=== PATIENT | male | born 1975 | race Caucasian/White ===

== ENCOUNTER 2019-09-02 05:55 | Emergency (ER) | payer OTHER ==
[~2019-09-02] VITALS: Ht 172.7 cm; Wt 95.2 kg
--- OUTSIDE RECORDS SUMMARY | ~2019-09-02 | XMS | Encounter Summary ---
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 2.7* 2.5* 2.8* 3.3* CL 105 104 102 111* CO2 29 27 26 19* BUN 14 14 13 15 CREATININE 1.1 1.1 1.05 0.95 PROT 6.6 -- 6.8 7.1 BILITOT 0.4 -- 0.1 0.3 ALT 41 -- 32 46 AST 20 -- 21 20 Phosphorus: Lab Results Component Value Date PHOS 2.4 08/17/2015 Invalid input(s): LABALBU Recent Labs Lab 08/17/15 0416 08/16/15212108/16/15 1001 MG 1.9 1.9 1.6* No results for input(s): AMYLASE in the last 168 hours. Recent Labs Lab 08/16/15 1001 BEART 0 Recent Labs Lab 08/17/15415 APTT 34* INR 1.3 No results for input(s): TSH, T3FREE, FREET4 in the last 168 hours. No results for input(s): CKTOTAL, TROPONINI, TROPONINT, CKMBINDEX in the last 168 hours.i PROBLEM LIST Principal Problem: Poisoning by salicylate, intentional self-harm ([facility]) Active Problems: Self-inflicted laceration of wrist Suicide attempt by drug ingestion (HCC) Type 2 diabetes mellitus with hyperglycemia (HCC) Hypokalemia Hypertension Bipolar affective disorder, depressed (HCC) Sleep apnea ASSESSMENT & PLAN 1. Suicide attempt by drug ingestion salicylate overdose, he was started on Bicarb drip, Dr Valencia is following, will continue to replace electrolytes, Salicylate level trending d own, normal renal function. 2. Bipolar affective disorder, depressed, consult for psychiatry was done discussed with Alayna Webster, start Seroquel and titrate upwards, will call crisis tomorrow once medically cl eared. 3. Self-inflicted laceration of wrist, no significant bleeding, wound care to follow. 4. Type 2 diabetes mellitus with hyperglycemia, on Metformin at home, hold for now. Sliding scale Novolog. 5. Hypokalemia, replace and monitor. 6. Hypertension, blood pressure is low, Norvasc is on hold. 7. CAMPOS, CPAP at night. 8. DVT prophylaxis SCD Case management to arrange for PCP appointment for management of medical conditions. I spent 35 minutes in examining, evaluating and providing further management for this patie nt today. Francois Robert MD 08/17/2015 8:47 AM Jennifer Cooley RP - 08/16/2015 3:31 PM PST Progress Notes by Jennifer Guerrero RPH at 08/16/15 1531 Author: Jennifer Guerrero RPH Service: (none) Author Type: Pharmacist Filed: 08/16/15 153 Date of Service: 08/16/151530 Status: Signed Charge Master Analyst: Jennifer Guerrero RPH (Pharmacist) Clinical Pharmacy Note - Renal Dose Adjustment Seth Lyon 39 y.o. male Ht Readings from Last 1 Encounters: 08/16/15 1.676 m (5' 6") Wt Readings from Last 1 Encounters: 08/16/15 104 kg (229 lb 4.5 oz) CREATININE Date Value Ref Range Status 08/16/2015 0.95 0.70 - 1.30 mg/dL Final Comment: Testing performed at [facility];[address] [place] [address];[place] [address] CREATININE: 0.95 (08/16/15 1001) Estimated creatinine clearance - 119.1 mL/min Pharmacy to renally adjust medications per Dr. Tapia Plan: No medications will require renal dose adjustment based on patient's current estimate d Crcl. Pharmacy will continue to follow and adjust as appropriate. Pharmacist: Jennifer Guerrero 08/16/2015 3:31 PM onversio n Transaction, Provider Unknown - 08/16/2015 2:24 PM PSTFormatting of this note might be di fferent from the original. Case Management by NIA Bran LICSW at 08/16/15 3230 Author: NIA Bran LICSW Service: (none) Author Type: Clerical Secretary Filed: 08/16/15 8801 Date of Service: 08/16/151423 Status: Signed Charge Master Analyst: NIA Bran LICSW (Clerical Secretary) 08/16/15 1428 Discharge Planning Evaluation Admitting Diagnosis essiential hypertension, Aspirin Overdose-intentional, deprewssion and suicide attempt. Readmission No Living Arrangements Alone Support Systems Family members;Friends/neighbors Type of Residence Private residence House type Apartment Independent with ADL's Yes Independent with Mobility Yes Home Care Services No Caregiver after Discharge No Power of Natural Gas Technician No Anticipated Discharge Plan Post Acute Care Needs Other (comment) (Crisis evaluation due to SA) Plan communicated to patient/family Yes Resources Financial concerns No Prescription Plan Yes Name of Pharmacy [facility] [place] Previous home health equipment No Vascular access device No Anticipated Disposition Facility Type Other (Comment) (CRU to eval for Psychiatric placement) Discharge Appointment Time (72 hours) Met with: patient and discussed discharge planning, No home O2. Reports he is suppose to ta ke an aspirin daily, but does not. No DME. Patient states he cut himself multiple times before and had to have stitches (had to have s titches in more than one cut and one had around 10 stitches). Patient denies thinking about hurting others. No voices, olfactory, or visual hallucination s. No previous psychiatric hospitalizations. Patient is suppose to be taking Seroquel, but does not have a Rx. He was started by a PCP rusty Farias. Patient states he has not taken Seroquel in months. Patient reports his PCP damion gnosed him with Bipolar. Mother, Angy Lyon, Pt is a 39 y.o., male Patient's PCP is: PER PT NONE Patient's insurance:Medicaid Insurance coverage/concerns: No Medication coverage/concerns: No [facility] Bedside Delivery: Community resources utilized / needed: Psychiatric eval and referral. Assistance in transportation: TBD Identification of any specific education / training: Illness education. Barriers to Discharge / Alternative housing needed: TBD-may require involuntary psychiatric services. Anticipated DCP: Psychiatric placement. Martine Gaona onver marla Lopez, Provider Unknown - 08/16/2015 10:15 AM PST Case Management by NIA Bran LICSW at 08/16/15 1015 Author: NIA Bran LICSW Service: (none) Author Type: Clerical Secretary Filed: 08/16/15 1021 Date of Service: 08/16/15 1015 Status: Signed Charge Master Analyst: NIA Bran LICSW (Clerical Secretary) CM received a phone call from Sukumar Daugherty, Tennis Net Maker from [facility] ([phone]), which is the [place] phnoe number. Also, he provided the the ph one number for Crisis Response in [facility] ([phone]). Caller wanted to inform [facility] noé t he would be able to evaluate for services (crisis bed etc). Please call him for discharge planning. docume nted in this encounter Plan of Treatment Not on filedocumented as of this encounter Procedures + +--------+ + + + | Procedure Name | Priori | Date/Time | Associated Diagnosis | Comments | | | ty | | | | + +--------+ + + + | POC GLUCOSE | Routin | 08/18/2015 | | Results for this | | | e | 4:36 PM | | procedure are in the | | | | PST | | results section. | + +--------+ + + + | POC GLUCOSE | Routin | 08/18/2015 | | Results for this | | | e | 12:02 PM | | procedure are in the | | | | PST | | results section. | + +--------+ + + + | BASIC METABOLIC | Routin | 08/18/2015 | | Results for this | | PANEL | e | 8:26 AM | | procedure are in the | | | | PST | | results section. | + +--------+ + + + | POC GLUCOSE | Routin | 08/18/2015 | | Results for this | | | e | 5:17 AM | | procedure are in the | | | | PST | | results section. | + +--------+ + + + | POC GLUCOSE | Routin | 08/17/2015 | | Results for this | | | e | 9:19 PM | | procedure are in the | | | | PST | | results section. | + +--------+ + + + | POC GLUCOSE | Routin | 08/17/2015 | | Results for this | | | e | 4:12 PM | | procedure are in the | | | | PST | | results section. | + +--------+ + + + | SALICYLATE LEVEL | Routin | 08/17/2015 | | Results for this | | | e | 4:09 PM | | procedure are in the | | | | PST | | results section. | + +--------+ + + + | COMPREHENSIVE | Routin | 08/17/2015 | | Results for this | | METABOLIC PANEL | e | 4:09 PM | | procedure are in the | | | | PST | | results section. | + +--------+ + + + | POC GLUCOSE | Routin | 08/17/2015 | | Results for this | | | e | 11:53 AM | | procedure are in the | | | | PST | | results section. | + +--------+ + + + | SALICYLATE LEVEL | Routin | 08/17/2015 | | Results for this | | | e | 7:52 AM | | procedure are in the | | | | PST | | results section. | + +--------+ + + + | COMPREHENSIVE | Routin | 08/17/2015 | | Results for this | | METABOLIC PANEL | e | 7:52 AM | | procedure are in the | | | | PST | | results section. | + +--------+ + + + | POC GLUCOSE | Routin | 08/17/2015 | | Results for this | | | e | 5:30 AM | | procedure are in the | | | | PST | | results section. | + +--------+ + + + | EXTERNAL LAB: CBC | Routin | 08/17/2015 | | Results for this | | | e | 4:16 AM | | procedure are in the | | | | PST | | results section. | + +--------+ + + + | LIPID PANEL | Routin | 08/17/2015 | | Results for this | | | e | 4:16 AM | | procedure are in the | | | | PST | | results section. | + +--------+ + + + | PTT | Routin | 08/17/2015 | | Results for this | | | e | 4:16 AM | | procedure are in the | | | | PST | | results section. | + +--------+ + + + | PROTIME INR | Routin | 08/17/2015 | | Results for this | | | e | 4:16 AM | | procedure are in the | | | | PST | | results section. | + +--------+ + + + | PHOSPHORUS | Routin | 08/17/2015 | | Results for this | | | e | 4:16 AM | | procedure are in the | | | | PST | | results section. | + +--------+ + + + | MAGNESIUM | Routin | 08/17/2015 | | Results for this | | | e | 4:16 AM | | procedure are in the | | | | PST | | results section. | + +--------+ + + + | HEMOGLOBIN A1C | Routin | 08/17/2015 | | Results for this | | | e | 4:16 AM | | procedure are in the | | | | PST | | results section. | + +--------+ + + + | SALICYLATE LEVEL | Routin | 08/16/2015 | | Results for this | | | e | 11:55 PM | | procedure are in the | | | | PST | | results section. | + +--------+ + + + | COMPREHENSIVE | Routin | 08/16/2015 | | Results for this | | METABOLIC PANEL | e | 11:55 PM | | procedure are in the | | | | PST | | results section. | + +--------+ + + + | POC GLUCOSE | Routin | 08/16/2015 | | Results for this | | | e | 9:27 PM | | procedure are in the | | | | PST | | results section. | + +--------+ + + + | MAGNESIUM | Routin | 08/16/2015 | | Results for this | | | e | 9:22 PM | | procedure are in the | | | | PST | | results section. | + +--------+ + + + | BASIC METABOLIC | Routin | 08/16/2015 | | Results for this | | PANEL | e | 9:22 PM | | procedure are in the | | | | PST | | results section. | + +--------+ + + + | POC GLUCOSE | Routin | 08/16/2015 | | Results for this | | | e | 4:01 PM | | procedure are in the | | | | PST | | results section. | + +--------+ + + + | PHOSPHORUS | Routin | 08/16/2015 | | Results for this | | | e | 4:00 PM | | procedure are in the | | | | PST | | results section. | + +--------+ + + + | SALICYLATE LEVEL | Routin | 08/16/2015 | | Results for this | | | e | 4:00 PM | | procedure are in the | | | | PST | | results section. | + +--------+ + + + | COMPREHENSIVE | Routin | 08/16/2015 | | Results for this | | METABOLIC PANEL | e | 4:00 PM | | procedure are in the | | | | PST | | results section. | + +--------+ + + + | PH, VENOUS | Routin | 08/16/2015 | | Results for this | | | e | 10:49 AM | | procedure are in the | | | | PST | | results section. | + +--------+ + + + | MAGNESIUM | Routin | 08/16/2015 | | Results for this | | | e | 10:01 AM | | procedure are in the | | | | PST | | results section. | + +--------+ + + + | SALICYLATE LEVEL | Routin | 08/16/2015 | | Results for this | | | e | 10:01 AM | | procedure are in the | | | | PST | | results section. | + +--------+ + + + | COMPREHENSIVE | Routin | 08/16/2015 | | Results for this | | METABOLIC PANEL | e | 10:01 AM | | procedure are in the | | | | PST | | results section. | + +--------+ + + + documented in this encounter Results POC Glucose (08/18/2015 4:36 PM PST) + + + + + + | Component | Value | Ref Range | Performed | Pathologist | | | | | At | Signature | + + + + + + | Glucose, | 114 (H)Comment: Testing | 65 - 99 mg/dL | EXTERNAL | | | Fingerstick | performed at [facility];[address] | | LAB | | | | [address];[place] | | | | | | [address] | | | | + + + + + + + + | Specimen | + + | | + + + +---------+ + + | Performing | Address | City/State/Zipcode | Phone Number | | Organization | | | | + +---------+ + + | EXTERNAL LAB | | | | + +---------+ + + POC Glucose (08/18/2015 12:02 PM PST) + + + + + + | Component | Value | Ref Range | Performed | Pathologist | | | | | At | Signature | + + + + + + | Glucose, | 143 (H)Comment: Testing | 65 - 99 mg/dL | EXTERNAL | | | Fingerstick | performed at [facility] | | LAB | | | | [address];[place] | | | | | | [address] | | | | + + + + + + + + | Specimen | + + | | + + + +---------+ + + | Performing | Address | City/State/Zipcode | Phone Number | | Organization | | | | + +---------+ + + | EXTERNAL LAB | | | | + +---------+ + + Basic Metabolic Panel (08/18/2015 8:26 AM PST) + + + + + + | Component | Value | Ref Range | Performed | Pathologist | | | | | At | Signature | + + + + + + | Na | 137Comment: Testing | 135 - 143 | EXTERNAL | | | | performed at [facility];[address] | mmol/L | LAB | | | | [address];[place] | | | | | | [address] | | | | + + + + + + | K | 3.6Comment: Testing | 3.5 - 4.9 | EXTERNAL | | | | performed at [facility];[address] | mmol/L | LAB | | | | [address];[place] | | | | | | [address] | | | | + + + + + + | Cl | 104Comment: Testing | 99 - 109 mmol/L | EXTERNAL | | | | performed at [facility];[address] | | LAB | | | | [address];[place] | | | | | | [address] | | | | + + + + + + | CO2 | 27Comment: Testing | 23 - 32 mmol/L | EXTERNAL | | | | performed at [facility];[address] | | LAB | | | | [address];[place] | | | | | | [address] | | | | + + + + + + | Anion Gap | 10Comment: Testing | 5 - 20 mmol/L | EXTERNAL | | | | performed at [facility];[address] | | LAB | | | | [address];[place] | | | | | | [address] | | | | + + + + + + | Glucose, | 132 (H)Comment: Testing | 65 - 99 mg/dL | EXTERNAL | | | Fasting | performed at [facility];[address] | | LAB | | | | [address];[place] | | | | | | [address] | | | | + + + + + + | BUN | 5 (L)Comment: Testing | 8 - 25 mg/dL | EXTERNAL | | | | performed at [facility];[address] | | LAB | | | | [address];[place] | | | | | | [address] | | | | + + + + + + | Creatinine | 0.62 (L)Comment: Testing | 0.70 - 1.30 | EXTERNAL | | | | performed at [facility];[address] | mg/dL | LAB | | | | [address];[place] | | | | | | [address] | | | | + + + + + + | BUN/Creatin | 8Comment: Testing | | EXTERNAL | | | ine Ratio | performed at [facility];[address] | | LAB | | | | [address];[place] | | | | | | [address] | | | | + + + + + + | Calcium | 8.0 (L)Comment: Testing | 8.5 - 10.5 | EXTERNAL | | | | performed at [facility];[address] | mg/dL | LAB | | | | [address];[place] | | | | | | [address] | | | | + + + + + + | Estimated | >60Comment: GFR <60: | mL/min/1.73m2 | EXTERNAL | | | GFR | CHRONIC KIDNEY DISEASE, | | LAB | | | | IF FOUND OVER A 3 MONTH | | | | | | PERIOD.GFR <15: KIDNEY | | | | | | FAILURE.FOR | | | | | | AMERICANS, MULTIPLY THE | | | | | | CALCULATED GFR BY | | | | | | 1.210.Testing performed | | | | | | at [facility];[address] | | | | | | [address];[place] [address] | | | | + + + + + + + + | Specimen | + + | Blood specimen | | (specimen) | + + + +---------+ + + | Performing | Address | City/State/Zipcode | Phone Number | | Organization | | | | + +---------+ + + | EXTERNAL LAB | | | | + +---------+ + + POC Glucose (08/18/2015 5:17 AM PST) + + + + + + | Component | Value | Ref Range | Performed | Pathologist | | | | | At | Signature | + + + + + + | Glucose, | 136 (H)Comment: Testing | 65 - 99 mg/dL | EXTERNAL | | | Fingerstick | performed at [facility];[address] | | LAB | | | | [address];[place], [place] | | | | | | [address] | | | | + + + + + + + + | Specimen | + + | | + + + +---------+ + + | Performing | Address | City/State/Zipcode | Phone Number | | Organization | | | | + +---------+ + + | EXTERNAL LAB | | | | + +---------+ + + POC Glucose (08/17/2015 9:19 PM PST) + + + + + + | Component | Value | Ref Range | Performed | Pathologist | | | | | At | Signature | + + + + + + | Glucose, | 132 (H)Comment: Testing | 65 - 99 mg/dL | EXTERNAL | | | Fingerstick | performed at [facility];[address] | | LAB | | | | [address];[place] | | | | | | [address] | | | | + + + + + + + + | Specimen | + + | | + + + +---------+ + + | Performing | Address | City/State/Zipcode | Phone Number | | Organization | | | | + +---------+ + + | EXTERNAL LAB | | | | + +---------+ + + POC Glucose (08/17/2015 4:12 PM PST) + + + + + + | Component | Value | Ref Range | Performed | Pathologist | | | | | At | Signature | + + + + + + | Glucose, | 113 (H)Comment: Testing | 65 - 99 mg/dL | EXTERNAL | | | Fingerstick | performed at [facility];[address] | | LAB | | | | [address];[place] | | | | | | [address] | | | | + + + + + + + + | Specimen | + + | | + + + +---------+ + + | Performing | Address | City/State/Zipcode | Phone Number | | Organization | | | | + +---------+ + + | EXTERNAL LAB | | | | + +---------+ + + Salicylate Level (08/17/2015 4:09 PM PST) + + + + + + | Component | Value | Ref Range | Performed | Pathologist | | | | | At | Signature | + + + + + + | Salicylate | 7.0Comment: Testing | 2.8 - 20.0 | EXTERNAL | | | Lvl | performed at [facility];[address] | mg/dL | LAB | | | | [address];[place] | | | | | | [address] | | | | + + + + + + + + | Specimen | + + | Blood specimen | | (specimen) | + + + +---------+ + + | Performing | Address | City/State/Zipcode | Phone Number | | Organization | | | | + +---------+ + + | EXTERNAL LAB | | | | + +---------+ + + Comprehensive Metabolic Panel (08/17/2015 4:09 PM PST) + + + + + + | Component | Value | Ref Range | Performed | Pathologist | | | | | At | Signature | + + + + + + | Na | 137Comment: Testing | 135 - 143 | EXTERNAL | | | | performed at [facility], [address] | mmol/L | LAB | | | | [address], | | | | | | [place] [address] | | | | + + + + + + | K | 3.2 (L)Comment: Testing | 3.5 - 4.9 | EXTERNAL | | | | performed at [facility], [address] | mmol/L | LAB | | | | [address], | | | | | | [place] [address] | | | | + + + + + + | Cl | 102Comment: Testing | 99 - 109 mmol/L | EXTERNAL | | | | performed at [facility], [address] | | LAB | | | | [address], | | | | | | [place] [address] | | | | + + + + + + | CO2 | 30Comment: Testing | 23 - 32 mmol/L | EXTERNAL | | | | performed at [facility], [address] | | LAB | | | | [address], | | | | | | [place] [address] | | | | + + + + + + | Anion Gap | 8Comment: Testing | 5 - 20 mmol/L | EXTERNAL | | | | performed at [facility], [address] | | LAB | | | | [address], | | | | | | [place] [address] | | | | + + + + + + | Glucose, | 124 (H)Comment: Testing | 65 - 99 mg/dL | EXTERNAL | | | Fasting | performed at [facility], [address] | | LAB | | | | [address], | | | | | | [place] [address] | | | | + + + + + + | BUN | 7 (L)Comment: Testing | 8 - 25 mg/dL | EXTERNAL | | | | performed at [facility], [address] | | LAB | | | | [address], | | | | | | [place] [address] | | | | + + + + + + | Creatinine | 0.74Comment: Testing | 0.70 - 1.30 | EXTERNAL | | | | performed at [facility], [address] | mg/dL | LAB | | | | [address], | | | | | | [place] [address] | | | | + + + + + + | BUN/Creatin | 9Comment: Testing | | EXTERNAL | | | ine Ratio | performed at [facility], [address] | | LAB | | | | [address], | | | | | | [place] [address] | | | | + + + + + + | Calcium | 8.5Comment: Testing | 8.5 - 10.5 | EXTERNAL | | | | performed at [facility], [address] | mg/dL | LAB | | | | [address], | | | | | | [place] [address] | | | | + + + + + + | Protein, | 5.6 (L)Comment: Testing | 6.3 - 8.2 g/dL | EXTERNAL | | | Total | performed at [facility], [address] | | LAB | | | | [address], | | | | | | [place] [address] | | | | + + + + + + | Albumin | 3.6Comment: Testing | 3.6 - 5.0 g/dL | EXTERNAL | | | | performed at [facility], [address] | | LAB | | | | [address], | | | | | | [place] [address] | | | | + + + + + + | Globulin | 2.0Comment: Testing | 1.3 - 4.9 g/dL | EXTERNAL | | | | performed at [facility], [address] | | LAB | | | | [address], | | | | | | [place] [address] | | | | + + + + + + | A/G Ratio | 1.8Comment: Testing | 1.0 - 2.4 | EXTERNAL | | | | performed at [facility], [address] | | LAB | | | | [address], | | | | | | [place] [address] | | | | + + + + + + | Bilirubin | 0.3Comment: Testing | 0.1 - 1.5 mg/dL | EXTERNAL | | | Total | performed at [facility], [address] | | LAB | | | | [address], | | | | | | [place] [address] | | | | + + + + + + | ALP, | 29 (L)Comment: Testing | 35 - 115 U/L | EXTERNAL | | | External | performed at [facility], [address] | | LAB | | | | [address], | | | | | | [place] [address] | | | | + + + + + + | AST | 20Comment: Testing | 10 - 45 U/L | EXTERNAL | | | | performed at [facility], [address] | | LAB | | | | [address], | | | | | | [place] [address] | | | | + + + + + + | ALT | 25Comment: Testing | 10 - 65 U/L | EXTERNAL | | | | performed at [facility], [address] | | LAB | | | | [facility], | | | | | | [place] [address] | | | | + + + + + + | Estimated | >60Comment: GFR <60: | mL/min/1.73m2 | EXTERNAL | | | GFR | CHRONIC KIDNEY DISEASE, | | LAB | | | | IF FOUND OVER A 3 MONTH | | | | | | PERIOD.GFR <15: KIDNEY | | | | | | FAILURE.FOR | | | | | | AMERICANS, MULTIPLY THE | | | | | | CALCULATED GFR BY | | | | | | 1.210.Testing performed | | | | | | at [facility], [address] | | | | | | [facility], | | | | | | [place] [address] | | | | + + + + + + + + | Specimen | + + | Blood specimen | | (specimen) | + + + +---------+ + + | Performing | Address | City/State/Zipcode | Phone Number | | Organization | | | | + +---------+ + + | EXTERNAL LAB | | | | + +---------+ + + POC Glucose (08/17/2015 11:53 AM PST) + + + + + + | Component | Value | Ref Range | Performed | Pathologist | | | | | At | Signature | + + + + + + | Glucose, | 150 (H)Comment: Testing | 65 - 99 mg/dL | EXTERNAL | | | Fingerstick | performed at [facility];[address] | | LAB | | | | [address];[place], [place] | | | | | | [address] | | | | + + + + + + + + | Specimen | + + | | + + + +---------+ + + | Performing | Address | City/State/Zipcode | Phone Number | | Organization | | | | + +---------+ + + | EXTERNAL LAB | | | | + +---------+ + + Salicylate Level (08/17/2015 7:52 AM PST) + + + + + + | Component | Value | Ref Range | Performed | Pathologist | | | | | At | Signature | + + + + + + | Salicylate | 22.4 (H)Comment: Testing | 2.8 - 20.0 | EXTERNAL | | | Lvl | performed at [facility];[address] | mg/dL | LAB | | | | [address];[place], [place] | | | | | | [address] | | | | + + + + + + + + | Specimen | + + | Blood specimen | | (specimen) | + + + +---------+ + + | Performing | Address | City/State/Zipcode | Phone Number | | Organization | | | | + +---------+ + + | EXTERNAL LAB | | | | + +---------+ + + Comprehensive Metabolic Panel (08/17/2015 7:52 AM PST) + + + + + + | Component | Value | Ref Range | Performed | Pathologist | | | | | At | Signature | + + + + + + | Na | 139Comment: Testing | 135 - 143 | EXTERNAL | | | | performed at [facility], [address] | mmol/L | LAB | | | | [address], | | | | | | [place] [address] | | | | + + + + + + | K | 2.8 (L)Comment: Testing | 3.5 - 4.9 | EXTERNAL | | | | performed at [facility], [address] | mmol/L | LAB | | | | [address], | | | | | | [place] [address] | | | | + + + + + + | Cl | 101Comment: Testing | 99 - 109 mmol/L | EXTERNAL | | | | performed at [facility], [address] | | LAB | | | | [address] [address], | | | | | | [place] [address] | | | | + + + + + + | CO2 | 31Comment: Testing | 23 - 32 mmol/L | EXTERNAL | | | | performed at [facility], [address] | | LAB | | | | [address], | | | | | | [place] [address] | | | | + + + + + + | Anion Gap | 10Comment: Testing | 5 - 20 mmol/L | EXTERNAL | | | | performed at [facility], [address] | | LAB | | | | [address], | | | | | | [place] [address] | | | | + + + + + + | Glucose, | 164 (H)Comment: Testing | 65 - 99 mg/dL | EXTERNAL | | | Fasting | performed at [facility], [address] | | LAB | | | | [address], | | | | | | [place] [address] | | | | + + + + + + | BUN | 10Comment: Testing | 8 - 25 mg/dL | EXTERNAL | | | | performed at [facility], [address] | | LAB | | | | [address], | | | | | | [place] [address] | | | | + + + + + + | Creatinine | 0.88Comment: Testing | 0.70 - 1.30 | EXTERNAL | | | | performed at [facility], [address] | mg/dL | LAB | | | | [address], | | | | | | [place] [address] | | | | + + + + + + | BUN/Creatin | 11Comment: Testing | | EXTERNAL | | | ine Ratio | performed at [facility], [address] | | LAB | | | | [address], | | | | | | [place] [address] | | | | + + + + + + | Calcium | 8.6Comment: Testing | 8.5 - 10.5 | EXTERNAL | | | | performed at [facility], [address] | mg/dL | LAB | | | | [address], | | | | | | [place] [address] | | | | + + + + + + | Protein, | 5.5 (L)Comment: Testing | 6.3 - 8.2 g/dL | EXTERNAL | | | Total | performed at [facility], [address] | | LAB | | | | [address], | | | | | | [place] [address] | | | | + + + + + + | Albumin | 3.7Comment: Testing | 3.6 - 5.0 g/dL | EXTERNAL | | | | performed at [facility], [address] | | LAB | | | | [address], | | | | | | [place] [address] | | | | + + + + + + | Globulin | 1.8Comment: Testing | 1.3 - 4.9 g/dL | EXTERNAL | | | | performed at [facility], [address] | | LAB | | | | [address], | | | | | | [place] [address] | | | | + + + + + + | A/G Ratio | 2.1Comment: Testing | 1.0 - 2.4 | EXTERNAL | | | | performed at [facility], [address] | | LAB | | | | [address], | | | | | | [place] [address] | | | | + + + + + + | Bilirubin | 0.2Comment: Testing | 0.1 - 1.5 mg/dL | EXTERNAL | | | Total | performed at [facility], [address] | | LAB | | | | [address], | | | | | | [place] [address] | | | | + + + + + + | ALP, | 26 (L)Comment: Testing | 35 - 115 U/L | EXTERNAL | | | External | performed at [facility], [address] | | LAB | | | | [address], | | | | | | [place] [address] | | | | + + + + + + | AST | 21Comment: Testing | 10 - 45 U/L | EXTERNAL | | | | performed at [facility], [address] | | LAB | | | | [address], | | | | | | [place] [address] | | | | + + + + + + | ALT | 29Comment: Testing | 10 - 65 U/L | EXTERNAL | | | | performed at [facility], [address] | | LAB | | | | [address], | | | | | | [place] [address] | | | | + + + + + + | Estimated | >60Comment: GFR <60: | mL/min/1.73m2 | EXTERNAL | | | GFR | CHRONIC KIDNEY DISEASE, | | LAB | | | | IF FOUND OVER A 3 MONTH | | | | | | PERIOD.GFR <15: KIDNEY | | | | | | FAILURE.FOR | | | | | | AMERICANS, MULTIPLY THE | | | | | | CALCULATED GFR BY | | | | | | 1.210.Testing performed | | | | | | at [facility], [address] | | | | | | [address], | | | | | | [place] [address] | | | | + + + + + + + + | Specimen | + + | Blood specimen | | (specimen) | + + + +---------+ + + | Performing | Address | City/State/Zipcode | Phone Number | | Organization | | | | + +---------+ + + | EXTERNAL LAB | | | | + +---------+ + + POC Glucose (08/17/2015 5:30 AM PST) + + + + + + | Component | Value | Ref Range | Performed | Pathologist | | | | | At | Signature | + + + + + + | Glucose, | 156 (H)Comment: Testing | 65 - 99 mg/dL | EXTERNAL | | | Fingerstick | performed at [facility];[address] | | LAB | | | | [address];[place] | | | | | | [address] | | | | + + + + + + + + | Specimen | + + | | + + + +---------+ + + | Performing | Address | City/State/Zipcode | Phone Number | | Organization | | | | + +---------+ + + | EXTERNAL LAB | | | | + +---------+ + + PTT (08/17/2015 4:16 AM PST) + + + + + + | Component | Value | Ref Range | Performed | Pathologist | | | | | At | Signature | + + + + + + | aPTT, | 34 (H)Comment: Testing | 23 - 32 seconds | EXTERNAL | | | Patient | performed at [facility];[address] | | LAB | | | | [address];[place] | | | | | | [address] | | | | + + + + + + + + | Specimen | + + | Blood specimen | | (specimen) | + + + +---------+ + + | Performing | Address | City/State/Zipcode | Phone Number | | Organization | | | | + +---------+ + + | EXTERNAL LAB | | | | + +---------+ + + Protime INR (08/17/2015 4:16 AM PST) + + + + + + | Component | Value | Ref Range | Performed | Pathologist | | | | | At | Signature | + + + + + + | INR | 1.3Comment: REFERENCE | | EXTERNAL | | | | RANGE:0.9 - 1.2 | | LAB | | | | NON-ANTICOAGULATED2.0 | | | | | | - 3.0 ALL OTHER | | | | | | THERAPEUTIC | | | | | | INDICATIONS2.5 - 3.5 | | | | | | MECHANICAL HEART VALVES, | | | | | | RECURRENT OR SYSTEMIC | | | | | | EMBOLISMTesting | | | | | | performed at [facility];[address] | | | | | | [address] [facility];[place], [place] | | | | | | [address] | | | | + + + + + + + + | Specimen | + + | Blood specimen | | (specimen) | + + + +---------+ + + | Performing | Address | City/State/Zipcode | Phone Number | | Organization | | | | + +---------+ + + | EXTERNAL LAB | | | | + +---------+ + + External Lab: CBC (08/17/2015 4:16 AM PST) + + + + + + | Component | Value | Ref Range | Performed | Pathologist | | | | | At | Signature | + + + + + + | WBC | 8.47Comment: Testing | 3.80 - 11.00 | EXTERNAL | | | | performed at [facility], [address] | K/uL | LAB | | | | [address], | | | | | | [place] [address] | | | | + + + + + + | RED CELL | 4.14 (L)Comment: Testing | 4.20 - 5.70 | EXTERNAL | | | COUNT | performed at [facility], [address] | M/uL | LAB | | | | [address], | | | | | | [place] [address] | | | | + + + + + + | Hgb | 13.2Comment: Testing | 13.2 - 17.0 | EXTERNAL | | | | performed at [facility], [address] | g/dL | LAB | | | | [address], | | | | | | [place] [address] | | | | + + + + + + | Hematocrit, | 38.9 (L)Comment: Testing | 39.0 - 50.0 % | EXTERNAL | | | POC | performed at [facility], [address] | | LAB | | | | [address], | | | | | | [place] [address] | | | | + + + + + + | MCV | 94.0Comment: Testing | 80.0 - 100.0 fl | EXTERNAL | | | | performed at [facility], [address] | | LAB | | | | [address], | | | | | | [place] [address] | | | | + + + + + + | MCH | 31.8Comment: Testing | 27.0 - 34.0 pg | EXTERNAL | | | | performed at [facility], [address] | | LAB | | | | [address], | | | | | | [place] [address] | | | | + + + + + + | MCHC | 33.8Comment: Testing | 32.0 - 35.5 | EXTERNAL | | | | performed at [facility], [address] | g/dL | LAB | | | | [address], | | | | | | [place] [address] | | | | + + + + + + | RDW-CV | 46.8Comment: Testing | 37 - 53 fl | EXTERNAL | | | | performed at [facility], [address] | | LAB | | | | [address], | | | | | | [place] [address] | | | | + + + + + + | Platelet | 237Comment: Testing | 150 - 400 K/uL | EXTERNAL | | | Count | performed at [facility], [address] | | LAB | | | Plasma | [address], | | | | | | [place] [address] | | | | + + + + + + | MPV | 9.4Comment: Testing | fl | EXTERNAL | | | | performed at [facility], [address] | | LAB | | | | [address], | | | | | | [place] [address] | | | | + + + + + + | Differentia | AUTOMATEDComment: | | EXTERNAL | | | l Type | Testing performed at | | LAB | | | | [facility], [address] | | | | | | [place] | | | | | | [address] | | | | + + + + + + | % Segmented | 52.64Comment: Testing | % | EXTERNAL | | | | performed at [facility], [address] | | LAB | | | Neutrophils | [address], | | | | | | [place] [address] | | | | + + + + + + | % | 35.23Comment: Testing | % | EXTERNAL | | | Lymphocytes | performed at [facility], [address] | | LAB | | | | [address], | | | | | | [place] [address] | | | | + + + + + + | % Monocytes | 9.74Comment: Testing | % | EXTERNAL | | | | performed at [facility], [address] | | LAB | | | | [address], | | | | | | [place] [address] | | | | + + + + + + | % | 1.19Comment: Testing | % | EXTERNAL | | | Eosinophils | performed at [facility], [address] | | LAB | | | | [address], | | | | | | [place] [address] | | | | + + + + + + | % Basophils | 1.20Comment: Testing | % | EXTERNAL | | | | performed at [facility], [address] | | LAB | | | | [address], | | | | | | [place] [address] | | | | + + + + + + | Absolute | 4.46Comment: Testing | 1.90 - 7.40 | EXTERNAL | | | Segmented | performed at [facility], [address] | K/uL | LAB | | | Neutrophils | [address], | | | | | | [place] [address] | | | | + + + + + + | Absolute | 2.99Comment: Testing | 1.00 - 3.90 | EXTERNAL | | | Lymphocytes | performed at [facility], [address] | K/uL | LAB | | | | [address], | | | | | | [place] [address] | | | | + + + + + + | Absolute | 0.83 (H)Comment: Testing | 0.00 - 0.80 | EXTERNAL | | | Monocytes | performed at [facility], [address] | K/uL | LAB | | | | [address], | | | | | | [place] [address] | | | | + + + + + + | Absolute | 0.10Comment: Testing | 0.00 - 0.50 | EXTERNAL | | | Eosinophils | performed at [facility], [address] | K/uL | LAB | | | | [address], | | | | | | [place] [address] | | | | + + + + + + | Absolute | 0.10Comment: Testing | 0.00 - 0.10 | EXTERNAL | | | Basophils | performed at [facility], [address] | K/uL | LAB | | | | [address], | | | | | | [place] [address] | | | | + + + + + + + + | Specimen | + + | Blood specimen | | (specimen) | + + + +---------+ + + | Performing | Address | City/State/Zipcode | Phone Number | | Organization | | | | + +---------+ + + | EXTERNAL LAB | | | | + +---------+ + + Phosphorus (08/17/2015 4:16 AM PST) + + + + + + | Component | Value | Ref Range | Performed | Pathologist | | | | | At | Signature | + + + + + + | PHOSPHORUS | 2.4Comment: Testing | 2.3 - 4.8 mg/dL | EXTERNAL | | | | performed at [facility], [address] | | LAB | | | | [address], | | | | | | [place] [address] | | | | + + + + + + + + | Specimen | + + | Blood specimen | | (specimen) | + + + +---------+ + + | Performing | Address | City/State/Zipcode | Phone Number | | Organization | | | | + +---------+ + + | EXTERNAL LAB | | | | + +---------+ + + Magnesium (08/17/2015 4:16 AM PST) + + + + + + | Component | Value | Ref Range | Performed | Pathologist | | | | | At | Signature | + + + + + + | Magnesium | 1.9Comment: Testing | 1.7 - 2.4 mg/dL | EXTERNAL | | | | performed at [facility], [address] | | LAB | | | | [address], | | | | | | [place] [address] | | | | + + + + + + + + | Specimen | + + | Blood specimen | | (specimen) | + + + +---------+ + + | Performing | Address | City/State/Zipcode | Phone Number | | Organization | | | | + +---------+ + + | EXTERNAL LAB | | | | + +---------+ + + Hemoglobin A1C (08/17/2015 4:16 AM PST) + + + + + + | Component | Value | Ref Range | Performed | Pathologist | | | | | At | Signature | + + + + + + | Hemoglobin | 8.4 (H)Comment: The | 4.0 - 6.0 % | EXTERNAL | | | A1c | [facility] | | LAB | | | | Association considers a | | | | | | hemoglobin A1c result of | | | | | | <7.0% to be the goal of | | | | | | diabetic therapy. | | | | | | When results are | | | | | | consistently >8.0%, the | | | | | | ADA suggests | | | | | | reevaluation of the | | | | | | treatment regimen. The | | | | | | testing method used is | | | | | | certified traceable to | | | | | | the Diabetes Control and | | | | | | Complications Trial | | | | | | reference method.Testing | | | | | | performed at [facility], [address] | | | | | [address], | | | | | | [place] [address] | | | | + + + + + + | Glycohemogl | 194Comment: The ADA | mg/dL | EXTERNAL | | | obin | considers an eAG result | | LAB | | | (GHb),Total | of LT 154 mg/dL to be | | | | | | the goal of diabetic | | | | | | therapy. Estimated | | | | | | Average Glucose | | | | | | calculated from | | | | | | hemoglobin A1c by use of | | | | | | the ADA recommended | | | | | | formula.Testing | | | | | | performed at [facility], [address] | | | | | | [facility], | | | | | | [place] [address] | | | | + + + + + + + + | Specimen | + + | Blood specimen | | (specimen) | + + + +---------+ + + | Performing | Address | City/State/Zipcode | Phone Number | | Organization | | | | + +---------+ + + | EXTERNAL LAB | | | | + +---------+ + + Lipid Panel (08/17/2015 4:16 AM PST) + + + + + + | Component | Value | Ref Range | Performed | Pathologist | | | | | At | Signature | + + + + + + | Cholesterol | 122Comment: Testing | mg/dL | EXTERNAL | | | | performed at [facility], [address] | | LAB | | | | [address], | | | | | | [place] [address] | | | | + + + + + + | Triglycerid | 85Comment: Testing | mg/dL | EXTERNAL | | | es | performed at [facility], [address] | | LAB | | | | [address], | | | | | | [place] [address] | | | | + + + + + + | HDL | 34 (L)Comment: Testing | mg/dL | EXTERNAL | | | | performed at [facility], [address] | | LAB | | | | [address] [facility], | | | | | | [place] [address] | | | | + + + + + + | LDL | 71Comment: Testing | mg/dL | EXTERNAL | | | Cholesterol | performed at [facility], [address] | | LAB | | | , | [address], | | | | | Calculated, | [place] [address] | | | | | External | | | | | + + + + + + + + | Specimen | + + | Blood specimen | | (specimen) | + + + +---------+ + + | Performing | Address | City/State/Zipcode | Phone Number | | Organization | | | | + +---------+ + + | EXTERNAL LAB | | | | + +---------+ + + Salicylate Level (08/16/2015 11:55 PM PST) + + + + + + | Component | Value | Ref Range | Performed | Pathologist | | | | | At | Signature | + + + + + + | Salicylate | 43.1 (H)Comment: Testing | 2.8 - 20.0 | EXTERNAL | | | Lvl | performed at [facility];[address] | mg/dL | LAB | | | | [address];[place], [place] | | | | | | [address] | | | | + + + + + + + + | Specimen | + + | Blood specimen | | (specimen) | + + + +---------+ + + | Performing | Address | City/State/Zipcode | Phone Number | | Organization | | | | + +---------+ + + | EXTERNAL LAB | | | | + +---------+ + + Comprehensive Metabolic Panel (08/16/2015 11:55 PM PST) + + + + + + | Component | Value | Ref Range | Performed | Pathologist | | | | | At | Signature | + + + + + + | Na | 141Comment: Testing | 135 - 143 | EXTERNAL | | | | performed at [facility];[address] | mmol/L | LAB | | | | [address];[place] | | | | | | [address] | | | | + + + + + + | K | 2.7 (LL)Comment: CALLED | 3.5 - 4.9 | EXTERNAL | | | | TO MALIHA Jesus RN/4RP AT | mmol/L | LAB | | | | 0023 BY MWREAD BACK | | | | | | RESULTS VERIFIEDTesting | | | | | | performed at [facility];[address] | | | | | | [address];[place] | | | | | | [address] | | | | + + + + + + | Cl | 105Comment: Testing | 99 - 109 mmol/L | EXTERNAL | | | | performed at [facility];[address] | | LAB | | | | [address];[place] | | | | | | [address] | | | | + + + + + + | CO2 | 29Comment: Testing | 23 - 32 mmol/L | EXTERNAL | | | | performed at [facility];[address] | | LAB | | | | [address];[place] | | | | | | [address] | | | | + + + + + + | Anion Gap | 10Comment: Testing | 5 - 20 mmol/L | EXTERNAL | | | | performed at [facility];[address] | | LAB | | | | [address];[place] | | | | | | [address] | | | | + + + + + + | Glucose, | 109 (H)Comment: Testing | 65 - 99 mg/dL | EXTERNAL | | | Fasting | performed at [facility];[address] | | LAB | | | | [address];[place] | | | | | | [address] | | | | + + + + + + | BUN | 14Comment: Testing | 8 - 25 mg/dL | EXTERNAL | | | | performed at [facility];[address] | | LAB | | | | [address];[place] | | | | | | [address] | | | | + + + + + + | Creatinine | 1.1Comment: Testing | 0.70 - 1.30 | EXTERNAL | | | | performed at [facility];[address] | mg/dL | LAB | | | | [address];[place] | | | | | | [address] | | | | + + + + + + | BUN/Creatin | 13Comment: Testing | | EXTERNAL | | | ine Ratio | performed at [facility];[address] | | LAB | | | | [address];[place] | | | | | | [address] | | | | + + + + + + | Calcium | 8.1 (L)Comment: Testing | 8.5 - 10.5 | EXTERNAL | | | | performed at [facility];[address] | mg/dL | LAB | | | | [address];[place] | | | | | | [address] | | | | + + + + + + | Protein, | 6.6Comment: Testing | 6.3 - 8.2 g/dL | EXTERNAL | | | Total | performed at [facility];[address] | | LAB | | | | [address];[place] | | | | | | [address] | | | | + + + + + + | Albumin | 3.6Comment: Testing | 3.6 - 5.0 g/dL | EXTERNAL | | | | performed at [facility];[address] | | LAB | | | | [address];[place] | | | | | | [address] | | | | + + + + + + | Globulin | 3.0Comment: Testing | 1.3 - 4.9 g/dL | EXTERNAL | | | | performed at [facility];[address] | | LAB | | | | [address];[place] | | | | | | [address] | | | | + + + + + + | A/G Ratio | 1.2Comment: Testing | 1.0 - 2.4 | EXTERNAL | | | | performed at [facility];[address] | | LAB | | | | [address];[place] | | | | | | [address] | | | | + + + + + + | Bilirubin | 0.4Comment: Testing | 0.1 - 1.5 mg/dL | EXTERNAL | | | Total | performed at [facility];[address] | | LAB | | | | [address];[place] | | | | | | [address] | | | | + + + + + + | ALP, | 43Comment: Testing | 35 - 115 U/L | EXTERNAL | | | External | performed at [facility];[address] | | LAB | | | | [address];[place] | | | | | | [address] | | | | + + + + + + | AST | 20Comment: Testing | 10 - 45 U/L | EXTERNAL | | | | performed at [facility];[address] | | LAB | | | | [address];[place] | | | | | | [address] | | | | + + + + + + | ALT | 41Comment: Testing | 10 - 65 U/L | EXTERNAL | | | | performed at [facility];[address] | | LAB | | | | [address] [facility];[place], [place] | | | | | | [address] | | | | + + + + + + | Estimated | >60Comment: GFR <60: | mL/min/1.73m2 | EXTERNAL | | | GFR | CHRONIC KIDNEY DISEASE, | | LAB | | | | IF FOUND OVER A 3 MONTH | | | | | | PERIOD.GFR <15: KIDNEY | | | | | | FAILURE.FOR | | | | | | AMERICANS, MULTIPLY THE | | | | | | CALCULATED GFR BY | | | | | | 1.210.Testing performed | | | | | | at [facility];[address];[place] [address] | | | | + + + + + + + + | Specimen | + + | Blood specimen | | (specimen) | + + + +---------+ + + | Performing | Address | City/State/Zipcode | Phone Number | | Organization | | | | + +---------+ + + | EXTERNAL LAB | | | | + +---------+ + + POC Glucose (08/16/2015 9:27 PM PST) + + + + + + | Component | Value | Ref Range | Performed | Pathologist | | | | | At | Signature | + + + + + + | Glucose, | 156 (H)Comment: Testing | 65 - 99 mg/dL | EXTERNAL | | | Fingerstick | performed at [facility];[address] | | LAB | | | | [address];[place] | | | | | | [address] | | | | + + + + + + + + | Specimen | + + | | + + + +---------+ + + | Performing | Address | City/State/Zipcode | Phone Number | | Organization | | | | + +---------+ + + | EXTERNAL LAB | | | | + +---------+ + + Magnesium (08/16/2015 9:22 PM PST) + + + + + + | Component | Value | Ref Range | Performed | Pathologist | | | | | At | Signature | + + + + + + | Magnesium | 1.9Comment: Testing | 1.7 - 2.4 mg/dL | EXTERNAL | | | | performed at [facility];[address] | | LAB | | | | [address];[place], [place] | | | | | | [address] | | | | + + + + + + + + | Specimen | + + | | + + + +---------+ + + | Performing | Address | City/State/Zipcode | Phone Number | | Organization | | | | + +---------+ + + | EXTERNAL LAB | | | | + +---------+ + + Basic Metabolic Panel (08/16/2015 9:22 PM PST) + + + + + + | Component | Value | Ref Range | Performed | Pathologist | | | | | At | Signature | + + + + + + | Na | 137Comment: Testing | 135 - 143 | EXTERNAL | | | | performed at [facility];[address] | mmol/L | LAB | | | | [address];[place] | | | | | | [address] | | | | + + + + + + | K | 2.5 (LL)Comment: CALLED | 3.5 - 4.9 | EXTERNAL | | | | NURSING MALIHA MARTIN | mmol/L | LAB | | | | AT [address] [facility] BACK | | | | | | RESULTS VERIFIEDTesting | | | | | | performed at [facility];[address] | | | | | | [address];[place] | | | | | | [address] | | | | + + + + + + | Cl | 104Comment: Testing | 99 - 109 mmol/L | EXTERNAL | | | | performed at [facility];[address] | | LAB | | | | [address];[place] | | | | | | [address] | | | | + + + + + + | CO2 | 27Comment: Testing | 23 - 32 mmol/L | EXTERNAL | | | | performed at [facility];[address] | | LAB | | | | [address];[place] | | | | | | [address] | | | | + + + + + + | Anion Gap | 11Comment: Testing | 5 - 20 mmol/L | EXTERNAL | | | | performed at [facility];[address] | | LAB | | | | [address];[place] | | | | | | [address] | | | | + + + + + + | Glucose, | 155 (H)Comment: Testing | 65 - 99 mg/dL | EXTERNAL | | | Fasting | performed at [facility];[address] | | LAB | | | | [address];[place] | | | | | | [address] | | | | + + + + + + | BUN | 14Comment: Testing | 8 - 25 mg/dL | EXTERNAL | | | | performed at [facility];[address] | | LAB | | | | [address];[place] | | | | | | [address] | | | | + + + + + + | Creatinine | 1.1Comment: Testing | 0.70 - 1.30 | EXTERNAL | | | | performed at [facility];888 | mg/dL | LAB | | | | [address];[place] | | | | | | [id number] | | | | + + + + + + | BUN/Creatin | 13Comment: Testing | | EXTERNAL | | | ine Ratio | performed at [facility];[address] | | LAB | | | | [address];[place] | | | | | | [id number] | | | | + + + + + + | Calcium | 7.6 (L)Comment: Testing | 8.5 - 10.5 | EXTERNAL | | | | performed at [facility];888 | mg/dL | LAB | | | | [address];[place], [place] | | | | | | [address] | | | | + + + + + + | Estimated | >60Comment: GFR <60: | mL/min/1.73m2 | EXTERNAL | | | GFR | CHRONIC KIDNEY DISEASE, | | LAB | | | | IF FOUND OVER A 3 MONTH | | | | | | PERIOD.GFR <15: KIDNEY | | | | | | FAILURE.FOR | | | | | | AMERICANS, MULTIPLY THE | | | | | | CALCULATED GFR BY | | | | | | 1.210.Testing performed | | | | | | at [facility];[address] [facility] | | | | | [address];[place] [address] | | | | + + + + + + + + | Specimen | + + | Blood specimen | | (specimen) | + + + +---------+ + + | Performing | Address | City/State/Zipcode | Phone Number | | Organization | | | | + +---------+ + + | EXTERNAL LAB | | | | + +---------+ + + POC Glucose (08/16/2015 4:01 PM PST) + + + + + + | Component | Value | Ref Range | Performed | Pathologist | | | | | At | Signature | + + + + + + | Glucose, | 130 (H)Comment: Testing | 65 - 99 mg/dL | EXTERNAL | | | Fingerstick | performed at [facility];[address] | | LAB | | | | [address];[place] | | | | | | [address] | | | | + + + + + + + + | Specimen | + + | | + + + +---------+ + + | Performing | Address | City/State/Zipcode | Phone Number | | Organization | | | | + +---------+ + + | EXTERNAL LAB | | | | + +---------+ + + Phosphorus (08/16/2015 4:00 PM PST) + + + + + + | Component | Value | Ref Range | Performed | Pathologist | | | | | At | Signature | + + + + + + | PHOSPHORUS | 3.0Comment: Testing | 2.3 - 4.8 mg/dL | EXTERNAL | | | | performed at [facility];[address] | | LAB | | | | [address];[place], [place] | | | | | | [address] | | | | + + + + + + + + | Specimen | + + | Blood specimen | | (specimen) | + + + +---------+ + + | Performing | Address | City/State/Zipcode | Phone Number | | Organization | | | | + +---------+ + + | EXTERNAL LAB | | | | + +---------+ + + Salicylate Level (08/16/2015 4:00 PM PST) + + + + + + | Component | Value | Ref Range | Performed | Pathologist | | | | | At | Signature | + + + + + + | Salicylate | 64.1 (H)Comment: Testing | 2.8 - 20.0 | EXTERNAL | | | Lvl | performed at [facility];[address] | mg/dL | LAB | | | | [address];[place], [place] | | | | | | [address] | | | | + + + + + + + + | Specimen | + + | Blood specimen | | (specimen) | + + + +---------+ + + | Performing | Address | City/State/Zipcode | Phone Number | | Organization | | | | + +---------+ + + | EXTERNAL LAB | | | | + +---------+ + + Comprehensive Metabolic Panel (08/16/2015 4:00 PM PST) + + + + + + | Component | Value | Ref Range | Performed | Pathologist | | | | | At | Signature | + + + + + + | Na | 139Comment: Testing | 135 - 143 | EXTERNAL | | | | performed at [facility] [address] | mmol/L | LAB | | | | [address], | | | | | | [place] [address] | | | | + + + + + + | K | 2.8 (L)Comment: Testing | 3.5 - 4.9 | EXTERNAL | | | | performed at [facility], [address] | mmol/L | LAB | | | | [address], | | | | | | [place] [address] | | | | + + + + + + | Cl | 102Comment: Testing | 99 - 109 mmol/L | EXTERNAL | | | | performed at [facility], [address] | | LAB | | | | [address], | | | | | | [place] [address] | | | | + + + + + + | CO2 | 26Comment: Testing | 23 - 32 mmol/L | EXTERNAL | | | | performed at [facility], [address] | | LAB | | | | [address], | | | | | | [place] [address] | | | | + + + + + + | Anion Gap | 14Comment: Testing | 5 - 20 mmol/L | EXTERNAL | | | | performed at [facility] [address] | | LAB | | | | [address], | | | | | | [place] [address] | | | | + + + + + + | Glucose, | 135 (H)Comment: Testing | 65 - 99 mg/dL | EXTERNAL | | | Fasting | performed at [facility], [address] | | LAB | | | | [address], | | | | | | [place] [address] | | | | + + + + + + | BUN | 13Comment: Testing | 8 - 25 mg/dL | EXTERNAL | | | | performed at [facility] [address] | | LAB | | | | [address], | | | | | | [place] [address] | | | | + + + + + + | Creatinine | 1.05Comment: Testing | 0.70 - 1.30 | EXTERNAL | | | | performed at [facility] | mg/dL | LAB | | | | [address], | | | | | | [place] [address] | | | | + + + + + + | BUN/Creatin | 12Comment: Testing | | EXTERNAL | | | ine Ratio | performed at [facility], [address] | | LAB | | | | [address], | | | | | | [place] [address] | | | | + + + + + + | Calcium | 8.9Comment: Testing | 8.5 - 10.5 | EXTERNAL | | | | performed at [facility] [address] | mg/dL | LAB | | | | [address], | | | | | | [place] [address] | | | | + + + + + + | Protein, | 6.8Comment: Testing | 6.3 - 8.2 g/dL | EXTERNAL | | | Total | performed at [facility] [address] | | LAB | | | | [address], | | | | | | [place] [address] | | | | + + + + + + | Albumin | 4.5Comment: Testing | 3.6 - 5.0 g/dL | EXTERNAL | | | | performed at [facility] [address] | | LAB | | | | [address], | | | | | | [place] [address] | | | | + + + + + + | Globulin | 2.3Comment: Testing | 1.3 - 4.9 g/dL | EXTERNAL | | | | performed at [facility], [address] | | LAB | | | | [address], | | | | | | [place] [address] | | | | + + + + + + | A/G Ratio | 2.0Comment: Testing | 1.0 - 2.4 | EXTERNAL | | | | performed at [facility], [address] | | LAB | | | | [address], | | | | | | [place] [address] | | | | + + + + + + | Bilirubin | 0.1Comment: Testing | 0.1 - 1.5 mg/dL | EXTERNAL | | | Total | performed at [facility], [address] | | LAB | | | | [address], | | | | | | [place] [address] | | | | + + + + + + | ALP, | 35Comment: Testing | 35 - 115 U/L | EXTERNAL | | | External | performed at [facility], [address] | | LAB | | | | [address], | | | | | | [place] [address] | | | | + + + + + + | AST | 21Comment: Testing | 10 - 45 U/L | EXTERNAL | | | | performed at [facility] [address] | | LAB | | | | [address], | | | | | | [place] [address] | | | | + + + + + + | ALT | 32Comment: Testing | 10 - 65 U/L | EXTERNAL | | | | performed at [facility] | | LAB | | | | [address], | | | | | | [place] [address] | | | | + + + + + + | Estimated | >60Comment: GFR <60: | mL/min/1.73m2 | EXTERNAL | | | GFR | CHRONIC KIDNEY DISEASE, | | LAB | | | | IF FOUND OVER A 3 MONTH | | | | | | PERIOD.GFR <15: KIDNEY | | | | | | FAILURE.FOR | | | | | | AMERICANS, MULTIPLY THE | | | | | | CALCULATED GFR BY | | | | | | 1.210.Testing performed | | | | | | at [facility], [address] | | | | | | [address], | | | | | | [place] [address] | | | | + + + + + + + + | Specimen | + + | Blood specimen | | (specimen) | + + + +---------+ + + | Performing | Address | City/State/Zipcode | Phone Number | | Organization | | | | + +---------+ + + | EXTERNAL LAB | | | | + +---------+ + + pH, venous (08/16/2015 10:49 AM PST) + + + + + + | Component | Value | Ref Range | Performed | Pathologist | | | | | At | Signature | + + + + + + | pH, Bld | 7.541 (H)Comment: | 7.300 - 7.450 | EXTERNAL | | | | Testing performed at | | LAB | | | | [facility];[address] [facility] | | | | | | [address];[place] [address] | | | | + + + + + + + + | Specimen | + + | | + + + +---------+ + + | Performing | Address | City/State/Zipcode | Phone Number | | Organization | | | | + +---------+ + + | EXTERNAL LAB | | | | + +---------+ + + Magnesium (08/16/2015 10:01 AM PST) + + + + + + | Component | Value | Ref Range | Performed | Pathologist | | | | | At | Signature | + + + + + + | Magnesium | 1.6 (L)Comment: Testing | 1.7 - 2.4 mg/dL | EXTERNAL | | | | performed at [facility];[address] | | LAB | | | | [address];[place] | | | | | | [address] | | | | + + + + + + + + | Specimen | + + | Blood specimen | | (specimen) | + + + +---------+ + + | Performing | Address | City/State/Zipcode | Phone Number | | Organization | | | | + +---------+ + + | EXTERNAL LAB | | | | + +---------+ + + Salicylate Level (08/16/2015 10:01 AM PST) + + + + + + | Component | Value | Ref Range | Performed | Pathologist | | | | | At | Signature | + + + + + + | Salicylate | 84.1 (H)Comment: Testing | 2.8 - 20.0 | EXTERNAL | | | Lvl | performed at [facility];[address] | mg/dL | LAB | | | | [address];[place], [place] | | | | | | [address] | | | | + + + + + + + + | Specimen | + + | Blood specimen | | (specimen) | + + + +---------+ + + | Performing | Address | City/State/Zipcode | Phone Number | | Organization | | | | + +---------+ + + | EXTERNAL LAB | | | | + +---------+ + + Comprehensive Metabolic Panel (08/16/2015 10:01 AM PST) + + + + + + | Component | Value | Ref Range | Performed | Pathologist | | | | | At | Signature | + + + + + + | Na | 139Comment: Testing | 135 - 143 | EXTERNAL | | | | performed at [facility];[address] | mmol/L | LAB | | | | [address];[place] | | | | | | [address] | | | | + + + + + + | K | 3.3 (L)Comment: Testing | 3.5 - 4.9 | EXTERNAL | | | | performed at [facility];[address] | mmol/L | LAB | | | | [address];[place] | | | | | | [address] | | | | + + + + + + | Cl | 111 (H)Comment: Testing | 99 - 109 mmol/L | EXTERNAL | | | | performed at [facility];[address] | | LAB | | | | [address];[place] | | | | | | [address] | | | | + + + + + + | CO2 | 19 (L)Comment: Testing | 23 - 32 mmol/L | EXTERNAL | | | | performed at [facility];[address] | | LAB | | | | [address];[place] | | | | | | [address] | | | | + + + + + + | Anion Gap | 11Comment: Testing | 5 - 20 mmol/L | EXTERNAL | | | | performed at [facility];[address] | | LAB | | | | [address];[place] | | | | | | [address] | | | | + + + + + + | Glucose, | 232 (H)Comment: Testing | 65 - 99 mg/dL | EXTERNAL | | | Fasting | performed at [facility];[address] | | LAB | | | | [address];[place] | | | | | | [address] | | | | + + + + + + | BUN | 15Comment: Testing | 8 - 25 mg/dL | EXTERNAL | | | | performed at [facility];[address] | | LAB | | | | [address];[place] | | | | | | [address] | | | | + + + + + + | Creatinine | 0.95Comment: Testing | 0.70 - 1.30 | EXTERNAL | | | | performed at [facility];[address] | mg/dL | LAB | | | | [address];[place] | | | | | | [address] | | | | + + + + + + | BUN/Creatin | 15Comment: Testing | | EXTERNAL | | | ine Ratio | performed at [facility];[address] | | LAB | | | | [address];[place] | | | | | | [address] | | | | + + + + + + | Calcium | 8.4 (L)Comment: Testing | 8.5 - 10.5 | EXTERNAL | | | | performed at [facility];[address] | mg/dL | LAB | | | | [address];[place] | | | | | | [address] | | | | + + + + + + | Protein, | 7.1Comment: Testing | 6.3 - 8.2 g/dL | EXTERNAL | | | Total | performed at [facility];[address] | | LAB | | | | [address];[place] | | | | | | [address] | | | | + + + + + + | Albumin | 3.9Comment: Testing | 3.6 - 5.0 g/dL | EXTERNAL | | | | performed at [facility];[address] | | LAB | | | | [address];[place] | | | | | | [address] | | | | + + + + + + | Globulin | 3.3Comment: Testing | 1.3 - 4.9 g/dL | EXTERNAL | | | | performed at [facility];[address] | | LAB | | | | [address];[place] | | | | | | [address] | | | | + + + + + + | A/G Ratio | 1.2Comment: Testing | 1.0 - 2.4 | EXTERNAL | | | | performed at [facility];[address] | | LAB | | | | [address];[place] | | | | | | [address] | | | | + + + + + + | Bilirubin | 0.3Comment: Testing | 0.1 - 1.5 mg/dL | EXTERNAL | | | Total | performed at [facility];[address] | | LAB | | | | [address];[place] | | | | | | [address] | | | | + + + + + + | ALP, | 46Comment: Testing | 35 - 115 U/L | EXTERNAL | | | External | performed at [facility];[address] | | LAB | | | | [address];[place] | | | | | | [address] | | | | + + + + + + | AST | 20Comment: Testing | 10 - 45 U/L | EXTERNAL | | | | performed at [facility];[address] | | LAB | | | | [address];[place] | | | | | | [address] | | | | + + + + + + | ALT | 46Comment: Testing | 10 - 65 U/L | EXTERNAL | | | | performed at [facility];[address] | | LAB | | | | [address];[place] | | | | | | [address] | | | | + + + + + + | Estimated | >60Comment: GFR <60: | mL/min/1.73m2 | EXTERNAL | | | GFR | CHRONIC KIDNEY DISEASE, | | LAB | | | | IF FOUND OVER A 3 MONTH | | | | | | PERIOD.GFR <15: KIDNEY | | | | | | FAILURE.FOR | | | | | | AMERICANS, MULTIPLY THE | | | | | | CALCULATED GFR BY | | | | | | 1.210.Testing performed | | | | | | at [facility];[address] | | | | | | [address];[place] [address] | | | | + + + + + + + + | Specimen | + + | Blood specimen | | (specimen) | + + + +---------+ + + | Performing | Address | City/State/Zipcode | Phone Number | | Organization | | | | + +---------+ + + | EXTERNAL LAB | | | | + +---------+ + + documented in this encounter Visit Diagnoses + + | Diagnosis | + + | Essential hypertension Unspecified essential hypertension | + + | Sleep apnea Unspecified sleep apnea | + + | Aspirin overdose, intentional self-harm, initial encounter (HCC) | + + | Depression Depressive disorder, not elsewhere classified | + + | Suicide attempt (HCC) Suicide and self-inflicted injury by unspecified means | + + | Poisoning by salicylate, intentional self-harm, initial encounter (HCC) | + + | Suicide attempt by drug ingestion, subsequent encounter | + + | Bipolar disorder, current episode depressed, severe, without psychotic features (HCC) | | Bipolar I disorder, most recent episode (or current) depressed, severe, without mention | | of psychotic behavior | + + documented in this encounter
--- OUTSIDE RECORDS SUMMARY | ~2019-09-02 | XMS | Encounter Summary ---
Demographics + + + | Address | [address] | | | [place] [address] | + + + | Home Phone | | + + + | Preferred Language | Unknown | + + + | Marital Status | Single | + + + | Tenriism Affiliation | Unknown | + + + | Race | Unknown | + + + | Ethnic Group | Unknown | + + + Author + + + | Author | [facility] | | | and [place] | + + + | Organization | [facility] | | | and [...] Team Providers + +------+ + | Care Special Population Paraprofessional Name | Role | Phone | + +------+ + PCP | Unavailable | + +------+ + Encounter Details +--------+ + + + + | Date | Type | Department | Care Team | Description | +--------+ + + + + | 08/16/ | Hospital | [facility] | Gordy Tapia, | Essential | | 2015 - | Encounter | [facility] | MD Mohinder FLANAGAN | hypertension; Sleep | | | | CARE FLOOR [address] | [place] [address] | apnea; Aspirin | | 08/18/ | | JANNY FLANAGAN | [phone] | overdose, | | 2015 | | [place], [place] | | intentional | | | | [address] | | self-harm, initial | | | | [phone] | | encounter ([facility]); | | | | | | Depression; Suicide | | | | | | attempt ([facility]); | | | | | | Poisoning by | | | | | | salicylate, | | | | | | intentional | | | | | | self-harm, initial | | | | | | encounter ([facility]); | | | | | | [...] features | | | | | | ([facility]) | +--------+ + + + + [...] 0442 Date of Service: 08/18/151414 Status: Signed Material Control Clerk: Francois Robert MD (Physician) [facility] Service: Hospitalist Discharge Summary Date of [...] or [place]-Headedness Follow up: [place] [address] Medication List CHANGE how you take these [...] are the prescriptions that you need to pick up man. You may get the following medications from [...] 08/18/151708 Date of Service: 08/18/151705 Status: Signed Material Control Clerk: Yazan Samano RN (Registered Nurse) Patient and mother given AVS. All follow-up appointments and medications gone over and que stions answered. it manager involved in getting patient's follow-up appointments [...] Author: NIA Ramírez Service: (none) Author Type: Fbi Profiler Filed: 08/18/15 1550 Date of Service: 08/18/151543 Status: Signed Material Control Clerk: NIA Ramírez (Fbi Profiler) Disposition: Home Transportation: family to transport All DC paperwork completed Patient and family in agreement with discharge plan scheduled appointment for mental health follow up with [facility] in [place]. Patient is discharged from his primary care provider in his assigned location.He stated he will call Medicaid to request change of provider location and schedule appointment with his preferred provider. Medicare important message N/A Ashely Fang onver marla Transaction, Provider Unknown - 08/18/2015 1:39 PM PST Case Management by NIA Ramírez at 08/18/15 5121 Author: NIA Ramírez Service: (none) Author Type: Fbi Profiler Filed: 08/18/15 0983 Date of Service: 08/18/151338 Status: Addendum Material Control Clerk: NIA Ramírez (Fbi Profiler) Related Notes: Original Note by NIA Ramírez (Fbi Profiler) filed at 08/18/15 0342 Cm called [facility] to request psychiatric evaluation [...] 08/18/151112 Date of Service: 08/18/151109 Status: Signed Material Control Clerk: Juan Sanford MD (Physician) [facility] Service: Nephrology Renal Consult Progress Note Seth Lyon [id number] Hospital Day: LOS: 2 days SUBJECTIVE Patient [...] of wrist Suicide attempt by drug ingestion ([facility]) Type 2 diabetes mellitus with hyperglycemia (HCC) Hypokalemia Hypertension Bipolar affective disorder, depressed ([facility]) Sleep apnea ASSESSMENT & PLAN The [...] Author: NIA Green Service: (none) Author Type: Citrix Engineer Filed: 08/18/1556 Date of Service: 08/18/15954 Status: Signed Material Control Clerk: NIA Green (Citrix Engineer) CM rec'd a f/u call from [employer] hide mill worker Sukumar Daugherty (see contact information in p revious CM note). Sukumar called to offer assistance in obtaining services for this pt at d/ c if he is not hospitalized. Sukumar has been in contact with [facility] to provide his contact information and offer to assist. Sukumar asks that he be contacted with any d/c needs. Andria Guardado onver marla Transaction, Provider Unknown - 08/18/2015 1:00 AM PST Nurse Progress Note by Oralia Morrell RN at 08/18/15 0100 Author: Orlaia Morrell RN Service: (none) Author Type: Registered Nurse Filed: 08/18/15 0459 Date of Service: 08/18/150 Status: Signed Material Control Clerk: Oralia Morrell RN (Registered Nurse) Pt did [...] Date of Service: 08/17/15 1146 Status: Signed Material Control Clerk: Juan Sanford MD (Physician) [facility] Service: Nephrology Renal Consult Progress Note Seth Alayna Sonali [id number] Hospital Day: LOS: 1 day SUBJECTIVE Patient [...] to normal by tomorrow -No need for HAT BRAIDER at present. Indications for Hd would be [...] 08/17/152022 Date of Service: 08/17/15846 Status: Addendum Material Control Clerk: Francois Robert MD (Physician) Related Notes: Original Note by Francois Robert MD (Physician) filed at 08/17/152020 [facility] Service: Hospitalist Progress Note Pt: Seth [...] Principal Problem: Poisoning by salicylate, intentional self-harm ([facility]) Active Problems: Self-inflicted laceration of wrist [...] 153 Date of Service: 08/16/151530 Status: Signed Material Control Clerk: Jennifer Guerrero RPH (Pharmacist) Clinical Pharmacy Note - Renal Dose Adjustment Seth Lyon 39 y.o. male Ht Readings from Last 1 Encounters: 08/16/15 1.676 m (5' 6") Wt Readings from Last 1 Encounters: 08/16/15 104 kg (229 lb 4.5 oz) CREATININE Date Value Ref Range Status 08/16/2015 0.95 0.70 - 1.30 mg/dL Final Comment: Testing performed at [facility];[address] [place] [address];[place] [address] CREATININE: 0.95 (08/16/15 1001) Estimated creatinine clearance [...] Management by NIA Bran LICSW at 08/16/15 2147 Author: NIA Bran LICSW Service: (none) Author Type: Fbi Profiler Filed: 08/16/15 5808 Date of Service: 08/16/151423 Status: Signed Material Control Clerk: NIA Bran LICSW (Fbi Profiler) 08/16/15 1428 Discharge Planning Evaluation Admitting Diagnosis essiential hypertension, Aspirin Overdose-intentional, deprewssion and suicide attempt. Readmission No Living Arrangements Alone Support Systems Family members;Friends/neighbors Type of Residence Private residence House type Apartment Independent with ADL's Yes Independent with Mobility Yes Home Care Services No Caregiver after Discharge No Power of Job Coach/Job Developer No Anticipated Discharge Plan Post Acute Care Needs Other (comment) (Crisis evaluation due to SA) Plan communicated to patient/family Yes Resources Financial concerns No Prescription Plan Yes Name of Pharmacy [facility] [place] Previous home health equipment No Vascular access [...] NIA Bran LICSW Service: (none) Author Type: Fbi Profiler Filed: 08/16/15 1021 Date of Service: 08/16/15 1015 Status: Signed Material Control Clerk: NIA Bran LICSW (Fbi Profiler) CM received a phone call from Sukumar Daugherty, Loop Machine Operator from [facility] ([phone]), which is the [employer] phnoe number. Also, he provided the the ph one number for Crisis Response in [facility] ([phone]). Caller wanted to inform [facility] noé t he would be able to [...] | | | Fingerstick | performed at [facility];[address] | | LAB | | | | [address];[place] | | | | | | [address] | | | | + + + [...] | | | Fingerstick | performed at [facility] | | LAB | | | | [address];[place] | | | | | | [address] | | | | + + + [...] EXTERNAL | | | | performed at [facility];[address] | mmol/L | LAB | | | | [address];[place] | | | | | | [address] | | | | + + + + + + | K | 3.6Comment: Testing | 3.5 - 4.9 | EXTERNAL | | | | performed at [facility];[address] | mmol/L | LAB | | | | [address];[place] | | | | | | [address] | | | | + + + + + + | Cl | 104Comment: Testing | 99 - 109 mmol/L | EXTERNAL | | | | performed at [facility];[address] | | LAB | | | | [address];[place] | | | | | | [address] | | | | + + + + + + | CO2 | 27Comment: Testing | 23 - 32 mmol/L | EXTERNAL | | | | performed at [facility];[address] | | LAB | | | | [address];[place] | | | | | | [address] | | | | + + + + + + | Anion Gap | 10Comment: Testing | 5 - 20 mmol/L | EXTERNAL | | | | performed at [facility];[address] | | LAB | | | | [address];[place] | | | | | | [address] | | | | + + + + + + | Glucose, | 132 (H)Comment: Testing | 65 - 99 mg/dL | EXTERNAL | | | Fasting | performed at [facility];[address] | | LAB | | | | [address];[place] | | | | | | [address] | | | | + + + + + + | BUN | 5 (L)Comment: Testing | 8 - 25 mg/dL | EXTERNAL | | | | performed at [facility];[address] | | LAB | | | | [address];[place] | | | | | | [address] | | | | + + + + + + | Creatinine | 0.62 (L)Comment: Testing | 0.70 - 1.30 | EXTERNAL | | | | performed at [facility];[address] | mg/dL | LAB | | | | [address];[place] | | | | | | [address] | | | | + + + + + + | BUN/Creatin | 8Comment: Testing | | EXTERNAL | | | ine Ratio | performed at [facility];[address] | | LAB | | | | [address];[place] | | | | | | [address] | | | | + + + + + + | Calcium | 8.0 (L)Comment: Testing | 8.5 - 10.5 | EXTERNAL | | | | performed at [facility];[address] | mg/dL | LAB | | | | [address];[place] | | | | | | [address] | | | | + + + [...] | | | | | | at [facility];[address] | | | | | | [address];[place] [address] | | | | + + + [...] | | | Fingerstick | performed at [facility];[address] | | LAB | | | | [address];[place], [place] | | | | | | [address] | | | | + + + [...] | | | Fingerstick | performed at [facility];[address] | | LAB | | | | [address];[place] | | | | | | [address] | | | | + + + [...] | | | Fingerstick | performed at [facility];[address] | | LAB | | | | [address];[place] | | | | | | [address] | | | | + + + [...] | | | Lvl | performed at [facility];[address] | mg/dL | LAB | | | | [address];[place] | | | | | | [address] | | | | + + + [...] | | | | | [place] [address] | | | | + + + + + + | K | 3.2 (L)Comment: Testing | 3.5 - 4.9 | EXTERNAL | | | | performed at [facility], [address] | mmol/L | LAB | | | | [address], | | | | | | [place] [address] | | | | + + + + + + | Cl | 102Comment: Testing | 99 - 109 mmol/L | EXTERNAL | | | | performed at [facility], [address] | | LAB | | | | [address], | | | | | | [place] [address] | | | | + + + + + + | CO2 | 30Comment: Testing | 23 - 32 mmol/L | EXTERNAL | | | | performed at [facility], [address] | | LAB | | | | [address], | | | | | | [place] [address] | | | | + + + + + + | Anion Gap | 8Comment: Testing | 5 - 20 mmol/L | EXTERNAL | | | | performed at [facility], [address] | | LAB | | | | [address], | | | | | | [place] [address] | | | | + + + + + + | Glucose, | 124 (H)Comment: Testing | 65 - 99 mg/dL | EXTERNAL | | | Fasting | performed at [facility], [address] | | LAB | | | | [address], | | | | | | [place] [address] | | | | + + + + + + | BUN | 7 (L)Comment: Testing | 8 - 25 mg/dL | EXTERNAL | | | | performed at [facility], [address] | | LAB | | | | [address], | | | | | | [place] [address] | | | | + + + + + + | Creatinine | 0.74Comment: Testing | 0.70 - 1.30 | EXTERNAL | | | | performed at [facility], [address] | mg/dL | LAB | | | | [address], | | | | | | [place] [address] | | | | + + + + + + | BUN/Creatin | 9Comment: Testing | | EXTERNAL | | | ine Ratio | performed at [facility], [address] | | LAB | | | | [address], | | | | | | [place] [address] | | | | + + + + + + | Calcium | 8.5Comment: Testing | 8.5 - 10.5 | EXTERNAL | | | | performed at [facility], [address] | mg/dL | LAB | | | | [address], | | | | | | [place] [address] | | | | + + + + + + | Protein, | 5.6 (L)Comment: Testing | 6.3 - 8.2 g/dL | EXTERNAL | | | Total | performed at [facility], [address] | | LAB | | | | [address], | | | | | | [place] [address] | | | | + + + + + + | Albumin | 3.6Comment: Testing | 3.6 - 5.0 g/dL | EXTERNAL | | | | performed at [facility], [address] | | LAB | | | | [address], | | | | | | [place] [address] | | | | + + + + + + | Globulin | 2.0Comment: Testing | 1.3 - 4.9 g/dL | EXTERNAL | | | | performed at [facility], [address] | | LAB | | | | [address], | | | | | | [place] [address] | | | | + + + + + + | A/G Ratio | 1.8Comment: Testing | 1.0 - 2.4 | EXTERNAL | | | | performed at [facility], [address] | | LAB | | | | [address], | | | | | | [place] [address] | | | | + + + + + + | Bilirubin | 0.3Comment: Testing | 0.1 - 1.5 mg/dL | EXTERNAL | | | Total | performed at [facility], [address] | | LAB | | | | [address], | | | | | | [place] [address] | | | | + + + + + + | ALP, | 29 (L)Comment: Testing | 35 - 115 U/L | EXTERNAL | | | External | performed at [facility], [address] | | LAB | | | | [address], | | | | | | [place] [address] | | | | + + + + + + | AST | 20Comment: Testing | 10 - 45 U/L | EXTERNAL | | | | performed at [facility], [address] | | LAB | | | | [address], | | | | | | [place] [address] | | | | + + + + + + | ALT | 25Comment: Testing | 10 - 65 U/L | EXTERNAL | | | | performed at [facility], [address] | | LAB | | | | [facility], | | | | | | [place] [address] | | | | + + + [...] | | | | | | at [facility], [address] | | | | | | [facility], | | | | | | [place] [address] | | | | + + + [...] | | | Fingerstick | performed at [facility];[address] | | LAB | | | | [address];[place], [place] | | | | | | [address] | | | | + + + [...] | | | Lvl | performed at [facility];[address] | mg/dL | LAB | | | | [address];[place], [place] | | | | | | [address] | | | | + + + [...] | | | | | [place] [address] | | | | + + + + + + | K | 2.8 (L)Comment: Testing | 3.5 - 4.9 | EXTERNAL | | | | performed at [facility], [address] | mmol/L | LAB | | | | [address], | | | | | | [place] [address] | | | | + + + + + + | Cl | 101Comment: Testing | 99 - 109 mmol/L | EXTERNAL | | | | performed at [facility], [address] | | LAB | | | | [address], | | | | | | [place] [address] | | | | + + + + + + | CO2 | 31Comment: Testing | 23 - 32 mmol/L | EXTERNAL | | | | performed at [facility], [address] | | LAB | | | | [address], | | | | | | [place] [address] | | | | + + + + + + | Anion Gap | 10Comment: Testing | 5 - 20 mmol/L | EXTERNAL | | | | performed at [facility], [address] | | LAB | | | | [address], | | | | | | [place] [address] | | | | + + + + + + | Glucose, | 164 (H)Comment: Testing | 65 - 99 mg/dL | EXTERNAL | | | Fasting | performed at [facility], [address] | | LAB | | | | [address], | | | | | | [place] [address] | | | | + + + + + + | BUN | 10Comment: Testing | 8 - 25 mg/dL | EXTERNAL | | | | performed at [facility], [address] | | LAB | | | | [address], | | | | | | [place] [address] | | | | + + + + + + | Creatinine | 0.88Comment: Testing | 0.70 - 1.30 | EXTERNAL | | | | performed at [facility], [address] | mg/dL | LAB | | | | [address], | | | | | | [place] [address] | | | | + + + + + + | BUN/Creatin | 11Comment: Testing | | EXTERNAL | | | ine Ratio | performed at [facility], [address] | | LAB | | | | [address], | | | | | | [place] [address] | | | | + + + + + + | Calcium | 8.6Comment: Testing | 8.5 - 10.5 | EXTERNAL | | | | performed at [facility], [address] | mg/dL | LAB | | | | [address], | | | | | | [place] [address] | | | | + + + + + + | Protein, | 5.5 (L)Comment: Testing | 6.3 - 8.2 g/dL | EXTERNAL | | | Total | performed at [facility], [address] | | LAB | | | [address], | | | | | | [place] [address] | | | | + + + + + + | Albumin | 3.7Comment: Testing | 3.6 - 5.0 g/dL | EXTERNAL | | | | performed at [facility], [address] | | LAB | | | | [address], | | | | | | [place] [address] | | | | + + + + + + | Globulin | 1.8Comment: Testing | 1.3 - 4.9 g/dL | EXTERNAL | | | | performed at [facility], [address] | | LAB | | | | [address], | | | | | | [place] [address] | | | | + + + + + + | A/G Ratio | 2.1Comment: Testing | 1.0 - 2.4 | EXTERNAL | | | | performed at [facility], [address] | | LAB | | | | [address], | | | | | | [place] [address] | | | | + + + + + + | Bilirubin | 0.2Comment: Testing | 0.1 - 1.5 mg/dL | EXTERNAL | | | Total | performed at [facility], [address] | | LAB | | | | [address], | | | | | | [place] [address] | | | | + + + + + + | ALP, | 26 (L)Comment: Testing | 35 - 115 U/L | EXTERNAL | | | External | performed at [facility], [address] | | LAB | | | | [address], | | | | | | [place] [address] | | | | + + + + + + | AST | 21Comment: Testing | 10 - 45 U/L | EXTERNAL | | | | performed at [facility], [address] | | LAB | | | | [address], | | | | | | [place] [address] | | | | + + + + + + | ALT | 29Comment: Testing | 10 - 65 U/L | EXTERNAL | | | | performed at [facility], [address] | | LAB | | | | [address], | | | | | | [place] [address] | | | | + + + [...] [address], | | | | | | [place] [address] | | | | + + + [...] | | | Fingerstick | performed at [facility];[address] | | LAB | | | | [address];[place] | | | | | | [address] | | | | + + + [...] | | | Patient | performed at [facility];[address] | | LAB | | | | [address];[place] | | | | | | [address] | | | | + + + [...] | | | | | performed at [facility];[address] | | | | | | [address] [facility];[place], [place] | | | | | | [address] | | | | + + + [...] EXTERNAL | | | | performed at [facility], [address] | K/uL | LAB | | | | [address], | | | | | | [place] [address] | | | | + + + + + + | RED CELL | 4.14 (L)Comment: Testing | 4.20 - 5.70 | EXTERNAL | | | COUNT | performed at [facility], [address] | M/uL | LAB | | | | [address], | | | | | | [place] [address] | | | | + + + + + + | Hgb | 13.2Comment: Testing | 13.2 - 17.0 | EXTERNAL | | | | performed at [facility], [address] | g/dL | LAB | | | | [address], | | | | | | [place] [address] | | | | + + + + + + | Hematocrit, | 38.9 (L)Comment: Testing | 39.0 - 50.0 % | EXTERNAL | | | POC | performed at [facility], [address] | | LAB | | | | [address], | | | | | | [place] [address] | | | | + + + + + + | MCV | 94.0Comment: Testing | 80.0 - 100.0 fl | EXTERNAL | | | | performed at [facility], [address] | | LAB | | | | [address], | | | | | | [place] [address] | | | | + + + + + + | MCH | 31.8Comment: Testing | 27.0 - 34.0 pg | EXTERNAL | | | | performed at [facility], [address] | | LAB | | | | [address], | | | | | | [place] [address] | | | | + + + + + + | MCHC | 33.8Comment: Testing | 32.0 - 35.5 | EXTERNAL | | | | performed at [facility], [address] | g/dL | LAB | | | | [address], | | | | | | [place] [address] | | | | + + + + + + | RDW-CV | 46.8Comment: Testing | 37 - 53 fl | EXTERNAL | | | | performed at [facility], [address] | | LAB | | | | [address], | | | | | | [place] [address] | | | | + + + + + + | Platelet | 237Comment: Testing | 150 - 400 K/uL | EXTERNAL | | | Count | performed at [facility], [address] | | LAB | | | Plasma | [address], | | | | | | [place] [address] | | | | + + + + + + | MPV | 9.4Comment: Testing | fl | EXTERNAL | | | | performed at [facility], [address] | | LAB | | | | [address], | | | | | | [place] [address] | | | | + + + + + + | Differentia | AUTOMATEDComment: | | EXTERNAL | | | l Type | Testing performed at | | LAB | | | | [facility], [address] | | | | | | [place] | | | | | | [address] | | | | + + + + + + | % Segmented | 52.64Comment: Testing | % | EXTERNAL | | | | performed at [facility], [address] | | LAB | | | Neutrophils | [address], | | | | | | [place] [address] | | | | + + + + + + | % | 35.23Comment: Testing | % | EXTERNAL | | | Lymphocytes | performed at [facility], [address] | | LAB | | | | [address], | | | | | | [place] [address] | | | | + + + + + + | % Monocytes | 9.74Comment: Testing | % | EXTERNAL | | | | performed at [facility], [address] | | LAB | | | | [address], | | | | | | [place] [address] | | | | + + + + + + | % | 1.19Comment: Testing | % | EXTERNAL | | | Eosinophils | performed at [facility], [address] | | LAB | | | | [address], | | | | | | [place] [address] | | | | + + + + + + | % Basophils | 1.20Comment: Testing | % | EXTERNAL | | | | performed at [facility], [address] | | LAB | | | | [address], | | | | | | [place] [address] | | | | + + + + + + | Absolute | 4.46Comment: Testing | 1.90 - 7.40 | EXTERNAL | | | Segmented | performed at [facility], [address] | K/uL | LAB | | | Neutrophils | [address], | | | | | | [place] [address] | | | | + + + + + + | Absolute | 2.99Comment: Testing | 1.00 - 3.90 | EXTERNAL | | | Lymphocytes | performed at [facility], [address] | K/uL | LAB | | | | [address], | | | | | | [place] [address] | | | | + + + + + + | Absolute | 0.83 (H)Comment: Testing | 0.00 - 0.80 | EXTERNAL | | | Monocytes | performed at [facility], [address] | K/uL | LAB | | | | [address], | | | | | | [place] [address] | | | | + + + + + + | Absolute | 0.10Comment: Testing | 0.00 - 0.50 | EXTERNAL | | | Eosinophils | performed at [facility], [address] | K/uL | LAB | | | | [address], | | | | | | [place] [address] | | | | + + + + + + | Absolute | 0.10Comment: Testing | 0.00 - 0.10 | EXTERNAL | | | Basophils | performed at [facility], [address] | K/uL | LAB | | | | [address], | | | | | | [place] [address] | | | | + + + [...] | | | | | [place] [address] | | | | + + + [...] EXTERNAL | | | | performed at [facility], [address] | | LAB | | | | [address], | | | | | | [place] [address] | | | | + + + [...] | EXTERNAL | | | A1c | [place] | | LAB | | | [...] | | | | | performed at [facility], [address] | | | | | [address], | | | | | | [place] [address] | | | | + + + [...] | | | | | performed at [facility], [address] | | | | | | [facility], | | | | | | [place] [address] | | | | + + + [...] | | LAB | | | | [address], | | | | | | [place] [address] | | | | + + + + + + | Triglycerid | 85Comment: Testing | mg/dL | EXTERNAL | | | es | performed at [facility], [address] | | LAB | | | | [address], | | | | | | [place] [address] | | | | + + + + + + | HDL | 34 (L)Comment: Testing | mg/dL | EXTERNAL | | | | performed at [facility], [address] | | LAB | | | | [address] [facility], | | | | | | [place] [address] | | | | + + + + + + | LDL | 71Comment: Testing | mg/dL | EXTERNAL | | | Cholesterol | performed at [facility], [address] | | LAB | | | , | [address], | | | | | Calculated, | [place] [address] | | | | | External | [...] | | | Lvl | performed at [facility];[address] | mg/dL | LAB | | | | [address];[place], [place] | | | | | | [address] | | | | + + + [...] EXTERNAL | | | | performed at [facility];[address] | mmol/L | LAB | | | | [address];[place] | | | | | | [address] | | | | + + + + + + | K | 2.7 (LL)Comment: CALLED | 3.5 - 4.9 | EXTERNAL | | | | TO MALIHA Jesus RN/4RP AT | mmol/L | LAB | | | | 0023 BY MWREAD BACK | | | | | | RESULTS VERIFIEDTesting | | | | | | performed at [facility];[address] | | | | | | [address];[place] | | | | | | [address] | | | | + + + + + + | Cl | 105Comment: Testing | 99 - 109 mmol/L | EXTERNAL | | | | performed at [facility] [facility] | | LAB | | | | [address];[place] | | | | | | [address] | | | | + + + + + + | CO2 | 29Comment: Testing | 23 - 32 mmol/L | EXTERNAL | | | | performed at [facility] | | LAB | | | | [address];[place] | | | | | | [address] | | | | + + + + + + | Anion Gap | 10Comment: Testing | 5 - 20 mmol/L | EXTERNAL | | | | performed at [facility] | | LAB | | | | [address];[place] | | | | | | [address] | | | | + + + + + + | Glucose, | 109 (H)Comment: Testing | 65 - 99 mg/dL | EXTERNAL | | | Fasting | performed at [facility] | | LAB | | | | [address];[place] | | | | | | [address] | | | | + + + + + + | BUN | 14Comment: Testing | 8 - 25 mg/dL | EXTERNAL | | | | performed at [facility] | | LAB | | | | [address];[place] | | | | | | [address] | | | | + + + + + + | Creatinine | 1.1Comment: Testing | 0.70 - 1.30 | EXTERNAL | | | | performed at [facility] | mg/dL | LAB | | | | [address];[place] | | | | | | [address] | | | | + + + + + + | BUN/Creatin | 13Comment: Testing | | EXTERNAL | | | ine Ratio | performed at [facility] | | LAB | | | | [address];[place] | | | | | | [address] | | | | + + + + + + | Calcium | 8.1 (L)Comment: Testing | 8.5 - 10.5 | EXTERNAL | | | | performed at [facility] | mg/dL | LAB | | | | [address];[place] | | | | | | [address] | | | | + + + + + + | Protein, | 6.6Comment: Testing | 6.3 - 8.2 g/dL | EXTERNAL | | | Total | performed at [facility] | | LAB | | | | [address];[place] | | | | | | [address] | | | | + + + + + + | Albumin | 3.6Comment: Testing | 3.6 - 5.0 g/dL | EXTERNAL | | | | performed at [facility] | | LAB | | | | [address];[place] | | | | | | [address] | | | | + + + + + + | Globulin | 3.0Comment: Testing | 1.3 - 4.9 g/dL | EXTERNAL | | | | performed at [facility] | | LAB | | | | [address];[place] | | | | | | [address] | | | | + + + + + + | A/G Ratio | 1.2Comment: Testing | 1.0 - 2.4 | EXTERNAL | | | | performed at [facility] | | LAB | | | | [address];[place] | | | | | | [address] | | | | + + + + + + | Bilirubin | 0.4Comment: Testing | 0.1 - 1.5 mg/dL | EXTERNAL | | | Total | performed at [facility] | | LAB | | | | [address];[place] | | | | | | [address] | | | | + + + + + + | ALP, | 43Comment: Testing | 35 - 115 U/L | EXTERNAL | | | External | performed at [facility] | | LAB | | | | [address];[place] | | | | | | [address] | | | | + + + + + + | AST | 20Comment: Testing | 10 - 45 U/L | EXTERNAL | | | | performed at [facility] | | LAB | | | | [address];[place] | | | | | | [address] | | | | + + + + + + | ALT | 41Comment: Testing | 10 - 65 U/L | EXTERNAL | | | | performed at [facility] | | LAB | | | | [address] [facility];[place], [place] | | | | | | [address] | | | | + + + [...] | | | | | | at [facility];[place] [address] | | | | + + + [...] | | | Fingerstick | performed at [facility] | | LAB | | | | [address];[place] | | | | | | [address] | | | | + + + [...] EXTERNAL | | | | performed at [facility] | | LAB | | | | [address];[place], [place] | | | | | | [address] | | | | + + + [...] EXTERNAL | | | | performed at [facility] | mmol/L | LAB | | | | [address];[place] | | | | | | [address] | | | | + + + + + + | K | 2.5 (LL)Comment: CALLED | 3.5 - 4.9 | EXTERNAL | | | | NURSING MALIHA MARTIN | mmol/L | LAB | | | | AT [address] [facility] BACK | | | | | | RESULTS VERIFIEDTesting | | | | | | performed at [facility];[address] | | | | | | [address];[place] | | | | | | [address] | | | | + + + + + + | Cl | 104Comment: Testing | 99 - 109 mmol/L | EXTERNAL | | | | performed at [facility] | | LAB | | | | [address];[place] | | | | | | [address] | | | | + + + + + + | CO2 | 27Comment: Testing | 23 - 32 mmol/L | EXTERNAL | | | | performed at [facility] | | LAB | | | | [address];[place] | | | | | | [address] | | | | + + + + + + | Anion Gap | 11Comment: Testing | 5 - 20 mmol/L | EXTERNAL | | | | performed at [facility] | | LAB | | | | [address];[place] | | | | | | [address] | | | | + + + + + + | Glucose, | 155 (H)Comment: Testing | 65 - 99 mg/dL | EXTERNAL | | | Fasting | performed at [facility] | | LAB | | | | [address];[place] | | | | | | [address] | | | | + + + + + + | BUN | 14Comment: Testing | 8 - 25 mg/dL | EXTERNAL | | | | performed at [facility] | | LAB | | | | [address];[place] | | | | | | [address] | | | | + + + + + + | Creatinine | 1.1Comment: Testing | 0.70 - 1.30 | EXTERNAL | | | | performed at [facility] | mg/dL | LAB | | | | [address];[place] | | | | | | [address] | | | | + + + + + + | BUN/Creatin | 13Comment: Testing | | EXTERNAL | | | ine Ratio | performed at [facility] | | LAB | | | | [address];[place] | | | | | | [address] | | | | + + + + + + | Calcium | 7.6 (L)Comment: Testing | 8.5 - 10.5 | EXTERNAL | | | | performed at [facility] | mg/dL | LAB | | | | [address];[place], [place] | | | | | | [address] | | | | + + + [...] | | | | | | at [facility];[address] [facility] | | | | | | [address];[place] [address] | | | | + + + [...] | | | Fingerstick | performed at [facility];[address] | | LAB | | | | [address];[place] | | | | | | [address] | | | | + + + [...] EXTERNAL | | | | performed at [facility] | | LAB | | | | [address];[place], [place] | | | | | | [address] | | | | + + + [...] | | | Lvl | performed at [facility];[address] | mg/dL | LAB | | | | [address];[place], [place] | | | | | | [address] | | | | + + + [...] | | | | | [place] [address] | | | | + + + + + + | K | 2.8 (L)Comment: Testing | 3.5 - 4.9 | EXTERNAL | | | | performed at [facility], [address] | mmol/L | LAB | | | | [address], | | | | | | [place] [address] | | | | + + + + + + | Cl | 102Comment: Testing | 99 - 109 mmol/L | EXTERNAL | | | | performed at [facility], [address] | | LAB | | | | [address], | | | | | | [place] [address] | | | | + + + + + + | CO2 | 26Comment: Testing | 23 - 32 mmol/L | EXTERNAL | | | | performed at [facility], [address] | | LAB | | | | [address], | | | | | | [place] [address] | | | | + + + + + + | Anion Gap | 14Comment: Testing | 5 - 20 mmol/L | EXTERNAL | | | | performed at [facility], [address] | | LAB | | | | [address], | | | | | | [place] [address] | | | | + + + + + + | Glucose, | 135 (H)Comment: Testing | 65 - 99 mg/dL | EXTERNAL | | | Fasting | performed at [facility], [address] | | LAB | | | | [address], | | | | | | [place] [address] | | | | + + + + + + | BUN | 13Comment: Testing | 8 - 25 mg/dL | EXTERNAL | | | | performed at [facility], [address] | | LAB | | | | [address], | | | | | | [place] [address] | | | | + + + + + + | Creatinine | 1.05Comment: Testing | 0.70 - 1.30 | EXTERNAL | | | | performed at [facility], [address] | mg/dL | LAB | | | | [address], | | | | | | [place] [address] | | | | + + + + + + | BUN/Creatin | 12Comment: Testing | | EXTERNAL | | | ine Ratio | performed at [facility], [address] | | LAB | | | | [address], | | | | | | [place] [address] | | | | + + + + + + | Calcium | 8.9Comment: Testing | 8.5 - 10.5 | EXTERNAL | | | | performed at [facility], [address] | mg/dL | LAB | | | | [address], | | | | | | [place] [address] | | | | + + + + + + | Protein, | 6.8Comment: Testing | 6.3 - 8.2 g/dL | EXTERNAL | | | Total | performed at [facility], [address] | | LAB | | | | [address], | | | | | | [place] [address] | | | | + + + + + + | Albumin | 4.5Comment: Testing | 3.6 - 5.0 g/dL | EXTERNAL | | | | performed at [facility], [address] | | LAB | | | | [address], | | | | | | [place] [address] | | | | + + + + + + | Globulin | 2.3Comment: Testing | 1.3 - 4.9 g/dL | EXTERNAL | | | | performed at [facility], [address] | | LAB | | | | [address], | | | | | | [place] [address] | | | | + + + + + + | A/G Ratio | 2.0Comment: Testing | 1.0 - 2.4 | EXTERNAL | | | | performed at [facility], [address] | | LAB | | | | [address], | | | | | | [place] [address] | | | | + + + + + + | Bilirubin | 0.1Comment: Testing | 0.1 - 1.5 mg/dL | EXTERNAL | | | Total | performed at [facility], [address] | | LAB | | | | [address], | | | | | | [place] [address] | | | | + + + + + + | ALP, | 35Comment: Testing | 35 - 115 U/L | EXTERNAL | | | External | performed at [facility], [address] | | LAB | | | | [address], | | | | | | [place] [address] | | | | + + + + + + | AST | 21Comment: Testing | 10 - 45 U/L | EXTERNAL | | | | performed at [facility], [address] | | LAB | | | | [address], | | | | | | [place] [address] | | | | + + + + + + | ALT | 32Comment: Testing | 10 - 65 U/L | EXTERNAL | | | | performed at [facility], [address] | | LAB | | | | [address], | | | | | | [place] [address] | | | | + + + [...] [address], | | | | | | [place] [address] | | | | + + + [...] | | LAB | | | | [facility] [facility] | | | | | | [address]vd;[place] [address] | | | | + + + [...] EXTERNAL | | | | performed at [facility];[address] | | LAB | | | | [address];[place] | | | | | | [address] | | | | + + + [...] | | | Lvl | performed at [facility];[address] | mg/dL | LAB | | | | [address];[place], [place] | | | | | | [address] | | | | + + + [...] EXTERNAL | | | | performed at [facility];[address] | mmol/L | LAB | | | | [address];[place] | | | | | | [address] | | | | + + + + + + | K | 3.3 (L)Comment: Testing | 3.5 - 4.9 | EXTERNAL | | | | performed at [facility] | mmol/L | LAB | | | | [address];[place] | | | | | | [address] | | | | + + + + + + | Cl | 111 (H)Comment: Testing | 99 - 109 mmol/L | EXTERNAL | | | | performed at [facility];[address] | | LAB | | | | [address];[place] | | | | | | [address] | | | | + + + + + + | CO2 | 19 (L)Comment: Testing | 23 - 32 mmol/L | EXTERNAL | | | | performed at [facility];[address] | | LAB | | | | [address];[place] | | | | | | [address] | | | | + + + + + + | Anion Gap | 11Comment: Testing | 5 - 20 mmol/L | EXTERNAL | | | | performed at [facility];[address] | | LAB | | | | [address];[place] | | | | | | [address] | | | | + + + + + + | Glucose, | 232 (H)Comment: Testing | 65 - 99 mg/dL | EXTERNAL | | | Fasting | performed at [facility];[address] | | LAB | | | | [address];[place] | | | | | | [address] | | | | + + + + + + | BUN | 15Comment: Testing | 8 - 25 mg/dL | EXTERNAL | | | | performed at [facility];[address] | | LAB | | | | [address];[place] | | | | | | [address] | | | | + + + + + + | Creatinine | 0.95Comment: Testing | 0.70 - 1.30 | EXTERNAL | | | | performed at [facility] | mg/dL | LAB | | | | [address];[place] | | | | | | [address] | | | | + + + + + + | BUN/Creatin | 15Comment: Testing | | EXTERNAL | | | ine Ratio | performed at [facility];[address] | | LAB | | | | [address];[place] | | | | | | [address] | | | | + + + + + + | Calcium | 8.4 (L)Comment: Testing | 8.5 - 10.5 | EXTERNAL | | | | performed at [facility] | mg/dL | LAB | | | | [address];[place] | | | | | | [address] | | | | + + + + + + | Protein, | 7.1Comment: Testing | 6.3 - 8.2 g/dL | EXTERNAL | | | Total | performed at [facility] | | LAB | | | | [address];[place] | | | | | | [address] | | | | + + + + + + | Albumin | 3.9Comment: Testing | 3.6 - 5.0 g/dL | EXTERNAL | | | | performed at [facility];[address] | | LAB | | | | [address];[place] | | | | | | [address] | | | | + + + + + + | Globulin | 3.3Comment: Testing | 1.3 - 4.9 g/dL | EXTERNAL | | | | performed at [facility];[address] | | LAB | | | | [address];[place] | | | | | | [address] | | | | + + + + + + | A/G Ratio | 1.2Comment: Testing | 1.0 - 2.4 | EXTERNAL | | | | performed at [facility] | | LAB | | | | [address];[place] | | | | | | [address] | | | | + + + + + + | Bilirubin | 0.3Comment: Testing | 0.1 - 1.5 mg/dL | EXTERNAL | | | Total | performed at [facility];[address] | | LAB | | | | [address];[place] | | | | | | [address] | | | | + + + + + + | ALP, | 46Comment: Testing | 35 - 115 U/L | EXTERNAL | | | External | performed at [facility];[address] | | LAB | | | | [address];[place] | | | | | | [address] | | | | + + + + + + | AST | 20Comment: Testing | 10 - 45 U/L | EXTERNAL | | | | performed at [facility];[address] | | LAB | | | | [address];[place] | | | | | | [address] | | | | + + + + + + | ALT | 46Comment: Testing | 10 - 65 U/L | EXTERNAL | | | | performed at [facility];[address] | | LAB | | | | [address];[place] | | | | | | [address] | | | | + + + [...] | | | | | | at [facility];[address] | | | | | | [address];[place] [address] | | | | + + + [...]
--- OUTSIDE RECORDS SUMMARY | ~2019-09-02 | XMS | Clinical Summary ---
Demographics + + + | Address | [address] | | | [place] [address] | + + + | Home Phone | | + + + | Preferred Language | Unknown | + + + | Marital Status | Single | + + + | Mosque Affiliation | Unknown | + + + | Race | Unknown | + + + | Ethnic Group | Unknown | + + + Author + + + | Author | [facility] | | | and [place] | + + + | Organization | [facility] | | | and [...] Team Providers + +------+ + | Care Heel Seat Filler Name | Role | Phone | + +------+ + | Ruben Huber MD | PCP | | + +------+ + Allergies Not on File Medications Not on file Active Problems Not on file Social History + +-------+ +--------+------+ | Tobacco [...] recent travel history available. | + + Last Filed Vital Signs Not on file Plan of Treatment + + + + + | Health Maintenance | Due Date | Last Done | Comments | + + + + + | Vaccine: | | | | | Dtap/Tdap/Td (1 - | 6 | | | | Tdap) | | | | + + + + + | Vaccine: Influenza | | 08/18/2015 | | | (#1) | 9 | | | + + + + + Results Not on filefrom Last 3 Months"
--- OUTSIDE RECORDS SUMMARY | ~2019-09-02 | XMS | Clinical Summary ---
Demographics + + + | Address | [address] | | | [place] [address] | + + + | Home Phone | | + + + | Preferred Language | Unknown | + + + | Marital Status | Single | + + + | Religion Affiliation | 1013 | + + + | Race | Unknown | + + + | Ethnic Group | Unknown | + + + Author + + + | Author | [facility] [employer] (Historical as of | | | 05-23-19) | + + + | Organization | [facility] [employer] (Historical as of | | | 05-23-19) | + + + | Address | Unknown | + + + | Phone | Unavailable | + + + Support + + +---------+ + | Name | Relationship | Address | Phone | + + +---------+ + | Odalis Lyon | ECON | Unknown | | + + +---------+ + Care Team Providers + +------+ + | Care Shift Mechanic Name | Role | Phone | + +------+ + | Ruben Huber MD | PP | | + +------+ + Allergies + + + + + + | Active Allergy | Reactions | Severity | Noted | Comments | | | | | Date | | + + + + + + | Latex | Hives | High | 08/16/20 | No related food | | | | | 15 | allergies per | | | | | | patient. | + + + + + + Current Medications + + +---------+---------+------+------+-------+ | Prescription | Sig. | Disp. | Refills | Star | End | Statu | | | | | | t | Date | s | | | | | | Date | | | + + +---------+---------+------+------+-------+ | atorvastatin | Take 1 tablet by | 30 | 3 | 11 | | Activ | | (LIPITOR) 20 MG | mouth nightly. | tablet | | 2/20 | | e | | tablet | | | | 15 | | | + + +---------+---------+------+------+-------+ | cholecalciferol | Take 1 tablet by | 30 | 11 | 11 | | Activ | | (VITAMIN D-3) 1000 | mouth daily. | tablet | | 2/20 | | e | | UNITS tablet | | | | 15 | | | + + +---------+---------+------+------+-------+ | enalapril | Take 1 tablet by | 30 | 3 | 11/1 | | Activ | | (VASOTEC) 20 MG | mouth daily. | tablet | | 2/20 | | e | | tablet | | | | 15 | | | + + +---------+---------+------+------+-------+ | metFORMIN | Take 1 tablet by | 60 | 3 | 11/1 | | Activ | | (GLUCOPHAGE) 500 MG | mouth 2 (two) times | tablet | | 2/20 | | e | | tablet | daily with meals. | | | 15 | | | + + +---------+---------+------+------+-------+ | omeprazole | Take 1 capsule by | 30 | 3 | /1 | | Activ | | (PRILOSEC) 10 MG | mouth every morning | capsule | | 2/20 | | e | | capsule | before breakfast. | | | 15 | | | + + +---------+---------+------+------+-------+ | QUEtiapine | Take 1 tablet by | 30 | 3 | 11/1 | | Activ | | (SEROQUEL) 50 MG | mouth nightly. | tablet | | 2/20 | | e | | tablet | | | | 15 | | | + + +---------+---------+------+------+-------+ | FLUoxetine | Take 1 capsule by | 30 | 3 | 08/07 | | Activ | | (PROZAC) 10 MG | mouth daily. | capsule | | 2/20 | | e | | capsule | | | | 15 | | | + + +---------+---------+------+------+-------+ Active Problems + + + | Problem | Noted Date | + + + | Poisoning by salicylate, intentional self-harm (HCC) | 08/16/2015 | + + + | Self-inflicted laceration of wrist | 08/16/2015 | + + + | Suicide attempt by drug ingestion ([facility]) | 08/16/2015 | + + + | Type 2 diabetes mellitus with hyperglycemia ([facility]) | 08/16/2015 | + + + | Hypokalemia | 08/16/2015 | + + + | Diabetes mellitus, type 2 | | + + + | Hypertension | | + + + | Bipolar affective disorder, depressed | | + + + | Sleep apnea | | + + + Immunizations + + + + | Name | Dates Previously Given | Next Due | + + + + | INFLUENZA | 08/18/2015 | | | QUADRIVALENT 36+ MO | | | | PRESERV FREE | | | + + + + Social History + +-------+ +--------+------+ | Tobacco Use | Types | Packs/Day | Years | Date | | | | | Used | | + +-------+ +--------+------+ | Smoker, Current | | 0.5 | | | | Status Unknown | | | | | + +-------+ +--------+------+ + + | Tobacco Cessation: Ready to Quit: Yes; Counseling Given: Yes | + + + + +---------+ + | Alcohol Use | Drinks/We | oz/Week | Comments | | | ek | | | + + +---------+ + | Yes | 28 | 16.8 | one bottle a week | | | Shots of | | | | | liquor | | | + + +---------+ + + + + | Sex Assigned at | Date Recorded | | | | + + + | Not on file | | + + + Last Filed Vital Signs + + + + | Vital Sign | Reading | Time Taken | + + + + | Blood Pressure | 162/86 | 08/18/2015 3:02 PM PST | + + + + | Pulse | 53 | 08/18/2015 3:02 PM PST | + + + + | Temperature | 36.9 C (98.4 F) | 08/18/2015 3:02 PM PST | + + + + | Respiratory Rate | 16 | 08/18/2015 3:02 PM PST | + + + + | Oxygen Saturation | 98% | 08/18/2015 3:02 PM PST | + + + + | Inhaled Oxygen | - | - | | Concentration | | | + + + + | Weight | 95.4 kg (210 lb 5.1 | 08/18/2015 3:47 AM PST | | | oz) | | + + + + | Height | 167.6 cm (5' 6") | 08/16/2015 3:12 PM PST | + + + + | Body Mass Index | 33.95 | 08/18/2015 3:47 AM PST | + + + + Plan of Treatment Not on file Results Not on filefrom Last 3 Months Insurance + +--------+ +------+-------+ + | Payer | Benefi | Subscriber | Type | Phone | Address | | | t Plan | ID | | | | | | / | | | | | | | Group | | | | | + +--------+ +------+-------+ + | MEDICAID | [place] | [id number] | | | [address] | | | [place] | | | | [place] | | | [place] | | | | [phone] | | | PROGRESS CLERK | | | | | + +--------+ +------+-------+ + + +--------+ +--------+ + + | Guarantor Name | Accoun | Relation to | Date | Phone | Billing Address | | | t Type | Patient | of | | | | | | | | | | + +--------+ +--------+ + + | JENNIFER LYON | Person | Self [birth year] | Home: | [address] | | | [place] | | [phone] | [phone] [place] | | | [place] | | | [phone] | [phone] | + +--------+ +--------+ + +
--- OUTSIDE RECORDS SUMMARY | ~2019-09-02 | XMS | Clinical Summary ---
Demographics + + + | Address | [address] | | | [place] [address] | + + + | Home Phone | | + + + | Preferred Language | Unknown | + + + | Marital Status | Single | + + + | Caodaism Affiliation | Unknown | + + + | Race | Unknown | + + + | Ethnic Group | Unknown | + + + Author + + + | Author | [facility] | | | and [place] | + + + | Organization | [facility] | | | and [...] Team Providers + +------+ + | Care Cross Country Coach Name | Role | Phone | + [...]
--- OUTSIDE RECORDS SUMMARY | ~2019-09-02 | XMS | Encounter Summary ---
Demographics + + + | Address | [address] | | | [place] [address] | + + + | Home Phone | | + + + | Preferred Language | Unknown | + + + | Marital Status | Single | + + + | Orthodoxy Affiliation | NRP | + + + | Race | White | + + + | Ethnic Group | Not or | + + + Author + + + | Author | [facility] | + + + | Organization | [facility] | + + + | Address | Unknown | + + + | Phone | Unavailable | + + + Support + + +---------+ + | Name | Relationship | Address | Phone | + + +---------+ + | Odalis Lyon | ECON | Unknown | | + + +---------+ + | Raymond [place] | ECON | Unknown | | + + +---------+ + Care Team Providers + +------+ + | Care Education Manager Name | Role | Phone | + +------+ + | No Pcp Per Patient | PCP | Unavailable | + +------+ + Encounter Details +--------+ + + + + | Date | Type | Department | Care Team | Description | +--------+ + + + + | 08/03/ | Pharmacy | Outpatient Retail | | | | 2019 | Visit | [facility] | | | | | | [address] | | | | | | [place], | | | | | | [place] [address] | | | | | | [phone] | | | +--------+ + + + + Social History + +-------+ +--------+ + | Tobacco Use | Types | Packs/Day | Years | Date | | | | | Used | | + +-------+ +--------+ + | Former Smoker | | 1 | 25 | Quit: 2018 | + +-------+ +--------+ + + +---+---+---+ | Smokeless Tobacco: | | | | | Never Used | | | | + +---+---+---+ + + +---------+ + | Alcohol Use | Drinks/Week | oz/Week | Comments | + + +---------+ + | Yes | | | | + + +---------+ [...] + + documented as of this encounter Functional Status + + + + | Functional Status | Response | Date of Assessment | + + + + | Because of a physical, mental, or emotional | No | 07/30/2019 | | condition, do you have serious difficulty | | | | doing errands alone such as visiting the | | | | doctor? | | | + + + + + + + + | Cognitive Status | Response | Date of Assessment | + + + + | Because of a physical, mental, or emotional | Yes | 07/30/2019 | | condition, do you have serious difficulty | | | | concentrating, remembering, or making | | | | decisions? (5 years old or older) | | | + + + + documented as of this encounter Plan of Treatment Not on filedocumented as of this encounter Visit Diagnoses Not on filedocumented in this encounter"
--- OUTSIDE RECORDS SUMMARY | ~2019-09-02 | XMS | Encounter Summary ---
Demographics + + + | Address | [address] | | | [place] [address] | + + + | Home Phone | | + + + | Preferred Language | Unknown | + + + | Marital Status | Single | + + + | Adventist Affiliation | NRP | + + + | Race | White | + + + | Ethnic Group | Not or | + + + Author + + + | Author | [facility] | + + + | Organization | [facility] | + + + | Address | [...] Team Providers + +------+ + | Care Soccer Player Name | Role | Phone | + +------+ + | No Pcp Per Patient | PCP | Unavailable | + +------+ + Encounter Details +--------+ + + + + | Date | Type | Department | Care Team | Description | +--------+ + + + + | 08/01/ | Pharmacy | Outpatient Retail | | | | 2019 | Visit | [facility] | | | | | | [address] | | | | | | [place], | | | | | | [place] [address] | | | | | | [phone] | | | +--------+ + + + [...]
--- OUTSIDE RECORDS SUMMARY | ~2019-09-02 | XMS | Encounter Summary ---
Demographics + + + | Address | [address] | | | [place] [address] | + + + | Home Phone | | + + + | Preferred Language | Unknown | + + + | Marital Status | Single | + + + | Worship Affiliation | NRP | + + + [...] Team Providers + +------+ + | Care Senior Ios Developer Name | Role | Phone | + +------+ + PCP | Unavailable | + +------+ + Encounter Details +--------+ + + + + | Date | Type | Department | Care Team | Description | +--------+ + + + + | 07/28/ | [facility] | [facility] | | | | 2019 | Encounter | Services [id number] | | | | | | [address] | | | | | | [place], [place] | | | | | | [address] | | | +--------+ + + + + Social History + +-------+ +--------+------+ | Tobacco Use | Types | Packs/Day | Years | Date | | | | | Used | | + +-------+ +--------+------+ | Never Assessed | | | | | + +-------+ [...] as of this encounter Plan of Treatment + + +--------+ + + | Name | Type | Priori | Associated Diagnoses | Date/Time | | | | ty | | | + + +--------+ + + | OUTSIDE MSK - READ | Outside | Routin | | 07/28/2019 12:00 AM | | REQUEST | Films | e | | PDT | + + +--------+ + + documented as of this encounter Visit Diagnoses Not on filedocumented in this encounter"
--- OUTSIDE RECORDS SUMMARY | ~2019-09-02 | XMS | Encounter Summary ---
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 intravenous Q12H PRN Cheryl Lambert MD 4 mg at 07/30/19 0749 oxyCODONE (immediate release) (ROXICODONE) tablet 5 mg 5 mg oral Q4H PRN Martín gibson DO 5 mg at 07/30/19 0529 vancomycin (VANCOCIN) IV 1,250 mg 1,250 mg intravenous Q12H Luann Mendenhall MD Chemistries: Last 72 Hours (or 3 results): Recent Labs 07/29/19192407/30/19 0106 07/30/19 0523 07/30/19 0808 07/30/19 0848 NA 149* -- 149* 145 -- -- K 3.3* -- 3.1* 3.8 -- -- CL 115* -- 113* 111* -- -- BICARB 23 -- 23 27 -- -- BUN 13 -- 15 16 -- -- CR 1.47* -- 1.30 1.22 -- -- GLU 323* < > 292* 285* 225* 180* CA 7.8* -- 7.5* 7.3* -- -- MG 2.4 -- -- 2.0 -- -- PO4 -- -- -- 2.1* -- -- < > = values in this interval not displayed. CBC with diff last 72 hours (or 3 results) Recent Labs 07/29/19192507/30/19 0106 WBC 19.20* 20.99* HB 12.0* 12.1* HCT 34.7* 35.5* PLT 244 202 NEUTROPERC 88.2* 89.7* LYMPHPERC 4.4* 6.0* MONOPERC 6.5 3.4* BASOPERC 0.1 0.0 EOSPERC 0.0* 0.0* Liver Tests: Last 72 hours (or 3 results) Recent Labs 07/29/19192407/30/19 0523 AST 62* 117* ALT 54 60 TBILI 0.4 0.4 AP 52* 49* ALB 3.6 3.4* TP 6.6 6.0* Up to Last 5 ABGs in 72 hours: No results for input(s): PH, PCO2, PO2, HCO3, [id number], U7GPJYRR, W7QFVIYMO, FIO2 in the l ast 72 hours. Lab Results Component Value Date INRPT 1.17 07/29/2019 @lastlactase3@ CBG Result Av.2 Min: 180 Max: 283 LastCBG Intervention: Medication given (started endotool) (07/30/19 0808) Last CBG's POC Lab Results Component Value Date GLU 180 (H) 07/30/2019 GLU 225 (H) 07/30/2019 GLU 285 (H) 07/30/2019 No results found for: CXR Cheryl Swain MD - 07/30/2019 6:02 AM PDT [facility] MEDICAL ICU - PROGRESS NOTE Hospital Day: 1 | ICU Day: 1 ID/CC: Seth Lyon is a 43 y.o. man DM2, HTN, CAMPOS and bipolar affective disorder admitted t o the MICU for presumed HHS c/b seizure like activity. Consultants: EGS, OMFS 24 Hour Events: -admitted to MICU overnight, extubated quickly upon arrival -gap closed and K at 3.3 on arrival -received 2L IVF, 180mEq K -holding insulin pending potassium correction, CBGs 260-300s -trauma and OMFS consulted for GLF and sinus fracture - final rec's pending evaluation of O SH imaging -started on empiric abx for initial fever and leukocytosis although no localizing s/s of in fection Subjective: Reports facial pain and mild abdominal pain. States he feels confused and is anxious about the fact that he has no recollection of the events leading to his admission. Thinks he took some "uppers" prior to being found but is not sure. Vital Signs: Cuff BP (!) 152/98 (07/30/19512) | BP Min: 136/84 Max: 169/110 Cuff MAP 112 mmHg (07/30/19512) | BP Mean Min: 92 mmHg Max: 125 mmHg Art Line BP | No data recorded Art Line MAP | No data recorded HR 85 (07/30/19512) | Pulse Min: 85 Max: 115 | Cardiac Rhythm: Sinus Tachycardia (07/30) Temp 38 C (100.4 F) (07/30/19 035) | Temp Min: 37.8 C (100 F) Max: 38.5 C (101 .3 F) RR (!) 28 (07/30/19512) | Resp Min: 13 Max: 28 SpO2 96 % (07/30/19512) | SpO2 Min: 90 % Max: 99 % O2 Device None (room air) (07/30/1999) | Volume AC/s CMV (07/29/191936) CPOT 2 (07/29/192199) Intake/Output Summary (Last 24 hours) at 07/30/19 0700 Last data filed at 07/30/19 0539 Gross per 24 hour Intake 7001.31 ml Output 3375 ml Net 3626.31 ml Intake/Output Summary (since admission) at 07/29/191899 Last data filed at 07/30/19 0539 Gross for the last 1 days Intake 7001.31 ml Output 3375 ml Net since Admission 3626.31 ml BMI: 39.8 Weights 93.9 kg (207 lb 0.2 oz) (07/29/191899) Admit Wt: 93.9 kg (207 lb 0.2 oz) Physical Exam: Gen: groggy, awake, resting comfortably in bed, C-collar in place, mildly anxious but NAD HEENT: L periorbital ecchymosis, otherwise NC/AT, MMM CV: RRR, no m/r/g Lungs: CTAB, normal WOB on RA Abd: soft, NT/ND, +BS Ext: WWP, no edema, no visible bruises/lesions Neuro: AxOx3 but quickly forgetting place, unaware of event, answering appropriately, CN gr ossly intact, strength intact throughout Laboratories: Recent Labs 07/29/191925 VBGPH 7.42 VBGPCO2 35 VBGHCO3 22 Recent Labs 07/29/19192507/30/19 0106 WBC 19.20* 20.99* HB 12.0* 12.1* HCT 34.7* 35.5* MCV 91.6 92.4 PLT 244 202 NEUTROPHILCO 16.93* 18.83* LYMPHSABS 0.84* 1.26 MONOCYTECO 1.25* 0.71 EOSCO 0.00 0.00 BASOPHILCO 0.02 0.00 IMGRANABS 0.16* 0.19* Recent Labs 07/29/191924 INRPT 1.17 Recent Labs 07/29/19192407/30/19 010 NA 149* 149* K 3.3* 3.1* CL 115* 113* BICARB BUN 13 15 CR 1.47* 1.30 CA 7.8* 7.5* MG 2.4 -- ANIONGAP 11 13* Recent Labs 07/29/19192307/29/19192407/29/19 2252 07/30/19 0101 07/30/19 0106 GLU 274* 323* 283* 269* 292* Recent Labs 07/29/191924 AST 62* ALT 54 TBILI 0.4 AP 52* ALB 3.6 TP 6.6 Recent Labs 07/30/19 0106 07/30/19 0523 LACTICACID 3.8 2.9 Lab Orders - In Process (From admission to next 24h) Start Ordered 07/30/19 0515 ACETAMINOPHEN, PLASMA ONCE 07/30/19 0507 07/30/19 0515 SALICYLATE ONCE 07/30/19 0507 07/30/19 0500 COMPLETE METABOLIC SET (NA,K,CL,CO2,BUN,CREAT,GLUC,CA,AST,ALT,BILI TOTAL,AL K PHOS,ALB,PROT TOTAL) DAILY 07/30/19 0507 07/29/191999 HEMOGLOBIN A1C, BLOOD ONCE 07/29/19195507/29/191929 CULTURE, BLOOD BACTI & YEAST ONCE 07/29/19192707/29/191929 CULTURE, BLOOD BACTI & YEAST ONCE 07/29/191927 Microbiology: Blood cx (07/29) - pending Imaging: CXR 07/[address] C/A/P 07/29 Possible compression fractures T10 and L1, age undetermined. Small pleural effusions. Ct C Spine 07/29 Degenerative disc disease, no acute fractures CT Head 07/29 Acute fracture of the inferior anterolateral L maxillary sinus with associated air-fluid le jill Lateral L orbital floor blowout fracture probably an injury, correlate clinically L frontal lobe encephalomalacia EKG/Echocardiogram: OSH - NSR x2, Afib with RVR Current Facility-Administered Medications Medication Dose Route Frequency Last Rate Current Facility-Administered Medications Medication Dose Route Frequency Last Rate cefTRIAXone (ROCEPHIN) injection 2 g 2 g intravenous Q12H chlorhexidine (PERIDEX) mouthwash 15 mL 15 mL oral Q6H vancomycin (VANCOCIN) IV 1,250 mg 1,250 mg intravenous Q12H Current Facility-Administered Medications Medication Dose Route Frequency Last Rate acetaminophen (TYLENOL) tablet 1,000 mg 1,000 mg oral Q8H PRN hydrALAZINE (APRESOLINE) injection 10 mg 10 mg intravenous Q4H PRN menthol-zinc oxide (CALAZIME) topical paste 0.2%-16.5% topical QID PRN midazolam (PF) (VERSED) injection 2-5 mg 2-5 mg intravenous Q1H PRN oxyCODONE (immediate release) (ROXICODONE) tablet 5 mg 5 mg oral Q4H PRN Assessment & Plan: Seth Lyon is a 43 y.o. man DM2, HTN, CAMPOS and bipolar affective disorder admitted to the ICU for presumed DKA c/b seizure-like activity. Neurological # Encephalopathy # Seizure Unclear what precipitated witnessed seizure w/ tonic-clonic activity although suspect secon shannan to metabolic derangements in s/o DKA. Also consider toxic ingestion (given reported h/o overdose and suicide attempt, although tox screen negative) vs infection (given fever and l eukocytosis, although infectious martines negative to date) vs trauma vs underlying structural abn ormality (h/o TBI). CT head w/o evidence of acute intracranial process. Baseline mental stat us unclear although reportedly with mild cognitive deficit given h/o TBI in past with eviden ce of L frontal lobe encephalomalacia on CT head. No recurrence of seizure like activity. P t oriented although mildly confused. -ongoing neuro checks -consider neuro consult -continue empiric abx as per below #Ground level fall #Facial lacerations #Sinus fracture Fall occurred during seizure, patient claims he fell on the back of his head though injurie s are on the face. - Consulted trauma, appreciate recs - No need for further imaging beyond OSH imaging - Continue c spine precautions, they will come clear precautions today - OMFS consulted, appreciate recs - Based on physical exam, unlikely that surgery will be urgently necessary - Will follow with final recs once OSH imaging is uploaded - Holding VTE prophy in case surgery is needed - APAP 1000mg TID PRN - Oxycodone Cardiovascular # Afib w/ RVR - resolved Likely 2/2 metabolic derangement in s/o DKA. S/p cardioversion at OSH. Has maintained NSR s simon. -continue to monitor on tele Respiratory # S/p mechanical ventilation Intubated at OSH in s/o severe acidosis and seizure w/ inability to protect airway. Extubat ed upon arrival to [facility] MICU. Saturating well on RA. GI / Nutrition # Abdominal pain # Nausea/vomiting Unclear etiology. Consider manifestation of DKA vs toxic ingestion given reported history o f previous suicide attempts and questionable report of NSAID overdose prior to admission. AP AP and salicylate level negative. UDS +only for benzos s/p versed for seizures. Poison contr ol notified recommending NAC therapy although less likely APAP overdose given normal LFTs ex cept elevated AST which can be explained in s/o seizure. Pancreatitis also consider given re ported h/o etoh use although less likely at this point given non-elevated lipase and no ment ion of radiographic evidence on OSH CT c/a/p. -zofran prn -fu OSH imaging / Renal #PARTHA - improving Pea V[employer] Mechanic baseline is around 0.7-0.8 per chart history and peaked at 1.78 at OSH. Likely etiologi es include hypovolemia (given hyperglycemia and improvement with fluids) or NSAID ingestion. - Continue fluid resuscitation as needed - Trend BMPs daily Infectious Disease # Fever # Leukocytosis C/f infection of unclear source potentially precipitating DKA and/or seizure. Although leuk ocytosis and fever could also be secondary to seizure, persistence of low grade fevers man y hours after resolution of seizure-like activity makes this a less consistent explanation. UA w/o e/o infection. CXR w/o karen infectious etiology. Consider CHIEF ESTIMATOR infection given AMS. N o clear findings suspicious of intracranial infectious process on CTH from OSH. Difficult to assess for meningeal signs given pt in C-collar. Do not feel further evaluation with LP vs MRI warranted at this point given other explanation for AMS (post-ictal vs metabolic derange ments).Will continue to cover empirically pending clinical course with low threshold to purs ue further evaluation for CHIEF ESTIMATOR infection. - Ceftraixone 2g IV q12h (07/29 - present) - Vancomycin 1.25g IV q12h (07/29 - present) - fu blood cultures - trend CBCs Endocrine # DKA vs HHS # Type 2 DM # Anion gap metabolic acidosis # Serum osmolal gap Severe acidosis (blood gas 6.66/69/7.3), large anion gap, serum bicarb <10 and moderate uri ne ketones more consistent with DKA, although peculiar in s/o diagnosis of T2DM only treated on metformin. Unclear trigger although suspect seizure vs possible infection. No s/s of CV A, no s/s of FL. Although abdominal pain, pancreatitis less likely given low lipase. Other c auses of acidosis could be lactate (3.8) from seizures or ingestion (does have history of sa licylate ingestion). -continue fluid resuscitation w/ D5 1/2 NS + K -bmp q4h, replete K prn -continue on insulin infusion per endotool hyperglycemia protocol -diabetic diet Consultants: OMFS, Trauma surgery Feeding: PO diet Analgesia: Acetaminophen and Oxycodone Sedation: None (RASS Goal 0 (alert and calm)) Thromboprophylaxis: SCDs (Pharmacologic ppx contraindicated) Head of Bed: Ad margy Ulcer Prophylaxis: Not indicated Glycemic control: Endotool insulin infusion Mobility Goal: Ambulate Lines/Tubes/Drains/Airways: PIVs Code Status Code Status Full Code Surrogate Decision Maker Documentation: This patient was staffed with Dr. Mendenhall, attending physician. Cheryl Lambert MD Internal Medicine, PGY2 Pg [phone] Shoshana Nam, DO - 07/30/2019 12:49 AM PDTBrief Progress Note Informed by RN that patient reported taking "20-40 Aleve" while at [facility]. Went to speak with patient to obtain more information. He states that he thinks he took "15" tablets [facility] When asked why he took so many tablets, he said "I don't know." Denies taking it becaus e he was in any pain or any other particular reason. Denies prior similar incidents where he took a large amount of Aleve or other medications. Denies that it was an intentional overdo se, and denies suicidal ideation. Does endorse some epigastric pain. Benign abdomen on physical exam, no tenderness to palpation/rebound/guarding. Patient was alert and oriented to person, place, time (to person, "[facility]," "July 2019") n ot situation, but is an inconsistent historian and was distracted during our conversation re quiring frequent re-direction. A/P: Patient has chart history of suicide attempt in 08/2015 via intentional aspirin overdose. A lso with chart history of bipolar disorder. At this time do not feel that patient has decisi on-making capacity because he does not fully understand the events leading to his hospitaliz ation and why he requires ongoing medical care. His mental status has been improving with ti me since his arrival to the MICU, however, so would reassess in the morning and consider [facility] evaluation as appropriate. Discussed with Poison Control, recommendation is supportive care with hydration and trendin g labs, along with checking an APAP and ASA level if not already obtained at outside hospita l. Fidelina Jenkins DO Internal Medicine PGY-2 Pager [phone] on Hamm MD - 07/29/2019 10:28 PM PDTAttending Attestation: I have seen and examined the patient personally, and have reviewed and revised (when necess joe) the note by the assisted living housekeeper. DayanaubreymorganVedan Alayna Sonali is a 43 y.o. man with a history of DM2 who presented with seizure and fall with facial fx. FOund have HHS/DKA, lactic acidosis, profoundly acidotic and developed AFib which was ?unstable and was cardioverted. He was stabilized at OSH and brought to [facility]. Overnight events: - Improved with stabilization, extubated shortly after arrival - Trauma consulted Diagnoses: - Seizure - DKA/HHS - Facial fx - lactic acidosis - Afib - metabolic encephalopathy - PARTHA - ?EtOH w/d? Plan: - Will continue to provide supportive care - Endotool - CHIEF ESTIMATOR dosing CTX for now - I spent 20 minutes providing critical care services to this complex patient, which includes reviewing medical records, imaging, and laboratory results, speaking with primary and/or ot her renewable energy consultant teams. Von Hamm MD Continuous Pickling Line Pickler Helperhead packager [facility] Division of Pulmonary & Critical Care Medicine Pager: [phone] documented in t his encounter Plan of Treatment + + +--------+ + + | Name | Type | Priori | Associated Diagnoses | Date/Time | | | | ty | | | + + +--------+ + + | OUTSIDE MSK - READ | Outside | Routin | | 07/28/2019 12:00 AM | | REQUEST | Films | e | | PDT | + + +--------+ + + + + +--------+ + + | Name | Type | Priori | Associated Diagnoses | Order Schedule | | | | ty | | | + + +--------+ + + | MANUAL DIFFERENTIAL | Lab - | Routin | | 07/30/2019 until | | | [facility] | e | | discontinued, 1 | | | Performable | | | completed | | | s | | | | + + +--------+ + + | RBC MORPHOLOGY | Lab - | Routin | | 07/30/2019 until | | | [facility] | e | | discontinued, 1 | | | Performable | | | completed | | | s | | | | + + +--------+ + + | OUTSIDE MSK - READ | Outside | Routin | | One Time for 1 | | REQUEST | Films | e | | Occurrences starting | | | | | | 07/31/2019 until | | | | | | 07/31/2019 | + + +--------+ + + documented as of this encounter Procedures + +--------+ + + + | Procedure Name | Priori | Date/Time | Associated Diagnosis | Comments | | | ty | | | | + +--------+ + + + | CAPILLARY BLOOD | Routin | 08/03/2019 | Diabetic | Results for this | | GLUCOSE (NO CHG), | e | 1:06 PM | ketoacidosis without | procedure are in the | | POC | | PDT | coma associated | results section. | | | | | with other specified | | | | | | diabetes mellitus | | | | | | (HCC) | | + +--------+ + + + | CAPILLARY BLOOD | Routin | 08/03/2019 | Diabetic | Results for this | | GLUCOSE (NO CHG), | e | 8:10 AM | ketoacidosis without | procedure are in the | | POC | | PDT | coma associated | results section. | | | | | with other specified | | | | | | diabetes mellitus | | | | | | (HCC) | | + +--------+ + + + | CBC (HEMOGRAM) ONLY | Urgent | 08/03/2019 | | Results for this | | | | 3:31 AM | | procedure are in the | | | | PDT | | results section. | + +--------+ + + + | COMPLETE METABOLIC | Urgent | 08/03/2019 | | Results for this | | SET | | 3:31 AM | | procedure are in the | | (NA,K,CL,CO2,BUN,CRE | | PDT | | results section. | | AT,GLUC,CA,AST,ALT,B | | | | | | JENNIFER TOTAL,ALK | | | | | | PHOS,ALB,PROT TOTAL) | | | | | + +--------+ + + + | CBC ONLY | Urgent | 08/03/2019 | | Results for this | | | | 3:31 AM | | procedure are in the | | | | PDT | | results section. | + +--------+ + + + | PHOSPHORUS, PLASMA | Routin | 08/03/2019 | | Results for this | | | e | 3:31 AM | | procedure are in the | | | | PDT | | results section. | + +--------+ + + + | MAGNESIUM, PLASMA | Routin | 08/03/2019 | | Results for this | | | e | 3:31 AM | | procedure are in the | | | | PDT | | results section. | + +--------+ + + + | CK, PLASMA | Routin | 08/03/2019 | | Results for this | | | e | 3:31 AM | | procedure are in the | | | | PDT | | results section. | + +--------+ + + + | CAPILLARY BLOOD | Routin | 08/03/2019 | Diabetic | Results for this | | GLUCOSE (NO CHG), | e | 2:59 AM | ketoacidosis without | procedure are in the | | POC | | PDT | coma associated | results section. | | | | | with other specified | | | | | | diabetes mellitus | | | | | | (HCC) | | + +--------+ + + + | CAPILLARY BLOOD | Routin | 08/03/2019 | Diabetic | Results for this | | GLUCOSE (NO CHG), | e | 12:40 AM | ketoacidosis without | procedure are in the | | POC | | PDT | coma associated | results section. | | | | | with other specified | | | | | | diabetes mellitus | | | | | | (HCC) | | + +--------+ + + + | CAPILLARY BLOOD | Routin | 08/03/2019 | Diabetic | Results for this | | GLUCOSE (NO CHG), | e | 12:04 AM | ketoacidosis without | procedure are in the | | POC | | PDT | coma associated | results section. | | | | | with other specified | | | | | | diabetes mellitus | | | | | | (HCC) | | + +--------+ + + + | CAPILLARY BLOOD | Routin | 08/02/2019 | Diabetic | Results for this | | GLUCOSE (NO CHG), | e | 11:36 PM | ketoacidosis without | procedure are in the | | POC | | PDT | coma associated | results section. | | | | | with other specified | | | | | | diabetes mellitus | | | | | | (HCC) | | + +--------+ + + + | CAPILLARY BLOOD | Routin | 08/02/2019 | Diabetic | Results for this | | GLUCOSE (NO CHG), | e | 8:13 PM | ketoacidosis without | procedure are in the | | POC | | PDT | coma associated | results section. | | | | | with other specified | | | | | | diabetes mellitus | | | | | | (HCC) | | + +--------+ + + + | CAPILLARY BLOOD | Routin | 08/02/2019 | Diabetic | Results for this | | GLUCOSE (NO CHG), | e | 3:33 PM | ketoacidosis without | procedure are in the | | POC | | PDT | coma associated | results section. | | | | | with other specified | | | | | | diabetes mellitus | | | | | | (HCC) | | + +--------+ + + + | CAPILLARY BLOOD | Routin | 08/02/2019 | Diabetic | Results for this | | GLUCOSE (NO CHG), | e | 8:17 AM | ketoacidosis without | procedure are in the | | POC | | PDT | coma associated | results section. | | | | | with other specified | | | | | | diabetes mellitus | | | | | | (HCC) | | + +--------+ + + + | CBC (HEMOGRAM) ONLY | Urgent | 08/02/2019 | | Results for this | | | | 6:21 AM | | procedure are in the | | | | PDT | | results section. | + +--------+ + + + | COMPLETE METABOLIC | Urgent | 08/02/2019 | | Results for this | | SET | | 6:21 AM | | procedure are in the | | (NA,K,CL,CO2,BUN,CRE | | PDT | | results section. | | AT,GLUC,CA,AST,ALT,B | | | | | | JENNIFER TOTAL,ALK | | | | | | PHOS,ALB,PROT TOTAL) | | | | | + +--------+ + + + | CBC ONLY | Urgent | 08/02/2019 | | Results for this | | | | 6:21 AM | | procedure are in the | | | | PDT | | results section. | + +--------+ + + + | PHOSPHORUS, PLASMA | Routin | 08/02/2019 | | Results for this | | | e | 6:21 AM | | procedure are in the | | | | PDT | | results section. | + +--------+ + + + | LIPID SET (TRIG, T | Routin | 08/02/2019 | | Results for this | | CHOL, HDL, CALC LDL) | e | 6:21 AM | | procedure are in the | | | | PDT | | results section. | + +--------+ + + + | MAGNESIUM, PLASMA | Routin | 08/02/2019 | | Results for this | | | e | 6:21 AM | | procedure are in the | | | | PDT | | results section. | + +--------+ + + + | CK, PLASMA | Routin | 08/02/2019 | | Results for this | | | e | 6:21 AM | | procedure are in the | | | | PDT | | results section. | + +--------+ + + + | CAPILLARY BLOOD | Routin | 08/02/2019 | Diabetic | Results for this | | GLUCOSE (NO CHG), | e | 12:22 AM | ketoacidosis without | procedure are in the | | POC | | PDT | coma associated | results section. | | | | | with other specified | | | | | | diabetes mellitus | | | | | | (HCC) | | + +--------+ + + + | CAPILLARY BLOOD | Routin | 08/01/2019 | Diabetic | Results for this | | GLUCOSE (NO CHG), | e | 8:50 PM | ketoacidosis without | procedure are in the | | POC | | PDT | coma associated | results section. | | | | | with other specified | | | | | | diabetes mellitus | | | | | | (HCC) | | + +--------+ + + + | HEPATITIS B SURFACE | Routin | 08/01/2019 | | Results for this | | AG W/REFLEX IF | e | 12:52 PM | | procedure are in the | | INDICATED | | PDT | | results section. | + +--------+ + + + | VITAMIN D, | Routin | 08/01/2019 | | Results for this | | 25-HYDROXY, SERUM | e | 12:52 PM | | procedure are in the | | | | PDT | | results section. | + +--------+ + + + | HEPATITIS B SURFACE | Routin | 08/01/2019 | | Results for this | | AB QUAL, SERUM | e | 12:52 PM | | procedure are in the | | | | PDT | | results section. | + +--------+ + + + | HEPATITIS B CORE AB, | Routin | 08/01/2019 | | Results for this | | SERUM | e | 12:52 PM | | procedure are in the | | | | PDT | | results section. | + +--------+ + + + | HEPATITIS C VIRUS | Routin | 08/01/2019 | | Results for this | | W/CONFIRMATION | e | 12:52 PM | | procedure are in the | | | | PDT | | results section. | + +--------+ + + + | CAPILLARY BLOOD | Routin | 08/01/2019 | Diabetic | Results for this | | GLUCOSE (NO CHG), | e | 12:33 PM | ketoacidosis without | procedure are in the | | POC | | PDT | coma associated | results section. | | | | | with other specified | | | | | | diabetes mellitus | | | | | | (HCC) | | + +--------+ + + + | CBC (HEMOGRAM) ONLY | Urgent | 08/01/2019 | | Results for this | | | | 9:51 AM | | procedure are in the | | | | PDT | | results section. | + +--------+ + + + | CBC ONLY | Urgent | 08/01/2019 | | Results for this | | | | 9:51 AM | | procedure are in the | | | | PDT | | results section. | + +--------+ + + + | COMPLETE METABOLIC | Urgent | 08/01/2019 | | Results for this | | SET | | 8:09 AM | | procedure are in the | | (NA,K,CL,CO2,BUN,CRE | | PDT | | results section. | | AT,GLUC,CA,AST,ALT,B | | | | | | JENNIFER TOTAL,ALK | | | | | | PHOS,ALB,PROT TOTAL) | | | | | + +--------+ + + + | PHOSPHORUS, PLASMA | Routin | 08/01/2019 | | Results for this | | | e | 8:09 AM | | procedure are in the | | | | PDT | | results section. | + +--------+ + + + | FERRITIN | Routin | 08/01/2019 | | Results for this | | | e | 8:09 AM | | procedure are in the | | | | PDT | | results section. | + +--------+ + + + | MAGNESIUM, PLASMA | Routin | 08/01/2019 | | Results for this | | | e | 8:09 AM | | procedure are in the | | | | PDT | | results section. | + +--------+ + + + | CK, PLASMA | Routin | 08/01/2019 | | Results for this | | | e | 8:09 AM | | procedure are in the | | | | PDT | | results section. | + +--------+ + + + | CAPILLARY BLOOD | Routin | 08/01/2019 | Diabetic | Results for this | | GLUCOSE (NO CHG), | e | 8:03 AM | ketoacidosis without | procedure are in the | | POC | | PDT | coma associated | results section. | | | | | with other specified | | | | | | diabetes mellitus | | | | | | (HCC) | | + +--------+ + + + | CAPILLARY BLOOD | Routin | 08/01/2019 | Diabetic | Results for this | | GLUCOSE (NO CHG), | e | 5:44 AM | ketoacidosis without | procedure are in the | | POC | | PDT | coma associated | results section. | | | | | with other specified | | | | | | diabetes mellitus | | | | | | (HCC) | | + +--------+ + + + | CAPILLARY BLOOD | Routin | 08/01/2019 | Diabetic | Results for this | | GLUCOSE (NO CHG), | e | 12:44 AM | ketoacidosis without | procedure are in the | | POC | | PDT | coma associated | results section. | | | | | with other specified | | | | | | diabetes mellitus | | | | | | (HCC) | | + +--------+ + + + | CAPILLARY BLOOD | Routin | 07/31/2019 | Diabetic | Results for this | | GLUCOSE (NO CHG), | e | 8:54 PM | ketoacidosis without | procedure are in the | | POC | | PDT | coma associated | results section. | | | | | with other specified | | | | | | diabetes mellitus | | | | | | (HCC) | | + +--------+ + + + | CAPILLARY BLOOD | Routin | 07/31/2019 | Diabetic | Results for this | | GLUCOSE (NO CHG), | e | 7:50 PM | ketoacidosis without | procedure are in the | | POC | | PDT | coma associated | results section. | | | | | with other specified | | | | | | diabetes mellitus | | | | | | (HCC) | | + +--------+ + + + | CAPILLARY BLOOD | Routin | 07/31/2019 | Diabetic | Results for this | | GLUCOSE (NO CHG), | e | 7:16 PM | ketoacidosis without | procedure are in the | | POC | | PDT | coma associated | results section. | | | | | with other specified | | | | | | diabetes mellitus | | | | | | (HCC) | | + +--------+ + + + | CAPILLARY BLOOD | Routin | 07/31/2019 | Diabetic | Results for this | | GLUCOSE (NO CHG), | e | 3:37 PM | ketoacidosis without | procedure are in the | | POC | | PDT | coma associated | results section. | | | | | with other specified | | | | | | diabetes mellitus | | | | | | (HCC) | | + +--------+ + + + | PROTEIN, URINE | Routin | 07/31/2019 | | Results for this | | | e | 1:49 PM | | procedure are in the | | | | PDT | | results section. | + +--------+ + + + | CREATININE, URINE | Routin | 07/31/2019 | | Results for this | | | e | 1:49 PM | | procedure are in the | | | | PDT | | results section. | + +--------+ + + + | CAPILLARY BLOOD | Routin | 07/31/2019 | Diabetic | Results for this | | GLUCOSE (NO CHG), | e | 12:49 PM | ketoacidosis without | procedure are in the | | POC | | PDT | coma associated | results section. | | | | | with other specified | | | | | | diabetes mellitus | | | | | | (HCC) | | + +--------+ + + + | CAPILLARY BLOOD | Routin | 07/31/2019 | Diabetic | Results for this | | GLUCOSE (NO CHG), | e | 10:44 AM | ketoacidosis without | procedure are in the | | POC | | PDT | coma associated | results section. | | | | | with other specified | | | | | | diabetes mellitus | | | | | | (HCC) | | + +--------+ + + + | CAPILLARY BLOOD | Routin | 07/31/2019 | Diabetic | Results for this | | GLUCOSE (NO CHG), | e | 8:29 AM | ketoacidosis without | procedure are in the | | POC | | PDT | coma associated | results section. | | | | | with other specified | | | | | | diabetes mellitus | | | | | | (HCC) | | + +--------+ + + + | VANCOMYCIN, TROUGH | Urgent | 07/31/2019 | | Results for this | | | | 8:22 AM | | procedure are in the | | | | PDT | | results section. | + +--------+ + + + | MAGNESIUM, PLASMA | Routin | 07/31/2019 | | Results for this | | | e | 8:22 AM | | procedure are in the | | | | PDT | | results section. | + +--------+ + + + | CK, PLASMA | Routin | 07/31/2019 | | Results for this | | | e | 7:05 AM | | procedure are in the | | | | PDT | | results section. | + +--------+ + + + | CAPILLARY BLOOD | Routin | 07/31/2019 | Diabetic | Results for this | | GLUCOSE (NO CHG), | e | 6:38 AM | ketoacidosis without | procedure are in the | | POC | | PDT | coma associated | results section. | | | | | with other specified | | | | | | diabetes mellitus | | | | | | (HCC) | | + +--------+ + + + | CAPILLARY BLOOD | Routin | 07/31/2019 | Diabetic | Results for this | | GLUCOSE (NO CHG), | e | 4:29 AM | ketoacidosis without | procedure are in the | | POC | | PDT | coma associated | results section. | | | | | with other specified | | | | | | diabetes mellitus | | | | | | (HCC) | | + +--------+ + + + | CAPILLARY BLOOD | Routin | 07/31/2019 | Diabetic | Results for this | | GLUCOSE (NO CHG), | e | 4:09 AM | ketoacidosis without | procedure are in the | | POC | | PDT | coma associated | results section. | | | | | with other specified | | | | | | diabetes mellitus | | | | | | (HCC) | | + +--------+ + + + | COMPLETE METABOLIC | Urgent | 07/31/2019 | | Results for this | | SET | | 4:09 AM | | procedure are in the | | (NA,K,CL,CO2,BUN,CRE | | PDT | | results section. | | AT,GLUC,CA,AST,ALT,B | | | | | | JENNIFER TOTAL,ALK | | | | | | PHOS,ALB,PROT TOTAL) | | | | | + +--------+ + + + | PHOSPHORUS, PLASMA | Urgent | 07/31/2019 | | Results for this | | | | 4:09 AM | | procedure are in the | | | | PDT | | results section. | + +--------+ + + + | CK, PLASMA | Routin | 07/31/2019 | | Results for this | | | e | 4:09 AM | | procedure are in the | | | | PDT | | results section. | + +--------+ + + + | CBC (HEMOGRAM) ONLY | Urgent | 07/31/2019 | | Results for this | | | | 2:11 AM | | procedure are in the | | | | PDT | | results section. | + +--------+ + + + | CBC ONLY | Urgent | 07/31/2019 | | Results for this | | | | 2:11 AM | | procedure are in the | | | | PDT | | results section. | + +--------+ + + + | CAPILLARY BLOOD | Routin | 07/31/2019 | Diabetic | Results for this | | GLUCOSE (NO CHG), | e | 2:05 AM | ketoacidosis without | procedure are in the | | POC | | PDT | coma associated | results section. | | | | | with other specified | | | | | | diabetes mellitus | | | | | | (HCC) | | + +--------+ + + + | CAPILLARY BLOOD | Routin | 07/31/2019 | Diabetic | Results for this | | GLUCOSE (NO CHG), | e | 12:04 AM | ketoacidosis without | procedure are in the | | POC | | PDT | coma associated | results section. | | | | | with other specified | | | | | | diabetes mellitus | | | | | | (HCC) | | + +--------+ + + + | CAPILLARY BLOOD | Routin | 07/30/2019 | Diabetic | Results for this | | GLUCOSE (NO CHG), | e | 11:01 PM | ketoacidosis without | procedure are in the | | POC | | PDT | coma associated | results section. | | | | | with other specified | | | | | | diabetes mellitus | | | | | | (HCC) | | + +--------+ + + + | BASIC METABOLIC SET | Urgent | 07/30/2019 | | Results for this | | (NA, K, CL, TCO2, | | 10:14 PM | | procedure are in the | | BUN, CR, GLU, CA) | | PDT | | results section. | + +--------+ + + + | PHOSPHORUS, PLASMA | Urgent | 07/30/2019 | | Results for this | | | | 10:14 PM | | procedure are in the | | | | PDT | | results section. | + +--------+ + + + | CAPILLARY BLOOD | Routin | 07/30/2019 | Diabetic | Results for this | | GLUCOSE (NO CHG), | e | 9:53 PM | ketoacidosis without | procedure are in the | | POC | | PDT | coma associated | results section. | | | | | with other specified | | | | | | diabetes mellitus | | | | | | (HCC) | | + +--------+ + + + | CAPILLARY BLOOD | Routin | 07/30/2019 | Diabetic | Results for this | | GLUCOSE (NO CHG), | e | 8:52 PM | ketoacidosis without | procedure are in the | | POC | | PDT | coma associated | results section. | | | | | with other specified | | | | | | diabetes mellitus | | | | | | (HCC) | | + +--------+ + + + | CAPILLARY BLOOD | Routin | 07/30/2019 | Diabetic | Results for this | | GLUCOSE (NO CHG), | e | 7:52 PM | ketoacidosis without | procedure are in the | | POC | | PDT | coma associated | results section. | | | | | with other specified | | | | | | diabetes mellitus | | | | | | (HCC) | | + +--------+ + + + | CAPILLARY BLOOD | Routin | 07/30/2019 | Diabetic | Results for this | | GLUCOSE (NO CHG), | e | 6:46 PM | ketoacidosis without | procedure are in the | | POC | | PDT | coma associated | results section. | | | | | with other specified | | | | | | diabetes mellitus | | | | | | (HCC) | | + +--------+ + + + | CAPILLARY BLOOD | Routin | 07/30/2019 | Diabetic | Results for this | | GLUCOSE (NO CHG), | e | 5:45 PM | ketoacidosis without | procedure are in the | | POC | | PDT | coma associated | results section. | | | | | with other specified | | | | | | diabetes mellitus | | | | | | (HCC) | | + +--------+ + + + | CAPILLARY BLOOD | Routin | 07/30/2019 | Diabetic | Results for this | | GLUCOSE (NO CHG), | e | 4:51 PM | ketoacidosis without | procedure are in the | | POC | | PDT | coma associated | results section. | | | | | with other specified | | | | | | diabetes mellitus | | | | | | (HCC) | | + +--------+ + + + | CAPILLARY BLOOD | Routin | 07/30/2019 | Diabetic | Results for this | | GLUCOSE (NO CHG), | e | 3:46 PM | ketoacidosis without | procedure are in the | | POC | | PDT | coma associated | results section. | | | | | with other specified | | | | | | diabetes mellitus | | | | | | (HCC) | | + +--------+ + + + | CAPILLARY BLOOD | Routin | 07/30/2019 | Diabetic | Results for this | | GLUCOSE (NO CHG), | e | 2:40 PM | ketoacidosis without | procedure are in the | | POC | | PDT | coma associated | results section. | | | | | with other specified | | | | | | diabetes mellitus | | | | | | (HCC) | | + +--------+ + + + | CBC (HEMOGRAM) ONLY | Urgent | 07/30/2019 | | Results for this | | | | 1:39 PM | | procedure are in the | | | | PDT | | results section. | + +--------+ + + + | CBC ONLY | Urgent | 07/30/2019 | | Results for this | | | | 1:39 PM | | procedure are in the | | | | PDT | | results section. | + +--------+ + + + | CAPILLARY BLOOD | Routin | 07/30/2019 | Diabetic | Results for this | | GLUCOSE (NO CHG), | e | 1:24 PM | ketoacidosis without | procedure are in the | | POC | | PDT | coma associated | results section. | | | | | with other specified | | | | | | diabetes mellitus | | | | | | (HCC) | | + +--------+ + + + | CAPILLARY BLOOD | Routin | 07/30/2019 | Diabetic | Results for this | | GLUCOSE (NO CHG), | e | 12:25 PM | ketoacidosis without | procedure are in the | | POC | | PDT | coma associated | results section. | | | | | with other specified | | | | | | diabetes mellitus | | | | | | (HCC) | | + +--------+ + + + | BASIC METABOLIC SET | Urgent | 07/30/2019 | | Results for this | | (NA, K, CL, TCO2, | | 11:30 AM | | procedure are in the | | BUN, CR, GLU, CA) | | PDT | | results section. | + +--------+ + + + | PHOSPHORUS, PLASMA | Urgent | 07/30/2019 | | Results for this | | | | 11:30 AM | | procedure are in the | | | | PDT | | results section. | + +--------+ + + + | KETONE, PLASMA | Urgent | 07/30/2019 | | Results for this | | | | 11:30 AM | | procedure are in the | | | | PDT | | results section. | + +--------+ + + + | CAPILLARY BLOOD | Routin | 07/30/2019 | Diabetic | Results for this | | GLUCOSE (NO CHG), | e | 11:24 AM | ketoacidosis without | procedure are in the | | POC | | PDT | coma associated | results section. | | | | | with other specified | | | | | | diabetes mellitus | | | | | | (HCC) | | + +--------+ + + + | CAPILLARY BLOOD | Routin | 07/30/2019 | Diabetic | Results for this | | GLUCOSE (NO CHG), | e | 10:18 AM | ketoacidosis without | procedure are in the | | POC | | PDT | coma associated | results section. | | | | | with other specified | | | | | | diabetes mellitus | | | | | | (HCC) | | + +--------+ + + + | CAPILLARY BLOOD | Routin | 07/30/2019 | Diabetic | Results for this | | GLUCOSE (NO CHG), | e | 9:46 AM | ketoacidosis without | procedure are in the | | POC | | PDT | coma associated | results section. | | | | | with other specified | | | | | | diabetes mellitus | | | | | | (HCC) | | + +--------+ + + + | 12 LEAD ECG | Routin | 07/30/2019 | | Results for this | | | e | 9:03 AM | | procedure are in the | | | | PDT | | results section. | + +--------+ + + + | CAPILLARY BLOOD | Routin | 07/30/2019 | Diabetic | Results for this | | GLUCOSE (NO CHG), | e | 8:48 AM | ketoacidosis without | procedure are in the | | POC | | PDT | coma associated | results section. | | | | | with other specified | | | | | | diabetes mellitus | | | | | | (HCC) | | + +--------+ + + + | CAPILLARY BLOOD | Routin | 07/30/2019 | Diabetic | Results for this | | GLUCOSE (NO CHG), | e | 8:08 AM | ketoacidosis without | procedure are in the | | POC | | PDT | coma associated | results section. | | | | | with other specified | | | | | | diabetes mellitus | | | | | | (HCC) | | + +--------+ + + + | COMPLETE METABOLIC | Urgent | 07/30/2019 | | Results for this | | SET | | 5:23 AM | | procedure are in the | | (NA,K,CL,CO2,BUN,CRE | | PDT | | results section. | | AT,GLUC,CA,AST,ALT,B | | | | | | JENNIFER TOTAL,ALK | | | | | | PHOS,ALB,PROT TOTAL) | | | | | + +--------+ + + + | ACETAMINOPHEN, | Urgent | 07/30/2019 | | Results for this | | PLASMA | | 5:23 AM | | procedure are in the | | | | PDT | | results section. | + +--------+ + + + | PHOSPHORUS, PLASMA | Urgent | 07/30/2019 | | Results for this | | | | 5:23 AM | | procedure are in the | | | | PDT | | results section. | + +--------+ + + + | LACTATE | Urgent | 07/30/2019 | | Results for this | | | | 5:23 AM | | procedure are in the | | | | PDT | | results section. | + +--------+ + + + | SALICYLATE, PLASMA | Urgent | 07/30/2019 | | Results for this | | | | 5:23 AM | | procedure are in the | | | | PDT | | results section. | + +--------+ + + + | MAGNESIUM, PLASMA | Urgent | 07/30/2019 | | Results for this | | | | 5:23 AM | | procedure are in the | | | | PDT | | results section. | + +--------+ + + + | RBC MORPHOLOGY | Routin | 07/30/2019 | | Results for this | | | e | 1:06 AM | | procedure are in the | | | | PDT | | results section. | + +--------+ + + + | CBC AND AUTO DIFF | Urgent | 07/30/2019 | | Results for this | | | | 1:06 AM | | procedure are in the | | | | PDT | | results section. | + +--------+ + + + | MANUAL DIFFERENTIAL | Routin | 07/30/2019 | | Results for this | | | e | 1:06 AM | | procedure are in the | | | | PDT | | results section. | + +--------+ + + + | CBC, WITH | Urgent | 07/30/2019 | | Results for this | | DIFFERENTIAL | | 1:06 AM | | procedure are in the | | | | PDT | | results section. | + +--------+ + + + | BASIC METABOLIC SET | Urgent | 07/30/2019 | | Results for this | | (NA, K, CL, TCO2, | | 1:06 AM | | procedure are in the | | BUN, CR, GLU, CA) | | PDT | | results section. | + +--------+ + + + | LACTATE | Urgent | 07/30/2019 | | Results for this | | | | 1:06 AM | | procedure are in the | | | | PDT | | results section. | + +--------+ + + + | HEMOGLOBIN A1C, | Urgent | 07/30/2019 | | Results for this | | BLOOD | | 1:06 AM | | procedure are in the | | | | PDT | | results section. | + +--------+ + + + | CAPILLARY BLOOD | Routin | 07/30/2019 | Diabetic | Results for this | | GLUCOSE (NO CHG), | e | 1:01 AM | ketoacidosis without | procedure are in the | | POC | | PDT | coma associated | results section. | | | | | with other specified | | | | | | diabetes mellitus | | | | | | (HCC) | | + +--------+ + + + | CARDIOLOGY | | 07/30/2019 | | Results for this | | | | 12:00 AM | | procedure are in the | | | | PDT | | results section. | + +--------+ + + + | CAPILLARY BLOOD | Routin | 07/29/2019 | Diabetic | Results for this | | GLUCOSE (NO CHG), | e | 10:52 PM | ketoacidosis without | procedure are in the | | POC | | PDT | coma associated | results section. | | | | | with other specified | | | | | | diabetes mellitus | | | | | | (HCC) | | + +--------+ + + + | OUTSIDE BODY - READ | Routin | 07/29/2019 | | Results for this | | REQUEST | e | 9:19 PM | | procedure are in the | | | | PDT | | results section. | + +--------+ + + + | CULTURE, BLOOD BACTI | Urgent | 07/29/2019 | | Results for this | | & YEAST [facility] | | 8:42 PM | | procedure are in the | | | | PDT | | results section. | + +--------+ + + + | CULTURE, BLOOD BACTI | Urgent | 07/29/2019 | | Results for this | | & YEAST [facility] | | 8:42 PM | | procedure are in the | | | | PDT | | results section. | + +--------+ + + + | CULTURE, BLOOD BACTI | Urgent | 07/29/2019 | | Results for this | | & YEAST | | 8:42 PM | | procedure are in the | | | | PDT | | results section. | + +--------+ + + + | CULTURE, BLOOD BACTI | Urgent | 07/29/2019 | | Results for this | | & YEAST | | 8:42 PM | | procedure are in the | | | | PDT | | results section. | + +--------+ + + + | X-RAY PORTABLE CHEST | Routin | 07/29/2019 | | Results for this | | 1 VIEW | e | 8:03 PM | | procedure are in the | | | | PDT | | results section. | + +--------+ + + + | CONFIRMATORY ABO/RH | Routin | 07/29/2019 | | Results for this | | | e | 7:59 PM | | procedure are in the | | | | PDT | | results section. | + +--------+ + + + | ANTIBODY SCREEN | Routin | 07/29/2019 | | Results for this | | | e | 7:59 PM | | procedure are in the | | | | PDT | | results section. | + +--------+ + + + | TYPE AND SCREEN | Routin | 07/29/2019 | | Results for this | | | e | 7:59 PM | | procedure are in the | | | | PDT | | results section. | + +--------+ + + + | ABO & RH TYPE | Routin | 07/29/2019 | | Results for this | | | e | 7:59 PM | | procedure are in the | | | | PDT | | results section. | + +--------+ + + + | CBC AND AUTO DIFF | Urgent | 07/29/2019 | | Results for this | | | | 7:26 PM | | procedure are in the | | | | PDT | | results section. | + +--------+ + + + | CBC, WITH | Urgent | 07/29/2019 | | Results for this | | DIFFERENTIAL | | 7:26 PM | | procedure are in the | | | | PDT | | results section. | + +--------+ + + + | DRUG | Routin | 07/29/2019 | | Results for this | | SCREEN,URINE;W/CONFI | e | 7:26 PM | | procedure are in the | | RM | | PDT | | results section. | + +--------+ + + + | URINE, MICROSCOPIC | Routin | 07/29/2019 | | Results for this | | EXAM | e | 7:26 PM | | procedure are in the | | | | PDT | | results section. | + +--------+ + + + | BLOOD GASES, VENOUS | Urgent | 07/29/2019 | | Results for this | | - LAB | | 7:26 PM | | procedure are in the | | | | PDT | | results section. | + +--------+ + + + | INR | Urgent | 07/29/2019 | | Results for this | | | | 7:25 PM | | procedure are in the | | | | PDT | | results section. | + +--------+ + + + | COMPLETE METABOLIC | Urgent | 07/29/2019 | | Results for this | | SET | | 7:25 PM | | procedure are in the | | (NA,K,CL,CO2,BUN,CRE | | PDT | | results section. | | AT,GLUC,CA,AST,ALT,B | | | | | | JENNIFER TOTAL,ALK | | | | | | PHOS,ALB,PROT TOTAL) | | | | | + +--------+ + + + | OSMOLALITY, PLASMA | Urgent | 07/29/2019 | | Results for this | | | | 7:25 PM | | procedure are in the | | | | PDT | | results section. | + +--------+ + + + | ETHANOL (ALCOHOL), | Urgent | 07/29/2019 | | Results for this | | BLOOD | | 7:25 PM | | procedure are in the | | | | PDT | | results section. | + +--------+ + + + | LIPASE, PLASMA | Urgent | 07/29/2019 | | Results for this | | | | 7:25 PM | | procedure are in the | | | | PDT | | results section. | + +--------+ + + + | MAGNESIUM, PLASMA | Urgent | 07/29/2019 | | Results for this | | | | 7:25 PM | | procedure are in the | | | | PDT | | results section. | + +--------+ + + + | CK, PLASMA | Urgent | 07/29/2019 | | Results for this | | | | 7:25 PM | | procedure are in the | | | | PDT | | results section. | + +--------+ + + + | CAPILLARY BLOOD | Routin | 07/29/2019 | Diabetic | Results for this | | GLUCOSE (NO CHG), | e | 7:24 PM | ketoacidosis without | procedure are in the | | POC | | PDT | coma associated | results section. | | | | | with other specified | | | | | | diabetes mellitus | | | | | | (HCC) | | + +--------+ + + + documented in this encounter Results CAPILLARY BLOOD GLUCOSE (NO CHG), POC (08/03/2019 1:06 PM PDT) + +---------+ + + + | Component | Value | Ref Range | Performed | Pathologist | | | | | At | Signature | + +---------+ + + + | BLOOD | 110 (H) | 70 - 99 mg/dL | [facility] | | | GLU[facility], | | | [facility] | | | POC | | | [facility] | | | | | | OF CARE | | | | | | TESTS | | + +---------+ + + + + + | Specimen | + + | Blood | + + + + + + + | Performing | Address | City/State/Zipcode | Phone Number | | Organization | | | | + + + + + | [facility] | [address] | [place], [place] | | | [facility] | [address] | [address] | | | TESTS | | | | + + + + + CAPILLARY BLOOD GLUCOSE (NO CHG), POC (08/03/2019 8:10 AM PDT) + +---------+ + + + | Component | Value | Ref Range | Performed | Pathologist | | | | | At | Signature | + +---------+ + + + | BLOOD | 112 (H) | 70 - 99 mg/dL | [facility] | | | GLUCOSE, | | | [facility] | | | POC | | | [facility] | | | | | | OF CARE | | | | | | TESTS | | + +---------+ + + + + + | Specimen | + + | Blood | + + + + + + + | Performing | Address | City/State/Zipcode | Phone Number | | Organization | | | | + + + + + | [facility] | [address] | [place], [place] | | | [facility] | [address] | [phone] | | | TESTS | | | | + + + + + CBC (HEMOGRAM) ONLY (08/03/2019 3:31 AM PDT) + + + + + + | Component | Value | Ref Range | Performed | Pathologist | | | | | At | Signature | + + + + + + | WHITE CELL | 4.76 | 3.50 - 10.80 | [facility] | | | COUNT | | K/cu mm | LABORATORY | | | | | | SERVICES, | | | | | | CORE | | + + + + + + | RED CELL | 3.79 (L) | 4.50 - 6.00 | [facility] | | | COUNT | | M/cu mm | LABORATORY | | | | | | SERVICES, | | | | | | CORE | | + + + + + + | HEMOGLOBIN | 11.7 (L) | 13.5 - 17.5 | [facility] | | | | | g/dL | LABORATORY | | | | | | SERVICES, | | | | | | CORE | | + + + + + + | HEMATOCRIT | 35.1 (L) | 41.0 - 53.0 % | [facility] | | | | | | LABORATORY | | | | | | SERVICES, | | | | | | CORE | | + + + + + + | MCV | 92.6 | 80.0 - 100.0 fL | [facility] | | | | | | LABORATORY | | | | | | SERVICES, | | | | | | CORE | | + + + + + + | MCHC | 33.3 | 32.0 - 36.0 | [facility] | | | | | g/dL | LABORATORY | | | | | | SERVICES, | | | | | | CORE | | + + + + + + | RDW SD | 40.7 | 35.1 - 46.3 fL | [facility] | | | | | | LABORATORY | | | | | | SERVICES, | | | | | | CORE | | + + + + + + | PLATELET | 139 (L) | 150 - 400 K/cu | [facility] | | | COUNT | | mm | LABORATORY | | | | | | SERVICES, | | | | | | CORE | | + + + + + + | MPV | 10.1 | 9.7 - 12.3 fL | [facility] | | | | | | LABORATORY | | | | | | SERVICES, | | | | | | CORE | | + + + + + + | NRBC% | 0.0 | 0.0 - 0.3 % | [facility] | | | | | | LABORATORY | | | | | | SERVICES, | | | | | | CORE | | + + + + + + | NRBC# | 0.00 | 0.00 - 0.02 | [facility] | | | | | K/cu mm | LABORATORY | | | | | | SERVICES, | | | | | | CORE | | + + + + + + + + | Specimen | + + | Blood - Blood | | (substance) | + + + + + + + | Performing | Address | City/State/Zipcode | Phone Number | | Organization | | | | + + + + + | [facility] | [address] | [place] [address] | | | SERVICES, CORE | [address] | | | + + + + + MAGNESIUM, PLASMA (08/03/2019 3:31 AM PDT) + +-------+ + + + | Component | Value | Ref Range | Performed | Pathologist | | | | | At | Signature | + +-------+ + + + | MAGNESIUM,P | 1.9 | 1.6 - 2.6 mg/dL | [facility] | | | L[facility] | | | LABORATORY | | | | | | SERVICES, | | | | | | CORE | | + +-------+ + + + + + | Specimen | + + | Blood - Blood | | (substance) | + + + + + + + | Performing | Address | City/State/Zipcode | Phone Number | | Organization | | | | + + + + + | [facility] | [address] | [place] [address] | | | SERVICES, CORE | [address] | | | + + + + + PHOSPHORUS, PLASMA (08/03/2019 3:31 AM PDT) + +---------+ + + + | Component | Value | Ref Range | Performed | Pathologist | | | | | At | Signature | + +---------+ + + + | PHOSPHORUS, | 5.3 (H) | 2.4 - 4.7 mg/dL | [facility] | | | PLASMA | | | LABORATORY | | | (LAB) | | | SERVICES, | | | | | | CORE | | + +---------+ + + + + + | Specimen | + + | Blood - Blood | | (substance) | + + + + + + + | Performing | Address | City/State/Zipcode | Phone Number | | Organization | | | | + + + + + | [facility] | [address] | [place] [address] | | | SERVICES, CORE | [address] | | | + + + + + CK, PLASMA (08/03/2019 3:31 AM PDT) + + + + + + | Component | Value | Ref Range | Performed | Pathologist | | | | | At | Signature | + + + + + + | CK | 1,997 (H) | 49 - 397 U/L | [facility] | | | | | | LABORATORY | | | | | | SERVICES, | | | | | | CORE | | + + + + + + + + | Specimen | + + | Blood - Blood | | (substance) | + + + + + + + | Performing | Address | City/State/Zipcode | Phone Number | | Organization | | | | + + + + + | [facility] | [address] | [place] [address] | | | SERVICES, [facility] | [address] | | | + + + + + COMPLETE METABOLIC SET (NA,K,CL,CO2,BUN,CREAT,GLUC,CA,AST,ALT,BILI TOTAL,ALK PHOS,ALB,PROT TOTAL) (08/03/2019 3:31 AM PDT) + +---------+ + + + | Component | Value | Ref Range | Performed | Pathologist | | | | | At | Signature | + +---------+ + + + | GLUCOSE, | 123 (H) | 70 - 99 mg/dL | [facility] | | | PLASMA | | | LABORATORY | | | (LAB) | | | SERVICES, | | | | | | CORE | | + +---------+ + + + | BUN, PLASMA | 10 | 6 - 20 mg/dL | [facility] | | | (LAB) | | | LABORATORY | | | | | | SERVICES, | | | | | | CORE | | + +---------+ + + + | CREATININE | 0.91 | 0.70 - 1.30 | [facility] | | | PLASMA | | mg/dL | LABORATORY | | | (LAB) | | | SERVICES, | | | | | | CORE | | + +---------+ + + + | EGFR | >60 | >60 mL/min | [facility] | | | - | | | LABORATORY | | | [facility] | | | SERVICES, | | | | | | CORE | | + +---------+ + + + | EGFR NON | >60 | >60 mL/min | [facility] | | | -ABIODUN | | | LABORATORY | | | [facility] | | | SERVICES, | | | | | | CORE | | + +---------+ + + + | SODIUM, | 139 | 136 - 145 | [facility] | | | PLASMA | | mmol/L | LABORATORY | | | (LAB) | | | SERVICES, | | | | | | CORE | | + +---------+ + + + | POTASSIUM, | 4.1 | 3.4 - 5.0 | [facility] | | | PLASMA | | mmol/L | LABORATORY | | | (LAB) | | | SERVICES, | | | | | | CORE | | + +---------+ + + + | CHLORIDE, | 108 | 97 - 108 mmol/L | [facility] | | | PLASMA | | | LABORATORY | | | (LAB) | | | SERVICES, | | | | | | CORE | | + +---------+ + + + | TOTAL CO2, | 27 | 21 - 32 mmol/L | [facility] | | | PLASMA | | | LABORATORY | | | (LAB) | | | SERVICES, | | | | | | CORE | | + +---------+ + + + | CALCIUM, | 8.8 | 8.6 - 10.2 | [facility] | | | PLASMA | | mg/dL | LABORATORY | | | (LAB) | | | SERVICES, | | | | | | CORE | | + +---------+ + + + | CALCIUM(ALB | 9.4 | 8.6 - 10.2 | [facility] | | | CORRECTED) | | mg/dL | LABORATORY | | | | | | SERVICES, | | | | | | CORE | | + +---------+ + + + | BILIRUBIN | 0.4 | 0.3 - 1.2 mg/dL | [facility] | | | TOTAL | | | LABORATORY | | | | | | SERVICES, | | | | | | CORE | | + +---------+ + + + | TOTAL | 6.4 | 6.4 - 8.2 g/dL | [facility] | | | PROTEIN, | | | LABORATORY | | | PLASMA | | | SERVICES, | | | (LAB) | | | CORE | | + +---------+ + + + | ALBUMIN, | 3.2 (L) | 3.5 - 4.7 g/dL | [facility] | | | PLASMA | | | LABORATORY | | | (LAB) | | | SERVICES, | | | | | | CORE | | + +---------+ + + + | ALK PHOS | 61 | 53 - 128 U/L | [facility] | | | | | | LABORATORY | | | | | | SERVICES, | | | | | | CORE | | + +---------+ + + + | AST(SGOT) | 60 (H) | <=41 U/L | [facility] | | | | | | LABORATORY | | | | | | SERVICES, | | | | | | CORE | | + +---------+ + + + | ALT (SGPT) | 59 | <=60 U/L | [facility] | | | | | | LABORATORY | | | | | | SERVICES, | | | | | | CORE | | + +---------+ + + + | ANION GAP | 4 | 4 - 11 mmol/L | [facility] | | | | | | LABORATORY | | | | | | SERVICES, | | | | | | CORE | | + +---------+ + + + | ANION | 6 | 4 - 11 mmol/L | [facility] | | | GAP(ALB | | | LABORATORY | | | CORRECTED) | | | SERVICES, | | | | | | CORE | | + +---------+ + + + | POTASSIUM | No Hemo | | [facility] | | | CMNT | | | LABORATORY | | | | | | SERVICES, | | | | | | CORE | | + +---------+ + + + | BILI T CMNT | No Hemo | | [facility] | | | | | | LABORATORY | | | | | | SERVICES, | | | | | | CORE | | + +---------+ + + + | AST CMNT | No Hemo | | [facility] | | | | | | LABORATORY | | | | | | SERVICES, | | | | | | CORE | | + +---------+ + + + + + | Specimen | + + | Blood - Blood | | (substance) | + + + + + | Narrative | Performed At | + + + | GFR is estimated using the MDRD equation recommended by the National | [facility] | | Kidney Disease Education Program. Estimated GFR Interpretive | LABORATORY | | Information: <60 mL/min/1.73 sq m Chronic Kidney | SERVICES, CORE | | Disease <15 mL/min/1.73 sq m Kidney Failure | | | Estimated GFR greater than 60 mL/min/1.73 sq m is of limited clinical | | | value. The MDRD equation is not valid in the following situations: | | | - Patients under 18 years of age - Severe malnutrition or obesity | | | - Vegetarian diet - Rapidly changing kidney function - Amputees, | | | paraplegics, or other muscle-wasting diseases | | + + + + + + + + | Performing | Address | City/State/Zipcode | Phone Number | | Organization | | | | + + + + + | [facility] | [address] | [place] [address] | | | SERVICES, CORE | [address] | | | + + + + + CAPILLARY BLOOD GLUCOSE (NO CHG), POC (08/03/2019 2:59 AM PDT) + +---------+ + + + | Component | Value | Ref Range | Performed | Pathologist | | | | | At | Signature | + +---------+ + + + | BLOOD | 114 (H) | 70 - 99 mg/dL | [facility] - | | | GLUCOSE, | | | [facility] | | | POC | | | [facility] | | | | | | OF CARE | | | | | | TESTS | | + +---------+ + + + + + | Specimen | + + | Blood | + + + + + + + | Performing | Address | City/State/Zipcode | Phone Number | | Organization | | | | + + + + + | [facility] | [address] | [place], [place] | | | [facility] | [address] | [address] | | | TESTS | | | | + + + + + CAPILLARY BLOOD GLUCOSE (NO CHG), POC (08/03/2019 12:40 AM PDT) + +---------+ + + + | Component | Value | Ref Range | Performed | Pathologist | | | | | At | Signature | + +---------+ + + + | BLOOD | 131 (H) | 70 - 99 mg/dL | [facility] - | | | GLUCOSE, | | | [facility] | | | POC | | | [facility] | | | | | | OF CARE | | | | | | TESTS | | + +---------+ + + + + + | Specimen | + + | Blood | + + + + + + + | Performing | Address | City/State/Zipcode | Phone Number | | Organization | | | | + + + + + | [facility] | [address] | [place], [place] | | | [facility] | [facility] | [address] | | | TESTS | | | | + + + + + CAPILLARY BLOOD GLUCOSE (NO CHG), POC (08/03/2019 12:04 AM PDT) + +---------+ + + + | Component | Value | Ref Range | Performed | Pathologist | | | | | At | Signature | + +---------+ + + + | BLOOD | 120 (H) | 70 - 99 mg/dL | [facility] - | | | GLUCOSE, | | | [facility] | | | POC | | | [facility] | | | | | | OF CARE | | | | | | TESTS | | + +---------+ + + + + + | Specimen | + + | Blood | + + + + + + + | Performing | Address | City/State/Zipcode | Phone Number | | Organization | | | | + + + + + | [facility] | [address] | [place], [place] | | | [facility] | [address] | [address] | | | TESTS | | | | + + + + + CAPILLARY BLOOD GLUCOSE (NO CHG), POC (08/02/2019 11:36 PM PDT) + +--------+ + + + | Component | Value | Ref Range | Performed | Pathologist | | | | | At | Signature | + +--------+ + + + | BLOOD | 69 (L) | 70 - 99 mg/dL | [facility] - | | | GLUCOSE, | | | [facility] | | | POC | | | [facility] | | | | | | OF CARE | | | | | | TESTS | | + +--------+ + + + + + | Specimen | + + | Blood | + + + + + + + | Performing | Address | City/State/Zipcode | Phone Number | | Organization | | | | + + + + + | [facility] | [address] | [place], [place] | | | [facility] | [facility] | [address] | | | TESTS | | | | + + + + + CAPILLARY BLOOD GLUCOSE (NO CHG), POC (08/02/2019 8:13 PM PDT) + +---------+ + + + | Component | Value | Ref Range | Performed | Pathologist | | | | | At | Signature | + +---------+ + + + | BLOOD | 119 (H) | 70 - 99 mg/dL | [facility] - | | | GLUCOSE, | | | [facility] | | | POC | | | [facility] | | | | | | OF CARE | | | | | | TESTS | | + +---------+ + + + + + | Specimen | + + | Blood | + + + + + + + | Performing | Address | City/State/Zipcode | Phone Number | | Organization | | | | + + + + + | [facility] | [address] | [place], [place] | | | [facility] | [facility] | [address] | | | TESTS | | | | + + + + + CAPILLARY BLOOD GLUCOSE (NO CHG), POC (08/02/2019 3:33 PM PDT) + +---------+ + + + | Component | Value | Ref Range | Performed | Pathologist | | | | | At | Signature | + +---------+ + + + | BLOOD | 103 (H) | 70 - 99 mg/dL | [facility] - | | | GLUCOSE, | | | [facility] | | | POC | | | [facility] | | | | | | OF CARE | | | | | | TESTS | | + +---------+ + + + + + | Specimen | + + | Blood | + + + + + + + | Performing | Address | City/State/Zipcode | Phone Number | | Organization | | | | + + + + + | [facility] | [address] | [place], [place] | | | [facility] | [address] | [address] | | | TESTS | | | | + + + + + CAPILLARY BLOOD GLUCOSE (NO CHG), POC (08/02/2019 8:17 AM PDT) + +---------+ + + + | Component | Value | Ref Range | Performed | Pathologist | | | | | At | Signature | + +---------+ + + + | BLOOD | 125 (H) | 70 - 99 mg/dL | [facility] - | | | GLUCOSE, | | | [facility] | | | POC | | | [facility] | | | | | | OF CARE | | | | | | TESTS | | + +---------+ + + + + + | Specimen | + + | Blood | + + + + + + + | Performing | Address | City/State/Zipcode | Phone Number | | Organization | | | | + + + + + | [facility] | [address] | [place], [place] | | | [facility] | [address] | [address] | | | TESTS | | | | + + + + + LIPID SET (TRIG, T CHOL, HDL, CALC LDL) (08/02/2019 6:21 AM PDT) + +---------+ + + + | Component | Value | Ref Range | Performed | Pathologist | | | | | At | Signature | + +---------+ + + + | CHOLESTEROL | 178 | <200 mg/dL | [facility] | | | (LAB) | | | LABORATORY | | | | | | SERVICES, | | | | | | CORE | | + +---------+ + + + | TRIGLYCERID | 242 (H) | <150 mg/dL | [facility] | | | ES | | | LABORATORY | | | | | | SERVICES, | | | | | | CORE | | + +---------+ + + + | HDL | 64 | >40 mg/dL | [facility] | | | CHOLESTEROL | | | LABORATORY | | | | | | SERVICES, | | | | | | CORE | | + +---------+ + + + | LDL | 66 | <100 mg/dL | [facility] | | | CHOLESTEROL | | | LABORATORY | | | , | | | SERVICES, | | | CALCULATED | | | CORE | | + +---------+ + + + | VLDL | 48 (H) | <31 mg/dL | [facility] | | | CHOLESTEROL | | | LABORATORY | | | , | | | SERVICES, | | | CALCULATED | | | CORE | | + +---------+ + + + | NON-HDL | 114 | <130 mg/dL | [facility] | | | CHOLESTEROL | | | LABORATORY | | | | | | SERVICES, | | | | | | CORE | | + +---------+ + + + + + | Specimen | + + | Blood - Blood | | (substance) | + + + + + | Narrative | Performed At | + + + | Cholesterol Reference Range: Desirable: <200 mg/dL | [facility] | | Borderline High: 200 - 239 mg/dL | LABORATORY | | High: >=240 mg/dL LDL Cholesterol Reference | SERVICES, CORE | | Range: Optimal: <100 mg/dL Near | | | Optimal: 100-129 mg/dL Borderline High: 130-159 mg/dL | | | High: 160-189 mg/dL Very High: | | | >=190 mg/dL non-HDL Cholesterol Reference Range: | | | Optimal: <130 mg/dL Near Optimal: 130-159 | | | mg/dL Borderline High: 160-189 mg/dL | | | High: 190-209 mg/dL Very High: >=210 mg/dL | | | Triglyceride Reference Range: Normal: <150 | | | mg/dL Borderline High: 150-199 mg/dL High: | | | 200-499 mg/dL Very High: >=500 mg/dL HDL Reference | | | Range: High Risk: <40 mg/dL Desirable: | | | >=60 mg/dL | | + + + + + + + + | Performing | Address | City/State/Zipcode | Phone Number | | Organization | | | | + + + + + | [facility] | [address] | [place] [address] | | | SERVICES, CORE | [address] | | | + + + + + CBC (HEMOGRAM) ONLY (08/02/2019 6:21 AM PDT) + + + + + + | Component | Value | Ref Range | Performed | Pathologist | | | | | At | Signature | + + + + + + | WHITE CELL | 5.16 | 3.50 - 10.80 | [facility] | | | COUNT | | K/cu mm | LABORATORY | | | | | | SERVICES, | | | | | | CORE | | + + + + + + | RED CELL | 4.18 (L) | 4.50 - 6.00 | [facility] | | | COUNT | | M/cu mm | LABORATORY | | | | | | SERVICES, | | | | | | CORE | | + + + + + + | HEMOGLOBIN | 12.7 (L) | 13.5 - 17.5 | [facility] | | | | | g/dL | LABORATORY | | | | | | SERVICES, | | | | | | CORE | | + + + + + + | HEMATOCRIT | 38.4 (L) | 41.0 - 53.0 % | [facility] | | | | | | LABORATORY | | | | | | SERVICES, | | | | | | CORE | | + + + + + + | MCV | 91.9 | 80.0 - 100.0 fL | [facility] | | | | | | LABORATORY | | | | | | SERVICES, | | | | | | CORE | | + + + + + + | MCHC | 33.1 | 32.0 - 36.0 | [facility] | | | | | g/dL | LABORATORY | | | | | | SERVICES, | | | | | | CORE | | + + + + + + | RDW SD | 40.5 | 35.1 - 46.3 fL | [facility] | | | | | | LABORATORY | | | | | | SERVICES, | | | | | | CORE | | + + + + + + | PLATELET | 131 (L)Comment: | 150 - 400 K/cu | [facility] | | | COUNT | Macroplatelets present. | mm | LABORATORY | | | | | | SERVICES, | | | | | | CORE | | + + + + + + | MPV | 10.3 | 9.7 - 12.3 fL | [facility] | | | | | | LABORATORY | | | | | | SERVICES, | | | | | | CORE | | + + + + + + | NRBC% | 0.0 | 0.0 - 0.3 % | [facility] | | | | | | LABORATORY | | | | | | SERVICES, | | | | | | CORE | | + + + + + + | NRBC# | 0.00 | 0.00 - 0.02 | [facility] | | | | | K/cu mm | LABORATORY | | | | | | SERVICES, | | | | | | CORE | | + + + + + + + + | Specimen | + + | Blood - Blood | | (substance) | + + + + + + + | Performing | Address | City/State/Zipcode | Phone Number | | Organization | | | | + + + + + | [facility] | [address] | [place] [address] | | | SERVICES, CORE | [address] | | | + + + + + MAGNESIUM, PLASMA (08/02/2019 6:21 AM PDT) + +-------+ + + + | Component | Value | Ref Range | Performed | Pathologist | | | | | At | Signature | + +-------+ + + + | MAGNESIUM,P | 1.6 | 1.6 - 2.6 mg/dL | [facility] | | | LASMA | | | LABORATORY | | | | | | CARA, | | | | | | CORE | | + +-------+ + + + + + | Specimen | + + | Blood - Blood | | (substance) | + + + + + + + | Performing | Address | City/State/Zipcode | Phone Number | | Organization | | | | + + + + + | [facility] | [address] | [place] [address] | | | SERVICES, CORE | [address] | | | + + + + + PHOSPHORUS, PLASMA (08/02/2019 6:21 AM PDT) + +-------+ + + + | Component | Value | Ref Range | Performed | Pathologist | | | | | At | Signature | + +-------+ + + + | PHOSPHORUS, | 2.5 | 2.4 - 4.7 mg/dL | [facility] | | | PLASMA | | | LABORATORY | | | (LAB) | | | SERVICES, | | | | | | CORE | | + +-------+ + + + + + | Specimen | + + | Blood - Blood | | (substance) | + + + + + + + | Performing | Address | City/State/Zipcode | Phone Number | | Organization | | | | + + + + + | [facility] | [address] | [place] [address] | | | SERVICES, CORE | [address] | | | + + + + + CK, PLASMA (08/02/2019 6:21 AM PDT) + + + + + + | Component | Value | Ref Range | Performed | Pathologist | | | | | At | Signature | + + + + + + | CK | 3,292 (H) | 49 - 397 U/L | [facility] | | | | | | LABORATORY | | | | | | SERVICES, | | | | | | CORE | | + + + + + + + + | Specimen | + + | Blood - Blood | | (substance) | + + + + + + + | Performing | Address | City/State/Zipcode | Phone Number | | Organization | | | | + + + + + | [facility] | [address] | [place] [address] | | | SERVICES, CORE | [address] | | | + + + + + COMPLETE METABOLIC SET (NA,K,CL,CO2,BUN,CREAT,GLUC,CA,AST,ALT,BILI TOTAL,ALK PHOS,ALB,PROT TOTAL) (08/02/2019 6:21 AM PDT) + +---------+ + + + | Component | Value | Ref Range | Performed | Pathologist | | | | | At | Signature | + +---------+ + + + | GLUCOSE, | 146 (H) | 70 - 99 mg/dL | [facility] | | | PLASMA | | | LABORATORY | | | (LAB) | | | SERVICES, | | | | | | CORE | | + +---------+ + + + | BUN, PLASMA | 7 | 6 - 20 mg/dL | [facility] | | | (LAB) | | | LABORATORY | | | | | | SERVICES, | | | | | | CORE | | + +---------+ + + + | CREATININE | 0.79 | 0.70 - 1.30 | [facility] | | | PLASMA | | mg/dL | LABORATORY | | | (LAB) | | | SERVICES, | | | | | | CORE | | + +---------+ + + + | EGFR | >60 | >60 mL/min | [facility] | | | - | | | LABORATORY | | | [facility] | | | SERVICES, | | | | | | CORE | | + +---------+ + + + | EGFR NON | >60 | >60 mL/min | [facility] | | | -ABIODUN | | | LABORATORY | | | [facility] | | | SERVICES, | | | | | | CORE | | + +---------+ + + + | SODIUM, | 139 | 136 - 145 | [facility] | | | PLASMA | | mmol/L | LABORATORY | | | (LAB) | | | SERVICES, | | | | | | CORE | | + +---------+ + + + | POTASSIUM, | 4.0 | 3.4 - 5.0 | [facility] | | | PLASMA | | mmol/L | LABORATORY | | | (LAB) | | | SERVICES, | | | | | | CORE | | + +---------+ + + + | CHLORIDE, | 109 (H) | 97 - 108 mmol/L | [facility] | | | PLASMA | | | LABORATORY | | | (LAB) | | | SERVICES, | | | | | | CORE | | + +---------+ + + + | TOTAL CO2, | 24 | 21 - 32 mmol/L | [facility] | | | PLASMA | | | LABORATORY | | | (LAB) | | | SERVICES, | | | | | | CORE | | + +---------+ + + + | CALCIUM, | 7.7 (L) | 8.6 - 10.2 | [facility] | | | PLASMA | | mg/dL | LABORATORY | | | (LAB) | | | SERVICES, | | | | | | CORE | | + +---------+ + + + | CALCIUM(ALB | 8.4 (L) | 8.6 - 10.2 | [facility] | | | CORRECTED) | | mg/dL | LABORATORY | | | | | | SERVICES, | | | | | | CORE | | + +---------+ + + + | BILIRUBIN | 0.4 | 0.3 - 1.2 mg/dL | [facility] | | | TOTAL | | | LABORATORY | | | | | | SERVICES, | | | | | | CORE | | + +---------+ + + + | TOTAL | 6.7 | 6.4 - 8.2 g/dL | [facility] | | | PROTEIN, | | | LABORATORY | | | PLASMA | | | SERVICES, | | | (LAB) | | | CORE | | + +---------+ + + + | ALBUMIN, | 3.1 (L) | 3.5 - 4.7 g/dL | [facility] | | | PLASMA | | | LABORATORY | | | (LAB) | | | SERVICES, | | | | | | CORE | | + +---------+ + + + | ALK PHOS | 62 | 53 - 128 U/L | [facility] | | | | | | LABORATORY | | | | | | SERVICES, | | | | | | CORE | | + +---------+ + + + | AST(SGOT) | 68 (H) | <=41 U/L | [facility] | | | | | | LABORATORY | | | | | | SERVICES, | | | | | | CORE | | + +---------+ + + + | ALT (SGPT) | 63 (H) | <=60 U/L | [facility] | | | | | | LABORATORY | | | | | | SERVICES, | | | | | | CORE | | + +---------+ + + + | ANION GAP | 6 | 4 - 11 mmol/L | [facility] | | | | | | LABORATORY | | | | | | SERVICES, | | | | | | CORE | | + +---------+ + + + | ANION | 8 | 4 - 11 mmol/L | [facility] | | | GAP(ALB | | | LABORATORY | | | CORRECTED) | | | SERVICES, | | | | | | CORE | | + +---------+ + + + + + | Specimen | + + | Blood - Blood | | (substance) | + + + + + | Narrative | Performed At | + + + | GFR is estimated using the MDRD equation recommended by the National | [facility] | | Kidney Disease Education Program. Estimated GFR Interpretive | LABORATORY | | Information: <60 mL/min/1.73 sq m Chronic Kidney | SERVICES, CORE | | Disease <15 mL/min/1.73 sq m Kidney Failure | | | Estimated GFR greater than 60 mL/min/1.73 sq m is of limited clinical | | | value. The MDRD equation is not valid in the following situations: | | | - Patients under 18 years of age - Severe malnutrition or obesity | | | - Vegetarian diet - Rapidly changing kidney function - Amputees, | | | paraplegics, or other muscle-wasting diseases | | + + + + + + + + | Performing | Address | City/State/Zipcode | Phone Number | | Organization | | | | + + + + + | [facility] | [address] | [place] [address] | | | SERVICES, AD | [address] | | | + + + + + CAPILLARY BLOOD GLUCOSE (NO CHG), POC (08/02/2019 12:22 AM PDT) + +-------+ + + + | Component | Value | Ref Range | Performed | Pathologist | | | | | At | Signature | + +-------+ + + + | BLOOD | 99 | 70 - 99 mg/dL | [facility] - | | | GLUCOSE, | | | [facility] | | | POC | | | [facility] [place] | | | | | | OF CARE | | | | | | TESTS | | + +-------+ + + + + + | Specimen | + + | Blood | + + + + + + + | Performing | Address | City/State/Zipcode | Phone Number | | Organization | | | | + + + + + | [facility] | [address] | [place], [place] | | | [facility] | [facility] | [address] | | | TESTS | | | | + + + + + CAPILLARY BLOOD GLUCOSE (NO CHG), POC (08/01/2019 8:50 PM PDT) + +---------+ + + + | Component | Value | Ref Range | Performed | Pathologist | | | | | At | Signature | + +---------+ + + + | BLOOD | 111 (H) | 70 - 99 mg/dL | [facility] - | | | GLUCOSE, | | | [facility] | | | POC | | | [facility] | | | | | | OF CARE | | | | | | TESTS | | + +---------+ + + + + + | Specimen | + + | Blood | + + + + + + + | Performing | Address | City/State/Zipcode | Phone Number | | Organization | | | | + + + + + | [facility] | [address] | [place], [place] | | | [facility] | [address] | [address] | | | TESTS | | | | + + + + + VITAMIN D, 25-HYDROXY, SERUM (08/01/2019 12:52 PM PDT) + + + + + + | Component | Value | Ref Range | Performed | Pathologist | | | | | At | Signature | + + + + + + | VITAMIN D | 11.1 (L) | 30 - 80 ng/mL | [facility] | | | 25 HYDROXY | | | LABORATORY | | | | | | SERVICES, | | | | | | CORE | | + + + + + + + + | Specimen | + + | Blood - Blood | | (substance) | + + + + + | Narrative | Performed At | + + + | Reference Interval: 0-18years: Deficiency: <20 ng/mL | [facility] | | Optimum level: >or=20 ng/mL | LABORATORY | | >18years: Deficiency: <20 | SERVICES, CORE | | ng/mL Insufficiency: 20-29 ng/mL | | | Optimum Level: 30-80 ng/mL High: | | | 81-150 ng/ml Toxic: >150 ng/mL | | + + + + + + + + | Performing | Address | City/State/Zipcode | Phone Number | | Organization | | | | + + + + + | [facility] | [address] | [place] [address] | | | SERVICES, CORE | [address] | | | + + + + + HEPATITIS C VIRUS W/CONFIRMATION (08/01/2019 12:52 PM PDT) + + + + + + | Component | Value | Ref Range | Performed | Pathologist | | | | | At | Signature | + + + + + + | HEP C AB | Not Detected | Not Detected | [facility] | | | | | | LABORATORY | | | | | | SERVICES, | | | | | | CORE | | + + + + + + + + | Specimen | + + | Blood - Blood | | (substance) | + + + + + + + | Performing | Address | City/State/Zipcode | Phone Number | | Organization | | | | + + + + + | [facility] | [address] | [place] [address] | | | SERVICES, CORE | [address] | | | + + + + + HEPATITIS B SURFACE AG W/REFLEX CONFIRMATION IF INDETERMINATE RESULTS (08/01/2019 12:52 PM PDT) + + + + + + | Component | Value | Ref Range | Performed | Pathologist | | | | | At | Signature | + + + + + + | HEPATITIS B | | | [facility] | | | SURFACE | | | LABORATORY | | | AG, SERUM | | | SERVICES, | | | | | | CORE | | + + + + + + | HEP B | Not Detected | Not Detected | [facility] | | | SURFACE AG | | | LABORATORY | | | | | | SERVICES, | | | | | | CORE | | + + + + + + + + | Specimen | + + | Blood - Blood | | (substance) | + + + + + + + | Performing | Address | City/State/Zipcode | Phone Number | | Organization | | | | + + + + + | [facility] | [address] | [place] [address] | | | SERVICES, CORE | [address] | | | + + + + + HEPATITIS B SURFACE AB QUAL, SERUM (08/01/2019 12:52 PM PDT) + + + + + + | Component | Value | Ref Range | Performed | Pathologist | | | | | At | Signature | + + + + + + | HEP B | Not Detected | Not Detected | [facility] | | | SURFACE AB | | | LABORATORY | | | QUAL | | | SERVICES, | | | | | | CORE | | + + + + + + + + | Specimen | + + | Blood - Blood | | (substance) | + + + + + + + | Performing | Address | City/State/Zipcode | Phone Number | | Organization | | | | + + + + + | [facility] | [address] | [place] [address] | | | SERVICES, CORE | [address] | | | + + + + + HEPATITIS B CORE AB, SERUM (08/01/2019 12:52 PM PDT) + + + + + + | Component | Value | Ref Range | Performed | Pathologist | | | | | At | Signature | + + + + + + | HEP B CORE | Not Detected | Not Detected | [facility] | | | AB | | | LABORATORY | | | | | | SERVICES, | | | | | | CORE | | + + + + + + + + | Specimen | + + | Blood - Blood | | (substance) | + + + + + + + | Performing | Address | City/State/Zipcode | Phone Number | | Organization | | | | + + + + + | [facility] | [address] | [place] [address] | | | [address] [place] | [address] | | | + + + + + CAPILLARY BLOOD GLUCOSE (NO CHG), POC (08/01/2019 12:33 PM PDT) + +---------+ + + + | Component | Value | Ref Range | Performed | Pathologist | | | | | At | Signature | + +---------+ + + + | BLOOD | 141 (H) | 70 - 99 mg/dL | [facility] | | | GLUCOSE, | | | [facility] | | | POC | | | [facility] | | | | | | OF CARE | | | | | | TESTS | | + +---------+ + + + + + | Specimen | + + | Blood | + + + + + + + | Performing | Address | City/State/Zipcode | Phone Number | | Organization | | | | + + + + + | [facility] | [address] | [place], [place] | | | [facility] | [address] | [address] | | | TESTS | | | | + + + + + CBC (HEMOGRAM) ONLY (08/01/2019 9:51 AM PDT) + + + + + + | Component | Value | Ref Range | Performed | Pathologist | | | | | At | Signature | + + + + + + | WHITE CELL | 6.88 | 3.50 - 10.80 | [facility] | | | COUNT | | K/cu mm | LABORATORY | | | | | | SERVICES, | | | | | | CORE | | + + + + + + | RED CELL | 3.65 (L) | 4.50 - 6.00 | [facility] | | | COUNT | | M/cu mm | LABORATORY | | | | | | SERVICES, | | | | | | CORE | | + + + + + + | HEMOGLOBIN | 11.4 (L) | 13.5 - 17.5 | [facility] | | | | | g/dL | LABORATORY | | | | | | SERVICES, | | | | | | CORE | | + + + + + + | HEMATOCRIT | 33.5 (L) | 41.0 - 53.0 % | [facility] | | | | | | LABORATORY | | | | | | SERVICES, | | | | | | CORE | | + + + + + + | MCV | 91.8 | 80.0 - 100.0 fL | [facility] | | | | | | LABORATORY | | | | | | SERVICES, | | | | | | CORE | | + + + + + + | MCHC | 34.0 | 32.0 - 36.0 | [facility] | | | | | g/dL | LABORATORY | | | | | | SERVICES, | | | | | | CORE | | + + + + + + | RDW SD | 40.7 | 35.1 - 46.3 fL | [facility] | | | | | | LABORATORY | | | | | | SERVICES, | | | | | | CORE | | + + + + + + | PLATELET | 124 (L) | 150 - 400 K/cu | [facility] | | | COUNT | | mm | LABORATORY | | | | | | SERVICES, | | | | | | CORE | | + + + + + + | MPV | 10.7 | 9.7 - 12.3 fL | [facility] | | | | | | LABORATORY | | | | | | SERVICES, | | | | | | CORE | | + + + + + + | NRBC% | 0.0 | 0.0 - 0.3 % | [facility] | | | | | | LABORATORY | | | | | | SERVICES, | | | | | | CORE | | + + + + + + | NRBC# | 0.00 | 0.00 - 0.02 | [facility] | | | | | K/cu mm | LABORATORY | | | | | | SERVICES, | | | | | | CORE | | + + + + + + + + | Specimen | + + | Blood - Blood | | (substance) | + + + + + + + | Performing | Address | City/State/Zipcode | Phone Number | | Organization | | | | + + + + + | [facility] | [address] | [place] [address] | | | SERVICES, CORE | [address] | | | + + + + + FERRITIN (08/01/2019 8:09 AM PDT) + +---------+ + + + | Component | Value | Ref Range | Performed | Pathologist | | | | | At | Signature | + +---------+ + + + | FERRITIN | 347 (H) | 50 - 200 ng/mL | [facility] | | | | | | LABORATORY | | | | | | SERVICES, | | | | | | CORE | | + +---------+ + + + + + | Specimen | + + | Blood - Blood | | (substance) | + + + + + + + | Performing | Address | City/State/Zipcode | Phone Number | | Organization | | | | + + + + + | [facility] | [address] | [place] [address] | | | SERVICES, CORE | [address] | | | + + + + + PHOSPHORUS, PLASMA (08/01/2019 8:09 AM PDT) + +---------+ + + + | Component | Value | Ref Range | Performed | Pathologist | | | | | At | Signature | + +---------+ + + + | PHOSPHORUS, | 2.1 (L) | 2.4 - 4.7 mg/dL | [facility] | | | PLASMA | | | LABORATORY | | | (LAB) | | | SERVICES, | | | | | | CORE | | + +---------+ + + + + + | Specimen | + + | Blood - Blood | | (substance) | + + + + + + + | Performing | Address | City/State/Zipcode | Phone Number | | Organization | | | | + + + + + | [facility] | [address] | [place] [address] | | | SERVICES, CORE | [address] | | | + + + + + MAGNESIUM, PLASMA (08/01/2019 8:09 AM PDT) + +---------+ + + + | Component | Value | Ref Range | Performed | Pathologist | | | | | At | Signature | + +---------+ + + + | MAGNESIUM,P | 1.4 (L) | 1.6 - 2.6 mg/dL | [facility] | | | LASMA | | | LABORATORY | | | | | | SERVICES, | | | | | | CORE | | + +---------+ + + + + + | Specimen | + + | Blood - Blood | | (substance) | + + + + + + + | Performing | Address | City/State/Zipcode | Phone Number | | Organization | | | | + + + + + | [facility] | [address] | [place] [address] | | | SERVICES, CORE | [address] | | | + + + + + CK, PLASMA (08/01/2019 8:09 AM PDT) + + + + + + | Component | Value | Ref Range | Performed | Pathologist | | | | | At | Signature | + + + + + + | CK | 4,891 (H) | 49 - 397 U/L | [facility] | | | | | | LABORATORY | | | | | | SERVICES, | | | | | | CORE | | + + + + + + + + | Specimen | + + | Blood - Blood | | (substance) | + + + + + + + | Performing | Address | City/State/Zipcode | Phone Number | | Organization | | | | + + + + + | [facility] | [address] | [place] [address] | | | SERVICES, [facility] | [address] | | | + + + + + COMPLETE METABOLIC SET (NA,K,CL,CO2,BUN,CREAT,GLUC,CA,AST,ALT,BILI TOTAL,ALK PHOS,ALB,PROT TOTAL) (08/01/2019 8:09 AM PDT) + +---------+ + + + | Component | Value | Ref Range | Performed | Pathologist | | | | | At | Signature | + +---------+ + + + | GLUCOSE, | 142 (H) | 70 - 99 mg/dL | [facility] | | | PLASMA | | | LABORATORY | | | (LAB) | | | SERVICES, | | | | | | CORE | | + +---------+ + + + | BUN, PLASMA | 6 | 6 - 20 mg/dL | [facility] | | | (LAB) | | | LABORATORY | | | | | | SERVICES, | | | | | | CORE | | + +---------+ + + + | CREATININE | 0.94 | 0.70 - 1.30 | [facility] | | | PLASMA | | mg/dL | LABORATORY | | | (LAB) | | | SERVICES, | | | | | | CORE | | + +---------+ + + + | EGFR | >60 | >60 mL/min | [facility] | | | - | | | LABORATORY | | | [facility] | | | SERVICES, | | | | | | CORE | | + +---------+ + + + | EGFR NON | >60 | >60 mL/min | [facility] | | | -ABIODUN | | | LABORATORY | | | [facility] | | | SERVICES, | | | | | | CORE | | + +---------+ + + + | SODIUM, | 140 | 136 - 145 | [facility] | | | PLASMA | | mmol/L | LABORATORY | | | (LAB) | | | SERVICES, | | | | | | CORE | | + +---------+ + + + | POTASSIUM, | 3.7 | 3.4 - 5.0 | [facility] | | | PLASMA | | mmol/L | LABORATORY | | | (LAB) | | | SERVICES, | | | | | | CORE | | + +---------+ + + + | CHLORIDE, | 109 (H) | 97 - 108 mmol/L | [facility] | | | PLASMA | | | LABORATORY | | | (LAB) | | | SERVICES, | | | | | | CORE | | + +---------+ + + + | TOTAL CO2, | 26 | 21 - 32 mmol/L | [facility] | | | PLASMA | | | LABORATORY | | | (LAB) | | | SERVICES, | | | | | | CORE | | + +---------+ + + + | CALCIUM, | 7.0 (L) | 8.6 - 10.2 | [facility] | | | PLASMA | | mg/dL | LABORATORY | | | (LAB) | | | SERVICES, | | | | | | CORE | | + +---------+ + + + | CALCIUM(ALB | 7.7 (L) | 8.6 - 10.2 | [facility] | | | CORRECTED) | | mg/dL | LABORATORY | | | | | | SERVICES, | | | | | | CORE | | + +---------+ + + + | BILIRUBIN | 0.6 | 0.3 - 1.2 mg/dL | [facility] | | | TOTAL | | | LABORATORY | | | | | | SERVICES, | | | | | | CORE | | + +---------+ + + + | TOTAL | 6.2 (L) | 6.4 - 8.2 g/dL | [facility] | | | PROTEIN, | | | LABORATORY | | | PLASMA | | | SERVICES, | | | (LAB) | | | CORE | | + +---------+ + + + | ALBUMIN, | 3.1 (L) | 3.5 - 4.7 g/dL | [facility] | | | PLASMA | | | LABORATORY | | | (LAB) | | | SERVICES, | | | | | | CORE | | + +---------+ + + + | ALK PHOS | 61 | 53 - 128 U/L | [facility] | | | | | | LABORATORY | | | | | | SERVICES, | | | | | | CORE | | + +---------+ + + + | AST(SGOT) | 82 (H) | <=41 U/L | [facility] | | | | | | LABORATORY | | | | | | SERVICES, | | | | | | CORE | | + +---------+ + + + | ALT (SGPT) | 65 (H) | <=60 U/L | [facility] | | | | | | LABORATORY | | | | | | SERVICES, | | | | | | CORE | | + +---------+ + + + | ANION GAP | 5 | 4 - 11 mmol/L | [facility] | | | | | | LABORATORY | | | | | | SERVICES, | | | | | | CORE | | + +---------+ + + + | ANION | 7 | 4 - 11 mmol/L | [facility] | | | GAP(ALB | | | LABORATORY | | | CORRECTED) | | | SERVICES, | | | | | | CORE | | + +---------+ + + + | POTASSIUM | No Hemo | | [facility] | | | CMNT | | | LABORATORY | | | | | | SERVICES, | | | | | | CORE | | + +---------+ + + + | BILI T CMNT | No Hemo | | [facility] | | | | | | LABORATORY | | | | | | SERVICES, | | | | | | CORE | | + +---------+ + + + | AST CMNT | No Hemo | | [facility] | | | | | | LABORATORY | | | | | | SERVICES, | | | | | | CORE | | + +---------+ + + + + + | Specimen | + + | Blood - Blood | | (substance) | + + + + + | Narrative | Performed At | + + + | GFR is estimated using the MDRD equation recommended by the National | [facility] | | Kidney Disease Education Program. Estimated GFR Interpretive | LABORATORY | | Information: <60 mL/min/1.73 sq m Chronic Kidney | SERVICES, CORE | | Disease <15 mL/min/1.73 sq m Kidney Failure | | | Estimated GFR greater than 60 mL/min/1.73 sq m is of limited clinical | | | value. The MDRD equation is not valid in the following situations: | | | - Patients under 18 years of age - Severe malnutrition or obesity | | | - Vegetarian diet - Rapidly changing kidney function - Amputees, | | | paraplegics, or other muscle-wasting diseases | | + + + + + + + + | Performing | Address | City/State/Zipcode | Phone Number | | Organization | | | | + + + + + | [facility] | [address] | [place] [address] | | | SERVICES, CORE | [address] | | | + + + + + CAPILLARY BLOOD GLUCOSE (NO CHG), POC (08/01/2019 8:03 AM PDT) + +---------+ + + + | Component | Value | Ref Range | Performed | Pathologist | | | | | At | Signature | + +---------+ + + + | BLOOD | 140 (H) | 70 - 99 mg/dL | [facility] - | | | GLUCOSE, | | | [facility] | | | POC | | | [facility] | | | | | | OF CARE | | | | | | TESTS | | + +---------+ + + + + + | Specimen | + + | Blood | + + + + + + + | Performing | Address | City/State/Zipcode | Phone Number | | Organization | | | | + + + + + | [facility] | [address] | [place], [place] | | | [facility] | [address] | [address] | | | TESTS | | | | + + + + + CAPILLARY BLOOD GLUCOSE (NO CHG), POC (08/01/2019 5:44 AM PDT) + +---------+ + + + | Component | Value | Ref Range | Performed | Pathologist | | | | | At | Signature | + +---------+ + + + | BLOOD | 132 (H) | 70 - 99 mg/dL | [facility] | | | GLUCOSE, | | | [facility] | | | POC | | | [facility] | | | | | | OF CARE | | | | | | TESTS | | + +---------+ + + + + + | Specimen | + + | Blood | + + + + + + + | Performing | Address | City/State/Zipcode | Phone Number | | Organization | | | | + + + + + | [facility] | [address] | [place], [place] | | | [facility] | [facility] | [address] | | | TESTS | | | | + + + + + CAPILLARY BLOOD GLUCOSE (NO CHG), POC (08/01/2019 12:44 AM PDT) + +---------+ + + + | Component | Value | Ref Range | Performed | Pathologist | | | | | At | Signature | + +---------+ + + + | BLOOD | 127 (H) | 70 - 99 mg/dL | [facility] - | | | GLUCOSE, | | | [facility] | | | POC | | | [facility] | | | | | | OF CARE | | | | | | TESTS | | + +---------+ + + + + + | Specimen | + + | Blood | + + + + + + + | Performing | Address | City/State/Zipcode | Phone Number | | Organization | | | | + + + + + | [facility] | [address] | [place], [place] | | | [facility] | [facility] | [address] | | | TESTS | | | | + + + + + CAPILLARY BLOOD GLUCOSE (NO CHG), POC (07/31/2019 8:54 PM PDT) + +---------+ + + + | Component | Value | Ref Range | Performed | Pathologist | | | | | At | Signature | + +---------+ + + + | BLOOD | 182 (H) | 70 - 99 mg/dL | [facility] - | | | GLUCOSE, | | | [facility] | | | POC | | | [facility] | | | | | | OF CARE | | | | | | TESTS | | + +---------+ + + + + + | Specimen | + + | Blood | + + + + + + + | Performing | Address | City/State/Zipcode | Phone Number | | Organization | | | | + + + + + | [facility] | [address] | [place], [place] | | | [facility] | [address] | [address] | | | TESTS | | | | + + + + + CAPILLARY BLOOD GLUCOSE (NO CHG), POC (07/31/2019 7:50 PM PDT) + +---------+ + + + | Component | Value | Ref Range | Performed | Pathologist | | | | | At | Signature | + +---------+ + + + | BLOOD | 139 (H) | 70 - 99 mg/dL | [facility] - | | | GLUCOSE, | | | [facility] | | | POC | | | [facility] | | | | | | OF CARE | | | | | | TESTS | | + +---------+ + + + + + | Specimen | + + | Blood | + + + + + + + | Performing | Address | City/State/Zipcode | Phone Number | | Organization | | | | + + + + + | [facility] | [address] | [place], [place] | | | [facility] | [address] | [address] | | | TESTS | | | | + + + + + CAPILLARY BLOOD GLUCOSE (NO CHG), POC (07/31/2019 7:16 PM PDT) + +---------+ + + + | Component | Value | Ref Range | Performed | Pathologist | | | | | At | Signature | + +---------+ + + + | BLOOD | 116 (H) | 70 - 99 mg/dL | [facility] - | | | GLUCOSE, | | | [facility] | | | POC | | | [facility] | | | | | | OF CARE | | | | | | TESTS | | + +---------+ + + + + + | Specimen | + + | Blood | + + + + + + + | Performing | Address | City/State/Zipcode | Phone Number | | Organization | | | | + + + + + | [facility] | [address] | [place], [place] | | | [facility] | [address] | [address] | | | TESTS | | | | + + + + + CAPILLARY BLOOD GLUCOSE (NO CHG), POC (07/31/2019 3:37 PM PDT) + +---------+ + + + | Component | Value | Ref Range | Performed | Pathologist | | | | | At | Signature | + +---------+ + + + | BLOOD | 152 (H) | 70 - 99 mg/dL | [facility] - | | | GLUCOSE, | | | [facility] | | | POC | | | [facility] | | | | | | OF CARE | | | | | | TESTS | | + +---------+ + + + + + | Specimen | + + | Blood | + + + + + + + | Performing | Address | City/State/Zipcode | Phone Number | | Organization | | | | + + + + + | [facility] | [address] | [place], [place] | | | [facility] | [address] | [address] | | | TESTS | | | | + + + + + CREATININE, URINE (07/31/2019 1:49 PM PDT) + +--------+ + + + | Component | Value | Ref Range | Performed | Pathologist | | | | | At | Signature | + +--------+ + + + | CREATININE | 31.60 | mg/dL | [facility] | | | CONC UR | | | LABORATORY | | | | | | SERVICES, | | | | | | CORE | | + +--------+ + + + | URINE | Random | | [facility] | | | INTERVAL | | | LABORATORY | | | | | | SERVICES, | | | | | | CORE | | + +--------+ + + + | URINE | Spot | | [facility] | | | VOLUME | | | LABORATORY | | | | | | SERVICES, | | | | | | CORE | | + +--------+ + + + + + | Specimen | + + | Urine - Urine | | (substance) | + + + + + | Narrative | Performed At | + + + | Reference range based on 24 hour collection time. Patient results | [facility] | | are calculated from actual collection time. | LABORATORY | | | SERVICES, CORE | + + + + + + + + | Performing | Address | City/State/Zipcode | Phone Number | | Organization | | | | + + + + + | [facility] | [address] | [place] [address] | | | SERVICES, CORE | [address] | | | + + + + + PROTEIN, URINE (07/31/2019 1:49 PM PDT) + + + + + + | Component | Value | Ref Range | Performed | Pathologist | | | | | At | Signature | + + + + + + | PROTEIN | 14 | mg/dL | [facility] | | | CONC URINE | | | LABORATORY | | | | | | SERVICES, | | | | | | CORE | | + + + + + + | PROTEIN/CRE | 0.44 (H) | <0.10 mg/mg | [facility] | | | ATININE | | | LABORATORY | | | RATIO | | | SERVICES, | | | | | | CORE | | + + + + + + | URINE | Random | | [facility] | | | INTERVAL | | | LABORATORY | | | | | | SERVICES, | | | | | | CORE | | + + + + + + | URINE | Spot | | [facility] | | | VOLUME | | | LABORATORY | | | | | | SERVICES, | | | | | | CORE | | + + + + + + + + | Specimen | + + | Urine - Urine | | (substance) | + + + + + | Narrative | Performed At | + + + | Protein Reference Range: 50-80 mg/24hr At Rest <150 mg/24hr | [facility] | | Ambulatory, normal level of physical activity <250 mg/24hr | LABORATORY | | Strenuous physical activity Normal values based on 24 hour | [facility] | | collection interval. Patient results are calculated from actual | | | collection interval and volume. | | + + + + + + + + | Performing | Address | City/State/Zipcode | Phone Number | | Organization | | | | + + + + + | [facility] | [address] | [place] [address] | | | SERVICES, CORE | [address] | | | + + + + + CAPILLARY BLOOD GLUCOSE (NO CHG), POC (07/31/2019 12:49 PM PDT) + +---------+ + + + | Component | Value | Ref Range | Performed | Pathologist | | | | | At | Signature | + +---------+ + + + | BLOOD | 121 (H) | 70 - 99 mg/dL | [facility] - | | | GLUCOSE, | | | [facility] | | | POC | | | [place] [place] | | | | | | OF CARE | | | | | | TESTS | | + +---------+ + + + + + | Specimen | + + | Blood | + + + + + + + | Performing | Address | City/State/Zipcode | Phone Number | | Organization | | | | + + + + + | [facility] | [address] | [place], [place] | | | [facility] | [facility] | [address] | | | TESTS | | | | + + + + + CAPILLARY BLOOD GLUCOSE (NO CHG), POC (07/31/2019 10:44 AM PDT) + +---------+ + + + | Component | Value | Ref Range | Performed | Pathologist | | | | | At | Signature | + +---------+ + + + | BLOOD | 136 (H) | 70 - 99 mg/dL | [facility] - | | | GLUCOSE, | | | [facility] | | | POC | | | [facility] | | | | | | OF CARE | | | | | | TESTS | | + +---------+ + + + + + | Specimen | + + | Blood | + + + + + + + | Performing | Address | City/State/Zipcode | Phone Number | | Organization | | | | + + + + + | [facility] | [address] | [place], [place] | | | [facility] | [address] | [address] | | | TESTS | | | | + + + + + CAPILLARY BLOOD GLUCOSE (NO CHG), POC (07/31/2019 8:29 AM PDT) + +---------+ + + + | Component | Value | Ref Range | Performed | Pathologist | | | | | At | Signature | + +---------+ + + + | BLOOD | 121 (H) | 70 - 99 mg/dL | [facility] - | | | GLUCOSE, | | | [facility] | | | POC | | | [facility] | | | | | | OF CARE | | | | | | TESTS | | + +---------+ + + + + + | Specimen | + + | Blood | + + + + + + + | Performing | Address | City/State/Zipcode | Phone Number | | Organization | | | | + + + + + | [facility] | [address] | [place], [place] | | | [facility] | [facility] | [address] | | | TESTS | | | | + + + + + MAGNESIUM, PLASMA (07/31/2019 8:22 AM PDT) + +---------+ + + + | Component | Value | Ref Range | Performed | Pathologist | | | | | At | Signature | + +---------+ + + + | MAGNESIUM,P | 1.5 (L) | 1.6 - 2.6 mg/dL | [facility] | | | LASMA | | | LABORATORY | | | | | | SERVICES, | | | | | | CORE | | + +---------+ + + + + + | Specimen | + + | Blood - Blood | | (substance) | + + + + + + + | Performing | Address | City/State/Zipcode | Phone Number | | Organization | | | | + + + + + | [facility] | [address] | [place] [address] | | | SERVICES, CORE | [address] | | | + + + + + VANCOMYCIN, TROUGH (07/31/2019 8:22 AM PDT) + +-------+ + + + | Component | Value | Ref Range | Performed | Pathologist | | | | | At | Signature | + +-------+ + + + | VANCOMYCIN, | 10.7 | 10.0 - 20.0 | [facility] | | | TROUGH | | ug/mL | LABORATORY | | | | | | SERVICES, | | | | | | CORE | | + +-------+ + + + + + | Specimen | + + | Blood - Blood | | (substance) | + + + + + + + | Performing | Address | City/State/Zipcode | Phone Number | | Organization | | | | + + + + + | [facility] | [address] | [place] [address] | | | SERVICES, CORE | [address] | | | + + + + + CK, PLASMA (07/31/2019 7:05 AM PDT) + + + + + + | Component | Value | Ref Range | Performed | Pathologist | | | | | At | Signature | + + + + + + | CK | 8,057 (H) | 49 - 397 U/L | [facility] | | | | | | LABORATORY | | | | | | SERVICES, | | | | | | CORE | | + + + + + + + + | Specimen | + + | Blood - Blood | | (substance) | + + + + + + + | Performing | Address | City/State/Zipcode | Phone Number | | Organization | | | | + + + + + | [facility] | [address] | [place] [address] | | | CARA, AD | [address] | | | + + + + + CAPILLARY BLOOD GLUCOSE (NO CHG), POC (07/31/2019 6:38 AM PDT) + +---------+ + + + | Component | Value | Ref Range | Performed | Pathologist | | | | | At | Signature | + +---------+ + + + | BLOOD | 119 (H) | 70 - 99 mg/dL | [facility] - | | | GLUCOSE, | | | [facility] | | | POC | | | [facility] | | | | | | OF CARE | | | | | | TESTS | | + +---------+ + + + + + | Specimen | + + | Blood | + + + + + + + | Performing | Address | City/State/Zipcode | Phone Number | | Organization | | | | + + + + + | [facility] | [address] | [place], [place] | | | [facility] | [facility] | [address] | | | TESTS | | | | + + + + + CAPILLARY BLOOD GLUCOSE (NO CHG), POC (07/31/2019 4:29 AM PDT) + +---------+ + + + | Component | Value | Ref Range | Performed | Pathologist | | | | | At | Signature | + +---------+ + + + | BLOOD | 129 (H) | 70 - 99 mg/dL | [facility] - | | | GLUCOSE, | | | [facility] | | | POC | | | [facility] | | | | | | OF CARE | | | | | | TESTS | | + +---------+ + + + + + | Specimen | + + | Blood | + + + + + + + | Performing | Address | City/State/Zipcode | Phone Number | | Organization | | | | + + + + + | [facility] | [address] | [place], [place] | | | [facility] | [facility] | [address] | | | TESTS | | | | + + + + + CAPILLARY BLOOD GLUCOSE (NO CHG), POC (07/31/2019 4:09 AM PDT) + +---------+ + + + | Component | Value | Ref Range | Performed | Pathologist | | | | | At | Signature | + +---------+ + + + | BLOOD | 129 (H) | 70 - 99 mg/dL | [facility] | | | GLU[facility], | | | [facility] | | | POC | | | [facility] | | | | | | OF CARE | | | | | | TESTS | | + +---------+ + + + + + | Specimen | + + | Blood | + + + + + + + | Performing | Address | City/State/Zipcode | Phone Number | | Organization | | | | + + + + + | [facility] | [address] | [place], [place] | | | [facility] | [address] | [address] | | | TESTS | | | | + + + + + CK, PLASMA (07/31/2019 4:09 AM PDT) + + + + + + | Component | Value | Ref Range | Performed | Pathologist | | | | | At | Signature | + + + + + + | CK | 7,971 (H) | 49 - 397 U/L | [facility] | | | | | | LABORATORY | | | | | | SERVICES, | | | | | | CORE | | + + + + + + + + | Specimen | + + | Blood - Blood | | (substance) | + + + + + + + | Performing | Address | City/State/Zipcode | Phone Number | | Organization | | | | + + + + + | [facility] | [address] | [place] [address] | | | SERVICES, CORE | [address] | | | + + + + + PHOSPHORUS, PLASMA (07/31/2019 4:09 AM PDT) + +---------+ + + + | Component | Value | Ref Range | Performed | Pathologist | | | | | At | Signature | + +---------+ + + + | PHOSPHORUS, | 1.1 (L) | 2.4 - 4.7 mg/dL | [facility] | | | PLASMA | | | LABORATORY | | | (LAB) | | | SERVICES, | | | | | | CORE | | + +---------+ + + + + + | Specimen | + + | Blood - Blood | | (substance) | + + + + + + + | Performing | Address | City/State/Zipcode | Phone Number | | Organization | | | | + + + + + | [facility] | [address] | [place] [address] | | | SERVICES, CORE | [address] | | | + + + + + COMPLETE METABOLIC SET (NA,K,CL,CO2,BUN,CREAT,GLUC,CA,AST,ALT,BILI TOTAL,ALK PHOS,ALB,PROT TOTAL) (07/31/2019 4:09 AM PDT) + +---------+ + + + | Component | Value | Ref Range | Performed | Pathologist | | | | | At | Signature | + +---------+ + + + | GLUCOSE, | 136 (H) | 70 - 99 mg/dL | [facility] | | | PLASMA | | | LABORATORY | | | (LAB) | | | SERVICES, | | | | | | CORE | | + +---------+ + + + | BUN, PLASMA | 5 (L) | 6 - 20 mg/dL | [facility] | | | (LAB) | | | LABORATORY | | | | | | SERVICES, | | | | | | CORE | | + +---------+ + + + | CREATININE | 0.96 | 0.70 - 1.30 | [facility] | | | PLASMA | | mg/dL | LABORATORY | | | (LAB) | | | SERVICES, | | | | | | CORE | | + +---------+ + + + | EGFR | >60 | >60 mL/min | [facility] | | | - | | | LABORATORY | | | [facility] | | | SERVICES, | | | | | | CORE | | + +---------+ + + + | EGFR NON | >60 | >60 mL/min | [facility] | | | -[facility]IOD[facility] | | | LABORATORY | | | [facility] | | | SERVICES, | | | | | | CORE | | + +---------+ + + + | SODIUM, | 141 | 136 - 145 | [facility] | | | PLASMA | | mmol/L | LABORATORY | | | (LAB) | | | SERVICES, | | | | | | CORE | | + +---------+ + + + | POTASSIUM, | 3.5 | 3.4 - 5.0 | [facility] | | | PLASMA | | mmol/L | LABORATORY | | | (LAB) | | | SERVICES, | | | | | | CORE | | + +---------+ + + + | CHLORIDE, | 108 | 97 - 108 mmol/L | [facility] | | | PLASMA | | | LABORATORY | | | (LAB) | | | SERVICES, | | | | | | CORE | | + +---------+ + + + | TOTAL CO2, | 26 | 21 - 32 mmol/L | [facility] | | | PLASMA | | | LABORATORY | | | (LAB) | | | SERVICES, | | | | | | CORE | | + +---------+ + + + | CALCIUM, | 7.3 (L) | 8.6 - 10.2 | [facility] | | | PLASMA | | mg/dL | LABORATORY | | | (LAB) | | | SERVICES, | | | | | | CORE | | + +---------+ + + + | CALCIUM(ALB | 7.9 (L) | 8.6 - 10.2 | [facility] | | | CORRECTED) | | mg/dL | LABORATORY | | | | | | SERVICES, | | | | | | CORE | | + +---------+ + + + | BILIRUBIN | 0.4 | 0.3 - 1.2 mg/dL | [facility] | | | TOTAL | | | LABORATORY | | | | | | SERVICES, | | | | | | CORE | | + +---------+ + + + | TOTAL | 6.4 | 6.4 - 8.2 g/dL | [facility] | | | PROTEIN, | | | LABORATORY | | | PLASMA | | | SERVICES, | | | (LAB) | | | CORE | | + +---------+ + + + | ALBUMIN, | 3.2 (L) | 3.5 - 4.7 g/dL | [facility] | | | PLASMA | | | LABORATORY | | | (LAB) | | | SERVICES, | | | | | | CORE | | + +---------+ + + + | ALK PHOS | 59 | 53 - 128 U/L | [facility] | | | | | | LABORATORY | | | | | | SERVICES, | | | | | | CORE | | + +---------+ + + + | AST(SGOT) | 147 (H) | <=41 U/L | [facility] | | | | | | LABORATORY | | | | | | SERVICES, | | | | | | CORE | | + +---------+ + + + | ALT (SGPT) | 76 (H) | <=60 U/L | [facility] | | | | | | LABORATORY | | | | | | SERVICES, | | | | | | CORE | | + +---------+ + + + | ANION GAP | 7 | 4 - 11 mmol/L | [facility] | | | | | | LABORATORY | | | | | | SERVICES, | | | | | | CORE | | + +---------+ + + + | ANION | 9 | 4 - 11 mmol/L | [facility] | | | GAP(ALB | | | LABORATORY | | | CORRECTED) | | | SERVICES, | | | | | | CORE | | + +---------+ + + + | POTASSIUM | No Hemo | | [facility] | | | CMNT | | | LABORATORY | | | | | | SERVICES, | | | | | | CORE | | + +---------+ + + + | BILI T CMNT | No Hemo | | [facility] | | | | | | LABORATORY | | | | | | SERVICES, | | | | | | CORE | | + +---------+ + + + | AST CMNT | No Hemo | | [facility] | | | | | | LABORATORY | | | | | | SERVICES, | | | | | | CORE | | + +---------+ + + + + + | Specimen | + + | Blood - Blood | | (substance) | + + + + + | Narrative | Performed At | + + + | GFR is estimated using the MDRD equation recommended by the National | [facility] | | Kidney Disease Education Program. Estimated GFR Interpretive | LABORATORY | | Information: <60 mL/min/1.73 sq m Chronic Kidney | SERVICES, CORE | | Disease <15 mL/min/1.73 sq m Kidney Failure | | | Estimated GFR greater than 60 mL/min/1.73 sq m is of limited clinical | | | value. The MDRD equation is not valid in the following situations: | | | - Patients under 18 years of age - Severe malnutrition or obesity | | | - Vegetarian diet - Rapidly changing kidney function - Amputees, | | | paraplegics, or other muscle-wasting diseases | | + + + + + + + + | Performing | Address | City/State/Zipcode | Phone Number | | Organization | | | | + + + + + | [facility] | [address] | [place] [address] | | | SERVICES, CORE | [address] | | | + + + + + CBC (HEMOGRAM) ONLY (07/31/2019 2:11 AM PDT) + + + + + + | Component | Value | Ref Range | Performed | Pathologist | | | | | At | Signature | + + + + + + | WHITE CELL | 16.02 (H) | 3.50 - 10.80 | [facility] | | | COUNT | | K/cu mm | LABORATORY | | | | | | SERVICES, | | | | | | CORE | | + + + + + + | RED CELL | 3.63 (L) | 4.50 - 6.00 | [facility] | | | COUNT | | M/cu mm | LABORATORY | | | | | | SERVICES, | | | | | | CORE | | + + + + + + | HEMOGLOBIN | 11.2 (L) | 13.5 - 17.5 | [facility] | | | | | g/dL | LABORATORY | | | | | | SERVICES, | | | | | | CORE | | + + + + + + | HEMATOCRIT | 34.1 (L) | 41.0 - 53.0 % | [facility] | | | | | | LABORATORY | | | | | | SERVICES, | | | | | | CORE | | + + + + + + | MCV | 93.9 | 80.0 - 100.0 fL | [facility] | | | | | | LABORATORY | | | | | | SERVICES, | | | | | | CORE | | + + + + + + | MCHC | 32.8 | 32.0 - 36.0 | [facility] | | | | | g/dL | LABORATORY | | | | | | SERVICES, | | | | | | CORE | | + + + + + + | RDW SD | 43.8 | 35.1 - 46.3 fL | [facility] | | | | | | LABORATORY | | | | | | SERVICES, | | | | | | CORE | | + + + + + + | PLATELET | 147 (L) | 150 - 400 K/cu | [facility] | | | COUNT | | mm | LABORATORY | | | | | | SERVICES, | | | | | | CORE | | + + + + + + | MPV | 10.5 | 9.7 - 12.3 fL | [facility] | | | | | | LABORATORY | | | | | | SERVICES, | | | | | | CORE | | + + + + + + | NRBC% | 0.0 | 0.0 - 0.3 % | [facility] | | | | | | LABORATORY | | | | | | SERVICES, | | | | | | CORE | | + + + + + + | NRBC# | 0.00 | 0.00 - 0.02 | [facility] | | | | | K/cu mm | LABORATORY | | | | | | SERVICES, | | | | | | CORE | | + + + + + + + + | Specimen | + + | Blood - Blood | | (substance) | + + + + + + + | Performing | Address | City/State/Zipcode | Phone Number | | Organization | | | | + + + + + | [facility] | [address] | [place] [address] | | | SERVICES, CORE | [address] | | | + + + + + CAPILLARY BLOOD GLUCOSE (NO CHG), POC (07/31/2019 2:05 AM PDT) + +---------+ + + + | Component | Value | Ref Range | Performed | Pathologist | | | | | At | Signature | + +---------+ + + + | BLOOD | 126 (H) | 70 - 99 mg/dL | [facility] - | | | GLUCOSE, | | | [facility] | | | POC | | | [facility] | | | | | | OF CARE | | | | | | TESTS | | + +---------+ + + + + + | Specimen | + + | Blood | + + + + + + + | Performing | Address | City/State/Zipcode | Phone Number | | Organization | | | | + + + + + | [facility] | [address] | [place], [place] | | | [facility] | [address] | [address] | | | TESTS | | | | + + + + + CAPILLARY BLOOD GLUCOSE (NO CHG), POC (07/31/2019 12:04 AM PDT) + +---------+ + + + | Component | Value | Ref Range | Performed | Pathologist | | | | | At | Signature | + +---------+ + + + | BLOOD | 112 (H) | 70 - 99 mg/dL | [facility] - | | | GLUCOSE, | | | [facility] | | | POC | | | [facility] | | | | | | OF CARE | | | | | | TESTS | | + +---------+ + + + + + | Specimen | + + | Blood | + + + + + + + | Performing | Address | City/State/Zipcode | Phone Number | | Organization | | | | + + + + + | [facility] | [address] | [place] | | | [facility] | [address] | [address] | | | TESTS | | | | + + + + + CAPILLARY BLOOD GLUCOSE (NO CHG), POC (07/30/2019 11:01 PM PDT) + +---------+ + + + | Component | Value | Ref Range | Performed | Pathologist | | | | | At | Signature | + +---------+ + + + | BLOOD | 134 (H) | 70 - 99 mg/dL | [facility] - | | | GLUCOSE, | | | [facility] | | | POC | | | [facility] | | | | | | OF CARE | | | | | | TESTS | | + +---------+ + + + + + | Specimen | + + | Blood | + + + + + + + | Performing | Address | City/State/Zipcode | Phone Number | | Organization | | | | + + + + + | [facility] | [address] | [place], [place] | | | [facility] | [facility] | [address] | | | TESTS | | | | + + + + + BASIC METABOLIC SET (NA, K, CL, TCO2, BUN, CR, GLU, CA) (07/30/2019 10:14 PM PDT) + +---------+ + + + | Component | Value | Ref Range | Performed | Pathologist | | | | | At | Signature | + +---------+ + + + | GLUCOSE, | 130 (H) | 70 - 99 mg/dL | [facility] | | | PLASMA | | | LABORATORY | | | (LAB) | | | SERVICES, | | | | | | CORE | | + +---------+ + + + | BUN, PLASMA | 7 | 6 - 20 mg/dL | [facility] | | | (LAB) | | | LABORATORY | | | | | | SERVICES, | | | | | | CORE | | + +---------+ + + + | CREATININE | 1.00 | 0.70 - 1.30 | [facility] | | | PLASMA | | mg/dL | LABORATORY | | | (LAB) | | | SERVICES, | | | | | | CORE | | + +---------+ + + + | EGFR | >60 | >60 mL/min | [facility] | | | - | | | LABORATORY | | | [facility] | | | SERVICES, | | | | | | CORE | | + +---------+ + + + | EGFR NON | >60 | >60 mL/min | [facility] | | | -ABIODUN | | | LABORATORY | | | [facility] | | | SERVICES, | | | | | | CORE | | + +---------+ + + + | SODIUM, | 142 | 136 - 145 | [facility] | | | PLASMA | | mmol/L | LABORATORY | | | (LAB) | | | SERVICES, | | | | | | CORE | | + +---------+ + + + | POTASSIUM, | 3.4 | 3.4 - 5.0 | [facility] | | | PLASMA | | mmol/L | LABORATORY | | | (LAB) | | | SERVICES, | | | | | | CORE | | + +---------+ + + + | CHLORIDE, | 108 | 97 - 108 mmol/L | [facility] | | | PLASMA | | | LABORATORY | | | (LAB) | | | SERVICES, | | | | | | CORE | | + +---------+ + + + | TOTAL CO2, | 27 | 21 - 32 mmol/L | [facility] | | | PLASMA | | | LABORATORY | | | (LAB) | | | SERVICES, | | | | | | CORE | | + +---------+ + + + | CALCIUM, | 7.5 (L) | 8.6 - 10.2 | [facility] | | | PLASMA | | mg/dL | LABORATORY | | | (LAB) | | | SERVICES, | | | | | | CORE | | + +---------+ + + + | ANION GAP | 7 | 4 - 11 mmol/L | [facility] | | | | | | LABORATORY | | | | | | SERVICES, | | | | | | CORE | | + +---------+ + + + | POTASSIUM | No Hemo | | [facility] | | | CMNT | | | LABORATORY | | | | | | SERVICES, | | | | | | CORE | | + +---------+ + + + + + | Specimen | + + | Blood - Blood | | (substance) | + + + + + | Narrative | Performed At | + + + | GFR is estimated using the MDRD equation recommended by the National | [facility] | | Kidney Disease Education Program. Estimated GFR Interpretive | LABORATORY | | Information: <60 mL/min/1.73 sq m Chronic Kidney | SERVICES, CORE | | Disease <15 mL/min/1.73 sq m Kidney Failure | | | Estimated GFR greater than 60 mL/min/1.73 sq m is of limited clinical | | | value. The MDRD equation is not valid in the following situations: | | | - Patients under 18 years of age - Severe malnutrition or obesity | | | - Vegetarian diet - Rapidly changing kidney function - Amputees, | | | paraplegics, or other muscle-wasting diseases | | + + + + + + + + | Performing | Address | City/State/Zipcode | Phone Number | | Organization | | | | + + + + + | [facility] | [address] | [place] [address] | | | SERVICES, AD | [address] | | | + + + + + PHOSPHORUS, PLASMA (07/30/2019 10:14 PM PDT) + +-------+ + + + | Component | Value | Ref Range | Performed | Pathologist | | | | | At | Signature | + +-------+ + + + | PHOSPHORUS, | 2.5 | 2.4 - 4.7 mg/dL | [facility] | | | PLASMA | | | LABORATORY | | | (LAB) | | | SERVICES, | | | | | | CORE | | + +-------+ + + + + + | Specimen | + + | Blood - Blood | | (substance) | + + + + + + + | Performing | Address | City/State/Zipcode | Phone Number | | Organization | | | | + + + + + | [facility] | [address] | [place] [address] | | | SERVICES, CORE | [address] | | | + + + + + CAPILLARY BLOOD GLUCOSE (NO CHG), POC (07/30/2019 9:53 PM PDT) + +---------+ + + + | Component | Value | Ref Range | Performed | Pathologist | | | | | At | Signature | + +---------+ + + + | BLOOD | 133 (H) | 70 - 99 mg/dL | [facility] - | | | GLUCOSE, | | | [facility] | | | POC | | | [facility] | | | | | | OF CARE | | | | | | TESTS | | + +---------+ + + + + + | Specimen | + + | Blood | + + + + + + + | Performing | Address | City/State/Zipcode | Phone Number | | Organization | | | | + + + + + | [facility] | [address] | [place], [place] | | | [facility] | [address] | [address] | | | TESTS | | | | + + + + + CAPILLARY BLOOD GLUCOSE (NO CHG), POC (07/30/2019 8:52 PM PDT) + +---------+ + + + | Component | Value | Ref Range | Performed | Pathologist | | | | | At | Signature | + +---------+ + + + | BLOOD | 127 (H) | 70 - 99 mg/dL | [facility] - | | | GLUCOSE, | | | [facility] | | | POC | | | [facility] | | | | | | OF CARE | | | | | | TESTS | | + +---------+ + + + + + | Specimen | + + | Blood | + + + + + + + | Performing | Address | City/State/Zipcode | Phone Number | | Organization | | | | + + + + + | [facility] | [address] | [place], [place] | | | [facility] | [address] | [address] | | | TESTS | | | | + + + + + CAPILLARY BLOOD GLUCOSE (NO CHG), POC (07/30/2019 7:52 PM PDT) + +---------+ + + + | Component | Value | Ref Range | Performed | Pathologist | | | | | At | Signature | + +---------+ + + + | BLOOD | 121 (H) | 70 - 99 mg/dL | [facility] - | | | GLUCOSE, | | | [facility] | | | POC | | | [facility] | | | | | | OF CARE | | | | | | TESTS | | + +---------+ + + + + + | Specimen | + + | Blood | + + + + + + + | Performing | Address | City/State/Zipcode | Phone Number | | Organization | | | | + + + + + | [facility] | [address] | [place], [place] | | | [facility] | [facility] | [address] | | | TESTS | | | | + + + + + CAPILLARY BLOOD GLUCOSE (NO CHG), POC (07/30/2019 6:46 PM PDT) + +---------+ + + + | Component | Value | Ref Range | Performed | Pathologist | | | | | At | Signature | + +---------+ + + + | BLOOD | 165 (H) | 70 - 99 mg/dL | [facility] - | | | GLUCOSE, | | | [facility] | | | POC | | | [facility] | | | | | | OF CARE | | | | | | TESTS | | + +---------+ + + + + + | Specimen | + + | Blood | + + + + + + + | Performing | Address | City/State/Zipcode | Phone Number | | Organization | | | | + + + + + | [facility] | [address] | [place], [place] | | | [facility] | [address] | [address] | | | TESTS | | | | + + + + + CAPILLARY BLOOD GLUCOSE (NO CHG), POC (07/30/2019 5:45 PM PDT) + +---------+ + + + | Component | Value | Ref Range | Performed | Pathologist | | | | | At | Signature | + +---------+ + + + | BLOOD | 168 (H) | 70 - 99 mg/dL | [facility] - | | | GLUCOSE, | | | [facility] | | | POC | | | [facility] | | | | | | OF CARE | | | | | | TESTS | | + +---------+ + + + + + | Specimen | + + | Blood | + + + + + + + | Performing | Address | City/State/Zipcode | Phone Number | | Organization | | | | + + + + + | [facility] | [address] | [place], [place] | | | [facility] | [address] | [address] | | | TESTS | | | | + + + + + CAPILLARY BLOOD GLUCOSE (NO CHG), POC (07/30/2019 4:51 PM PDT) + +---------+ + + + | Component | Value | Ref Range | Performed | Pathologist | | | | | At | Signature | + +---------+ + + + | BLOOD | 119 (H) | 70 - 99 mg/dL | [facility] | | | GLUCOSE, | | | [facility] | | | POC | | | [facility] | | | | | | OF CARE | | | | | | TESTS | | + +---------+ + + + + + | Specimen | + + | Blood | + + + + + + + | Performing | Address | City/State/Zipcode | Phone Number | | Organization | | | | + + + + + | [facility] | [address] | [place], [place] | | | [facility] | [facility] | [address] | | | TESTS | | | | + + + + + CAPILLARY BLOOD GLUCOSE (NO CHG), POC (07/30/2019 3:46 PM PDT) + +---------+ + + + | Component | Value | Ref Range | Performed | Pathologist | | | | | At | Signature | + +---------+ + + + | BLOOD | 136 (H) | 70 - 99 mg/dL | [facility] - | | | GLUCOSE, | | | [facility] | | | POC | | | [facility] | | | | | | OF CARE | | | | | | TESTS | | + +---------+ + + + + + | Specimen | + + | Blood | + + + + + + + | Performing | Address | City/State/Zipcode | Phone Number | | Organization | | | | + + + + + | [facility] | [address] | [place], [place] | | | [facility] | [address] | [address] | | | TESTS | | | | + + + + + CAPILLARY BLOOD GLUCOSE (NO CHG), POC (07/30/2019 2:40 PM PDT) + +---------+ + + + | Component | Value | Ref Range | Performed | Pathologist | | | | | At | Signature | + +---------+ + + + | BLOOD | 167 (H) | 70 - 99 mg/dL | [facility] - | | | GLUCOSE, | | | [facility] | | | POC | | | [facility] | | | | | | OF CARE | | | | | | TESTS | | + +---------+ + + + + + | Specimen | + + | Blood | + + + + + + + | Performing | Address | City/State/Zipcode | Phone Number | | Organization | | | | + + + + + | [facility] | [address] | [place], [place] | | | [place]INT OF CARE | [address] | [address] | | | TESTS | | | | + + + + + CBC (HEMOGRAM) ONLY (07/30/2019 1:39 PM PDT) + + + + + + | Component | Value | Ref Range | Performed | Pathologist | | | | | At | Signature | + + + + + + | WHITE CELL | 19.97 (H) | 3.50 - 10.80 | [facility] | | | COUNT | | K/cu mm | LABORATORY | | | | | | SERVICES, | | | | | | CORE | | + + + + + + | RED CELL | 3.39 (L) | 4.50 - 6.00 | [facility] | | | COUNT | | M/cu mm | LABORATORY | | | | | | SERVICES, | | | | | | CORE | | + + + + + + | HEMOGLOBIN | 10.9 (L) | 13.5 - 17.5 | [facility] | | | | | g/dL | LABORATORY | | | | | | SERVICES, | | | | | | CORE | | + + + + + + | HEMATOCRIT | 31.4 (L) | 41.0 - 53.0 % | [facility] | | | | | | LABORATORY | | | | | | SERVICES, | | | | | | CORE | | + + + + + + | MCV | 92.6 | 80.0 - 100.0 fL | [facility] | | | | | | LABORATORY | | | | | | SERVICES, | | | | | | CORE | | + + + + + + | MCHC | 34.7 | 32.0 - 36.0 | [facility] | | | | | g/dL | LABORATORY | | | | | | SERVICES, | | | | | | CORE | | + + + + + + | RDW SD | 42.4 | 35.1 - 46.3 fL | [facility] | | | | | | LABORATORY | | | | | | SERVICES, | | | | | | CORE | | + + + + + + | PLATELET | 174 | 150 - 400 K/cu | [facility] | | | COUNT | | mm | LABORATORY | | | | | | SERVICES, | | | | | | CORE | | + + + + + + | MPV | 10.7 | 9.7 - 12.3 fL | [facility] | | | | | | LABORATORY | | | | | | SERVICES, | | | | | | CORE | | + + + + + + | NRBC% | 0.0 | 0.0 - 0.3 % | [facility] | | | | | | LABORATORY | | | | | | SERVICES, | | | | | | CORE | | + + + + + + | NRBC# | 0.00 | 0.00 - 0.02 | [facility] | | | | | K/cu mm | LABORATORY | | | | | | SERVICES, | | | | | | CORE | | + + + + + + + + | Specimen | + + | Blood - Blood | | (substance) | + + + + + + + | Performing | Address | City/State/Zipcode | Phone Number | | Organization | | | | + + + + + | [facility] | [address] | [place] [address] | | | SERVICES, CORE | [address] | | | + + + + + CAPILLARY BLOOD GLUCOSE (NO CHG), POC (07/30/2019 1:24 PM PDT) + +---------+ + + + | Component | Value | Ref Range | Performed | Pathologist | | | | | At | Signature | + +---------+ + + + | BLOOD | 149 (H) | 70 - 99 mg/dL | [facility] - | | | GLUCOSE, | | | [facility] | | | POC | | | [facility] | | | | | | OF CARE | | | | | | TESTS | | + +---------+ + + + + + | Specimen | + + | Blood | + + + + + + + | Performing | Address | City/State/Zipcode | Phone Number | | Organization | | | | + + + + + | [facility] | [address] | [place], [place] | | | [facility] | [facility] | [address] | | | TESTS | | | | + + + + + CAPILLARY BLOOD GLUCOSE (NO CHG), POC (07/30/2019 12:25 PM PDT) + +---------+ + + + | Component | Value | Ref Range | Performed | Pathologist | | | | | At | Signature | + +---------+ + + + | BLOOD | 158 (H) | 70 - 99 mg/dL | [facility] - | | | GLUCOSE, | | | [facility] | | | POC | | | [facility] | | | | | | OF CARE | | | | | | TESTS | | + +---------+ + + + + + | Specimen | + + | Blood | + + + + + + + | Performing | Address | City/State/Zipcode | Phone Number | | Organization | | | | + + + + + | [facility] | [address] | [place], [place] | | | [facility] | [address] | [address] | | | TESTS | | | | + + + + + PHOSPHORUS, PLASMA (07/30/2019 11:30 AM PDT) + +---------+ + + + | Component | Value | Ref Range | Performed | Pathologist | | | | | At | Signature | + +---------+ + + + | PHOSPHORUS, | 1.7 (L) | 2.4 - 4.7 mg/dL | [facility] | | | PLASMA | | | LABORATORY | | | (LAB) | | | SERVICES, | | | | | | CORE | | + +---------+ + + + + + | Specimen | + + | Blood - Blood | | (substance) | + + + + + + + | Performing | Address | City/State/Zipcode | Phone Number | | Organization | | | | + + + + + | [facility] | [address] | [place] [address] | | | SERVICES, CORE | [address] | | | + + + + + BASIC METABOLIC SET (NA, K, CL, TCO2, BUN, CR, GLU, CA) (07/30/2019 11:30 AM PDT) + +---------+ + + + | Component | Value | Ref Range | Performed | Pathologist | | | | | At | Signature | + +---------+ + + + | GLUCOSE, | 209 (H) | 70 - 99 mg/dL | [facility] | | | PLASMA | | | LABORATORY | | | (LAB) | | | SERVICES, | | | | | | CORE | | + +---------+ + + + | BUN, PLASMA | 12 | 6 - 20 mg/dL | [facility] | | | (LAB) | | | LABORATORY | | | | | | SERVICES, | | | | | | CORE | | + +---------+ + + + | CREATININE | 1.08 | 0.70 - 1.30 | [facility] | | | PLASMA | | mg/dL | LABORATORY | | | (LAB) | | | SERVICES, | | | | | | CORE | | + +---------+ + + + | EGFR | >60 | >60 mL/min | [facility] | | | - | | | LABORATORY | | | [facility] | | | SERVICES, | | | | | | CORE | | + +---------+ + + + | EGFR NON | >60 | >60 mL/min | [facility] | | | -ABIODUN | | | LABORATORY | | | [facility] | | | SERVICES, | | | | | | CORE | | + +---------+ + + + | SODIUM, | 143 | 136 - 145 | [facility] | | | PLASMA | | mmol/L | LABORATORY | | | (LAB) | | | SERVICES, | | | | | | CORE | | + +---------+ + + + | POTASSIUM, | 3.5 | 3.4 - 5.0 | [facility] | | | PLASMA | | mmol/L | LABORATORY | | | (LAB) | | | SERVICES, | | | | | | CORE | | + +---------+ + + + | CHLORIDE, | 110 (H) | 97 - 108 mmol/L | [facility] | | | PLASMA | | | LABORATORY | | | (LAB) | | | SERVICES, | | | | | | CORE | | + +---------+ + + + | TOTAL CO2, | 26 | 21 - 32 mmol/L | [facility] | | | PLASMA | | | LABORATORY | | | (LAB) | | | SERVICES, | | | | | | CORE | | + +---------+ + + + | CALCIUM, | 7.5 (L) | 8.6 - 10.2 | [facility] | | | PLASMA | | mg/dL | LABORATORY | | | (LAB) | | | SERVICES, | | | | | | CORE | | + +---------+ + + + | ANION GAP | 7 | 4 - 11 mmol/L | [facility] | | | | | | LABORATORY | | | | | | SERVICES, | | | | | | CORE | | + +---------+ + + + | POTASSIUM | No Hemo | | [facility] | | | CMNT | | | LABORATORY | | | | | | SERVICES, | | | | | | CORE | | + +---------+ + + + + + | Specimen | + + | Blood - Blood | | (substance) | + + + + + | Narrative | Performed At | + + + | GFR is estimated using the MDRD equation recommended by the National | [facility] | | Kidney Disease Education Program. Estimated GFR Interpretive | LABORATORY | | Information: <60 mL/min/1.73 sq m Chronic Kidney | SERVICES, CORE | | Disease <15 mL/min/1.73 sq m Kidney Failure | | | Estimated GFR greater than 60 mL/min/1.73 sq m is of limited clinical | | | value. The MDRD equation is not valid in the following situations: | | | - Patients under 18 years of age - Severe malnutrition or obesity | | | - Vegetarian diet - Rapidly changing kidney function - Amputees, | | | paraplegics, or other muscle-wasting diseases | | + + + + + + + + | Performing | Address | City/State/Zipcode | Phone Number | | Organization | | | | + + + + + | Year Up | [phone] | [place] [address] | | | SERVICES, CORE | [address] | | | + + + + + KETONE, PLASMA (07/30/2019 11:30 AM PDT) + + + + + + | Component | Value | Ref Range | Performed | Pathologist | | | | | At | Signature | + + + + + + | KETONES, | Negative | Negative mg/dL | [facility] | | | PLASMA | | | LABORATORY | | | | | | SERVICES, | | | | | | CORE | | + + + + + + + + | Specimen | + + | Blood - Blood | | (substance) | + + + + + | Narrative | Performed At | + + + | This test detects only acetoacetic acid. It does not measure total | [facility] | | ketones. | LABORATORY | | | SERVICES, CORE | + + + + + + + + | Performing | Address | City/State/Zipcode | Phone Number | | Organization | | | | + + + + + | [facility] | [phone] | [place] [address] | | | SERVICES, CORE | [address] | | | + + + + + CAPILLARY BLOOD GLUCOSE (NO CHG), POC (07/30/2019 11:24 AM PDT) + +---------+ + + + | Component | Value | Ref Range | Performed | Pathologist | | | | | At | Signature | + +---------+ + + + | BLOOD | 184 (H) | 70 - 99 mg/dL | [facility] - | | | GLUCOSE, | | | [facility] | | | POC | | | [facility] | | | | | | OF CARE | | | | | | TESTS | | + +---------+ + + + + + | Specimen | + + | Blood | + + + + + + + | Performing | Address | City/State/Zipcode | Phone Number | | Organization | | | | + + + + + | [facility] | [phone] | [place], [place] | | | [facility] | [address] | [phone] | | | TESTS | | | | + + + + + CAPILLARY BLOOD GLUCOSE (NO CHG), POC (07/30/2019 10:18 AM PDT) + +---------+ + + + | Component | Value | Ref Range | Performed | Pathologist | | | | | At | Signature | + +---------+ + + + | BLOOD | 104 (H) | 70 - 99 mg/dL | [facility] - | | | GLUCOSE, | | | [facility] | | | POC | | | [facility] | | | | | | OF CARE | | | | | | TESTS | | + +---------+ + + + + + | Specimen | + + | Blood | + + + + + + + | Performing | Address | City/State/Zipcode | Phone Number | | Organization | | | | + + + + + | [facility] | [phone] | [place], [place] | | | [facility] | [facility] | [phone] | | | TESTS | | | | + + + + + CAPILLARY BLOOD GLUCOSE (NO CHG), POC (07/30/2019 9:46 AM PDT) + +-------+ + + + | Component | Value | Ref Range | Performed | Pathologist | | | | | At | Signature | + +-------+ + + + | BLOOD | 93 | 70 - 99 mg/dL | [facility] - | | | GLUCOSE, | | | [facility] | | | POC | | | [facility] | | | | | | OF CARE | | | | | | TESTS | | + +-------+ + + + + + | Specimen | + + | Blood | + + + + + + + | Performing | Address | City/State/Zipcode | Phone Number | | Organization | | | | + + + + + | [facility] | [address] | [place], [place] | | | [facility] | [address] | [address] | | | TESTS | | | | + + + + + 12 LEAD ECG (07/30/2019 9:03 AM PDT) + + + + + + | Component | Value | Ref Range | Performed | Pathologist | | | | | At | Signature | + + + + + + | VENTRICULAR | 80 | bpm | [facility] | | | RATE | | | OF | | | | | | CARDIOLOGY | | + + + + + + | ATRIAL RATE | 80 | ms | [facility] | | | | | | OF | | | | | | CARDIOLOGY | | + + + + + + | P-R | 177 | ms | [facility] | | | INTERVAL | | | OF | | | | | | CARDIOLOGY | | + + + + + + | P AXIS | 28 | deg | [facility] | | | | | | OF | | | | | | CARDIOLOGY | | + + + + + + | QRS | 109 | ms | [facility] | | | DURATION | | | OF | | | | | | CARDIOLOGY | | + + + + + + | QT | 410 | ms | [facility] | | | | | | OF | | | | | | CARDIOLOGY | | + + + + + + | QTCB | 475 | ms | [facility] | | | | | | OF | | | | | | CARDIOLOGY | | + + + + + + | R AXIS | -50 | deg | [facility] | | | | | | OF | | | | | | CARDIOLOGY | | + + + + + + | T AXIS | 7 | deg | [facility] | | | | | | OF | | | | | | CARDIOLOGY | | + + + + + + | ECG | Sinus rhythm | | [facility] | | | IMPRESSION | | | OF | | | | | | CARDIOLOGY | | + + + + + + | ECG | Borderline T | | [facility] | | | IMPRESSION | abnormalities, inferior | | OF | | | | leads- BORDERLINE ECG - | | CARDIOLOGY | | + + + + + + | ECG | Electronically signed | | [facility] | | | IMPRESSION | by: MARSHAL REEDER | | OF | | | | 07-31-2019 12:02:11 | | CARDIOLOGY | | + + + + + + + + | Specimen | + + | | + + + + + | Narrative | Performed At | + + + | | | + + + + + + + + | Performing | Address | City/State/Zipcode | Phone Number | | Organization | | | | + + + + + | [facility] | [address] | [place], [place] | | | CARDIOLOGY | [address] | [address] | | + + + + + CAPILLARY BLOOD GLUCOSE (NO CHG), POC (07/30/2019 8:48 AM PDT) + +---------+ + + + | Component | Value | Ref Range | Performed | Pathologist | | | | | At | Signature | + +---------+ + + + | BLOOD | 180 (H) | 70 - 99 mg/dL | [facility] | | | GLUCOSE, | | | [facility] | | | POC | | | [facility] | | | | | | OF CARE | | | | | | TESTS | | + +---------+ + + + + + | Specimen | + + | Blood | + + + + + + + | Performing | Address | City/State/Zipcode | Phone Number | | Organization | | | | + + + + + | [facility] | [address] | [place], [place] | | | [facility] | [facility] | [address] | | | TESTS | | | | + + + + + CAPILLARY BLOOD GLUCOSE (NO CHG), POC (07/30/2019 8:08 AM PDT) + +---------+ + + + | Component | Value | Ref Range | Performed | Pathologist | | | | | At | Signature | + +---------+ + + + | BLOOD | 225 (H) | 70 - 99 mg/dL | [facility] | | | GLUCOSE, | | | [facility] | | | POC | | | [facility] | | | | | | OF CARE | | | | | | TESTS | | + +---------+ + + + + + | Specimen | + + | Blood | + + + + + + + | Performing | Address | City/State/Zipcode | Phone Number | | Organization | | | | + + + + + | [facility] | [address] | [place], [place] | | | [facility] | [facility] | [address] | | | TESTS | | | | + + + + + PHOSPHORUS, PLASMA (07/30/2019 5:23 AM PDT) + +---------+ + + + | Component | Value | Ref Range | Performed | Pathologist | | | | | At | Signature | + +---------+ + + + | PHOSPHORUS, | 2.1 (L) | 2.4 - 4.7 mg/dL | [facility] | | | PLASMA | | | LABORATORY | | | (LAB) | | | SERVICES, | | | | | | CORE | | + +---------+ + + + + + | Specimen | + + | Blood - Blood | | (substance) | + + + + + + + | Performing | Address | City/State/Zipcode | Phone Number | | Organization | | | | + + + + + | [facility] | [address] | [place] [address] | | | SERVICES, CORE | [address] | | | + + + + + MAGNESIUM, PLASMA (07/30/2019 5:23 AM PDT) + +-------+ + + + | Component | Value | Ref Range | Performed | Pathologist | | | | | At | Signature | + +-------+ + + + | MAGNESIUM,P | 2.0 | 1.6 - 2.6 mg/dL | [facility] | | | LASMA | | | LABORATORY | | | | | | SERVICES, | | | | | | CORE | | + +-------+ + + + + + | Specimen | + + | Blood - Blood | | (substance) | + + + + + + + | Performing | Address | City/State/Zipcode | Phone Number | | Organization | | | | + + + + + | [facility] | [address] | [place] [address] | | | SERVICES, CORE | [address] | | | + + + + + COMPLETE METABOLIC SET (NA,K,CL,CO2,BUN,CREAT,GLUC,CA,AST,ALT,BILI TOTAL,ALK PHOS,ALB,PROT TOTAL) (07/30/2019 5:23 AM PDT) + +---------+ + + + | Component | Value | Ref Range | Performed | Pathologist | | | | | At | Signature | + +---------+ + + + | GLUCOSE, | 285 (H) | 70 - 99 mg/dL | [facility] | | | PLASMA | | | LABORATORY | | | (LAB) | | | SERVICES, | | | | | | CORE | | + +---------+ + + + | BUN, PLASMA | 16 | 6 - 20 mg/dL | [facility] | | | (LAB) | | | LABORATORY | | | | | | SERVICES, | | | | | | CORE | | + +---------+ + + + | CREATININE | 1.22 | 0.70 - 1.30 | [facility] | | | PLASMA | | mg/dL | LABORATORY | | | (LAB) | | | SERVICES, | | | | | | CORE | | + +---------+ + + + | EGFR | >60 | >60 mL/min | [facility] | | | - | | | LABORATORY | | | [facility] | | | SERVICES, | | | | | | CORE | | + +---------+ + + + | EGFR NON | >60 | >60 mL/min | [facility] | | | -ABIODNU | | | LABORATORY | | | [facility] | | | SERVICES, | | | | | | CORE | | + +---------+ + + + | SODIUM, | 145 | 136 - 145 | [facility] | | | PLASMA | | mmol/L | LABORATORY | | | (LAB) | | | SERVICES, | | | | | | CORE | | + +---------+ + + + | POTASSIUM, | 3.8 | 3.4 - 5.0 | [facility] | | | PLASMA | | mmol/L | LABORATORY | | | (LAB) | | | SERVICES, | | | | | | CORE | | + +---------+ + + + | CHLORIDE, | 111 (H) | 97 - 108 mmol/L | [facility] | | | PLASMA | | | LABORATORY | | | (LAB) | | | SERVICES, | | | | | | CORE | | + +---------+ + + + | TOTAL CO2, | 27 | 21 - 32 mmol/L | [facility] | | | PLASMA | | | LABORATORY | | | (LAB) | | | SERVICES, | | | | | | CORE | | + +---------+ + + + | CALCIUM, | 7.3 (L) | 8.6 - 10.2 | [facility] | | | PLASMA | | mg/dL | LABORATORY | | | (LAB) | | | SERVICES, | | | | | | CORE | | + +---------+ + + + | CALCIUM(ALB | 7.8 (L) | 8.6 - 10.2 | [facility] | | | CORRECTED) | | mg/dL | LABORATORY | | | | | | SERVICES, | | | | | | CORE | | + +---------+ + + + | BILIRUBIN | 0.4 | 0.3 - 1.2 mg/dL | [facility] | | | TOTAL | | | LABORATORY | | | | | | SERVICES, | | | | | | CORE | | + +---------+ + + + | TOTAL | 6.0 (L) | 6.4 - 8.2 g/dL | [facility] | | | PROTEIN, | | | LABORATORY | | | PLASMA | | | SERVICES, | | | (LAB) | | | CORE | | + +---------+ + + + | ALBUMIN, | 3.4 (L) | 3.5 - 4.7 g/dL | [facility] | | | PLASMA | | | LABORATORY | | | (LAB) | | | SERVICES, | | | | | | CORE | | + +---------+ + + + | ALK PHOS | 49 (L) | 53 - 128 U/L | [facility] | | | | | | LABORATORY | | | | | | SERVICES, | | | | | | CORE | | + +---------+ + + + | AST(SGOT) | 117 (H) | <=41 U/L | [facility] | | | | | | LABORATORY | | | | | | SERVICES, | | | | | | CORE | | + +---------+ + + + | ALT (SGPT) | 60 | <=60 U/L | [facility] | | | | | | LABORATORY | | | | | | SERVICES, | | | | | | CORE | | + +---------+ + + + | ANION GAP | 7 | 4 - 11 mmol/L | [facility] | | | | | | LABORATORY | | | | | | SERVICES, | | | | | | CORE | | + +---------+ + + + | ANION | 8 | 4 - 11 mmol/L | [facility] | | | GAP(ALB | | | LABORATORY | | | CORRECTED) | | | SERVICES, | | | | | | CORE | | + +---------+ + + + | POTASSIUM | No Hemo | | [facility] | | | CMNT | | | LABORATORY | | | | | | SERVICES, | | | | | | CORE | | + +---------+ + + + | BILI T CMNT | No Hemo | | [facility] | | | | | | LABORATORY | | | | | | SERVICES, | | | | | | CORE | | + +---------+ + + + | AST CMNT | No Hemo | | [facility] | | | | | | LABORATORY | | | | | | SERVICES, | | | | | | CORE | | + +---------+ + + + + + | Specimen | + + | Blood - Blood | | (substance) | + + + + + | Narrative | Performed At | + + + | GFR is estimated using the MDRD equation recommended by the National | [facility] | | Kidney Disease Education Program. Estimated GFR Interpretive | LABORATORY | | Information: <60 mL/min/1.73 sq m Chronic Kidney | SERVICES, CORE | | Disease <15 mL/min/1.73 sq m Kidney Failure | | | Estimated GFR greater than 60 mL/min/1.73 sq m is of limited clinical | | | value. The MDRD equation is not valid in the following situations: | | | - Patients under 18 years of age - Severe malnutrition or obesity | | | - Vegetarian diet - Rapidly changing kidney function - Amputees, | | | paraplegics, or other muscle-wasting diseases | | + + + + + + + + | Performing | Address | City/State/Zipcode | Phone Number | | Organization | | | | + + + + + | [facility] | [address] | [place] [address] | | | SERVICES, CORE | [address] | | | + + + + + SALICYLATE (07/30/2019 5:23 AM PDT) + +---------+ + + + | Component | Value | Ref Range | Performed | Pathologist | | | | | At | Signature | + +---------+ + + + | SALICYLATE | 1.9 (L) | 15.0 - 30.0 | [facility] | | | CONCENTRATI | | mg/dL | LABORATORY | | | ON | | | SERVICES, | | | | | | CORE | | + +---------+ + + + + + | Specimen | + + | Blood - Blood | | (substance) | + + + + + | Narrative | Performed At | + + + | Reference range change effective 02/10/2018 | [facility] | | | LABORATORY | | | [facility] | + + + + + + + + | Performing | Address | City/State/Zipcode | Phone Number | | Organization | | | | + + + + + | [facility] | [address] | [place] [address] | | | [facility] [place] | [address] | | | + + + + + ACETAMINOPHEN, PLASMA (07/30/2019 5:23 AM PDT) + + + + + + | Component | Value | Ref Range | Performed | Pathologist | | | | | At | Signature | + + + + + + | ACETAMINOPH | <2.0 (L) | 10.0 - 30.0 | [facility] | | | EN | | ug/mL | LABORATORY | | | CONCENTRATI | | | SERVICES, | | | ON | | | CORE | | + + + + + + + + | Specimen | + + | Blood - Blood | | (substance) | + + + + + + + | Performing | Address | City/State/Zipcode | Phone Number | | Organization | | | | + + + + + | [facility] | [address] | [place] [address] | | | SERVICES, CORE | [address] | | | + + + + + LACTATE (07/30/2019 5:23 AM PDT) + +-------+ + + + | Component | Value | Ref Range | Performed | Pathologist | | | | | At | Signature | + +-------+ + + + | LACTATE | 2.9 | mmol/L | [facility] | | | | | | LABORATORY | | | | | | SERVICES, | | | | | | CORE | | + +-------+ + + + + + | Specimen | + + | Blood - Blood | | (substance) | + + + + + | Narrative | Performed At | + + + | Reference Range: Venous blood: 0.5 - 2.2 mmol/L Critical >= | [facility] | | 4.0 mmol/L Arterial blood: 0.5 - 1.6 mmol/L Critical >= 4.0 | LABORATORY | | mmol/L | SERVICES, CORE | + + + + + + + + | Performing | Address | City/State/Zipcode | Phone Number | | Organization | | | | + + + + + | [facility] | [address] | [place] [address] | | | SERVICES, CORE | [address] | | | + + + + + RBC MORPHOLOGY (07/30/2019 1:06 AM PDT) + + + + + + | Component | Value | Ref Range | Performed | Pathologist | | | | | At | Signature | + + + + + + | DOHLE | Present | | [facility] | | | BODIES | | | LABORATORY | | | | | | SERVICES, | | | | | | CORE | | + + + + + + | HYPERSEGMEN | Present | | [facility] | | | SULEMAN POLYS | | | LABORATORY | | | | | | SERVICES, | | | | | | CORE | | + + + + + + | POLYCHROMAS | 1+ (<1-2cells/HPF) | | [facility] | | | IA | | | LABORATORY | | | | | | SERVICES, | | | | | | CORE | | + + + + + + + + | Specimen | + + | Blood - Blood | | (substance) | + + + + + + + | Performing | Address | City/State/Zipcode | Phone Number | | Organization | | | | + + + + + | [facility] | [address] | [place] [address] | | | SERVICES, CORE | [address] | | | + + + + + MANUAL DIFFERENTIAL (07/30/2019 1:06 AM PDT) + + + + + + | Component | Value | Ref Range | Performed | Pathologist | | | | | At | Signature | + + + + + + | NEUTROPHIL | 89.7 (H) | 50.0 - 70.0 % | [facility] | | | % | | | LABORATORY | | | | | | SERVICES, | | | | | | CORE | | + + + + + + | LYMPHOCYTE | 6.0 (L) | 18.0 - 42.0 % | [facility] | | | % | | | LABORATORY | | | | | | SERVICES, | | | | | | CORE | | + + + + + + | MONOCYTE % | 3.4 (L) | 3.5 - 9.0 % | [facility] | | | | | | LABORATORY | | | | | | SERVICES, | | | | | | CORE | | + + + + + + | EOSINOPHIL | 0.0 (L) | 1.0 - 3.0 % | [facility] | | | % | | | LABORATORY | | | | | | SERVICES, | | | | | | CORE | | + + + + + + | BASOPHIL % | 0.0 | 0.0 - 2.0 % | [facility] | | | | | | LABORATORY | | | | | | SERVICES, | | | | | | CORE | | + + + + + + | IG% | 0.9 | 0.0 - 1.0 % | [facility] | | | | | | LABORATORY | | | | | | SERVICES, | | | | | | CORE | | + + + + + + | NEUTROPHIL | 18.83 (H) | 1.80 - 7.70 | [facility] | | | # | | K/cu mm | LABORATORY | | | | | | SERVICES, | | | | | | CORE | | + + + + + + | LYMPHOCYTE | 1.26 | 1.00 - 4.80 | [facility] | | | # | | K/cu mm | LABORATORY | | | | | | SERVICES, | | | | | | CORE | | + + + + + + | MONOCYTE # | 0.71 | 0.10 - 0.90 | [facility] | | | | | K/cu mm | LABORATORY | | | | | | SERVICES, | | | | | | CORE | | + + + + + + | EOSINOPHIL | 0.00 | 0.00 - 0.50 | [facility] | | | # | | K/cu mm | LABORATORY | | | | | | SERVICES, | | | | | | CORE | | + + + + + + | BASOPHIL # | 0.00 | 0.00 - 0.10 | [facility] | | | | | K/cu mm | LABORATORY | | | | | | SERVICES, | | | | | | CORE | | + + + + + + | IG# | 0.19 (H) | 0.00 - 0.10 | [facility] | | | | | K/cu mm | LABORATORY | | | | | | SERVICES, | | | | | | CORE | | + + + + + + + + | Specimen | + + | Blood - Blood | | (substance) | + + + + + | Narrative | Performed At | + + + | Increased immature granulocytes (IG) define a left shift. Immature | [facility] | | granulocytes (IG) are an automated count of metamyelocytes, | LABORATORY | | myelocytes and promyelocytes. Bands are not included in the IG count. | SERVICES, CORE | | Bands are included in the neutrophil count. | | + + + + + + + + | Performing | Address | City/State/Zipcode | Phone Number | | Organization | | | | + + + + + | [facility] | [address] | [place] [address] | | | CARA, CORE | [address] | | | + + + + + LACTATE (07/30/2019 1:06 AM PDT) + +-------+ + + + | Component | Value | Ref Range | Performed | Pathologist | | | | | At | Signature | + +-------+ + + + | LACTATE | 3.8 | mmol/L | [facility] | | | | | | LABORATORY | | | | | | SERVICES, | | | | | | CORE | | + +-------+ + + + + + | Specimen | + + | Blood - Blood | | (substance) | + + + + + | Narrative | Performed At | + + + | Reference Range: Venous blood: 0.5 - 2.2 mmol/L Critical >= | [facility] | | 4.0 mmol/L Arterial blood: 0.5 - 1.6 mmol/L Critical >= 4.0 | LABORATORY | | mmol/L | SERVICES, CORE | + + + + + + + + | Performing | Address | City/State/Zipcode | Phone Number | | Organization | | | | + + + + + | [facility] | [address] | [place] [address] | | | SERVICES, CORE | [address] | | | + + + + + CBC AND AUTO DIFF (07/30/2019 1:06 AM PDT) + + + + + + | Component | Value | Ref Range | Performed | Pathologist | | | | | At | Signature | + + + + + + | WHITE CELL | 20.99 (H) | 3.50 - 10.80 | [facility] | | | COUNT | | K/cu mm | LABORATORY | | | | | | SERVICES, | | | | | | CORE | | + + + + + + | RED CELL | 3.84 (L) | 4.50 - 6.00 | [facility] | | | COUNT | | M/cu mm | LABORATORY | | | | | | SERVICES, | | | | | | CORE | | + + + + + + | HEMOGLOBIN | 12.1 (L) | 13.5 - 17.5 | [facility] | | | | | g/dL | LABORATORY | | | | | | SERVICES, | | | | | | CORE | | + + + + + + | HEMATOCRIT | 35.5 (L) | 41.0 - 53.0 % | [facility] | | | | | | LABORATORY | | | | | | SERVICES, | | | | | | CORE | | + + + + + + | MCV | 92.4 | 80.0 - 100.0 fL | [facility] | | | | | | LABORATORY | | | | | | SERVICES, | | | | | | CORE | | + + + + + + | MCHC | 34.1 | 32.0 - 36.0 | [facility] | | | | | g/dL | LABORATORY | | | | | | SERVICES, | | | | | | CORE | | + + + + + + | RDW SD | 42.6 | 35.1 - 46.3 fL | [facility] | | | | | | LABORATORY | | | | | | SERVICES, | | | | | | CORE | | + + + + + + | PLATELET | 202 | 150 - 400 K/cu | [facility] | | | COUNT | | mm | LABORATORY | | | | | | SERVICES, | | | | | | CORE | | + + + + + + | MPV | 10.5 | 9.7 - 12.3 fL | [facility] | | | | | | LABORATORY | | | | | | SERVICES, | | | | | | CORE | | + + + + + + | NRBC% | 0.0 | 0.0 - 0.3 % | [facility] | | | | | | LABORATORY | | | | | | SERVICES, | | | | | | CORE | | + + + + + + | NRBC# | 0.00 | 0.00 - 0.02 | [facility] | | | | | K/cu mm | LABORATORY | | | | | | SERVICES, | | | | | | CORE | | + + + + + + + + | Specimen | + + | Blood - Blood | | (substance) | + + + + + + + | Performing | Address | City/State/Zipcode | Phone Number | | Organization | | | | + + + + + | [facility] | [address] | [place] [address] | | | SERVICES, CORE | [address] | | | + + + + + BASIC METABOLIC SET (NA, K, CL, TCO2, BUN, CR, GLU, CA) (07/30/2019 1:06 AM PDT) + +---------+ + + + | Component | Value | Ref Range | Performed | Pathologist | | | | | At | Signature | + +---------+ + + + | GLUCOSE, | 292 (H) | 70 - 99 mg/dL | [facility] | | | PLASMA | | | LABORATORY | | | (LAB) | | | SERVICES, | | | | | | CORE | | + +---------+ + + + | BUN, PLASMA | 15 | 6 - 20 mg/dL | [facility] | | | (LAB) | | | LABORATORY | | | | | | SERVICES, | | | | | | CORE | | + +---------+ + + + | CREATININE | 1.30 | 0.70 - 1.30 | [facility] | | | PLASMA | | mg/dL | LABORATORY | | | (LAB) | | | SERVICES, | | | | | | CORE | | + +---------+ + + + | EGFR | >60 | >60 mL/min | [facility] | | | - | | | LABORATORY | | | [facility] | | | SERVICES, | | | | | | CORE | | + +---------+ + + + | EGFR NON | >60 | >60 mL/min | [facility] | | | -ABIODUN | | | LABORATORY | | | [facility] | | | SERVICES, | | | | | | CORE | | + +---------+ + + + | SODIUM, | 149 (H) | 136 - 145 | [facility] | | | PLASMA | | mmol/L | LABORATORY | | | (LAB) | | | SERVICES, | | | | | | CORE | | + +---------+ + + + | POTASSIUM, | 3.1 (L) | 3.4 - 5.0 | [facility] | | | PLASMA | | mmol/L | LABORATORY | | | (LAB) | | | SERVICES, | | | | | | CORE | | + +---------+ + + + | CHLORIDE, | 113 (H) | 97 - 108 mmol/L | [facility] | | | PLASMA | | | LABORATORY | | | (LAB) | | | SERVICES, | | | | | | CORE | | + +---------+ + + + | TOTAL CO2, | 23 | 21 - 32 mmol/L | [facility] | | | PLASMA | | | LABORATORY | | | (LAB) | | | SERVICES, | | | | | | CORE | | + +---------+ + + + | CALCIUM, | 7.5 (L) | 8.6 - 10.2 | [facility] | | | PLASMA | | mg/dL | LABORATORY | | | (LAB) | | | SERVICES, | | | | | | CORE | | + +---------+ + + + | ANION GAP | 13 (H) | 4 - 11 mmol/L | [facility] | | | | | | LABORATORY | | | | | | SERVICES, | | | | | | CORE | | + +---------+ + + + | POTASSIUM | No Hemo | | [facility] | | | CMNT | | | LABORATORY | | | | | | SERVICES, | | | | | | CORE | | + +---------+ + + + + + | Specimen | + + | Blood - Blood | | (substance) | + + + + + | Narrative | Performed At | + + + | GFR is estimated using the MDRD equation recommended by the National | [facility] | | Kidney Disease Education Program. Estimated GFR Interpretive | LABORATORY | | Information: <60 mL/min/1.73 sq m Chronic Kidney | SERVICES, CORE | | Disease <15 mL/min/1.73 sq m Kidney Failure | | | Estimated GFR greater than 60 mL/min/1.73 sq m is of limited clinical | | | value. The MDRD equation is not valid in the following situations: | | | - Patients under 18 years of age - Severe malnutrition or obesity | | | - Vegetarian diet - Rapidly changing kidney function - Amputees, | | | paraplegics, or other muscle-wasting diseases | | + + + + + + + + | Performing | Address | City/State/Zipcode | Phone Number | | Organization | | | | + + + + + | [facility] | [address] | [place] [address] | | | SERVICESAD | [address] | | | + + + + + HEMOGLOBIN A1C, BLOOD (07/30/2019 1:06 AM PDT) + + + + + + | Component | Value | Ref Range | Performed | Pathologist | | | | | At | Signature | + + + + + + | HEMOGLOBIN | 8.7 (H)Comment: Hgb A1C | <5.7 % | [facility] | | | A1C | Interpretive | | LABORATORY | | | | Information: | | SERVICES, | | | | <5.7% - Normal | | SPECIAL IMM | | | | 5.7-6.4% - Consistent | | + [facility] | | | | with pre-diabetes | | | | | | >6.4% - Consistent | | | | | | with diabetes | | | | | | | | | | + + + + + + | ESTIMATED | 203Comment: The | mg/dL | [facility] | | | AVERAGE | estimated Average | | LABORATORY | | | GLUCOSE | Glucose (eAG) number is | | SERVICES, | | | | calculated from the | | SPECIAL IMM | | | | result of the A1c test. | | + CO[facility] | | | | The eAG shows what the | | | | | | average blood glucose | | | | | | was over the previous 2 | | | | | | to 3 months. | | | | + + + + + + + + | Specimen | + + | Blood - Blood | | (substance) | + + + + + | Narrative | Performed At | + + + | Alternate forms of testing such as fructosamine should be | [facility] | | considered for monitoring rodent exterminator glycemic control in patients with: | LABORATORY | | Increased red cell turnover, certain hemoglobinopathies (e.g., HbS, | SERVICES, | | HbE, HbC and thalassemia syndromes), anemias, blood loss, chronic | SPECIAL IMM + | | liver disease and hemochromatosis (artefactually low HbA1c); iron | [facility]AG | | deficiency anemia (artefactually high HbA1c due to enhanced glycation | | | of hemoglobin). | | + + + + + + + + | Performing | Address | City/State/Zipcode | Phone Number | | Organization | | | | + + + + + | [facility] | [address] | [place] [address] | | | SERVICES, SPECIAL | [address] | | | | IMM + COAG | | | | + + + + + CAPILLARY BLOOD GLUCOSE (NO CHG), POC (07/30/2019 1:01 AM PDT) + +---------+ + + + | Component | Value | Ref Range | Performed | Pathologist | | | | | At | Signature | + +---------+ + + + | BLOOD | 269 (H) | 70 - 99 mg/dL | [facility] | | | GLUCOSE, | | | [facility] | | | POC | | | [facility] | | | | | | OF CARE | | | | | | TESTS | | + +---------+ + + + + + | Specimen | + + | Blood | + + + + + + + | Performing | Address | City/State/Zipcode | Phone Number | | Organization | | | | + + + + + | [facility] | [address] | [place], [place] | | | [facility] | [facility] | [phone] | | | TESTS | | | | + + + + + CARDIOLOGY (07/30/2019 12:00 AM PDT) + + + | Narrative | Performed At | + + + | | | + + + CAPILLARY BLOOD GLUCOSE (NO CHG), POC (07/29/2019 10:52 PM PDT) + +---------+ + + + | Component | Value | Ref Range | Performed | Pathologist | | | | | At | Signature | + +---------+ + + + | BLOOD | 283 (H) | 70 - 99 mg/dL | [facility] - | | | GLUCOSE, | | | [place] | | | POC | | | [facility] | | | | | | OF CARE | | | | | | TESTS | | + +---------+ + + + + + | Specimen | + + | Blood | + + + + + + + | Performing | Address | City/State/Zipcode | Phone Number | | Organization | | | | + + + + + | [facility] | [address] | [place], [place] | | | [facility] | [facility] | [phone] | | | TESTS | | | | + + + + + OUTSIDE BODY - READ REQUEST (07/29/2019 9:19 PM PDT) + + | Specimen | + + | | + + + + + | Narrative | Performed At | + + + | EXAM: Professional interpretation only of CT chest abdomen and | [facility] | | pelvis with contrast performed at outside institution DATE OF [facility] | RADIOLOGY VOICE | | INTERPRETATION: 08/03/2019 2:32 PM DATE OF IMAGE ACQUISITION: | RECOGNITION 2 | | 07/29/19 HISTORY: Seizure-like activity, DKA, rhabdomyolysis, | | | trauma COMPARISON: None available. TECHNIQUE: CT of the chest, | | | abdomen and pelvis with contrast was performed at an outside | | | institution. Sagittal reformats are provided. Coronal reformats are | | | incompletely available. FINDINGS: Imaging overall limited by body | | | habitus and patient condition (arms down positioning). CHEST: | | | Intubated with endotracheal tube appropriately positioned. The lungs | | | show mild dependent consolidation which may represent atelectasis or | | | mild aspiration. No pneumothorax or effusion. Heart shows coronary | | | calcification, otherwise unremarkable. No mediastinal hemorrhage. | | | Great vessels are unremarkable. LIVER: Diffuse hepatic steatosis. | | | No evidence of injury. BILIARY: Unremarkable. PANCREAS: | | | Unremarkable. SPLEEN: Unremarkable. ADRENALS: Large fat | | | containing 9 x 6.5 x 7.4 cm right adrenal lesion is consistent with | | | myelolipoma.. KIDNEYS/URETERS: Unremarkable. PELVIC ORGANS/BLADDER: | | | Lehman decompresses the bladder. GI TRACT: Mild distal esophageal | | | circumferential wall thickening is nonspecific. Stomach contains | | | fluid. Mild diverticulosis of the colon, otherwise unremarkable. | | | PERITONEUM: No free air or fluid. LYMPH NODES: No lymphadenopathy. | | | VESSELS: Scattered atherosclerotic calcification, without aneurysm. | | | BONES AND SOFT TISSUES: Prior ORIF of left posterior acetabulum. | | | Degenerative changes of the SI joints and hips. Multiple old healed | | | bilateral rib fractures. Multilevel degenerative changes of the spine | | | with multiple mild compression deformities of the lower thoracic | | | vertebra, likely chronic. IMPRESSION: 1. No evidence of | | | traumatic injury. 2. Possible mild aspiration in the lower lobes. | | | 3. Large right adrenal myolipoma measuring up to 9 cm. I have | | | personally reviewed the images and, if necessary, edited the report. I | | | agree with the report as now presented. Final signature: Vidal Auguste | | | MD Tello 08/03/2019 2:42 PM Preliminary: Vidal Javed MD | | | Dictation initiated: Vidal Javed MD 08/03/2019 2:32 PM | | + + + + + | Procedure Note | + + | Service Account, Radiant Res In Interface - 08/03/2019 2:43 PM PDT EXAM: | | Professional interpretation only of CT chest abdomen and pelvis with contrast performed | | at outside institution DATE OF [facility] INTERPRETATION: 08/03/2019 2:32 PMDATE OF IMAGE | | ACQUISITION: 07/29/19 HISTORY: Seizure-like activity, DKA, rhabdomyolysis, trauma | | COMPARISON: None available. TECHNIQUE: CT of the chest, abdomen and pelvis with contrast | | was performed at an outside institution. Sagittal reformats are provided. Coronal | | reformats are incompletely available. FINDINGS: Imaging overall limited by body habitus | | and patient condition (arms down positioning). CHEST: Intubated with endotracheal tube | | appropriately positioned. The lungs show mild dependent consolidation which may | | represent atelectasis or mild aspiration. No pneumothorax or effusion. Heart shows | | coronary calcification, otherwise unremarkable. No mediastinal hemorrhage. Great vessels | | are unremarkable. LIVER: Diffuse hepatic steatosis. No evidence of injury.BILIARY: | | Unremarkable.PANCREAS: Unremarkable. SPLEEN: Unremarkable.ADRENALS: Large fat containing | | 9 x 6.5 x 7.4 cm right adrenal lesion is consistent with myelolipoma..KIDNEYS/URETERS: | | Unremarkable.PELVIC ORGANS/BLADDER: Lehman decompresses the bladder. GI TRACT: Mild | | distal esophageal circumferential wall thickening is nonspecific. Stomach contains | | fluid. Mild diverticulosis of the colon, otherwise unremarkable.PERITONEUM: No free air | | or fluid. LYMPH NODES: No lymphadenopathy.VESSELS: Scattered atherosclerotic | | calcification, without aneurysm. BONES AND SOFT TISSUES: Prior ORIF of left posterior | | acetabulum. Degenerative changes of the SI joints and hips. Multiple old healed | | bilateral rib fractures. Multilevel degenerative changes of the spine with multiple mild | | compression deformities of the lower thoracic vertebra, likely chronic. IMPRESSION: 1. | | No evidence of traumatic injury. 2. Possible mild aspiration in the lower lobes. 3. | | Large right adrenal myolipoma measuring up to 9 cm. I have personally reviewed the | | images and, if necessary, edited the report. I agree with the report as now presented. | | Final signature: Vidal Javed MD 08/03/2019 2:42 PM Preliminary: Vidal Javed MD | | Dictation initiated: Vidal Javed MD 08/03/2019 2:32 PM | |PERITONEUM: No free air or fluid. | | | |LYMPH NODES: No lymphadenopathy. | |VESSELS: Scattered atherosclerotic calcification, without aneurysm. | | | |BONES AND SOFT TISSUES: Prior ORIF of left posterior acetabulum. Degenerative changes of th e SI joints and hips. Multiple old healed bilateral rib fractures. Multilevel degenerative c hanges of the spine with | |multiple mild compression deformities of the lower thoracic vertebra, likely chronic. | | | | | |IMPRESSION: | | | |1. No evidence of traumatic injury. | | | |2. Possible mild aspiration in the lower lobes. | | | |3. Large right adrenal myolipoma measuring up to 9 cm. | | | |I have personally reviewed the images and, if necessary, edited the report. I agree with e report as now presented. | | | |Final signature: Vidal Javed MD 08/03/2019 2:42 PM | |Preliminary: Vidal Javed MD | |Dictation initiated: Vidal Javed MD 08/03/2019 2:32 PM | + + + +---------+ + + | Performing | Address | City/State/Zipcode | Phone Number | | Organization | | | | + +---------+ + + | [facility] | | | | | VOICE RECOGNITION 2 | | | | + +---------+ + + CULTURE, BLOOD BACTI & YEAST [facility] (07/29/2019 8:42 PM PDT) + + + + + + | Component | Value | Ref Range | Performed | Pathologist | | | | | At | Signature | + + + + + + | CULTURE | Final Report:No Bacteria | | [facility] | | | RESULT | or Yeast isolated at 5 | | LABORATORY | | | | days. | | SERVICES, | | | | | | CORE | | + + + + + + + + | Specimen | + + | Blood - Structure of | | left hand (body | | structure) | + + + + + + + | Performing | Address | City/State/Zipcode | Phone Number | | Organization | | | | + + + + + | [facility] | [address] | [place] [address] | | | SERVICES, CORE | [address] | | | + + + + + CULTURE, BLOOD BACTI & YEAST [facility] (07/29/2019 8:42 PM PDT) + + + + + + | Component | Value | Ref Range | Performed | Pathologist | | | | | At | Signature | + + + + + + | CULTURE | Final Report:No Bacteria | | [facility] | | | RESULT | or Yeast isolated at 5 | | LABORATORY | | | | days. | | SERVICES, | | | | | | CORE | | + + + + + + + + | Specimen | + + | Blood - Structure of | | right forearm (body | | structure) | + + + + + + + | Performing | Address | City/State/Zipcode | Phone Number | | Organization | | | | + + + + + | [facility] | [address] | [place] [address] | | | SERVICES, CORE | [address] | | | + + + + + X-RAY PORTABLE CHEST 1 VIEW (07/29/2019 8:03 PM PDT) + + | Specimen | + + | | + + + + + | Narrative | Performed At | + + + | EXAM: GA CHEST 1 VIEW HISTORY: ETT placement. DM2. Hypoglycemic | [facility] | | state complicated by seizure. COMPARISON: None. FINDINGS: | RADIOLOGY VOICE | | Endotracheal tube with tip 3 cm above the pia. Enteric tube below | RECOGNITION 2 | | the diaphragm. Cardiomediastinal contour is normal. Low lung | | | volumes. Perihilar and bibasilar atelectasis. No pleural effusion. No | | | pneumothorax. No acute osseous abnormality . IMPRESSION: | | | Endotracheal tube with tip 3 cm above the pia. Perihilar and | | | bibasilar atelectasis. I have personally reviewed the images and, | | | if necessary, edited the report. I agree with the report as now | | | presented. Final signature: Lis Santos MD 07/30/2019 10:13 | | | AM Preliminary: Yi Poole MD Dictation initiated: Yi | | | Alen Poole MD 07/30/2019 8:30 AM | | + + + + + | Procedure Note | + + | Service Account, Radiant Res In Interface - 07/30/2019 10:14 AM PDT EXAM: GA CHEST 1 | | VIEW HISTORY: ETT placement. DM2. Hypoglycemic state complicated by seizure. COMPARISON: | | None. FINDINGS: Endotracheal tube with tip 3 cm above the pia. Enteric tube below | | the diaphragm. Cardiomediastinal contour is normal. Low lung volumes. Perihilar and | | bibasilar atelectasis. No pleural effusion. No pneumothorax. No acute osseous | | abnormality . IMPRESSION: Endotracheal tube with tip 3 cm above the pia. Perihilar | | and bibasilar atelectasis. I have personally reviewed the images and, if necessary, | | edited the report. I agree with the report as now presented. Final signature: Lis | | MD Tom 07/30/2019 10:13 AM Preliminary: Yi Poole MD Dictation | | initiated: Yi Poole MD 07/30/2019 8:30 AM | |Cardiomediastinal contour is normal. Low lung volumes. Perihilar and bibasilar atelectasis. No pleural effusion. No pneumothorax. No acute osseous abnormality . | | | |IMPRESSION: | | | |Endotracheal tube with tip 3 cm above the pia. | | | |Perihilar and bibasilar atelectasis. | | | |I have personally reviewed the images and, if necessary, edited the report. I agree with th e report as now presented. | | | |Final signature: Lis Santos MD 07/30/2019 10:13 AM | |Preliminary: Yi Poole MD | |Dictation initiated: Yi Poole MD 07/30/2019 8:30 AM | + + + +---------+ + + | Performing | Address | City/State/Zipcode | Phone Number | | Organization | | | | + +---------+ + + | [facility] | | | | | VOICE RECOGNITION 2 | | | | + +---------+ + + CONFIRMATORY ABO/RH (07/29/2019 7:59 PM PDT) + + + + + + | Component | Value | Ref Range | Performed | Pathologist | | | | | At | Signature | + + + + + + | ABO Group | O | | [facility] | | | | | | LABORATORY | | | | | | SERVICES, | | | | | | TRANSFUSION | | | | | | MEDICINE | | + + + + + + | Rh Type | Positive | | [facility] | | | | | | LABORATORY | | | | | | SERVICES, | | | | | | TRANSFUSION | | | | | | MEDICINE | | + + + + + + + + | Specimen | + + | Blood - Blood | | (substance) | + + + + + + + | Performing | Address | City/State/Zipcode | Phone Number | | Organization | | | | + + + + + | [facility] | [address] | [place] [address] | | | SERVICES, | [address] | | | | TRANSFUSION MEDICINE | | | | + + + + + ANTIBODY SCREEN (07/29/2019 7:59 PM PDT) + + + + + + | Component | Value | Ref Range | Performed | Pathologist | | | | | At | Signature | + + + + + + | Antibody | Negative | | [facility] | | | Screen | | | LABORATORY | | | | | | SERVICES, | | | | | | TRANSFUSION | | | | | | MEDICINE | | + + + + + + + + | Specimen | + + | Blood - Blood | | (substance) | + + + + + + + | Performing | Address | City/State/Zipcode | Phone Number | | Organization | | | | + + + + + | [facility] | [address] | [place] [address] | | | SERVICES, | [address] | | | | TRANSFUSION MEDICINE | | | | + + + + + ABO & RH TYPE (07/29/2019 7:59 PM PDT) + + + + + + | Component | Value | Ref Range | Performed | Pathologist | | | | | At | Signature | + + + + + + | ABO Group | O | | [facility] | | | | | | LABORATORY | | | | | | SERVICES, | | | | | | TRANSFUSION | | | | | | MEDICINE | | + + + + + + | Rh Type | Positive | | [facility] | | | | | | LABORATORY | | | | | | SERVICES, | | | | | | TRANSFUSION | | | | | | MEDICINE | | + + + + + + + + | Specimen | + + | Blood - Blood | | (substance) | + + + + + + + | Performing | Address | City/State/Zipcode | Phone Number | | Organization | | | | + + + + + | [facility] | [address] | [place] [address] | | | SERVICES, | [address] | | | | TRANSFUSION MEDICINE | | | | + + + + + BLOOD GASES, VENOUS - LAB (07/29/2019 7:26 PM PDT) + +-------+ + + + | Component | Value | Ref Range | Performed | Pathologist | | | | | At | Signature | + +-------+ + + + | PH VENOUS | 7.42 | 7.35 - 7.45 | [facility] | | | | | | LABORATORY | | | | | | SERVICES, | | | | | | CORE | | + +-------+ + + + | PCO2 VENOUS | 35 | 35 - 50 mmHg | [facility] | | | | | | LABORATORY | | | | | | SERVICES, | | | | | | CORE | | + +-------+ + + + | PO2 VENOUS | 48 | 30 - 55 mmHg | [facility] | | | | | | LABORATORY | | | | | | SERVICES, | | | | | | CORE | | + +-------+ + + + | HCO3 VENOUS | 22 | 22 - 28 mmol/L | [facility] | | | | | | LABORATORY | | | | | | SERVICES, | | | | | | CORE | | + +-------+ + + + | BASE EXCESS | -1.3 | -3.0 - 3.0 | [facility] | | | VENOUS | | mmol/L | LABORATORY | | | | | | SERVICES, | | | | | | CORE | | + +-------+ + + + | O2 SAT, | 80.6 | No range has | [facility] | | | VENOUS | | been | LABORATORY | | | | | established % | SERVICES, | | | | | | CORE | | + +-------+ + + + | TOTAL CO2 | 23 | 23 - 29 mmol/L | [facility] | | | VENOUS | | | LABORATORY | | | | | | SERVICES, | | | | | | CORE | | + +-------+ + + + + + | Specimen | + + | Blood - Blood | | (substance) | + + + + + + + | Performing | Address | City/State/Zipcode | Phone Number | | Organization | | | | + + + + + | [facility] | [address] | [place] [address] | | | SERVICES, CORE | [address] | | | + + + + + CBC AND AUTO DIFF (07/29/2019 7:26 PM PDT) + + + + + + | Component | Value | Ref Range | Performed | Pathologist | | | | | At | Signature | + + + + + + | WHITE CELL | 19.20 (H) | 3.50 - 10.80 | [facility] | | | COUNT | | K/cu mm | LABORATORY | | | | | | SERVICES, | | | | | | CORE | | + + + + + + | RED CELL | 3.79 (L) | 4.50 - 6.00 | [facility] | | | COUNT | | M/cu mm | LABORATORY | | | | | | SERVICES, | | | | | | CORE | | + + + + + + | HEMOGLOBIN | 12.0 (L) | 13.5 - 17.5 | [facility] | | | | | g/dL | LABORATORY | | | | | | SERVICES, | | | | | | CORE | | + + + + + + | HEMATOCRIT | 34.7 (L) | 41.0 - 53.0 % | [facility] | | | | | | LABORATORY | | | | | | SERVICES, | | | | | | CORE | | + + + + + + | MCV | 91.6 | 80.0 - 100.0 fL | [facility] | | | | | | LABORATORY | | | | | | SERVICES, | | | | | | CORE | | + + + + + + | MCHC | 34.6 | 32.0 - 36.0 | [facility] | | | | | g/dL | LABORATORY | | | | | | SERVICES, | | | | | | CORE | | + + + + + + | RDW SD | 41.4 | 35.1 - 46.3 fL | [facility] | | | | | | LABORATORY | | | | | | SERVICES, | | | | | | CORE | | + + + + + + | PLATELET | 244 | 150 - 400 K/cu | [facility] | | | COUNT | | mm | LABORATORY | | | | | | SERVICES, | | | | | | CORE | | + + + + + + | MPV | 10.7 | 9.7 - 12.3 fL | [facility] | | | | | | LABORATORY | | | | | | SERVICES, | | | | | | CORE | | + + + + + + | NRBC% | 0.0 | 0.0 - 0.3 % | [facility] | | | | | | LABORATORY | | | | | | SERVICES, | | | | | | CORE | | + + + + + + | NRBC# | 0.00 | 0.00 - 0.02 | [facility] | | | | | K/cu mm | LABORATORY | | | | | | SERVICES, | | | | | | CORE | | + + + + + + | NEUTROPHIL | 88.2 (H) | 50.0 - 70.0 % | [facility] | | | % | | | LABORATORY | | | | | | SERVICES, | | | | | | CORE | | + + + + + + | LYMPHOCYTE | 4.4 (L) | 18.0 - 42.0 % | [facility] | | | % | | | LABORATORY | | | | | | SERVICES, | | | | | | CORE | | + + + + + + | MONOCYTE % | 6.5 | 3.5 - 9.0 % | [facility] | | | | | | LABORATORY | | | | | | SERVICES, | | | | | | CORE | | + + + + + + | EOS % | 0.0 (L) | 1.0 - 3.0 % | [facility] | | | | | | LABORATORY | | | | | | SERVICES, | | | | | | CORE | | + + + + + + | BASO % | 0.1 | 0.0 - 2.0 % | [facility] | | | | | | LABORATORY | | | | | | SERVICES, | | | | | | CORE | | + + + + + + | IG% | 0.8 | 0.0 - 1.0 % | [facility] | | | | | | LABORATORY | | | | | | SERVICES, | | | | | | CORE | | + + + + + + | NEUTROPHIL | 16.93 (H) | 1.80 - 7.70 | [facility] | | | # | | K/cu mm | LABORATORY | | | | | | SERVICES, | | | | | | CORE | | + + + + + + | LYMPHOCYTE | 0.84 (L) | 1.00 - 4.80 | [facility] | | | # | | K/cu mm | LABORATORY | | | | | | SERVICES, | | | | | | CORE | | + + + + + + | MONOCYTE # | 1.25 (H) | 0.10 - 0.90 | [facility] | | | | | K/cu mm | LABORATORY | | | | | | SERVICES, | | | | | | CORE | | + + + + + + | EOS # | 0.00 | 0.00 - 0.50 | [facility] | | | | | K/cu mm | LABORATORY | | | | | | SERVICES, | | | | | | CORE | | + + + + + + | BASO # | 0.02 | 0.00 - 0.10 | [facility] | | | | | K/cu mm | LABORATORY | | | | | | SERVICES, | | | | | | CORE | | + + + + + + | IG# | 0.16 (H) | 0.00 - 0.10 | [facility] | | | | | K/cu mm | LABORATORY | | | | | | SERVICES, | | | | | | CORE | | + + + + + + + + | Specimen | + + | Blood - Blood | | (substance) | + + + + + | Narrative | Performed At | + + + | Increased immature granulocytes (IG) define a left shift. Immature | [facility] | | granulocytes (IG) are an automated count of metamyelocytes, myelocytes | LABORATORY | | and promyelocytes. Bands are not included in the IG count. Bands are | SERVICES, CORE | | included in the neutrophil count. | | + + + + + + + + | Performing | Address | City/State/Zipcode | Phone Number | | Organization | | | | + + + + + | [facility] | [address] | [place] [address] | | | SERVICES, CORE | [address] | | | + + + + + DRUG SCREEN,URINE;W/CONFIRM (07/29/2019 7:26 PM PDT) + + + + + + | Component | Value | Ref Range | Performed | Pathologist | | | | | At | Signature | + + + + + + | AMPHETAMINE | Negative | Negative | [facility] | | | , URINE | | | LABORATORY | | | | | | SERVICES, | | | | | | CORE | | + + + + + + | AMPHETAMINE | <125 | <1,000 ng/mL | [facility] | | | CONC, | | | LABORATORY | | | URINE | | | SERVICES, | | | | | | CORE | | + + + + + + | BARBITURATE | Negative | Negative | [facility] | | | S, URINE | | | LABORATORY | | | | | | SERVICES, | | | | | | CORE | | + + + + + + | BARBITURATE | <20 | <200 ng/mL | [facility] | | | S CONC, | | | LABORATORY | | | URINE | | | SERVICES, | | | | | | CORE | | + + + + + + | BENZODIAZEP | Positive, not confirmed | Negative | [facility] | | | LANDON, URINE | by alternate method. (A) | | LABORATORY | | | | | | SERVICES, | | | | | | CORE | | + + + + + + | BENZODIAZEP | >3600 (H) | <200 ng/mL | [facility] | | | INE CONC, | | | LABORATORY | | | URINE | | | SERVICES, | | | | | | CORE | | + + + + + + | Cocaine, | Negative | Negative | [facility] | | | Urine | | | LABORATORY | | | | | | SERVICES, | | | | | | CORE | | + + + + + + | COCAINE | <35 | <300 ng/mL | [facility] | | | CONC, URINE | | | LABORATORY | | | | | | SERVICES, | | | | | | CORE | | + + + + + + | OPIATES, | Negative | Negative | [facility] | | | URINE | | | LABORATORY | | | | | | SERVICES, | | | | | | CORE | | + + + + + + | OPIATE | <50 | <300 ng/mL | [facility] | | | CONC, URINE | | | LABORATORY | | | | | | SERVICES, | | | | | | CORE | | + + + + + + | CANNABINOID | Negative | Negative | [facility] | | | S, URINE | | | LABORATORY | | | | | | SERVICES, | | | | | | CORE | | + + + + + + | CANNABINOID | <15 | <50 ng/mL | [facility] | | | CONC, | | | LABORATORY | | | URINE | | | SERVICES, | | | | | | CORE | | + + + + + + | METHADONE, | Negative | Negative | [facility] | | | URINE | | | LABORATORY | | | | | | SERVICES, | | | | | | CORE | | + + + + + + | METHADONE | <107 | <300 ng/mL | [facility] | | | CONC, URINE | | | LABORATORY | | | | | | SERVICES, | | | | | | CORE | | + + + + + + | OXYCODONE, | Negative | Negative | [facility] | | | URINE | | | LABORATORY | | | | | | SERVICES, | | | | | | CORE | | + + + + + + + + | Specimen | + + | Urine - Urine | | (substance) | + + + + + | Narrative | Performed At | + + + | Minimum drug concentration yielding a positive urine drug screen | [facility] | | Amphetamines >=1000 ng/mL | LABORATORY | | Barbiturates >=200 ng/mL | SERVICES, [facility] | | Benzodiazepine >=200 ng/mL Cocaine | | | >=300 ng/mL Methadone | | | >=300 ng/mL Opiates >=300 ng/mL | | | Oxycodone >=100 ng/mL THC - | | | Cannabinoid >=50 ng/mL Screening results are not | | | confirmed by alternate method unless requested. Results are to be | | | used for medical (i.e. treatment) purposes only. The reported | | | result is an estimated concentration of drug that can be detected by | | | the method of analysis. Amphetamine Note: Benzphetamine and | | | Selegiline may produce positive results with this assay. Opiates | | | Notes: Therapeutic doses of Ofloxcin (Floxin) or Levofloxacin | | | (Levaquin) may produce positive results with this assay. The | | | substaces being tested for must include Amphetamines, Benzodiazepines, | | | Cocaine, Alcohol, Cannabinoids, Opiates. | | + + + + + + + + | Performing | Address | City/State/Zipcode | Phone Number | | Organization | | | | + + + + + | [facility] | [address] | [place] [address] | | | SERVICES, CORE | [address] | | | + + + + + URINE, MICROSCOPIC EXAM (07/29/2019 7:26 PM PDT) + + + + + + | Component | Value | Ref Range | Performed | Pathologist | | | | | At | Signature | + + + + + + | RED CELLS | 18 (H) | 0 - 3 /hpf | [facility] | | | | | | LABORATORY | | | | | | SERVICES, | | | | | | CORE | | + + + + + + | WHITE CELLS | 2 | 0 - 5 /hpf | [facility] | | | | | | LABORATORY | | | | | | SERVICES, | | | | | | CORE | | + + + + + + | BACTERIA | None | None /hpf | [facility] | | | | | | LABORATORY | | | | | | SERVICES, | | | | | | CORE | | + + + + + + | YEAST (LAB) | None | None /hpf | [facility] | | | | | | LABORATORY | | | | | | SERVICES, | | | | | | CORE | | + + + + + + | SQUAMOUS | Few | None, Few /hpf | [facility] | | | EPITHELIAL | | | LABORATORY | | | | | | SERVICES, | | | | | | CORE | | + + + + + + | MUCOUS | None | None, Few /hpf | [facility] | | | | | | LABORATORY | | | | | | SERVICES, | | | | | | CORE | | + + + + + + | NON-SQUAMOU | None | None /hpf | [facility] | | | S EPITH | | | LABORATORY | | | | | | SERVICES, | | | | | | CORE | | + + + + + + | HYALINE | 0 | 0 - 2 /lpf | [facility] | | | CASTS | | | LABORATORY | | | | | | SERVICES, | | | | | | CORE | | + + + + + + | GRANULAR | 0 | 0 - 2 /lpf | [facility] | | | CASTS | | | LABORATORY | | | | | | SERVICES, | | | | | | CORE | | + + + + + + | CELLULAR | 0 | <=0 /lpf | [facility] | | | CASTS | | | LABORATORY | | | | | | SERVICES, | | | | | | CORE | | + + + + + + | TRIPLE P04 | None | None, Few /hpf | [facility] | | | CRYSTALS | | | LABORATORY | | | | | | SERVICES, | | | | | | CORE | | + + + + + + | CALCIUM | None | None, Few /hpf | [facility] | | | OXALATE | | | LABORATORY | | | SIDNEY | | | SERVICES, | | | | | | CORE | | + + + + + + | URIC ACID | Moderate (A) | None, Few /hpf | [facility] | | | CRYSTALS | | | LABORATORY | | | | | | SERVICES, | | | | | | CORE | | + + + + + + | AMORPHOUS | None | None, Few /hpf | [facility] | | | CRYSTALS | | | LABORATORY | | | | | | SERVICES, | | | | | | CORE | | + + + + + + + + | Specimen | + + | Urine - Catheter, | | device (physical | | object) | + + + + + + + | Performing | Address | City/State/Zipcode | Phone Number | | Organization | | | | + + + + + | [facility] | [address] | [place] [address] | | | SERVICES, CORE | [address] | | | + + + + + LIPASE, PLASMA (07/29/2019 7:25 PM PDT) + +--------+ + + + | Component | Value | Ref Range | Performed | Pathologist | | | | | At | Signature | + +--------+ + + + | LIPASE | 77 (L) | 152 - 353 U/L | [facility] | | | (LAB) | | | LABORATORY | | | | | | SERVICES, | | | | | | CORE | | + +--------+ + + + + + | Specimen | + + | Blood - Blood | | (substance) | + + + + + + + | Performing | Address | City/State/Zipcode | Phone Number | | Organization | | | | + + + + + | [facility] | [address] | [place] [address] | | | SERVICES, CORE | [address] | | | + + + + + ETHANOL (ALCOHOL), BLOOD (07/29/2019 7:25 PM PDT) + +-------+ + + + | Component | Value | Ref Range | Performed | Pathologist | | | | | At | Signature | + +-------+ + + + | ETHANOL | <10 | <10 mg/dL | [facility] | | | (ALCOHOL) | | | LABORATORY | | | | | | SERVICES, | | | | | | CORE | | + +-------+ + + + + + | Specimen | + + | Blood - Blood | | (substance) | + + + + + + + | Performing | Address | City/State/Zipcode | Phone Number | | Organization | | | | + + + + + | [facility] | [address] | [place] [address] | | | SERVICES, CORE | [address] | | | + + + + + CK, PLASMA (07/29/2019 7:25 PM PDT) + + + + + + | Component | Value | Ref Range | Performed | Pathologist | | | | | At | Signature | + + + + + + | CK | 1,038 (H) | 49 - 397 U/L | [facility] | | | | | | LABORATORY | | | | | | SERVICES, | | | | | | CORE | | + + + + + + + + | Specimen | + + | Blood - Blood | | (substance) | + + + + + + + | Performing | Address | City/State/Zipcode | Phone Number | | Organization | | | | + + + + + | [facility] | [address] | [place] [address] | | | [facility] [place] | [address] | | | + + + + + OSMOLALITY, PLASMA (07/29/2019 7:25 PM PDT) + +---------+ + + + | Component | Value | Ref Range | Performed | Pathologist | | | | | At | Signature | + +---------+ + + + | OSMOLALITY, | 328 (H) | 275 - 295 | [facility] | | | MEASURED | | mOsm/kg | LABORATORY | | | | | | SERVICES, | | | | | | CORE | | + +---------+ + + + | OSMOLALITY, | 309 (H) | 275-295 | [facility] | | | CALCULATED | | mOsm/kg;Calcula | LABORATORY | | | | | suleman | SERVICES, | | | | | as:(1.86xNa)+(G | CORE | | | | | dulce maria/18)+(Urea/2 | | | | | | .8)+9 mOsm/kg | | | + +---------+ + + + | OSMOLALITY | 19 (H) | -10 - 10 | [facility] | | | GAP | | mOsm/kg | LABORATORY | | | | | | SERVICES, | | | | | | CORE | | + +---------+ + + + + + | Specimen | + + | Blood - Blood | | (substance) | + + + + + + + | Performing | Address | City/State/Zipcode | Phone Number | | Organization | | | | + + + + + | [facility] | [address] | [place] [address] | | | SERVICES, CORE | [address] | | | + + + + + INR (07/29/2019 7:25 PM PDT) + +-------+ + + + | Component | Value | Ref Range | Performed | Pathologist | | | | | At | Signature | + +-------+ + + + | INR | 1.17 | 0.90 - 1.20 INR | [facility] | | | | | | LABORATORY | | | | | | SERVICES, | | | | | | CORE | | + +-------+ + + + + + | Specimen | + + | Blood - Blood | | (substance) | + + + + + | Narrative | Performed At | + + + | INR Therapeutic ranges for full anticoagulation: INR for Venous | [facility] | | Thromboembolism (2.0 - 3.0) INR INR for most | LABORATORY | | patients with mech. valves (2.5 - 3.5) INR | SERVICES, CORE | + + + + + + + + | Performing | Address | City/State/Zipcode | Phone Number | | Organization | | | | + + + + + | [facility] | [address] | [place] [address] | | | SERVICES, CORE | [address] | | | + + + + + MAGNESIUM, PLASMA (07/29/2019 7:25 PM PDT) + +-------+ + + + | Component | Value | Ref Range | Performed | Pathologist | | | | | At | Signature | + +-------+ + + + | MAGNESIUM,P | 2.4 | 1.6 - 2.6 mg/dL | [facility] | | | [facility] | | | LABORATORY | | | | | | SERVICES, | | | | | | CORE | | + +-------+ + + + + + | Specimen | + + | Blood - Blood | | (substance) | + + + + + + + | Performing | Address | City/State/Zipcode | Phone Number | | Organization | | | | + + + + + | [facility] | [address] | [place] [address] | | | SERVICES, CORE | [address] | | | + + + + + COMPLETE METABOLIC SET (NA,K,CL,CO2,BUN,CREAT,GLUC,CA,AST,ALT,BILI TOTAL,ALK PHOS,ALB,PROT TOTAL) (07/29/2019 7:25 PM PDT) + + + + + + | Component | Value | Ref Range | Performed | Pathologist | | | | | At | Signature | + + + + + + | GLUCOSE, | 323 (H) | 70 - 99 mg/dL | [facility] | | | PLASMA | | | LABORATORY | | | (LAB) | | | SERVICES, | | | | | | CORE | | + + + + + + | BUN, PLASMA | 13 | 6 - 20 mg/dL | [facility] | | | (LAB) | | | LABORATORY | | | | | | SERVICES, | | | | | | CORE | | + + + + + + | CREATININE | 1.47 (H) | 0.70 - 1.30 | [facility] | | | PLASMA | | mg/dL | LABORATORY | | | (LAB) | | | SERVICES, | | | | | | CORE | | + + + + + + | EGFR | >60 | >60 mL/min | [facility] | | | - | | | LABORATORY | | | [facility] | | | SERVICES, | | | | | | CORE | | + + + + + + | EGFR NON | 53 (L) | >60 mL/min | [facility] | | | -ABIODUN | | | LABORATORY | | | [facility] | | | SERVICES, | | | | | | CORE | | + + + + + + | SODIUM, | 149 (H) | 136 - 145 | [facility] | | | PLASMA | | mmol/L | LABORATORY | | | (LAB) | | | SERVICES, | | | | | | CORE | | + + + + + + | POTASSIUM, | 3.3 (L) | 3.4 - 5.0 | [facility] | | | PLASMA | | mmol/L | LABORATORY | | | (LAB) | | | SERVICES, | | | | | | CORE | | + + + + + + | CHLORIDE, | 115 (H) | 97 - 108 mmol/L | [facility] | | | PLASMA | | | LABORATORY | | | (LAB) | | | SERVICES, | | | | | | CORE | | + + + + + + | TOTAL CO2, | 23 | 21 - 32 mmol/L | [facility] | | | PLASMA | | | LABORATORY | | | (LAB) | | | SERVICES, | | | | | | CORE | | + + + + + + | CALCIUM, | 7.8 (L) | 8.6 - 10.2 | [facility] | | | PLASMA | | mg/dL | LABORATORY | | | (LAB) | | | SERVICES, | | | | | | CORE | | + + + + + + | CALCIUM(ALB | 8.1 (L) | 8.6 - 10.2 | [facility] | | | CORRECTED) | | mg/dL | LABORATORY | | | | | | SERVICES, | | | | | | CORE | | + + + + + + | BILIRUBIN | 0.4 | 0.3 - 1.2 mg/dL | [facility] | | | TOTAL | | | LABORATORY | | | | | | SERVICES, | | | | | | CORE | | + + + + + + | TOTAL | 6.6 | 6.4 - 8.2 g/dL | [facility] | | | PROTEIN, | | | LABORATORY | | | PLASMA | | | SERVICES, | | | (LAB) | | | CORE | | + + + + + + | ALBUMIN, | 3.6 | 3.5 - 4.7 g/dL | [facility] | | | PLASMA | | | LABORATORY | | | (LAB) | | | SERVICES, | | | | | | CORE | | + + + + + + | ALK PHOS | 52 (L) | 53 - 128 U/L | [facility] | | | | | | LABORATORY | | | | | | SERVICES, | | | | | | CORE | | + + + + + + | AST(SGOT) | 62 (H) | <=41 U/L | [facility] | | | | | | LABORATORY | | | | | | SERVICES, | | | | | | CORE | | + + + + + + | ALT (SGPT) | 54 | <=60 U/L | [facility] | | | | | | LABORATORY | | | | | | SERVICES, | | | | | | CORE | | + + + + + + | ANION GAP | 11 | 4 - 11 mmol/L | [facility] | | | | | | LABORATORY | | | | | | SERVICES, | | | | | | CORE | | + + + + + + | ANION | 12 (H) | 4 - 11 mmol/L | [facility] | | | GAP(ALB | | | LABORATORY | | | CORRECTED) | | | SERVICES, | | | | | | CORE | | + + + + + + | POTASSIUM | No Hemo | | [facility] | | | CMNT | | | LABORATORY | | | | | | SERVICES, | | | | | | CORE | | + + + + + + | BILI T CMNT | No Hemo | | [facility] | | | | | | LABORATORY | | | | | | SERVICES, | | | | | | CORE | | + + + + + + | AST CMNT | No Hemo | | [facility] | | | | | | LABORATORY | | | | | | SERVICES, | | | | | | CORE | | + + + + + + + + | Specimen | + + | Blood - Blood | | (substance) | + + + + + | Narrative | Performed At | + + + | GFR is estimated using the MDRD equation recommended by the National | [facility] | | Kidney Disease Education Program. Estimated GFR Interpretive | LABORATORY | | Information: <60 mL/min/1.73 sq m Chronic Kidney | SERVICES, CORE | | Disease <15 mL/min/1.73 sq m Kidney Failure | | | Estimated GFR greater than 60 mL/min/1.73 sq m is of limited clinical | | | value. The MDRD equation is not valid in the following situations: | | | - Patients under 18 years of age - Severe malnutrition or obesity | | | - Vegetarian diet - Rapidly changing kidney function - Amputees, | | | paraplegics, or other muscle-wasting diseases | | + + + + + + + + | Performing | Address | City/State/Zipcode | Phone Number | | Organization | | | | + + + + + | [facility] | [address] | [place] [address] | | | AD [place] | [address] | | | + + + + + CAPILLARY BLOOD GLUCOSE (NO CHG), POC (07/29/2019 7:24 PM PDT) + +---------+ + + + | Component | Value | Ref Range | Performed | Pathologist | | | | | At | Signature | + +---------+ + + + | BLOOD | 274 (H) | 70 - 99 mg/dL | [facility] - | | | GLUCOSE, | | | [place] | | | POC | | | [facility] | | | | | | OF CARE | | | | | | TESTS | | + +---------+ + + + + + | Specimen | + + | Blood | + + + + + + + | Performing | Address | City/State/Zipcode | Phone Number | | Organization | | | | + + + + + | [facility] | [address] | [place], [place] | | | [facility] | [address] | [phone] | | | TESTS | | | | + + + + + documented in this encounter Visit Diagnoses + + | Diagnosis | + + | Diabetic ketoacidosis without coma associated with other specified diabetes mellitus | | (HCC) - Primary | + + | Seizure ([facility]) Other convulsions | + + | Diabetic ketoacidosis associated with type 2 diabetes mellitus (HCC) | + + documented in this encounter Administered Medications + +--------+ + +------+------+ | Medication Order | MAR | Action | Dose | Rate | Site | | | Action | Date | | | | + +--------+ + +------+------+ | acetaminophen (TYLENOL) tablet | Given | 07/31/20 | 1,000 mg | | | | 1,000 mg 1,000 mg, oral, EVERY 8 | | 19 5:16 | | | | | HOURS NEEDED, Starting Wed | | AM PDT | | | | | 07/29/19 at 2002, Until Fri | | | | | | | 07/31/19 at 0539, mild pain, | | | | | | | first line | | | | | | + +--------+ + +------+------+ +-------+ + +---+---+ | Given | 07/30/20 | 1,000 mg | | | | | 19 4:24 | | | | | | PM PDT | | | | +-------+ + +---+---+ | Given | 07/30/20 | 1,000 mg | | | | | 19 7:21 | | | | | | AM PDT | | | | +-------+ + +---+---+ +---+---+ | | | +---+---+ + +-------+ + +---+---+ | acetaminophen (TYLENOL) tablet | Given | 08/03/20 | 1,000 mg | | | | 1,000 mg 1,000 mg, oral, THREE | | 19 8:50 | | | | | TIMES DAILY, First dose (after | | AM PDT | | | | | last modification) on Fri | | | | | | | 07/31/19 at 1600, Until | | | | | | | Discontinued | | | | | | + +-------+ + +---+---+ +-------+ + +---+---+ | Given | 08/02/20 | 1,000 mg | | | | | 19 9:11 | | | | | | PM PDT | | | | +-------+ + +---+---+ | Given | 08/02/20 | 1,000 mg | | | | | 19 4:25 | | | | | | PM PDT | | | | +-------+ + +---+---+ +---+---+ | | | +---+---+ + +-------+ +-------+---+---+ | aluminum-magnesium | Given | 07/30/20 | 30 mL | | | | hydroxide-simethicone (MAALOX; | | 19 4:55 | | | | | MYLANTA) 200-200-20 mg/5 mL | | PM PDT | | | | | suspension 30 mL 30 mL, oral, | | | | | | | ONCE, 1 dose, [facility] 07/30/19 at | | | | | | | 1700 | | | | | | + +-------+ +-------+---+---+ +---+---+ | | | +---+---+ + +-------+ +-------+---+---+ | aluminum-magnesium | Given | 08/01/20 | 30 mL | | | | hydroxide-simethicone (MAALOX; | | 19 2:22 | | | | | MYLANTA) 200-200-20 mg/5 mL | | PM PDT | | | | | suspension 30 mL 30 mL, oral, | | | | | | | ONCE, 1 dose, [facility] 08/01/19 at | | | | | | | 1200 | | | | | | + +-------+ +-------+---+---+ +---+---+ | | | +---+---+ + +-------+ +-------+---+---+ | amLODIPine (NORVASC) tablet 10 | Given | 08/03/20 | 10 mg | | | | mg 10 mg, oral, DAILY, First | | 19 7:45 | | | | | dose (after last modification) on | | AM PDT | | | | | 08/03/19 at 0900, Until | | | | | | | Discontinued | | | | | | + +-------+ +-------+---+---+ +---+---+ | | | +---+---+ + +-------+ +------+---+---+ | amLODIPine (NORVASC) tablet 5 | Given | 08/02/20 | 5 mg | | | | mg 5 mg, oral, DAILY, First dose | | 19 8:29 | | | | | on 07/31/19 at 1245, Until | | AM PDT | | | | | Discontinued | | | | | | + +-------+ +------+---+---+ +-------+ +------+---+---+ | Given | 08/01/20 | 5 mg | | | | | 19 8:32 | | | | | | AM PDT | | | | +-------+ +------+---+---+ | Given | 07/31/20 | 5 mg | | | | | 19 11:19 | | | | | | AM PDT | | | | +-------+ +------+---+---+ +---+---+ | | | +---+---+ + +-------+ +--------+---+---+ | bismuth subsalicylate chewable | Given | 08/01/20 | 524 mg | | | | (PEPTO-BISMOL) tablet 524 mg 524 | | 19 5:20 | | | | | mg (2 tablet), oral, EVERY 1 | | PM PDT | | | | | HOUR NEEDED, Starting Brianna | | | | | | | 07/30/19 at 1746, Until Mon | | | | | | | 08/03/19 at 2124, abdominal pain | | | | | | + +-------+ +--------+---+---+ +-------+ +--------+---+---+ | Given | 08/01/20 | 524 mg | | | | | 19 6:56 | | | | | | AM PDT | | | | +-------+ +--------+---+---+ | Given | 07/31/20 | 524 mg | | | | | 19 9:27 | | | | | | AM PDT | | | | +-------+ +--------+---+---+ +---+---+ | | | +---+---+ + +-------+ + +---+---+ | calcium carbonate chewable | Given | 08/02/20 | 200 mg | | | | (TUMS) tablet 200 mg elemental | | 19 12:01 | elementa | | | | 200 mg elemental (500 mg total | | PM PDT | l | | | | salt), oral, EVERY 2 HOURS | | | | | | | NEEDED, Starting Brianna 07/30/19 at | | | | | | | 0936, Until 08/03/19 at 2124, | | | | | | | dyspepsia | | | | | | + +-------+ + +---+---+ +-------+ + +---+---+ | Given | 08/02/20 | 200 mg | | | | | 19 8:32 | elementa | | | | | AM PDT | l | | | +-------+ + +---+---+ | Given | 07/31/20 | 200 mg | | | | | 19 2:40 | elementa | | | | | PM PDT | l | | | +-------+ + +---+---+ +---+---+ | | | +---+---+ + +-------+ + +---+---+ | calcium carbonate chewable | Given | 08/02/20 | 200 mg | | | | (TUMS) tablet 200 mg elemental | | 19 6:16 | elementa | | | | 200 mg elemental (500 mg total | | AM PDT | l | | | | salt), oral, THREE TIMES DAILY | | | | | | | WITH MEALS, First dose on Fri | | | | | | | 07/31/19 at 1230, Until | | | | | | | Discontinued | | | | | | + +-------+ + +---+---+ +-------+ + +---+---+ | Given | 08/01/20 | 200 mg | | | | | 19 8:18 | elementa | | | | | AM PDT | l | | | +-------+ + +---+---+ | Given | 07/31/20 | 200 mg | | | | | 19 7:51 | elementa | | | | | PM PDT | l | | | +-------+ + +---+---+ +---+---+ | | | +---+---+ + +-------+ +-----+---+---+ | cefTRIAXone (ROCEPHIN) | Given | 07/31/20 | 2 g | | | | injection 2 g 2 g, intravenous, | | 19 9:27 | | | | | EVERY 12 HOURS, First dose on Sat | | AM PDT | | | | | 07/29/19 at 2100, Until | | | | | | | Discontinued | | | | | | + +-------+ +-----+---+---+ +---------+ +-----+---+---+ | Given | 07/30/20 | 2 g | | | | | 19 8:40 | | | | | | PM PDT | | | | +---------+ +-----+---+---+ | IV Push | 07/30/20 | 2 g | | | | | 19 9:10 | | | | | | AM PDT | | | | +---------+ +-----+---+---+ +---+---+ | | | +---+---+ + +-------+ +--------+---+---+ | cholecalciferol (Vitamin D3) | Given | 08/03/20 | 2,000 | | | | (VITAMIN D-3) tablet 2,000 Units | | 19 8:50 | Units | | | | 2,000 Units, oral, DAILY, First | | AM PDT | | | | | dose on 08/02/19 at 0900, | | | | | | | Until Discontinued | | | | | | + +-------+ +--------+---+---+ +-------+ +--------+---+---+ | Given | 08/02/20 | 2,000 | | | | | 19 8:29 | Units | | | | | AM PDT | | | | +-------+ +--------+---+---+ +---+---+ | | | +---+---+ + + + +-------+-------+---+ | dextrose 5%-NaCl 0.45%-KCl 30 | Rate/Dos | 07/31/20 | 125 | 125 | | | mEq/L IV infusion 125 mL/hr, | e Verify | 19 12:00 | mL/hr | mL/hr | | | intravenous, CONTINUOUS, Starting | | AM PDT | | | | | Brianna 07/30/19 at 0745, Until Fri | | | | | | | 07/31/19 at 0132 | | | | | | + + + +-------+-------+---+ + + +-------+-------+---+ | Rate/Dose Verify | 07/30/20 | 125 | 125 | | | | 19 7:30 | mL/hr | mL/hr | | | | PM PDT | | | | + + +-------+-------+---+ | New Bag | 07/30/20 | 125 | 125 | | | | 19 5:37 | mL/hr | mL/hr | | | | PM PDT | | | | + + +-------+-------+---+ + +---+ | | | + +---+ | dextrose 50 % in water IV 25 mL | | | 25 mL, intravenous, NEEDED, | | | Starting Sat07/31/19 at 1041, | | | Until Sat08/03/19 at 2124, CBG | | | less than 70 mg/dL if patient | | | unable to take PO, per Adult | | | Hypoglycemia Protocol | | + +---+ | | | + +---+ + +-------+ +-----+---+---+ | diclofenac (VOLTAREN) 1 % gel 2 | Given | 08/03/20 | 2 g | | | | g 2 g, topical, FOUR TIMES | | 19 8:50 | | | | | DAILY, First dose on 08/01/19 | | AM PDT | | | | | at 1400, Until Discontinued | | | | | | + +-------+ +-----+---+---+ +-------+ +-----+---+------+ | Given | 08/02/20 | 2 g | | Back | | | 19 9:11 | | | | | | PM PDT | | | | +-------+ +-----+---+------+ | Given | 08/02/20 | 2 g | | | | | 19 6:56 | | | | | | PM PDT | | | | +-------+ +-----+---+------+ +---+---+ | | | +---+---+ + +-------+ +---------+---+---+ | ergocalciferol (VITAMIN D2, | Given | 08/02/20 | 50,000 | | | | DRISDOL) capsule 50,000 Units | | 19 8:29 | Units | | | | 50,000 Units, oral, EVERY 7 DAYS, | | AM PDT | | | | | First dose on Ducor 08/02/19 at | | | | | | | 0900, Until Discontinued | | | | | | + +-------+ +---------+---+---+ +---+---+ | | | +---+---+ + +-------+ +-------+---+---+ | famotidine (PEPCID) injection | Given | 07/31/20 | 20 mg | | | | 20 mg 20 mg, intravenous, TWICE | | 19 8:33 | | | | | DAILY, First dose on [facility] 07/30/19 | | AM PDT | | | | | at 2100, Until Discontinued | | | | | | + +-------+ +-------+---+---+ +-------+ +-------+---+---+ | Given | 07/30/20 | 20 mg | | | | | 19 8:38 | | | | | | PM PDT | | | | +-------+ +-------+---+---+ +---+---+ | | | +---+---+ + +-------+ +-------+---+---+ | famotidine (PEPCID) tablet 20 | Given | 08/02/20 | 20 mg | | | | mg 20 mg, oral, TWICE DAILY, | | 19 8:29 | | | | | First dose on Sat07/31/19 at | | AM PDT | | | | | 2100, Until Discontinued | | | | | | + +-------+ +-------+---+---+ +-------+ +-------+---+---+ | Given | 08/01/20 | 20 mg | | | | | 19 9:05 | | | | | | PM PDT | | | | +-------+ +-------+---+---+ | Given | 08/01/20 | 20 mg | | | | | 19 8:32 | | | | | | AM PDT | | | | +-------+ +-------+---+---+ +---+---+ | | | +---+---+ + +-------+ +--------+---+---+ | fentaNYL (SUBLIMAZE) injection | Given | 07/29/20 | 50 mcg | | | | 50-100 mcg 50-100 mcg, | | 19 7:20 | | | | | intravenous, EVERY 1 HOUR | | PM PDT | | | | | NEEDED, Starting Sat07/29/19 at | | | | | | | 1911, Until Sat07/29/19 at 2001, | | | | | | | severe pain | | | | | | + +-------+ +--------+---+---+ +-------+ +--------+---+---+ | Given | 07/29/20 | 50 mcg | | | | | 19 7:15 | | | | | | PM PDT | | | | +-------+ +--------+---+---+ + +---+ | | | + +---+ | fentaNYL (SUBLIMAZE) injection | | | 1 dose, Starting Sat07/29/19 at | | | 1908, Until Sat07/29/19 at 1915 | | + +---+ | | | + +---+ | glucagon (GLUCAGEN) injection 1 | | | mg 1 mg, intramuscular, | | | NEEDED, Starting Sat07/31/19 at | | | 1041, Until 08/03/19 at 2124, | | | CBG less than 70 mg/dL per Adult | | | Hypoglycemia Protocol | | + +---+ | | | + +---+ | glucose chewable tablet 16 g | | | 16 g, oral, NEEDED, Starting | | | Sat07/31/19 at 1041, Until Mon | | | 08/03/19 at 2124, CBG less than | | | 70 mg/dL per Adult Hypoglycemia | | | Protocol | | + +---+ | | | + +---+ + +-------+ +------+---+---+ | haloperidol lactate (HALDOL) | Given | 07/29/20 | 1 mg | | | | injection 1 mg 1 mg, | | 19 9:30 | | | | | intravenous, ONCE, 1 dose, Wed | | PM PDT | | | | | 07/29/19 at 2130 | | | | | | + +-------+ +------+---+---+ +---+---+ | | | +---+---+ + +-------+ +--------+---+---------+ | heparin injection 5,000 Units | Given | 08/03/20 | 5,000 | | Abdomen | | 5,000 Units, subcutaneous, EVERY | | 19 8:50 | Units | | | | 12 HOURS, First dose on Fri | | AM PDT | | | | | 07/31/19 at 2100, Until | | | | | | | Discontinued | | | | | | + +-------+ +--------+---+---------+ +-------+ +--------+---+---------+ | Given | 08/02/20 | 5,000 | | Abdomen | | | 19 9:12 | Units | | | | | PM PDT | | | | +-------+ +--------+---+---------+ | Given | 08/02/20 | 5,000 | | Abdomen | | | 19 8:30 | Units | | | | | AM PDT | | | | +-------+ +--------+---+---------+ +---+---+ | | | +---+---+ + +-------+ +--------+---+---------+ | hepatitis B vaccine | Given | 08/02/20 | 0.5 mL | | Right | | (recombinant) (HEPLISAV-B) 20 | | 19 4:26 | | | Deltoid | | mcg/0.5 mL 0.5 mL 0.5 mL, | | PM PDT | | | | | intramuscular, ONCE, 1 dose, Sun | | | | | | | 08/02/19 at 1100 | | | | | | + +-------+ +--------+---+---------+ +---+---+ | | | +---+---+ + +-------+ +-------+---+---+ | hydrALAZINE (APRESOLINE) | Given | 07/31/20 | 10 mg | | | | injection 10 mg 10 mg, | | 19 1:45 | | | | | intravenous, EVERY 4 HOURS | | AM PDT | | | | | NEEDED, Starting Brianna 07/30/19 at | | | | | | | 0156, Until 07/31/19 at 0433, | | | | | | | hypertension, first line | | | | | | + +-------+ +-------+---+---+ +---+---+ | | | +---+---+ + +-------+ +-------+---+---+ | hydrALAZINE (APRESOLINE) tablet | Given | 08/03/20 | 10 mg | | | | 10 mg 10 mg, oral, ONCE, 1 | | 19 7:45 | | | | | dose, Sat08/03/19 at 0815 | | AM PDT | | | | + +-------+ +-------+---+---+ +---+---+ | | | +---+---+ + +-------+ +-------+---+---+ | hydrALAZINE (APRESOLINE) tablet | Given | 08/03/20 | 10 mg | | | | 10 mg 10 mg, oral, ONCE, 1 | | 19 9:20 | | | | | dose, Sat08/03/19 at 0945 | | AM PDT | | | | + +-------+ +-------+---+---+ +---+---+ | | | +---+---+ + +-------+ + +---+---------+ | insulin glargine (LANTUS) | Given | 08/03/20 | 10 Units | | Abdomen | | injection 10 Units 10 Units, | | 19 8:18 | | | | | subcutaneous, EVERY MORNING, | | AM PDT | | | | | First dose on Sat07/31/19 at | | | | | | | 1100, Until Discontinued | | | | | | + +-------+ + +---+---------+ +-------+ + +---+ + | Given | 08/02/20 | 10 Units | | Abdomen | | | 19 8:30 | | | | | | AM PDT | | | | +-------+ + +---+ + | Given | 08/01/20 | 10 Units | | Left Arm | | | 19 8:18 | | | | | | AM PDT | | | | +-------+ + +---+ + + +---+ | | | + +---+ | insulin glargine (LANTUS) | | | injection 8 Units 8 Units, | | | subcutaneous, EVERY MORNING, | | | First dose (after last | | | modification) on 08/03/19 at | | | 0900, Until Discontinued | | + +---+ | | | + +---+ + +-------+ +---------+---+---------+ | insulin lispro (HUMALOG) | Given | 08/01/20 | 2 Units | | Abdomen | | injection 1-16 Units 1-16 Units, | | 19 12:40 | | | | | subcutaneous, WITH MEALS AND | | PM PDT | | | | | BEDTIME, First dose on Sat | | | | | | | 07/31/19 at 1700, Until | | | | | | | Discontinued | | | | | | + +-------+ +---------+---+---------+ +-------+ +---------+---+---------+ | Given | 07/31/20 | 2 Units | | Abdomen | | | 19 4:13 | | | | | | PM PDT | | | | +-------+ +---------+---+---------+ +---+---+ | | | +---+---+ + +-------+ +---------+---+ + | insulin lispro (HUMALOG) | Given | 08/02/20 | 3 Units | | Left Arm | | injection 3 Units 3 Units, | | 19 8:16 | | | | | subcutaneous, THREE TIMES DAILY | | PM PDT | | | | | WITH MEALS, First dose on Fri | | | | | | | 07/31/19 at 1700, Until | | | | | | | Discontinued | | | | | | + +-------+ +---------+---+ + +-------+ +---------+---+---------+ | Given | 08/02/20 | 3 Units | | Abdomen | | | 19 8:31 | | | | | | AM PDT | | | | +-------+ +---------+---+---------+ | Given | 08/01/20 | 3 Units | | Abdomen | | | 19 9:10 | | | | | | PM PDT | | | | +-------+ +---------+---+---------+ +---+---+ | | | +---+---+ + +---------+ + +-------+---+ | insulin regular in NaCl 0.9% IV | New Bag | 07/30/20 | 10.5 | 10.5 | | | infusion (1 unit/mL) 0.1-50 | | 19 8:10 | Units/hr | mL/hr | | | Units/hr (0.1-50 mL/hr), | | AM PDT | | | | | intravenous, CONTINUOUS, Starting | | | | | | | Brianna 07/30/19 at 0745, Until Brianna | | | | | | | 07/30/19 at 0937 | | | | | | + +---------+ + +-------+---+ +---+---+ | | | +---+---+ + + + + +-------+---+ | insulin regular in NaCl 0.9% IV | Rate/Dos | 07/31/20 | 1.7 | 1.7 | | | infusion (1 unit/mL) 0.1-50 | e Verify | 19 4:34 | Units/hr | mL/hr | | | Units/hr (0.1-50 mL/hr), | | AM PDT | | | | | intravenous, CONTINUOUS, Starting | | | | | | | Brianna 07/30/19 at 1000, Until Fri | | | | | | | 07/31/19 at 0439 | | | | | | + + + + +-------+---+ + + + +-------+---+ | Rate/Dose Change | 07/31/20 | 1.7 | 1.7 | | | | 19 4:10 | Units/hr | mL/hr | | | | AM PDT | | | | + + + +-------+---+ | Rate/Dose Change | 07/31/20 | 1.6 | 1.6 | | | | 19 2:06 | Units/hr | mL/hr | | | | AM PDT | | | | + + + +-------+---+ +---+---+ | | | +---+---+ + + + + +-------+---+ | insulin regular in NaCl 0.9% IV | Rate/Dos | 07/31/20 | 1.4 | 1.4 | | | infusion (1 unit/mL) 0.1-50 | e Change | 19 8:43 | Units/hr | mL/hr | | | Units/hr (0.1-50 mL/hr), | | AM PDT | | | | | intravenous, CONTINUOUS, Starting | | | | | | | 07/31/19 at 0545, Until Fri | | | | | | | 07/31/19 at 1050 | | | | | | + + + + +-------+---+ + + + +-------+---+ | Rate/Dose Verify | 07/31/20 | 1.7 | 1.7 | | | | 19 5:10 | Units/hr | mL/hr | | | | AM PDT | | | | + + + +-------+---+ +---+---+ | | | +---+---+ + + + + +---------+---+ | insulin regular in NaCl 0.9% IV | Rate/Dos | 07/31/20 | 1 | 1 mL/hr | | | infusion (1 unit/mL) 0.1-50 | e Change | 19 12:57 | Units/hr | | | | Units/hr (0.1-50 mL/hr), | | PM PDT | | | | | intravenous, CONTINUOUS, Starting | | | | | | | 07/31/19 at 1100, Until Fri | | | | | | | 07/31/19 at 1400 | | | | | | + + + + +---------+---+ + + + +-------+---+ | Rate/Dose Change | 07/31/20 | 1.9 | 1.9 | | | | 19 10:58 | Units/hr | mL/hr | | | | AM PDT | | | | + + + +-------+---+ +---+---+ | | | +---+---+ + + + +---+-------+---+ | lactated ringers IV 1,000 mL, | Rate/Dos | 07/29/20 | | 999 | | | intravenous, ONCE, 1 dose, Wed | e Change | 19 11:00 | | mL/hr | | | 07/29/19 at 2215 | | PM PDT | | | | + + + +---+-------+---+ +---------+ + +---+---+ | New Bag | 07/29/20 | 1,000 mL | | | | | 19 10:21 | | | | | | PM PDT | | | | +---------+ + +---+---+ +---+---+ | | | +---+---+ + +---------+ + +---+---+ | lactated ringers IV 1,000 mL, | New Bag | 07/30/20 | 1,000 mL | | | | intravenous, ONCE, 1 dose, Brianna | | 19 2:31 | | | | | 07/30/19 at 0230 | | AM PDT | | | | + +---------+ + +---+---+ +---+---+ | | | +---+---+ + + + +---------+---+--------+ | lidocaine (LIDODERM) 5 % patch | Applied | 08/03/20 | 1 patch | | Left | | 1 patch 1 patch, transdermal, | Patch | 19 11:52 | | | Lower | | EVERY 24 HOURS, First dose on Fri | | AM PDT | | | Back | | 07/31/19 at 1130, Until | | | | | | | Discontinued | | | | | | + + + +---------+---+--------+ + + +---------+---+--------+ | Applied Patch | 08/02/20 | 1 patch | | Left | | | 19 12:01 | | | Lower | | | PM PDT | | | Back | + + +---------+---+--------+ | Applied Patch | 08/01/20 | 1 patch | | Left | | | 19 2:21 | | | Lower | | | PM PDT | | | Back | + + +---------+---+--------+ +---+---+ | | | +---+---+ + +-------+ +-------+---+---+ | lidocaine viscous (XYLOCAINE | Given | 07/30/20 | 30 mL | | | | VISCOUS) 2 % mucosal solution 30 | | 19 4:55 | | | | | mL 30 mL, oral, ONCE, 1 dose, | | PM PDT | | | | | Brianna 07/30/19 at 1700 | | | | | | + +-------+ +-------+---+---+ +---+---+ | | | +---+---+ + +-------+ +-------+---+---+ | lidocaine viscous (XYLOCAINE | Given | 08/01/20 | 15 mL | | | | VISCOUS) 2 % mucosal solution 30 | | 19 2:22 | | | | | mL 30 mL, oral, ONCE, 1 dose, | | PM PDT | | | | | 08/01/19 at 1200 | | | | | | + +-------+ +-------+---+---+ +---+---+ | | | +---+---+ + +---------+ +-----+---+---+ | magnesium sulfate in water IV | New Bag | 08/01/20 | 2 g | | | | (RTU) 2 g 2 g, intravenous, | | 19 2:20 | | | | | ONCE, 1 dose, 08/01/19 at | | PM PDT | | | | | 1130 | | | | | | + +---------+ +-----+---+---+ +---+---+ | | | +---+---+ + +---------+ +-----+---+---+ | magnesium sulfate in water IV | New Bag | 08/02/20 | 2 g | | | | (RTU) 2 g 2 g, intravenous, | | 19 12:01 | | | | | ONCE, 1 dose, 08/02/19 at | | PM PDT | | | | | 1100 | | | | | | + +---------+ +-----+---+---+ + +---+ | | | + +---+ | menthol-zinc oxide (CALAZIME) | | | topical paste 0.2%-16.5% | | | topical, FOUR TIMES DAILY | | | NEEDED, Starting 07/29/19 at | | | 1902, Until 08/03/19 at 2124, | | | skin irritation, redness, | | | breakdown | | + +---+ | | | + +---+ + +-------+ +-------+---+---+ | omeprazole (PRILOSEC) capsule | Given | 08/03/20 | 40 mg | | | | 40 mg 40 mg, oral, TWICE DAILY, | | 19 8:50 | | | | | First dose on 08/02/19 at | | AM PDT | | | | | 2100, Until Discontinued | | | | | | + +-------+ +-------+---+---+ +-------+ +-------+---+---+ | Given | 08/02/20 | 40 mg | | | | | 19 9:11 | | | | | | PM PDT | | | | +-------+ +-------+---+---+ +---+---+ | | | +---+---+ + +-------+ +------+---+---+ | ondansetron (ZOFRAN) injection | Given | 07/31/20 | 4 mg | | | | 4 mg 4 mg, intravenous, EVERY 12 | | 19 1:45 | | | | | HOURS NEEDED, Starting Brianna | | AM PDT | | | | | 07/30/19 at 0729, Until Fri | | | | | | | 07/31/19 at 0538, n/v, if unable | | | | | | | to take oral form of medication | | | | | | + +-------+ +------+---+---+ +---------+ +------+---+---+ | IV Push | 07/30/20 | 4 mg | | | | | 19 7:49 | | | | | | AM PDT | | | | +---------+ +------+---+---+ +---+---+ | | | +---+---+ + +-------+ +------+---+---+ | ondansetron ODT (ZOFRAN ODT) | Given | 07/31/20 | 8 mg | | | | tablet 8 mg 8 mg, oral, EVERY 8 | | 19 11:19 | | | | | HOURS NEEDED, Starting Fri | | AM PDT | | | | | 07/31/19 at 1038, Until Mon | | | | | | | 10/28/19 at 2124, | | | | | | | nausea/vomiting, first line | | | | | | + +-------+ +------+---+---+ +---+---+ | | | +---+---+ + +-------+ +------+---+---+ | oxyCODONE (immediate release) | Given | 07/30/20 | 5 mg | | | | (ROXICODONE) tablet 5 mg 5 mg, | | 19 5:29 | | | | | oral, EVERY 4 HOURS NEEDED, | | AM PDT | | | | | Starting 07/29/19 at 2002, | | | | | | | Until Brianna 07/30/19 at 1001, | | | | | | | moderate pain | | | | | | + +-------+ +------+---+---+ +-------+ +------+---+---+ | Given | 07/29/20 | 5 mg | | | | | 19 11:15 | | | | | | PM PDT | | | | +-------+ +------+---+---+ +---+---+ | | | +---+---+ + +-------+ +------+---+---+ | oxyCODONE (immediate release) | Given | 08/03/20 | 5 mg | | | | (ROXICODONE) tablet 5 mg 5 mg, | | 19 8:57 | | | | | oral, EVERY 6 HOURS NEEDED, | | AM PDT | | | | | Starting 07/31/19 at 0445, | | | | | | | Until 08/03/19 at 2124, | | | | | | | moderate pain | | | | | | + +-------+ +------+---+---+ +-------+ +------+---+---+ | Given | 08/02/20 | 5 mg | | | | | 19 4:25 | | | | | | PM PDT | | | | +-------+ +------+---+---+ | Given | 08/02/20 | 5 mg | | | | | 19 8:29 | | | | | | AM PDT | | | | +-------+ +------+---+---+ +---+---+ | | | +---+---+ + +-------+ +-------+---+---+ | oxyCODONE (immediate release) | Given | 07/30/20 | 10 mg | | | | (ROXICODONE) tablet 5-10 mg 5-10 | | 19 8:39 | | | | | mg, oral, EVERY 4 HOURS | | PM PDT | | | | | NEEDED, Starting Brianna 07/30/19 at | | | | | | | 1001, Until Sat07/31/19 at 0439, | | | | | | | moderate pain | | | | | | + +-------+ +-------+---+---+ +-------+ +------+---+---+ | Given | 07/30/20 | 5 mg | | | | | 19 4:24 | | | | | | PM PDT | | | | +-------+ +------+---+---+ | Given | 07/30/20 | 5 mg | | | | | 19 2:51 | | | | | | PM PDT | | | | +-------+ +------+---+---+ + +---+ | | | + +---+ | polyethylene glycol (MIRALAX) | | | packet 17 g 17 g, oral, DAILY | | | NEEDED, Starting Brianna 07/30/19 at | | | 0935, Until 08/03/19 at | | | 2124, constipation | | + +---+ | | | + +---+ + +-------+ +--------+---+---+ | potassium & sodium phosphates | Given | 08/03/20 | 500 mg | | | | (K PHOS NEUTRAL) tablet 500 mg | | 19 8:50 | | | | | 500 mg, oral, THREE TIMES DAILY, | | AM PDT | | | | | 3 doses, First dose on Sun | | | | | | | 08/02/19 at 1600, Last dose on | | | | | | | 08/03/19 at 0900 | | | | | | + +-------+ +--------+---+---+ +-------+ +--------+---+---+ | Given | 08/02/20 | 500 mg | | | | | 19 9:11 | | | | | | PM PDT | | | | +-------+ +--------+---+---+ | Given | 08/02/20 | 500 mg | | | | | 19 4:25 | | | | | | PM PDT | | | | +-------+ +--------+---+---+ +---+---+ | | | +---+---+ + +---------+ +--------+---+---+ | potassium chloride IV | New Bag | 07/30/20 | 20 mEq | | | | (peripheral line) 20 mEq 20 mEq, | | 19 5:38 | | | | | intravenous, EVERY 2 HOURS, 2 | | AM PDT | | | | | doses, First dose on Brianna 07/30/19 | | | | | | | at 0300, Last dose on Brianna | | | | | | | 07/30/19 at 0500 | | | | | | + +---------+ +--------+---+---+ +---------+ +--------+---+---+ | New Bag | 07/30/20 | 20 mEq | | | | | 19 3:23 | | | | | | AM PDT | | | | +---------+ +--------+---+---+ +---+---+ | | | +---+---+ + +-------+ +--------+---+---+ | potassium chloride SR (K-DUR) | Given | 07/29/20 | 40 mEq | | | | tablet 40 mEq 40 mEq, oral, | | 19 10:21 | | | | | ONCE, 1 dose, Sat07/29/19 at | | PM PDT | | | | | 2215 | | | | | | + +-------+ +--------+---+---+ +---+---+ | | | +---+---+ + +-------+ +--------+---+---+ | potassium chloride SR (K-DUR) | Given | 07/29/20 | 40 mEq | | | | tablet 40 mEq 40 mEq, oral, | | 19 10:54 | | | | | ONCE, 1 dose, Sat07/29/19 at | | PM PDT | | | | | 2300 | | | | | | + +-------+ +--------+---+---+ +---+---+ | | | +---+---+ + +-------+ +--------+---+---+ | potassium chloride SR (K-DUR) | Given | 07/31/20 | 40 mEq | | | | tablet 40 mEq 40 mEq, oral, | | 19 1:46 | | | | | ONCE, 1 dose, Sat07/31/19 at | | AM PDT | | | | | 0115 | | | | | | + +-------+ +--------+---+---+ +---+---+ | | | +---+---+ + +-------+ +--------+---+---+ | potassium chloride SR (K-DUR) | Given | 07/31/20 | 40 mEq | | | | tablet 40 mEq 40 mEq, oral, | | 19 11:19 | | | | | ONCE, 1 dose, Sat07/31/19 at | | AM PDT | | | | | 1045 | | | | | | + +-------+ +--------+---+---+ +---+---+ | | | +---+---+ + +-------+ +--------+---+---+ | potassium chloride SR (K-DUR) | Given | 07/30/20 | 60 mEq | | | | tablet 60 mEq 60 mEq, oral, | | 19 2:54 | | | | | ONCE, 1 dose, [facility] 07/30/19 at | | AM PDT | | | | | 0230 | | | | | | + +-------+ +--------+---+---+ +---+---+ | | | +---+---+ + +---------+ +---------+---+---+ | potassium phosphate IV 30 mmol | New Bag | 07/30/20 | 30 mmol | | | | 30 mmol, intravenous, ONCE, 1 | | 19 5:00 | | | | | dose, Brianna 07/30/19 at 1700 | | PM PDT | | | | + +---------+ +---------+---+---+ +---+---+ | | | +---+---+ + +---------+ +---------+---+---+ | potassium phosphate IV 40 mmol | New Bag | 07/31/20 | 40 mmol | | | | 40 mmol, intravenous, ONCE, 1 | | 19 12:31 | | | | | dose, 07/31/19 at 1045 | | PM PDT | | | | + +---------+ +---------+---+---+ +---+---+ | | | +---+---+ + +-------+ + +---+---+ | potassium, sodium phosphates | Given | 07/31/20 | 1 packet | | | | (NEUTRA-PHOS, PHOS-NAK) | | 19 6:36 | | | | | 280-160-250 mg packet 1 packet 1 | | AM PDT | | | | | packet, oral, ONCE, 1 dose, Fri | | | | | | | 07/31/19 at 0615 | | | | | | + +-------+ + +---+---+ +---+---+ | | | +---+---+ + +-------+ + +---+---+ | potassium, sodium phosphates | Given | 08/02/20 | 1 packet | | | | (NEUTRA-PHOS, PHOS-NAK) | | 19 8:30 | | | | | 280-160-250 mg packet 1 packet 1 | | AM PDT | | | | | packet, oral, FOUR TIMES DAILY, | | | | | | | 4 doses, First dose on Sat | | | | | | | 08/01/19 at 1400, Last dose on | | | | | | | 08/02/19 at 0900 | | | | | | + +-------+ + +---+---+ +-------+ + +---+---+ | Given | 08/01/20 | 1 packet | | | | | 19 9:05 | | | | | | PM PDT | | | | +-------+ + +---+---+ | Given | 08/01/20 | 1 packet | | | | | 19 5:18 | | | | | | PM PDT | | | | +-------+ + +---+---+ +---+---+ | | | +---+---+ + +-------+ +--------+---+---+ | prochlorperazine (COMPAZINE) | Given | 07/30/20 | 2.5 mg | | | | injection 2.5 mg 2.5 mg, | | 19 8:38 | | | | | intravenous, EVERY 12 HOURS | | PM PDT | | | | | NEEDED, Starting Brianna 07/30/19 at | | | | | | | 1621, Until 07/31/19 at 0538, | | | | | | | nausea/vomiting, second line | | | | | | + +-------+ +--------+---+---+ + +---+ | | | + +---+ | prochlorperazine (COMPAZINE) | | | injection 5-10 mg 5-10 mg, | | | intravenous, EVERY 6 HOURS | | | NEEDED, Starting Sat07/31/19 at | | | 0539, Until Sat08/03/19 at 2124, | | | nausea/vomiting not responding | | | to ondansetron and unable to take | | | oral prochlorperazine | | + +---+ | | | + +---+ + +-------+ +-------+---+---+ | prochlorperazine (COMPAZINE) | Given | 07/31/20 | 10 mg | | | | tablet 5-10 mg 5-10 mg, oral, | | 19 2:40 | | | | | EVERY 6 HOURS NEEDED, Starting | | PM PDT | | | | | 07/31/19 at 0539, Until Mon | | | | | | | 08/03/19 at 2124, | | | | | | | nausea/vomiting, second line | | | | | | + +-------+ +-------+---+---+ +---+---+ | | | +---+---+ + +---------+ + +-------+---+ | propofol (DIPRIVAN) injection | New Bag | 07/29/20 | 10 | 5.63 | | | 0.5-50 mcg/kg/min | | 19 7:36 | mcg/kg/m | mL/hr | | | 93.9 kg (0.2817-28.17 mL/hr, | | PM PDT | in | | | | rounded to 0.28-28.17 mL/hr), | | | | | | | intravenous, CONTINUOUS, Starting | | | | | | | 07/29/19 at 1944, Until Wed | | | | | | | 07/29/19 at 2001 | | | | | | + +---------+ + +-------+---+ + +---+ | | | + +---+ | senna-docusate (SENOKOT S) | | | 8.6-50 mg 1 tablet 1 tablet, | | | oral, TWICE DAILY NEEDED, | | | Starting Brianna 07/30/19 at 0936, | | | Until 08/03/19 at 2124, | | | constipation second-line | | + +---+ | | | + +---+ + +---------+ +-------+-------+---+ | sodium chloride 0.9 % (NS) IV | New Bag | 08/02/20 | 200 | 200 | | | infusion 200 mL/hr, intravenous, | | 19 6:14 | mL/hr | mL/hr | | | CONTINUOUS, Starting Fri | | AM PDT | | | | | 07/31/19 at 0730, Until Sun | | | | | | | 08/02/19 at 1018 | | | | | | + +---------+ +-------+-------+---+ +---------+ +-------+-------+---+ | New Bag | 08/02/20 | 200 | 200 | | | | 19 1:07 | mL/hr | mL/hr | | | | AM PDT | | | | +---------+ +-------+-------+---+ | New Bag | 08/01/20 | 200 | 200 | | | | 19 8:04 | mL/hr | mL/hr | | | | PM PDT | | | | +---------+ +-------+-------+---+ +---+---+ | | | +---+---+ + +-------+ +-----+---+---+ | sucralfate (CARAFATE) | Given | 08/03/20 | 1 g | | | | suspension 1 g 1 g, oral, BEFORE | | 19 11:52 | | | | | MEALS AND BEDTIME, First dose on | | AM PDT | | | | | 08/01/19 at 1700, Until | | | | | | | Discontinued | | | | | | + +-------+ +-----+---+---+ +-------+ +-----+---+---+ | Given | 08/03/20 | 1 g | | | | | 19 6:13 | | | | | | AM PDT | | | | +-------+ +-----+---+---+ | Given | 08/02/20 | 1 g | | | | | 19 9:18 | | | | | | PM PDT | | | | +-------+ +-----+---+---+ +---+---+ | | | +---+---+ + +---------+ + +---+---+ | vancomycin (VANCOCIN) IV 1,250 | New Bag | 07/31/20 | 1,250 mg | | | | mg 1,250 mg, intravenous, EVERY | | 19 8:32 | | | | | 12 HOURS, First dose (after last | | AM PDT | | | | | modification) on Brianna 07/30/19 at | | | | | | | 0900, Until Discontinued | | | | | | + +---------+ + +---+---+ +---------+ + +---+---+ | New Bag | 07/30/20 | 1,250 mg | | | | | 19 8:39 | | | | | | PM PDT | | | | +---------+ + +---+---+ | New Bag | 07/30/20 | 1,250 mg | | | | | 19 9:39 | | | | | | AM PDT | | | | +---------+ + +---+---+ +---+---+ | | | +---+---+ + +---------+ + +---+---+ | vancomycin (VANCOCIN) IV 2,000 | New Bag | 07/29/20 | 2,000 mg | | | | mg 2,000 mg, intravenous, ONCE, | | 19 9:06 | | | | | 1 dose, 07/29/19 at 2100 | | PM PDT | | | | + +---------+ + +---+---+ +---+---+ | | | +---+---+ documented in this encounter
--- OUTSIDE RECORDS SUMMARY | ~2019-09-02 | XMS | Encounter Summary ---
Demographics + + + | Address | [address] | | | [place] [address] | + + + | Home Phone | | + + + | Preferred Language | Unknown | + + + | Marital Status | Single | + + + | Caodaism Affiliation | Unknown | + + + | Race | Unknown | + + + | Ethnic Group | Unknown | + + + Author + + + | Author | [facility] | | | and [place] | + + + | Organization | [facility] | | | and [...] Team Providers + +------+ + | Care Supervisor Screen Making Name | Role | Phone | + +------+ + PCP | Unavailable | + +------+ + Encounter Details +--------+ + + + + | Date | Type | Department | Care Team | Description | +--------+ + + + + | 11/29/ | Hospital | [facility] | Jovan Hernández MD | | | 1997 | Encounter | [facility] | [address] | | | | | CONV DEPT [address] | [address] | | | | | [place], | [address] | | | | | [place] [address] | | | | | | [phone] | | | +--------+ + + + [...]
--- OUTSIDE RECORDS SUMMARY | ~2019-09-02 | XMS | Encounter Summary ---
Demographics + + + | Address | [address] | | | [place] [address] | + + + | Home Phone [...] Author + + + | Author | [facility] | + + + | Organization | [facility] | + + + | Address [...] Team Providers + +------+ + | Care Standard Machine Stitcher Name | Role | Phone | + +------+ + | No Pcp Per Patient | PCP | Unavailable | + +------+ + Encounter Details +--------+--------+ + + + | Date | Type | Department | Care Team | Description | +--------+--------+ + + + | 07/29/ | Intake | Transfer Center | | N/A | | 2019 | | [address] | | | | | | [place], | | | | | | [place] [address] | | | +--------+--------+ + + + Social History + +-------+ [...]
--- OUTSIDE RECORDS SUMMARY | ~2019-09-02 | XMS | Encounter Summary ---
Demographics + + + | Address | [address] | | | [place] [address] | + + + | Home Phone | | + + + | Preferred Language | Unknown | + + + | Marital Status | Single | + + + | Jewish Affiliation | NRP | + + + | Race | White | + + + | Ethnic Group | Not or | + + + Author + + + | Author | [facility] | + + + | Organization | [facility] | + + + | [...] Team Providers + +------+ + | Care Fha Underwriter Name | Role | Phone | + [...] + + | 07/29/ | Hospital | [address] | Luann Mendenhall | | | 2019 - | Encounter | [facility] | MD Rula [address] [facility] | | | | | [address] [place] [address] | [facility] | | | 08/03/ | | [place] | [place] | | | 2019 | | [address] | [phone] | | | | | [phone] | [phone] | | | | | | | | | | | | Marj Henderson MD | | | | | | [address] [facility] | | | | | | [facility] | | | | | | [place], [place] | | | | | | [address] | | | | | | [phone] | | | | | | | | | | | | Jamal Larios | | | | | | [address] [facility] | | | | | | [facility] | | | | | | [place], [place] | | | | | | [address] | | | | | | [phone] | | | | | | | [...] Larios MD - 08/03/2019 7:23 AM PDT [facility] Discharge Summary Discharging Provider: Jamal Larios MD [...] #Rhabdomyolysis #Elevated Transaminase #[facility]. Pt's CK [...] 11.1. Pt was discharged with: - Ergocalciferol 99562 units qweekly - Cholecalciferol 2000 units qdaily [...] 1 tablet by mouth once daily. BASAGLMICHELE DOLAN U-100 INSULIN 100 unit/mL (3 mL) Inpn [...] [facility] s. Contact information [phone], [place] [address] Bill Parr MD. Go on 08/12/2019. Why: You have an appontment at 9:30 AM to establish care with a primary care provider. Contact information [address] [place] [address] Discharge Physical Exam: Last 24 hour min/max [...] and consulting staff. Jamal Larios MD, MSc Manufacturing Sales Representativehand stamper Clinical Hospitalist and Medicine Teaching Services [facility] [place] Pager: [phone] documented in this encounter Discharge Instructions Discharge [...] care of you! You were transferred to [facility] because of a seizure that happened, [...] your doctor decide on a dose of ybaqq-lwoi-ijbnmz insulin, give yourself the right dose. If [...] Ketoacidosis (DKA): Care Instructions", log into your Unii account at [email or web address]. You can enter J216 in the "amprice Library" search b ox. Not on Unii? Review the Unii section of your After Visit Summary for directions on ho w to sign up. Current as of: April 30, 2018 Content Version: [id number] [employer]. Care instructions adapted under license by [facility] [place]. If you have questions about a medical condition or this instr uction, always ask your healthcare professional. [employer] disclaims any emma anty or liability for your use of this information. Alcohol and Drug Treatment Resources During your hospitalization, you were given a brief substance use screening. If you are int erested in obtaining more information about alcohol or drug treatment, or are curious about available supports in your community, the following resources may be helpful. [facility]'s National Helpline (also known as the Treatment Referral Routing Service) is a conf idential, free, 64-lttn-d-day, 813-vmq-e-year, information service, in Nigerien and Azeri, for individuals and family members facing substance abuse and mental health issues. Call 9-315-615-[employer] (9730) or visit the online treatment locators at http://findtreatment.s [facility] centers[facility].gov/ Info Dial from your mobile phone or landline to speak to a specialist who can help you bc duque about resources in your area Fellowship Alcoholics Anonymous: www.aa.org to find the meeting closest to you [phone] Narcotics Anonymous [phone] Alcohol and Drug Helpline (adults) 0-050-756-OIOC (6436) [phone] (youth/family members) (Azeri speaking) [employer] Recovery (Self-Management and Recovery Training) www.Loyalzoo.OffSite VISION Refuge Recovery (A Protestant Path to Recovering from Addiction) http://www.refugeTripda.org [employer] Recovery (A Cory-Centered Recovery Program) http://www.[employer]/ You can also call your insurance directly, [...] and at bedtime). Jamal Larios MD, MSc Manufacturing Sales Representativehand stamper Clinical Hospitalist and Medicine Teaching Services [facility] Pager: [phone] Jamal Blake MD - 08/02/2019 7:21 AM [...] #Rhabdomyolysis #Elevated Transaminase #Seizure Witnessed seizure in [facility] after ingesting 15 ibuprofen. Pt's CK peaked [...] #Hypocalcemia Vitamin D 11.1 - Start ergocalciferol 15453 units qweekly - Start cholecalciferol 2000 units [...] as coordinating the patient's care with the [facility] and consulting staff. Jamal Larios MD, MSc Manufacturing Sales Representativehand stamper Clinical Hospitalist and Medicine Teaching Services [facility] Pager: [phone] aricruz Stallings MD - 08/01/2019 11:02 AM PDTCervical Spine Clearance Note The patient was mentally alert, following commands, interactive and communicative. I reviewed the CT cervical spine was reported as negative by the attending [facility] radiologist by verbal report. The patient [...] orders. MARICRUZ STALLINGS MD General Surgery, R5 [facility] [id number] arlosLexi rodriguez - 1 6:26 AM PDT Medical Student Progress Note ID: Patient is 43 y/o male with history of TBI, reported emphysema, bipolar disorder, and T2DM, previous SI, initially BIBA to [place] ED for witnessed seizure, transferre d to [facility] MICU on 07/29/2019, now transferring to [...] and T2DM, previous SI, initially BIBA to [place] ED for witnessed seizure, transferre d to [facility] MICU on 07/29/2019, now transferring to [...] ging and cultures; no s/sx suggestive of CO. Today: Continue current glargine regimen with sugars [...] several years. - Amlodipine, 5 mg #PARTHA Photography Intern baseline is around 0.7-0.8 per chart history [...] tion, when appropriate. Jamal Larios MD, MSc Manufacturing Sales Representativehand stamper Clinical Hospitalist and Medicine Teaching Services [facility] Pager: [phone] Rabago - 07/31/2019 8:10 AM PDTFormatting of this note might be diffe rent from the original. Medical Student Progress Note ID: Patient is 43 y/o male with history of TBI, reported emphysema, bipolar disorder, and T2DM, previous SI, initially BIBA to [place] ED for witnessed seizure, transferre d to [facility] MICU on 07/29/2019, now transferring to [...] and T2DM, previous SI, initially BIBA to [place] ED for witnessed seizure, transferre d to [facility] MICU on 07/29/2019, now transferring to [...] ging and cultures; no s/sx suggestive of CO. Today: Stopped Endotool. Started on glargine and [...] - Started on Amlodipine, 5 mg #PARTHA Photography Intern baseline is around 0.7-0.8 per chart history [...] consult #Seizure/Encephalopathy, resolved Witnessed seizure activity at [facility] after NSAID ingestion, aborted after Propofol. Has [...] Mental status improving, low suspicion o f OBJECT ORIENTED DEVELOPER infection. Leukocytosis likely 2/2 stress demargination in [...] Associated attestation - Jamal Larios MD - 07/31/2019 5:15 PM PDT43y/o man [...] information, when appropriate. Jamal Larios MD, MSc Manufacturing Sales Representativehand stamper Clinical Hospitalist and Medicine Teaching Services [facility] Pager: [phone] Luann Mendenhall MD - 07/30/2019 9:17 AM PDT MICU Attg. Progress Note Interval Events: admitted overnight for DKA, seizures Hospital Day: 1 Code Status: FULL Active Problem List Patients Hospital Problem List: Active Hospital Problems 1) Diabetic ketoacidosis associated with type 2 diabetes mellitus (HCC) Assessment/Plan: 43M with bipolar with one prior suicide attempt (asa overdose 2015), DM2, was found down at [facility] with witnessed seizures. EMS called and he [...] results for input(s): PH, PCO2, PO2, HCO3, VQPVY8VKS, O4GKADVC, J0ZJVLHIA, FIO2 in the l ast 72 hours. [...] Swain MD - 07/30/2019 6:02 AM PDT [facility] MEDICAL ICU - PROGRESS NOTE Hospital [...] protect airway. Extubat ed upon arrival to [facility] MICU. Saturating well on RA. GI [...] -zofran prn -fu OSH imaging / Renal #APRTHA - improving Photography Intern baseline is around 0.7-0.8 per chart history [...] infection. CXR w/o karen infectious etiology. Consider OBJECT ORIENTED DEVELOPER infection given AMS. N o clear findings [...] threshold to purs ue further evaluation for OBJECT ORIENTED DEVELOPER infection. - Ceftraixone 2g IV q12h (07/29 [...] s/s of CV A, no s/s of CO. Although abdominal pain, pancreatitis less likely given [...] Cheryl Lambert MD Internal Medicine, PGY2 Pg [phone] Shoshana Nam, DO - 07/30/2019 12:49 AM PDTBrief Progress Note Informed by RN that patient reported taking "20-40 Aleve" while at [facility] [place]. Went to speak with patient to obtain more information. He states that he thinks he took "15" tablets of [facility] When asked why he took so [...] reassess in the morning and consider [facility] health evaluation as appropriate. Discussed with Poison Control, recommendation is supportive care with hydration and trendin g labs, along with checking an APAP and ASA level if not already obtained at outside hospita l. Fidelina Jenkins DO Internal Medicine PGY-2 Pager [phone] on Hamm MD - 07/29/2019 10:28 PM PDTAttending Attestation: I have seen and examined the patient personally, and have reviewed and revised (when necess joe) the note by the house painter. DayanaubreymorganVedan Alayna Sonali is a 43 y.o. man with a history of DM2 who presented with seizure and fall with facial fx. FOund have HHS/DKA, lactic acidosis, profoundly acidotic and developed AFib which was ?unstable and was cardioverted. He was stabilized at OSH and brought to [facility]. Overnight events: - Improved with stabilization, extubated shortly after arrival - Trauma consulted Diagnoses: - Seizure - DKA/HHS - Facial fx - lactic acidosis - Afib - metabolic encephalopathy - PARTHA - ?EtOH w/d? Plan: - Will continue to provide supportive care - Endotool - OBJECT ORIENTED DEVELOPER dosing CTX for now - I spent 20 minutes providing critical care services to this complex patient, which includes reviewing medical records, imaging, and laboratory results, speaking with primary and/or ot her planning consultant teams. Von Hamm MD Manufacturing Sales Representativehand stamper [facility] Cystic Fibrosis [place] Division of Pulmonary & Critical Care Medicine Pager: [phone] documented in t his encounter Plan of [...] | [address] | [place], [place] | | | JOSE POINT OF CARE | [address] | [address] | | | TESTS | | | [...] + + + | YESIKA JOHNSTON | [address] | [place], [place] | | | JOSE POINT OF CARE | [address] | [address] | | | TESTS | | | [...] [facility] | [address] | [place] [address] | | | SERVICES, CORE | PARK [...] | + + + + + | [facility] | [address] | [place] [address] | | | SERVICES, CORE | SHARA [...] [facility] | [address] | [place] [address] | | | SERVICES, CORE | PARK [...] LABORATORY | [address] | [place] [address] | | | SERVICES, [place] | [address] | | | + [...] | | | LABORATORY | | | SOMALI | | | SERVICES, | | | [...] MDRD equation recommended by the National | [facility] | | Kidney Disease Education Program. Estimated [...] | + + + + + | [facility] | [address] | [place] [address] | | | SERVICES, CORE | SHARA [...] | [address] | [place], [place] | | | EDUARDO GARCIA OF JAN | [address] | [address] | | | TESTS | | | [...] | [address] | [place], [place] | | | EDUARDO GARCIA OF JAN | [facility] | [address] | | | TESTS | | | [...] (H) | 70 - 99 mg/dL | [facility] - | | | GLUCOSE, | [...] | [address] | [place], [place] | | | JOSE POINT OF CARE | [address] | [address] | | | TESTS | | | [...] | [address] | [place], [place] | | | EDUARDO GARCIA OF JAN | [facility] | [address] | | | TESTS | | | [...] | [address] | [place], [place] | | | EDUARDO GARCIA OF JAN | [facility] | [address] | | | TESTS | | | [...] (H) | 70 - 99 mg/dL | [facility] - | | | GLUCOSE, | [...] | [address] | [place], [place] | | | JOSE POINT OF CARE | [address] | [address] | | | TESTS | | | [...] | [address] | [place], [place] | | | EDUARDO GARCIA OF JAN | [address] | [address] | | | TESTS | | | [...] LABORATORY | [address] | [place] [address] | | | SERVICES, CORE | PARK [...] LABORATORY | [address] | [place] [address] | | | SERVICES, CORE | SHARA [...] | + + + + + | [facility] | [address] | [place] [address] | | | SERVICES, CORE | SHARA [...] [facility] | [address] | [place] [address] | | | SERVICES, CORE | PARK [...] LABORATORY | [address] | [place] [address] | | | SERVICES, CORE | PARK [...] | | | LABORATORY | | | SOMALI | | | SERVICES, | | | [...] | + + + + + | [facility] | [address] | [place] [address] | | | SERVICES, AD | SHARA [...] - MARQUAM | [address] | [place], [place] | | | EDUARDO GARCIA OF CARE | [facility] | [address] | | | TESTS | | | [...] (H) | 70 - 99 mg/dL | [facility] - | | | GLUCOSE, | [...] | [address] | [place], [place] | | | EDUARDO GARCIA OF [facility] | [address] | [address] | | | TESTS | | | [...] | + + + + + | [facility] | [address] | [place] [address] | | | SERVICES, CORE | PARK [...] [facility] | [address] | [place] [address] | | | SERVICES, CORE | SHARA [...] [facility] | [address] | [place] [address] | | | SERVICES, CORE | PARK [...] | + + + + + | [facility] | [address] | [place] [address] | | | SERVICES, CORE | SHARA [...] [facility] | [address] | [place] [address] | | | AD MARROQUIN | SHARA [...] | [address] | [place], [place] | | | EDUARDO GARCIA OF [facility] | [address] | [address] | | | TESTS | | | [...] [facility] | [address] | [place] [address] | | | SERVICES, CORE | PARK [...] [facility] | [address] | [place] [address] | | | SERVICES, CORE | PARK [...] | + + + + + | [facility] | [address] | [place] [address] | | | SERVICES, CORE | SHARA [...] | + + + + + | [facility] | [address] | [place] [address] | | | SERVICES, CORE | PARK [...] (H) | 49 - 397 U/L | [facility]EL | | | | | | LABORATORY [...] LABORATORY | [address] | [place] [address] | | | SERVICES, [place] | [address] | | | + [...] | | | LABORATORY | | | SOMALI | | | SERVICES, | | | [...] MDRD equation recommended by the National | [facility] | | Kidney Disease Education Program. Estimated [...] | + + + + + | [facility] | [address] | [place] [address] | | | SERVICES, CORE | PARK [...] | [address] | [place], [place] | | | EDUARDO GARCIA OF JAN | [address] | [address] | | | TESTS | | | [...] | [address] | [place], [place] | | | EDUARDO GARCIA OF CARE | [facility] | [address] | | | TESTS | | | [...] (H) | 70 - 99 mg/dL | [facility] - | | | GLUCOSE, | [...] | [address] | [place], [place] | | | JOSE POINT OF CARE | [facility] | [address] | | | TESTS | | | [...] | [address] | [place], [place] | | | EDUARDO GARCIA OF CARE | [address] | [address] | | | TESTS | | | [...] - PRESTON | [address] | [place], [place] | | | EDUARDO GARCIA OF CARE | [address] | [address] | | | TESTS | | | [...] (H) | 70 - 99 mg/dL | [facility] - | | | GLUCOSE, | [...] | [address] | [place], [place] | | | EDUARDO GARCIA OF CARE | [address] | [address] | | | TESTS | | | [...] | [address] | [place], [place] | | | EDUARDO GARCIA OF JAN | [address] | [address] | | | TESTS | | | [...] [facility] | [address] | [place] [address] | | | SERVICES, CORE | PARK [...] | + + + + + | [facility] | [address] | [place] [address] | | | SERVICES, CORE | PARK [...] | [address] | [place], [place] | | | EDUARDO GARCIA OF CARE | [facility] | [address] | | | TESTS | | | [...] (H) | 70 - 99 mg/dL | [facility] - | | | GLUCOSE, | [...] | [address] | [place], [place] | | | JOSE POINT OF CARE | [address] | [address] | | | TESTS | | | [...] | [address] | [place] | | | EDUARDO GARCIA OF JAN | [facility] | [address] | | | TESTS | | | [...] [facility] | [address] | [place] [address] | | | SERVICES, CORE | PARK [...] LABORATORY | [address] | [place] [address] | | | SERVICES, CORE | PARK [...] | + + + + + | [facility] | [address] | [place] [address] | | | CARA, AD | SHARA [...] | [address] | [place], [place] | | | EDUARDO GARCIA OF CARE | [facility] | [address] | | | TESTS | | | [...] | [address] | [place], [place] | | | EDUARDO GARCIA OF JAN | [facility] | [address] | | | TESTS | | | [...] | [address] | [place], [place] | | | JOSE POINT OF CARE | [address] | [address] | | | TESTS | | | [...] [facility] | [address] | [place] [address] | | | SERVICES, CORE | PARK [...] | + + + + + | [facility] | [address] | [place] [address] | | | SERVICES, CORE | SHARA [...] | | | LABORATORY | | | SOMALI | | | SERVICES, | | | [...] MDRD equation recommended by the National | [facility] | | Kidney Disease Education Program. Estimated [...] | + + + + + | [facility] | [address] | [place] [address] | | | SERVICES, CORE | PARK [...] | + + + + + | [facility] | [address] | [place] [address] | | | SERVICES, CORE | SHARA [...] (H) | 70 - 99 mg/dL | [facility] - | | | GLUCOSE, | [...] | [address] | [place], [place] | | | EDUARDO GARCIA OF CARE | [address] | [address] | | | TESTS | | | [...] | [address] | [place] | | | JOSE POINT OF CARE | [address] | [address] | | | TESTS | | | [...] | [address] | [place] | | | DAPHNE CUTLER OF [facility] | [facility] | [address] | | | TESTS | | | [...] | | | LABORATORY | | | SOMALI | | | SERVICES, | | | [...] MDRD equation recommended by the National | [facility] | | Kidney Disease Education Program. [...] | + + + + + | [facility] | [address] | [place] [address] | | | SERVICES, AD | SHARA [...] | + + + + + | [facility] | [address] | [place] [address] | | | SERVICES, CORE | SHARA [...] (H) | 70 - 99 mg/dL | [facility] - | | | GLUCOSE, | [...] | [address] | [place] | | | JOSE POINT OF CARE | [address] | [address] | | | TESTS | | | [...] | [address] | [place] | | | EDUARDO GARCIA OF CARE | [address] | [address] | | | TESTS | | | [...] | [address] | [place] | | | EDUARDO GARCIA OF CARE | [facility] | [address] | | | TESTS | | | [...] | [address] | [place] | | | JOSE POINT OF CARE | [address] | [address] | | | TESTS | | | [...] | [address] | [place] | | | EDUARDO GARCIA OF CARE | [address] | [address] | | | TESTS | | | [...] | [address] | [place] | | | EDUARDO GARCIA OF JAN | [facility] | [address] | | | TESTS | | | [...] | [address] | [place], [place] | | | JOSE POINT OF CARE | [address] | [address] | | | TESTS | | | [...] | [address] | [place] | | | HILL, POINT OF CARE | [address] | [address] | | | TESTS | | | [...] | + + + + + | [facility] | [address] | [place] [address] | | | SERVICES, CORE | SHARA [...] | [address] | [place], [place] | | | EDUARDO GARCIA OF CARE | [facility] | [address] | | | TESTS | | | [...] (H) | 70 - 99 mg/dL | [facility] - | | | GLUCOSE, | [...] | [address] | [place] | | | EDUARDO GARCIA OF CARE | [address] | [address] | | | TESTS | | | | + + + + + PHOSPHORUS, PLASMA (07/30/2019 11:30 AM PDT) + +---------+ + + + | Component | Value | Ref Range | Performed | Pathologist | | | | | At | Signature | + +---------+ + + + | PHOSPHORUS, | 1.7 (L) | 2.4 - 4.7 mg/dL | [facility] | | | PLASMA | | [...] | + + + + + | [facility] | [address] | [place] [address] | | | SERVICES, CORE | PARK [...] | | | LABORATORY | | | SOMALI | | | SERVICES, | | | [...] MDRD equation recommended by the National | [facility] | | Kidney Disease Education Program. Estimated [...] | + + + + + | [facility] | [address] | [place] [address] | | | SERVICES, CORE | PARK [...] | + + + + + | [facility] | [address] | [place] [address] | | | SERVICES, CORE | PARK [...] | [address] | [place], [place] | | | EDUARDO GARCIA OF CARE | [address] | [address] | | | TESTS | | | [...] | [address] | [place] | | | EDUARDO GARCIA OF CARE | [facility] | [address] | | | TESTS | | | [...] | [address] | [place], [place] | | | JOSE POINT OF CARE | [address] | [address] | | | TESTS | | | [...] | + + + + + | [facility] DEPT [facility] | [address] | [place], [place] | | | CARDIOLOGY | [address] | [address] | | + + + + + [...] | [address] | [place] | | | EDUARDO GARCIA OF CARE | [facility] | [address] | | | TESTS | | | [...] | | POC | | | EDUARDO AGRCIA | | | | | | OF [...] | [address] | [place] | | | EDUARDO GARCIA OF [facility] | [facility] | [address] | | | TESTS | | | [...] | + + + + + | [facility] | [address] | [place] [address] | | | SERVICES, CORE | SHARA [...] | [address] | [place] [address] | | | SERVICES, CORE | PARK [...] | | | LABORATORY | | | SOMALI | | | SERVICES, | | | [...] MDRD equation recommended by the National | [facility] | | Kidney Disease Education Program. [...] [facility] | [address] | [place] [address] | | | SERVICES, CORE | PARK [...] [facility] | [address] | [place] [address] | | | AD MARROQUIN | SHARA [...] [facility] | [address] | [place] [address] | | | SERVICES, CORE | PARK [...] [facility] | [address] | [place] [address] | | | SERVICES, CORE | PARK [...] [facility] | [address] | [place] [address] | | | SERVICES, CORE | PARK [...] | + + + + + | [facility] | [address] | [place] [address] | | | CARA, CORE | SHARA [...] | + + + + + | [facility] | [address] | [place] [address] | | | SERVICES, CORE | PARK [...] LABORATORY | [address] | [place] [address] | | | SERVICES, CORE | PARK [...] | | | LABORATORY | | | SOMALI | | | SERVICES, | | | [...] MDRD equation recommended by the National | [facility] | | Kidney Disease Education Program. [...] | + + + + + | [facility] | [address] | [place] [address] | | | SERVICESAD | [address] [...] (H)Comment: Hgb A1C | <5.7 % | [facility] | | | A1C | Interpretive [...] | [facility] | | considered for monitoring electronic field service engineer glycemic control in patients with: | LABORATORY [...] | + + + + + | [facility] | [address] | [place] [address] | | | SERVICES, SPECIAL | PARK [...] | + + + + + | [facility] | [address] | [place], [place] | | | EDUARDO GARCIA OF JAN | [facility] | [address] | | | TESTS | | | [...] | [address] | [place], [place] | | | JOSE POINT OF CARE | [facility] | [address] | | | TESTS | | | [...] contrast performed at outside institution DATE OF [facility] | RADIOLOGY VOICE | | INTERPRETATION: [...] as now presented. | | Final signature: iVdal Javed MD 08/03/2019 2:42 PM Preliminary: Vidal [...] | + + + + + | [facility] | [address] | [place] [address] | | | SERVICES, CORE | SHARA [...] [facility] | [address] | [place] [address] | | | SERVICES, CORE | [address] | | | + + + + + X-RAY PORTABLE CHEST 1 VIEW (07/29/2019 8:03 PM PDT) + + | Specimen | + + | | + + + + + | Narrative | Performed At | + + + | EXAM: MA CHEST 1 VIEW HISTORY: ETT placement. DM2. [...] Interface - 07/30/2019 10:14 AM PDT EXAM: MA CHEST 1 | | VIEW HISTORY: ETT [...] [facility] | [address] | [place] [address] | | | SERVICES, | [address] [...] | [address] | [place] [address] | | | SERVICES, | [address] [...] | + + + + + | [facility] | [address] | [place] [address] | | | SERVICES, | [address] [...] [facility] | [address] | [place] [address] | | | SERVICES, CORE | PARK [...] | + + + + + | [facility] | [address] | [place] [address] | | | SERVICES, CORE | PARK [...] | | Barbiturates >=200 ng/mL | SERVICES, [place] | | Benzodiazepine >=200 ng/mL Cocaine | [...] | + + + + + | [facility] | [address] | [place] [address] | | | SERVICES, CORE | PARK [...] [facility] | [address] | [place] [address] | | | SERVICES, CORE | SHARA [...] | + + + + + | [facility] | [address] | [place] [address] | | | SERVICES, CORE | PARK [...] [facility] | [address] | [place] [address] | | | SERVICES, CORE | PARK [...] [facility] | [address] | [place] [address] | | | AD MARROQUIN | SHARA [...] | + + + + + | [facility] | [address] | [place] [address] | | | SERVICES, CORE | SHARA [...] | + + + + + | [facility] | [address] | [place] [address] | | | SERVICES, CORE | PARK [...] [facility] | [address] | [place] [address] | | | SERVICES, CORE | PARK [...] | | | LABORATORY | | | SOMALI | | | SERVICES, | | | [...] MDRD equation recommended by the National | [facility] | | Kidney Disease Education Program. [...] | + + + + + | [facility] | [address] | [place] [address] | | | AD MARROQUIN | SHARA [...] (H) | 70 - 99 mg/dL | [facility] - | | | GLUCOSE, | [...] | [address] | [place], [place] | | | EDUARDO GARCIA OF [facility] | [address] | [address] | | | TESTS | | | | + + + + + documented in this encounter Visit Diagnoses + + | Diagnosis | + + | Diabetic ketoacidosis without coma associated with other specified diabetes mellitus | | (HCC) - Primary | + + | Seizure ([facility]) Other convulsions | + + | Diabetic [...] | | | | ONCE, 1 dose, [facility] 07/30/19 at | | | | | [...] | | | | ONCE, 1 dose, [facility] 08/01/19 at | | | | | [...] | | | | First dose on [place] 08/02/19 at | | | | | | | 0900, Until Discontinued | | | | | | + +-------+ +---------+---+---+ +---+---+ | | | +---+---+ + +-------+ +-------+---+---+ | famotidine (PEPCID) injection | Given | 07/31/20 | 20 mg | | | | 20 mg 20 mg, intravenous, TWICE | | 19 8:33 | | | | | DAILY, First dose on [facility] 07/30/19 | | AM PDT | | [...] | | | | ONCE, 1 dose, [facility] 07/30/19 at | | AM PDT | [...]
--- OUTSIDE RECORDS SUMMARY | ~2019-09-02 | XMS | Encounter Summary ---
Demographics + + + | Address | [address] | | | [place] [address] | + + + | Home Phone [...] Author + + + | Author | [facility] | + + + | Organization | [facility] | + + + | Address | [...] Team Providers + +------+ + | Care Anchorman Name | Role | Phone | + [...] | | | | | [place], | | | | | | [place] [address] | | | +--------+--------+ + + + [...]
--- OUTSIDE RECORDS SUMMARY | ~2019-09-02 | XMS | Clinical Summary ---
Demographics + + + | Address | [address] | | | [place] [address] | + + + | Home Phone | | + + + | Preferred Language | Unknown | + + + | Marital Status | Single | + + + | Evangelical Affiliation | 1013 | + + + | Race | Unknown | + + + | Ethnic Group | Unknown | + + + Author + + + | Author | [facility] (Historical as of | | | 05-23-19) | + + + | Organization | [facility] (Historical as of | | | 05-23-19) [...] Team Providers + +------+ + | Care Clinical Recruiter Name | Role | Phone | + [...] + | Suicide attempt by drug ingestion ([facility]) | 08/16/2015 | + + + | Type 2 diabetes mellitus with hyperglycemia ([facility]) | 08/16/2015 | + + + [...] +------+-------+ + | MEDICAID | [place] | [id number] | | | [address] | | | N | | | | [place] | | | [place] | | | | [address] | | | WHEAT INSPECTOR | | | | | + +--------+ [...] | | al/Surya | | 1975 | [phone] [place] | | | [place] | | | [phone] | [phone] | + +--------+ +--------+ + +
--- OUTSIDE RECORDS SUMMARY | ~2019-09-02 | XMS | Encounter Summary ---
Demographics + + + | Address | [address] | | | [place] [address] | + + + | Home Phone | | + + + | Preferred Language | Unknown | + + + | Marital Status | Single | + + + | Sabianism Affiliation | Unknown | + + + | Race | Unknown | + + + | Ethnic Group | Unknown | + + + Author + + + | Author | [facility] | | | and [place] | + + + | Organization | [facility] | | [...] Team Providers + +------+ + | Care Pharmacy Technician Program Director Name | Role | Phone | + +------+ + PCP | Unavailable | + +------+ + Encounter Details +--------+ + + + + | Date | Type | Department | Care Team | Description | +--------+ + + + + | 11/29/ | Hospital | [facility] | Jovan Hernández MD | | | 1997 | Encounter | MED CTR GENERIC OP | [address] | | | | | CONV DEPT [address] | [address] | | | | | [place], | [address] | | | | | [place] [address] | | | | | | [phone] | | | +--------+ + + + [...]
--- OUTSIDE RECORDS SUMMARY | ~2019-09-02 | XMS | Clinical Summary ---
Demographics + + + | Address | [address] | | | [place] [address] | + + + | Home Phone | | + + + | Preferred Language | Unknown | + + + | Marital Status | Single | + + + | Episcopalian Affiliation | NRP | + + + | Race | White | + + + | Ethnic Group | Not or | + + + Author + + + | Author | [facility] | + + + | Organization | [facility] | + + + | Address | [...] Team Providers + +------+ + | Care Correctional Supervisor Lieutenant Name | Role | Phone | + +------+ + | No Pcp Per Patient | PCP | Unavailable | + +------+ + Source Comments YESIKA is fully live on both [facility] and [facility] Allergies No Known Allergies Medications + + + +---------+------+------+-------+ | Medication | Sig | Dispensed | Refills | Star | End | Statu | | | | | | t | Date | s | | | | | | Date | | | + + + +---------+------+------+-------+ | acetaminophen 500 | Take 2 tablets by | 30 | 0 | 10/2 | | Activ | | mg oral tablet | mouth three times | tablet | | 8/20 | | e | | | daily. | | | 19 | | | + + + +---------+------+------+-------+ | Cholecalciferol | Take 1 tablet by | 30 | 1 | 10/2 | | Activ | | (Vitamin D3) 2,000 | mouth once daily. | tablet | | 8/20 | | e | | unit oral tablet | | | | 19 | | | + + + +---------+------+------+-------+ | omeprazole 40 mg | Take 1 capsule by | 60 | 0 | 10/2 | | Activ | | oral capsule,delayed | mouth two times | capsule | | 8/20 | | e | | release(DR/EC) | daily. Administer 30 | | | 19 | | | | | to 60 minutes | | | | | | | | before meals | | | | | | + + + +---------+------+------+-------+ | senna-docusate | Take 1 tablet by | 60 | 0 | 10/2 | | Activ | | 8.6-50 mg oral | mouth two times | tablet | | 8/20 | | e | | tablet | daily. | | | 19 | | | + + + +---------+------+------+-------+ | ergocalciferol | Take 1 capsule by | 8 | 0 | 11/0 | 12/2 | Activ | | 50,000 unit oral | mouth every seven | capsule | | 3/20 | 3/20 | e | | capsule | days for 8 doses. | | | 19 | 19 | | + + + +---------+------+------+-------+ | sucralfate | Take 1 tablet by | 120 | 0 | 10/2 | 11/2 | Activ | | (CARAFATE) 1 gram | mouth four times | tablet | | 8/20 | 7/20 | e | | oral tablet | daily. | | | 19 | 19 | | + + + +---------+------+------+-------+ | amLODIPine 10 mg | Take 1 tablet by | 60 | 0 | 10/2 | | Activ | | oral tablet | mouth once daily. | tablet | | 8/20 | | e | | | | | | 19 | | | + + + +---------+------+------+-------+ | BASAGLAR KWIKPEN | Inject 8 Units under | 15 mL | 0 | 10/2 | | Activ | | U-100 INSULIN 100 | the skin (SUBC) | | | 8/20 | | e | | unit/mL (3 mL) | once daily at | | | 19 | | | | subcutaneous insulin | bedtime. | | | | | | | pen | | | | | | | + + + +---------+------+------+-------+ | metFORMIN 500 mg | Take 1 tablet by | 30 | 11 | 10/2 | | Activ | | oral tablet | mouth once daily. | tablet | | 8/20 | | e | | | | | | 19 | | | + + + +---------+------+------+-------+ | insulin needles, | Use as directed by | 100 | 1 | 10/2 | | Activ | | Disposable, (BD | miscellaneous (misc) | each | | 8/20 | | e | | ULTRA-FINE TAMELA PEN | route once daily. | | | 19 | | | | NEEDLE 4 MM X 32 G) | | | | | | | | 32 gauge x 5/32" | | | | | | | | misc ndle | | | | | | | + + + +---------+------+------+-------+ | lancets (ONE TOUCH | Use four times a day | 100 | 1 | 10/2 | | Activ | | DELICA) 33 gauge | as directed | each | | 8/20 | | e | | miscellaneous (misc) | | | | 19 | | | | misc | | | | | | | + + + +---------+------+------+-------+ | Blood Sugar | Use as directed 1 | 100 | 1 | 10/2 | | Activ | | Diagnostic (ULTIMA | each by | each | | 8/20 | | e | | TEST STRIPS) | miscellaneous (misc) | | | 19 | | | | miscellaneous (misc) | route four times | | | | | | | strip | daily. | | | | | | + + + +---------+------+------+-------+ Active Problems + + + | Problem | Noted Date | + + + | Diabetic ketoacidosis associated with type 2 diabetes mellitus | 07/30/2019 | + + + Encounters +--------+ + + + + | Date | Type | Specialty | Care Team | Description | +--------+ + + + + | 08/03/ | Pharmacy | | | | | 2018 | Visit | | | | +--------+ + + + + | 08/01/ | Pharmacy | | | | | 2018 | Visit | | | | +--------+ + + + + | 07/29/ | Hospital | Adult Acute Care | Luann Mendenhall | | | 2019 - | Encounter | | MD Beatriz Horta Yee | | | | | | MD Anne | | | 08/03/ | | | Jamal Larios, | | | 2018 | | | MD | | +--------+ + + + + | 07/29/ | Intake | | | N/A | | 2018 | | | | | +--------+ + + + + | 07/28/ | Hospital | Radiology | | | | 2018 | Encounter | | | | +--------+ + + + + from Last 3 Months Immunizations + + + + | Name | Administration Dates | Next Due | + + + + | Hepatitis B | 08/02/2019 | | | (Heplisav) | | | + + + + Family History + + +------+ + | Medical History | Relation | Name | Comments | + + +------+ + | No Known Problems | Father | | | + + +------+ + | No Known Problems | Mother | | | + + +------+ + + +------+--------+ + | Relation | Name | Status | Comments | + +------+--------+ + | Father | | | | + +------+--------+ + | Mother | | | | + +------+--------+ + Social History + +-------+ +--------+ + [...] | + + Last Filed Vital Signs + [...] | | + + + + + Plan of Treatment + + + + + | Health Maintenance | Due Date | Last Done | Comments | + + + + + | Pneumococcal | | | | | vaccination (1 of 1 | 3 | | | | - PPSV23) | | | | + + + + + | Influenza (Flu) | | 08/18/2015 | | | vaccination (#1) | 9 | | | + + + + + Procedures + +--------+ + + + | [...] mellitus | | | | | | ([facility]) | | + +--------+ + + + [...] | | + +--------+ + + + from Last 3 Months Results CAPILLARY BLOOD GLUCOSE (NO CHG), POC (08/03/2019 1:06 PM PDT)Only the most recent of 46 r esults within the time period is included. + +---------+ + + + | Component [...] + + + | [facility] | [address] | [place], [place] | | | JOSE POINT OF CARE | [address] | [address] | | | TESTS | | | | + + + + + CBC (HEMOGRAM) ONLY (08/03/2019 3:31 AM PDT)Only the most recent of 5 results within the period is included. + + + + + + | [...] | + + + + + | [facility] | [address] | [place] [address] | | | SERVICES, CORE | [address] | | | + + + + + COMPLETE METABOLIC SET (NA,K,CL,CO2,BUN,CREAT,GLUC,CA,AST,ALT,BILI TOTAL,ALK PHOS,ALB,PROT TOTAL) (08/03/2019 3:31 AM PDT)Only the most recent of 6 results within the time period is included. + +---------+ + + + | Component [...] | | | LABORATORY | | | GREEK | | | SERVICES, | | | [...] MDRD equation recommended by the National | [facility] | | Kidney Disease Education Program. Estimated [...] | + + + + + | [facility] | [address] | [place] [address] | | | SERVICES, CORE | [address] | | | + + + + + PHOSPHORUS, PLASMA (08/03/2019 3:31 AM PDT)Only the most recent of 7 results within the ti nd period is included. + +---------+ + + + | Component [...] [facility] | [address] | [place] [address] | | | SERVICES, CORE | [address] | | | + + + + + MAGNESIUM, PLASMA (08/03/2019 3:31 AM PDT)Only the most recent of 6 results within the is included. + +-------+ + + + | Component [...] [facility] | [address] | [place] [address] | | | SERVICES, CORE | [address] | | | + + + + + CK, PLASMA (08/03/2019 3:31 AM PDT)Only the most recent of 6 results within the time em driver is included. + + + + + + | [...] | + + + + + | [facility] | [address] | [place] [address] | | | SERVICES, CORE | [address] [...] | + + + + + | [facility] | [address] | [place] [address] | | | SERVICES, CORE | PARK [...] | + + + + + | [email or web address] | [address] | [place] [address] | | | SERVICES, CORE | SHARA [...] | + + + + + | [facility] | [address] | [place] [address] | | | SERVICES, CORE | SHARA [...] [facility] | [address] | [place] [address] | | | SERVICES, CORE | SHARA [...] [facility] | [address] | [place] [address] | | | SERVICES, CORE | SHARA [...] | + + + + + | [facility] | [address] | [place] [address] | | | SERVICES, CORE | SHARA [...] [facility] | [address] | [place] [address] | | | SERVICES, CORE | PARK [...] Normal values based on 24 hour | SERVICES, CORE | | collection interval. Patient results are calculated from actual | | | collection interval and volume. | | + + + + + + + + | Performing | Address | City/State/Zipcode | Phone Number | | Organization | | | | + + + + + | [email or web address] | [address] | [place] [address] | | | SERVICES, CORE | [address] [...] collection time. | LABORATORY | | | AD MARROQUIN | + + + + + + + + | Performing | Address | City/State/Zipcode | Phone Number | | Organization | | | | + + + + + | [facility] | [address] | [place] [address] | | | AD MARROQUIN | SHARA [...] [facility] | [address] | [place] [address] | | | SERVICES, CORE | [address] | | | + + + + + BASIC METABOLIC SET (NA, K, CL, TCO2, BUN, CR, GLU, CA) (07/30/2019 10:14 PM PDT)Only the m matthew recent of 3 results within the time period is included. + +---------+ + + + | Component [...] | | | LABORATORY | | | GREEK | | | SERVICES, | | | [...] MDRD equation recommended by the National | [facility] | | Kidney Disease Education Program. Estimated GFR Interpretive | LABORATORY | | Information: <60 mL/min/1.73 sq m Chronic Kidney | SERVICES, [facility] | | Disease <15 mL/min/1.73 sq m [...] | + + + + + | [facility] | [address] | [place] [address] | | | SERVICES, [facility] | [address] | | | + [...] | ketones. | LABORATORY | | | AD MARROQUIN | + + + + + + + + | Performing | Address | City/State/Zipcode | Phone Number | | Organization | | | | + + + + + | [facility] | [address] | [place] [address] | | | AD MARROQUIN | SHARA [...] + + + + + | [facility] | [address] | [place], [place] | | | CARDIOLOGY | [address] | [address] | | + + + + + [...] LABORATORY | [address] | [place] [address] | | | SERVICES, CORE | [address] | | | + + + + + LACTATE (07/30/2019 5:23 AM PDT)Only the most recent of 2 results within the time period i s included. + +-------+ + + + | Component [...] LABORATORY | [address] | [place] [address] | | | SERVICES, CORE | PARK [...] | | | LABORATORY | | | SERVICES, CORE | + + + + + + + + | Performing | Address | City/State/Zipcode | Phone Number | | Organization | | | | + + + + + | [facility] | [address] | [place] [address] | | | SERVICES, CORE | PARK [...] Present | | [facility] | | | DARIEN POLYS | | | LABORATORY | | [...] [facility] | [address] | [place] [address] | | | SERVICES, CORE | [address] | | | + + + + + CBC AND AUTO DIFF (07/30/2019 1:06 AM PDT)Only the most recent of 2 results within the is included. + + + + + + | [...] | + + + + + | [facility] | [address] | [place] [address] | | | SERVICES, CORE | PARK [...] LABORATORY | [address] | [place] [address] | | | SERVICES, CORE | PARK [...] (H)Comment: Hgb A1C | <5.7 % | [facility] | | | A1C | Interpretive | [...] | [facility] | | considered for monitoring exterminator glycemic control in patients with: | [...] + + | [facility] | [address] | [place] [address] | | | SERVICES, SPECIAL | [address] | | | | IMM + GRETAG | | | | + + + + + CARDIOLOGY (07/30/2019 12:00 AM PDT) + + + | Narrative | Performed At | + + + | | | + + + OUTSIDE BODY - READ REQUEST (07/29/2019 9:19 PM PDT) + + | Specimen | + + | | + + + + + | Narrative | Performed At | + + + | EXAM: Professional interpretation only of CT chest abdomen and | [facility] | | pelvis with contrast performed at outside institution DATE OF [facility] | RADIOLOGY VOICE | | INTERPRETATION: 08/03/2019 [...] report as now presented. Final signature: Vidal Joshi | | MD Tello 08/03/2019 2:42 PM [...] | | at outside institution DATE OF [facility] INTERPRETATION: 08/03/2019 2:32 PMDATE OF IMAGE | [...] BACTI & YEAST YESIKA (07/29/2019 8:42 PM PDT)Only the most recent of 2 result s within the time period is included. + + + + + + | [...] | + + + + + | [facility] | [address] | [place] [address] | | | SERVICES, [facility] | [address] | | | + + + + + X-RAY PORTABLE CHEST 1 VIEW (07/29/2019 8:03 PM PDT) + + | Specimen | + + | | + + + + + | Narrative | Performed At | + + + | EXAM: MT CHEST 1 VIEW HISTORY: ETT placement. DM2. Hypoglycemic | [facility] | | state complicated by seizure. COMPARISON: [...] Poole MD Dictation initiated: Yi | | Madelyn Poole MD 07/30/2019 8:30 AM | | + + + + + | Procedure Note | + + | Service Account, Radiant Res In Interface - 07/30/2019 10:14 AM PDT EXAM: MT CHEST 1 | | VIEW HISTORY: ETT [...] [facility] | [address] | [place] [address] | | | SERVICES, | [address] [...] LABORATORY | [address] | [place] [address] | | | SERVICES, | [address] [...] | + + + + + | [facility] | [address] | [place] [address] | | | SERVICES, | [address] [...] | | Barbiturates >=200 ng/mL | SERVICES, CORE | | Benzodiazepine >=200 ng/mL Cocaine | [...] | + + + + + | [facility] | [address] | [place] [address] | | | SERVICES, CORE | [address] [...] [facility] | [address] | [place] [address] | | | SERVICES, CORE | [address] [...] [facility] | [address] | [place] [address] | | | AD MARROQUIN | SHARA [...] mech. valves (2.5 - 3.5) INR | AD MARROQUIN | + + + + + + + + | Performing | Address | City/State/Zipcode | Phone Number | | Organization | | | | + + + + + | [facility] | [address] | [place] [address] | | | CARA, AD | [address] [...] | LABORATORY | | | | | darien | SERVICES, | | | | | [...] | + + + + + | [facility] | [address] | [place] [address] | | | SERVICES, CORE | SHARA [...] [facility] | [address] | [place] [address] | | | CARA, AD | SHARA [...] + + + + + | [facility] | [address] | [place] [address] | | | CARA, AD | [address] | | | + + + + + from Last 3 Months Insurance + +--------+ +--------+-------+---------+--------+ | Payer | Benefi | Subscriber | Effect | Phone | Address | Type | | | t Plan | ID | ceci | | | | | | / | | Dates | | | | | | Group | | | | | | + +--------+ +--------+-------+---------+--------+ | [employer] | [employer]ER | xxxxxxxx | Effect | | | Medica | | | [place] | | ceci | | | id | | | [place] | | for | | | | | | | | all | | | | | | | | dates | | | | + +--------+ +--------+-------+---------+--------+ + +--------+ +--------+ + + | Guarantor Name | Accoun | Relation to | Date | Phone | Billing Address | | | t Type | Patient | of | | | | | | | | | | + +--------+ +--------+ + + | JENNIFER LYON | Person | Other | [birth year] | | [address] | | | al/Surya | | 1975 | [phone] | [place] [address] | | | carmela | | | 6 (Home) | | + +--------+ +--------+ + + Advance Directives + + + + + | Code Status | Date | Date | Comments | | | Activated | Inactivated | | + + + + + | Full Code | 07/29/2019 | 08/03/2019 | Placeholder code status on arrival | | | 7:11 PM | 9:29 PM | | + + + + +
--- OUTSIDE RECORDS SUMMARY | ~2019-09-02 | XMS | Clinical Summary ---
Demographics + + + | Address | [address] | | | [place] [address] | + + + | Home Phone | | + + + | Preferred Language | Unknown | + + + | Marital Status | Single | + + + | Catholic Affiliation | NRP | + + + [...] Team Providers + +------+ + | Care Photo Tube Assembler Name | Role | Phone | + +------+ + | No Pcp Per Patient | PCP | Unavailable | + +------+ + Source Comments YESIKA is fully live on both [facility] and [facility] InPatient.[facility] Allergies No Known Allergies Medications + + [...] mellitus | | | | | | ([facility]) | | + +--------+ + + + [...] + + + | YESIKA JOHNSTON | [address] | [place], [place] | | | [place]SE POINT OF CARE | [address] | [address] | | | TESTS | | | [...] | + + + + + | [facility] | [address] | [place] [address] | | | SERVICES, CORE | SHARA [...] | | | LABORATORY | | | [place] | | | SERVICES, | | | [...] MDRD equation recommended by the National | [facility] | | Kidney Disease Education Program. Estimated [...] | + + + + + | [facility] | [address] | [place] [address] | | | SERVICES, CORE | [address] | | | + + + + + PHOSPHORUS, PLASMA (08/03/2019 3:31 AM PDT)Only the most recent of 7 results within the ti mt period is included. + +---------+ + + [...] [facility] | [address] | [place] [address] | | | SERVICES, CORE | P[address] [...] [facility] | [address] | [place] [address] | | | SERVICES, CORE | PARK [...] | + + + + + | [facility] | [address] | [place] [address] | | | SERVICES, CORE | SHARA [...] | + + + + + | [facility] | [address] | [place] [address] | | | SERVICES, CORE | PARK [...] | + + + + + | [facility] | [address] | [place] [address] | | | SERVICES, CORE | SHARA [...] | + + + + + | [facility] | [address] | [place] [address] | | | SERVICES, CORE | SHARA [...] [facility] | [address] | [place] [address] | | | SERVICES, CORE | SHARA [...] [facility] | [address] | [place] [address] | | | SERVICES, CORE | SHARA [...] | + + + + + | [facility] | [address] | [place] [address] | | | SERVICES, CORE | SHARA [...] [facility] | [address] | [place] [address] | | | SERVICES, CORE | PARK [...] | + + + + + | [facility] | [address] | [place] [address] | | | SERVICES, CORE | SHARA [...] [facility] | [address] | [place] [address] | | | DA MARROQUIN | [address] | | | [...] [facility] | [address] | [place] [address] | | | SERVICES, CORE | SHARA [...] | | | LABORATORY | | | [place] | | | SERVICES, | | | [...] MDRD equation recommended by the National | [facility] | | Kidney Disease Education Program. Estimated GFR Interpretive | LABORATORY | | Information: <60 mL/min/1.73 sq m Chronic Kidney | SERVICES, [facility] | | Disease <15 mL/min/1.73 sq m [...] | + + + + + | [facility] | [address] | [place] [address] | | | SERVICES, [facility] | [address] | | | + [...] [facility] | [address] | [place] [address] | | | AD MARROQUIN | SHARA [...] | [address] | [place], [place] | | | CARDIOLOGY | [address] | [phone] | | + + + + + [...] LABORATORY | [address] | [place] [address] | | | SERVICES, CORE | SHARA [...] LABORATORY | [address] | [place] [address] | | | SERVICES, CORE | PARK [...] [facility] | [address] | [place] [address] | | | SERVICES, CORE | PARK [...] [facility] | [address] | [place] [address] | | | SERVICES, CORE | PARK [...] | + + + + + | [facility] | [address] | [place] [address] | | | SERVICES, CORE | PARK [...] LABORATORY | [address] | [place] [address] | | | SERVICES, CORE | PARK [...] | [facility] | | considered for monitoring longwall shearer operator glycemic control in patients with: | LABORATORY [...] LABORATORY | [address] | [place] [address] | | | SERVICES, SPECIAL | SHARA [...] contrast performed at outside institution DATE OF [facility] | RADIOLOGY VOICE | [...] | | at outside institution DATE OF [facility] INTERPRETATION: 08/03/2019 2:32 PMDATE OF IMAGE | [...] | + + + + + | [facility] | [address] | [place] [address] | | | SERVICES, [facility] | [address] | | | + + + + + X-RAY PORTABLE CHEST 1 VIEW (07/29/2019 8:03 PM PDT) + + | Specimen | + + | | + + + + + | Narrative | Performed At | + + + | EXAM: [place] CHEST 1 VIEW HISTORY: ETT placement. DM2. Hypoglycemic | [facility] | | state complicated by seizure. COMPARISON: [...] Interface - 07/30/2019 10:14 AM PDT EXAM: [place] CHEST 1 | | VIEW HISTORY: ETT [...] [facility] | [address] | [place] [address] | | | SERVICES, | [address] [...] LABORATORY | [address] | [place] [address] | | | SERVICES, | [address] [...] | + + + + + | [facility] | [address] | [place] [address] | | | SERVICES, | [address] [...] | + + + + + | [facility] | [address] | [place] [address] | | | SERVICES, CORE | SHARA [...] [facility] | [address] | [place] [address] | | | SERVICES, CORE | PARK [...] YESIKA COX | [address] | [place] [address] | | | AD MARROQUIN | SHARA [...] + + | [facility] | [address] | [place] [address] | | | CARA, AD | SHARA [...] | + + + + + | [facility] | [address] | [place] [address] | | | SERVICES, CORE | SHARA [...] [facility] | [address] | [place] [address] | | | CARA, AD | SHARA [...] YESIKA KENNY | [address] | [place] [address] | | | CARA, AD | SHARA [...] | | | + +--------+ +--------+-------+---------+--------+ | TARIFF COMPILER MEDICAID | TARIFF COMPILER | xxxxxxxx | Effect | | | [...] | 1975 | [phone] | [place] [address] | | | carmela | | | [...]
--- OUTSIDE RECORDS SUMMARY | ~2019-09-02 | XMS | Encounter Summary ---
Demographics + + + | Address | [address] | | | [place] [address] | + + + | Home Phone | | + + + | Preferred Language | Unknown | + + + | Marital Status | Single | + + + | Voodoo Affiliation | NRP | + + + | Race | White | + + + | Ethnic Group | Not or | + + + Author + + + | Author | [facility] | + + + | Organization | [facility] | + + + | [...] Team Providers + +------+ + | Care Construction Trades Contractor Name | Role | Phone | + [...] [address] | | | | | | [place], [place] | | | | | | [address] | | | +--------+ + + + [...]
--- OUTSIDE RECORDS SUMMARY | ~2019-09-02 | XMS | Encounter Summary ---
Demographics + + + | Address | [address] | | | [place] [address] | + + + | Home Phone [...] Author + + + | Author | [facility] | + + + | Organization | [facility] | + + + | [...] Team Providers + +------+ + | Care Wastewater Treatment Engineer Name | Role | Phone | + [...] Pharmacy | | | | | | [address] | | | | | | [place], | | | | | | [place] [address] | | | | | | [phone] | | | +--------+ + + + [...]
--- OUTSIDE RECORDS SUMMARY | ~2019-09-02 | XMS | Encounter Summary ---
Demographics + + + | Address | [address] | | | [place] [address] | + + + | Home Phone | | + + + | Preferred Language | Unknown | + + + | Marital Status | Single | + + + | Caodaism Affiliation | NRP | + + + | Race | White | + + + | Ethnic Group | Not or | + + + Author + + + | Author | [facility] | + + + | Organization | [facility] | + + + | [...] Team Providers + +------+ + | Care Visitor Services Information Assistant Name | Role | Phone | + [...] Pharmacy | | | | | | [address] | | | | | | [place], | | | | | | [place] [address] | | | | | | [phone] | | | +--------+ + + + [...]
--- OUTSIDE RECORDS SUMMARY | 2019-09-02 05:58 | XMS ---
PreManage Notification: JENNIFER CARNEY [employer] No recent Security Events currently on file CRITERIA MET - [facility] - 2 Visits in 30 Days CARE PROVIDERS There are no care providers on record at this time. Sukhdev has no Care Guidelines for this patient. Josy [facility] (12 MO.) [facility] TOTAL 4 NOTE: Visits indicate total known visits. 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 [facility] [place] TYPE: Emergency COMPLAINT: - HEAD INJ, FALL DIAGNOSES: - Alcohol dependence with withdrawal, unspecified - Syncope and collapse - Exposure to other specified factors, initial encounter - Contusion of eyeball and orbital tissues, left eye, init - Acidosis - Unspecified convulsions 01/15/2019 23:15 [facility] [place] TYPE: Emergency COMPLAINT: - "No place to stay" DIAGNOSES: - Allergy status to oth drug/meds/biol subst status - Latex allergy status - 1 Type 2 diabetes mellitus without complications - Hypomagnesemia - Essential (primary) hypertension - Personal history of traumatic brain injury - Hypomagnesemia - Other chcf (current) drug therapy - Personal history of traumatic brain injury - Latex allergy status - Allergy status to oth drug/meds/biol subst status - Alcohol abuse with intoxication, unspecified - Hyperlipidemia, unspecified - Essential (primary) hypertension - Alcohol abuse with intoxication, unspecified - Hyperlipidemia, unspecified - Hostility - Other ad terminal makeup operator (current) drug therapy - 1 Type 2 diabetes mellitus without complications - Hostility INPATIENT VISIT TRACKING (12 MO.) 07/29/2019 19:00 [facility] TYPE: Internal Medicine DIAGNOSES: 31008. DKA 18101. Unspecified convulsions [id number]. Ot diabetes mellitus with ketoacidosis without coma [email or web address]
[2019-09-02] MEDS ORDERED: NORVASC2.5 MG PO (06:03)
[2019-09-02] MEDS ORDERED: ZESTRIL2.5 MG PO (06:04)
[2019-09-02] MEDS ORDERED: PROZAC10 MG (06:04)
[2019-09-02] MEDS ORDERED: GLUCOPHAGE500 MG PO (06:04)
[2019-09-02] MEDS ORDERED: LANTUS100 UNITS/ SUB-Q (06:05)
[2019-09-02] MEDS ORDERED: VITAMIN D5000 UNI1 PO (06:05)
== END 2019-09-02 06:40 | disposition home or self-care (01) ==
LOC: ED 05:55
DX: M25.551 Pain in right hip (principal); M25.552 Pain in left hip; E11.9 Type 2 diabetes mellitus without complications; I10 Essential (primary) hypertension; F31.9 Bipolar disorder, unspecified; Z79.899 Other long term (current) drug therapy; Z79.4 Long term (current) use of insulin
CPT/HCPCS: 99283; A9270

== ENCOUNTER 2021-03-01 19:27 | Observation (INO) | payer OTHER ==
[~2021-03-01] VITALS: Ht 172.7 cm; Wt 89.4 kg
[~2021-03-01 19:27] MED LIST: FLUOXETINE HCL20 M1 PO; GLUCOPHAGE500 MG PO; LANTUS100 UNITS/ SUB-Q; NORVASC2.5 MG PO; VITAMIN D5000 UNI1 PO; ZESTRIL2.5 MG PO
--- OUTSIDE RECORDS SUMMARY | 2021-03-01 19:30 | XMS ---
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 POLICE. CRITERIA MET - Group Notification - 6 ED Visits in 6 Months - [facility] - 3 Facilities in 90 Days - [facility] - 2 Visits in 30 Days CARE PROVIDERS ALISSA BAUER Spa Technician/Sole Leveling Machine Operator Current PHONE: [phone] Sukhdev has no Care Guidelines for this patient. Josy VISIT COUNT (12 MO.) 6 [facility] 1 [facility] NOTE: Visits indicate total known visits. ED/UCC VISIT TRACKING (12 MO.) 03/01/2021 19:27 [facility] [place] TYPE: Emergency COMPLAINT: - SUICIDAL ATTEMPT 02/11/2021 19:47 [facility] [place] TYPE: Emergency COMPLAINT: - AMB HTN 02/03/2021 17:13 [facility] [place] TYPE: Emergency DIAGNOSES: - Low back pain - MENTAL HEALTH - Pain in right ankle and joints of right foot - Other chronic pain - Pain in left ankle and joints of left foot 01/15/2021 19:48 [facility] [place] TYPE: Emergency DIAGNOSES: - ALCOHOL INTOXICATION - Alcohol use, unspecified with intoxication, uncomplicated 01/10/2021 15:28 [facility] [place] TYPE: Emergency COMPLAINT: - MENTAL EVALUATION 12/28/2020 19:56 [facility] [place] TYPE: Emergency DIAGNOSES: - alt mental - Alcohol use, unspecified with intoxication, uncomplicated 12/28/2020 04:48 [facility] [place] TYPE: Emergency DIAGNOSES: - Essential (primary) hypertension - HEADACHE AND NAUSEA - Headache, unspecified 12/23/2020 15:05 [facility] [place] TYPE: Emergency DIAGNOSES: - DELUSIONS - Bipolar disorder, unspecified 12/15/2020 21:33 [facility] [place] TYPE: Emergency DIAGNOSES: - Major depressive disorder, single episode, unspecified - MENTAL HEALTH EVAL 10/16/2020 15:25 [facility] [place] TYPE: Emergency COMPLAINT: - INTOXICATION DIAGNOSES: - residential (current) use of insulin - Type 2 diabetes mellitus with hyperglycemia - Alcohol abuse with intoxication, unspecified - Essential (primary) hypertension - Blood alcohol level of 240 mg/100 ml or more - 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
--- NOTE | 2021-03-01 21:45 | NUR ---
PATIENT ARRIVED VIA STRETCHER. PATIENT INDEPENDENTLY MOVED TO THE BED. PATIENT IS AAOX4. SLIGHTLY WITHDRAWN. DENIES BEING SUICIDAL, STATES "I'VE JUST BEEN MAKING POOR DECISIONS. NOT REALLY SURE WHY." PATIENT RECENTLY LEFT REHAB EARLY BUT DID NOT ELABORATE ON THIS. STATES HE HAS NOT DRANK SINCE LEAVING THERE. REPORTS HIS STOMACH IS UPSET, RECEIVED ZOFRAN IN ED. PATIENT VS STABLE. PATIENT UP TO BATHROOM. HAD LARGE AMOUNT OF LIQUI STOOL. STATES HE IS USUALLY REGULAR SO THAT WAS UNUSUAL FOR HIM. BLOOD GLUCOSE 71, JUICE AND CRACKERS PROVIDED. IV FLUIDS INFUSING PER ORDER, SITE WNL. PATIENT REQUIRES CLOSE MONITORING BY STAFF FOR SAFETY.
--- NOTE | 2021-03-01 22:00 | NUR ---
[employer] IN TO VISIT PATIENT. REPORTS HIM TO BE LOW-MODERATE RISK AND NOT REQUIRING DIRECT OBSERVATION. PATIENT RESTING IN BED. BLOOD GLUCOSE 90.
--- NOTE | 2021-03-02 00:12 | NUR ---
LABS DRAWN FROM IV SITE. SITE FLUSHED, 5ML WASTED AND NO TOURNIQUET USED. PATIENT RESTING IN BED. CALM. DENIES CONCERNS OR NEEDS.
--- NOTE | 2021-03-02 01:09 | NUR ---
DR. FROST NOTIFIED OF CRITICAL LACTIC ACID: 3.7, ORDERS RECEIVED FOR 1L LR BOLUS AND 0200 LABS: BMP, LACTIC ACID, AND VBG. ALSO TO CHECK IN WITH POISON CONTROL. PRIMARY RN, MARIA LUISA NOTIFIED OF CHANGES.
--- NOTE | 2021-03-02 01:20 | NUR ---
discussed changes with poison control. previously orders labs and fluids by MD were recommended. they will check in after 0200 labs are drawn.
--- NOTE | 2021-03-02 01:25 | NUR ---
NEW IV STARTED IN LEFT AC, 20GA. pt TOLERATED WELL. CONTINUOUS FLUIDS INFUSING IN BOTH IV SITES.
--- NOTE | 2021-03-02 01:30 | NUR ---
PATIENT HAS SECONDARY IV ACCESS ESTABLISHED BY WICHO DIALLO. BOLUS INFUSING WHILE CONTINUOUS FLUIDS AND MAG INFUSE. PATIENT DENIES ANY CONCERNS OR NEEDS. USED URNAL TO VOID 400 MLS CLEAR URINE.
--- NOTE | 2021-03-02 02:05 | NUR ---
PATIENT RESTING IN BED. EYES CLOSED. WAKE EASY TO VOICE. LABS DRAWN FROM IV SITE. LAST ORDERED DOSE OF IV MAG STARTED. LR BOLUS AND CONTINUOUS FLUIDS INFUSING. SITES WNL. PATIENT DENIED NEEDS.
--- NOTE | 2021-03-02 03:00 | NUR ---
PATIENT UP TO THE BATHROOM. PATIENT REPORTS MORE LOOSE CARMEN. VS STABLE. PATIENT STEADY ON HIS FEET. RETURNED TO BED. CALL LIGHT IN REACH.
--- NOTE | 2021-03-02 03:05 | NUR ---
REPORTED PATIENT'S LABS TO MD AND POISON CONTROL. NEXT LAB DRAW AT 0600. LABS AND ACCU CHECK Q4H. IV FLUIDS CONTINUED ORDERED.
--- NOTE | 2021-03-02 04:52 | NUR ---
PATIENT APPEARS TO BE SLEEPIING SOUNDLY. VS STABLE. IV FLUIDS PER ORDER. SITE WNL.
--- NOTE | 2021-03-02 06:00 | NUR ---
MORNING LABS DRAWN. PATIENT RESTING IN BED. DENIES ANY GI UPSET THIS MORNING. ACCU CHECK 75, PATIENT PROVIDED WITH SOME APPLE JUICE AND A MENU TO ORDER BREAKFAST. IV FLUIDS D5LR INFUSING PER ORDER. VS STABLE. PATIENT USED URNAL IN BED. 600 MLS CLEAR YELLOW URINE NOTED.
[2021-03-02] MEDS ORDERED: GLIPIZIDE ER5 MG PO (07:14)
[2021-03-02] MEDS ORDERED: LISINOPRIL20 MG PO (07:15)
[2021-03-02] MEDS ORDERED: AMLODIPINE BESYL5 MG PO (07:15)
--- NOTE | 2021-03-02 07:27 | NUR ---
REPORT RECEIVED FROM NIGHTSHIFT RN, WILL CONTINUE PLAN OF CARE.
--- NOTE | 2021-03-02 08:00 | NUR ---
THIS RN IN TO START NEW BAG OF CONTINUOUS IVF. PT LAYING IN BED SLEEPING AND AWOKE WHEN HANGING A NEW BAG. PT WAS ALERT AND ORIENTED X 4 ON ROOM AIR. WHEN ASKED ABOUT PAIN PT STATED HE WAS HAVING 5/10 BACK PAIN WHICH IS CHRONIC FOR HIM. PT STATED YES WHEN ASKED IF HE WANTED HIS ORDERED PRN PAIN MEDICATION. PRN PAIN MEDICATION WAS ADMINISTERED (SEE MAR). PT VITALS TAKEN. WATER AND BREAKFAST PROVIDED TO PT AT THIS TIME. PT SITTING UP IN BED AT THIS TIME EATING BREAKFAST AND REPORTS NO FURTHER NEEDS WHEN ASKED, WILL CONTINUE PLAN OF CARE. CALL LIGHT IN REACH, BED IN LOWEST POSITION, IVF INFUSING ORDERED.
--- NOTE | 2021-03-02 08:36 | NUR ---
THIS RN IN TO ASSESS PT. PT LAYING IN BED AWAKE AND ALERT ON ROOM AIR. ASSESSMENT COMPLETED AT THIS TIME. PT ALERT AND ORIENTED, STRENGTH EQUAL BILATERALLY, LUNGS ARE CLEAR, BOWEL TONES ACTIVE, PULSES STRONG. PT FINISHED MAJORITY OF HIS BREAKFAST 80%. WILL CONTINUE PLAN OF CARE, CALL LIGHT IN REACH, BED IN LOWEST POSITION, IVF INFUSING. PT REPORTS NO FURTHER NEEDS AT THIS TIME.
--- NOTE | 2021-03-02 09:16 | NUR ---
THIS RN IN TO ADMINISTER SCHEDULED MEDICATION. PT LAYING IN BED AWAKE AND ALERT AT THIS TIME. MEDICATION ADMINISTERED AT THIS TIME (SEE MAR). PT REPORTS NO FURTHER NEEDS AT THIS TIME WHEN ASKED. WATER PROVIDED FOR PT, PT REPORTS NO FURTHER NEEDS, WILL CONTINUE PLAN OF CARE. IVF INFUSING, CALL LIGHT IN REACH, BED IN LOWEST POSITION.
--- NOTE | 2021-03-02 09:30 | NUR ---
DR. FROST IN TO ASSESS PT AND UPDATE ON PLAN OF CARE. POISON CONTROL CALLED AT THIS TIME. UPDATES GIVEN TO THEM ON THE PT'S MORNING LABS AND CURRENT CONDITION. WILL CONTINUE PLAN OF CARE.
[2021-03-02] MEDS ORDERED: HYDROXYZINE HCL50 MG PO (09:58)
--- NOTE | 2021-03-02 10:07 | NUR ---
THIS RN IN TO DRAW LABS AND CHECK PT'S BLOOD SUGAR. BLOOD SUGAR WAS 59, PT ASKED ABOUT SYMPTOMS AND HE STATED HE FELT TIRED AND WEAK BUT DENIED LIGHTHEADEDNESS. DR. FROST INFORMED OF PT'S BLOOD SUGAR. 25ML OF D50% ADMINISTERED PER PROTOCOL/VERBAL ORDERS (SEE MAR). DR. FROST PLACING NEW ORDERS FOR D10 AND LR AT THIS TIME. PT REPORTS NO FURTHER NEEDS AT THIS TIME AND IS STILL LAYING IN BED AWAKE AND ALERT STATING HE ONLY FEELS WEAKNESS. PT DENIED JUICE OR A SNACK AT THIS TIME WHEN ASKED. PT REPORTS HIS BACK PAIN HAS DECREASED SLIGHTLY TO 4/10 BUT STATES IT'S TOLERABLE. WILL CONTINUE PLAN OF CARE AND ADMINISTER ORDERED IVF. CALL LIGHT IN REACH, BED IN LOWEST POSITION.
--- NOTE | 2021-03-02 10:40 | NUR ---
THIS RN IN TO START PT ON NEW ORDERED IVF. PT LAYING IN BED AWAKE AND ALERT BUT STILL STATES HIS IS FEELING A BIT TIRED. ORDERED IVF D10 AND LR INFUSING AT ORDERED RATES. PT THEN STATED HE NEEDED TO USE THE BATHROOM, PT ABLE TO STAND UP STATING HE DID NOT FEEL LIGHT HEADED OR DIZZY. PT ABLE TO WALK TO BATHROOM SBA AND HAVE A LIQUID BM AND VOID. PT BLOOD SUGAR ASSESSED DURING THIS TIME AND WAS 101. PT REPORTS NO FURTHER NEEDS AT THIS TIME WHEN ASKED. PHARMACIST NOW IN ROOM GOING OVER PT'S MEDICATIONS. WILL CONTINUE PLAN OF CARE, CALL LIGHT IN REACH, BED IN LOWEST POSITION, IVF INFUSING ORDERED.
--- NOTE | 2021-03-02 10:45 | NUR ---
Pt currently residing in a motel. Recently discharged from rehab in [facility]. Pt is unsure where he will go on discharge. He denie s use of DME. Has used a CPAP in the past, but stopped using and it w was returned to the company. May return to [facility] 6 on dc or call his brother. He has food, mental health, and transportation insecurity. He has seen [employer] in the past, declines offer to make an apptment for him. Gave him the phone and address for [employer], [employer] transportation number, and address and phone number for [employer]. Retrieved his cell phone from his bag with a erosion control coordinator to charge and he states he will set an appt with [employer]. He agrees to calls from [facility] after dc. Pt's cell phone number is [phone]. Will send a referral to [facility].
[2021-03-02] MEDS ORDERED: MULTI VITAMIN1 EACH PO (10:51)
[2021-03-02] MEDS ORDERED: SEROQUEL200 MG PO (10:51)
[2021-03-02] MEDS ORDERED: NALTREXONE HCL50 MG PO (10:52)
--- NOTE | 2021-03-02 10:53 | NUR ---
MED REC COMPLETE
--- NOTE | 2021-03-02 11:00 | NUR ---
Pt is also in need of a pcp, agrees to appt in [place]. He thinks hes been through the [facility] walk [facility]. Chart faxed requesting PCP and follow up appt.
[2021-03-02] MEDS ORDERED: ABILIFY5 MG PO (11:05)
--- NOTE | 2021-03-02 11:16 | NUR ---
THIS RN IN TO CHECK ON PT. PT LAYING IN BED WATCHING TV. PT REPORTS THAT HIS SYMPTOMS OF WEAKNESS HAVE SUBSIDED. PT REPORTS NO NEEDS WHEN ASKED AT THIS TIME, WILL CONTINUE PLAN OF CARE. CALL LIGHT IN REACH, BED IN LOWEST POSITION, D10 AND LR INFUSING ORDERED.
--- NOTE | 2021-03-02 11:50 | NUR ---
THIS RN IN TO ASSESS PT, TAKE VITALS, AND CHECK BLOOD SUGAR. PT LAYING IN BED RESTING, ON ROOM AIR, ORDERED IVF INFUSING. PT REPORTS NO LIGHTHEADEDNESS AND STATES THAT HE DOES NOT FEEL WEAK. PT ASSESSED AT THIS TIME, VS STABLE, BLOOD SUGAR WAS 106. LUNCH ORDERED FOR PT AT THIS TIME. PT REPORTS NO FURTHER NEEDS WHEN ASKED, WILL CONTINUE PLAN OF CARE. CALL LIGHT IN REACH, BED IN LOWEST POSITION.
--- NOTE | 2021-03-02 12:15 | NUR ---
LUNCH BROUGHT TO PT. AT THIS TIME. PT NOW SITTING IN BED EATING LUNCH, PT REPORTS NO FURTHER NEEDS, IVF INFUSING ORDERED, WILL CONTINUE PLAN OF CARE. CALL LIGHT IN REACH, BED IN LOWEST POSITION.
--- NOTE | 2021-03-02 12:39 | EKG ---
[facility] [address] [place] [address] Signed Normal sinus rhythm Prolonged QT Abnormal ECG When compared with ECG of 29-JUL-2019 13:38, Sinus rhythm has replaced Wide QRS tachycardia Vent. rate has decreased BY 82 BPM Confirmed by JENISE FROST DO ([id number]) on 03/02/2021 12:39:32 PM Electronically Signed By: JENISE FROST DO 03/02/21 1239 PATIENT NAME: JENNIFER CARNEY Electrocardiogram DATE OF : 77 PHYSICIAN: JENISE FROST DO REPORT #: [id number] REPORT IS CONFIDENTIAL AND NOT TO BE RELEASED WITHOUT AUTHORIZATION
--- NOTE | 2021-03-02 12:39 | EKG ---
[facility] [address] [place] [address] Signed Sinus rhythm with 1st degree AV block Nonspecific intraventricular conduction delay Borderline ECG When compared with ECG of 01-MAR-2021 19:47, (Unconfirmed) VT interval has increased Vent. rate has decreased BY 33 BPM Confirmed by JENISE FROST DO ([id number]) on 03/02/2021 12:39:42 PM Electronically Signed By: JENISE FROST DO 03/02/21 1239 PATIENT NAME: JENNIFER CARNEY Electrocardiogram DATE OF : [birth year] PHYSICIAN: JENISE FROST DO REPORT #: [id number] REPORT IS CONFIDENTIAL AND NOT TO BE RELEASED WITHOUT AUTHORIZATION
--- NOTE | 2021-03-02 12:57 | NUR ---
THIS RN IN TO CHECK ON PT. PT LAYING ON SIDE RESTING AND AWAKE. PT FINISHED EATING HIS LUNCH AT THIS TIME. BLOOD SUGAR CHECKED AND WAS 119, PT DENIES ANY WEAKNESS OR LIGHTHEADEDNESS BUT STATES THAT HE FEELS TIRED BEFORE. PT PROVIDED WITH WATER AT THIS TIME AND IVF ARE INFUSING ORDERED. PT REPORTS NO FURTHER NEEDS WHEN ASKED AT THIS TIME, WILL CONTINUE PLAN OF CARE. CALL LIGHT IN REACH, BED IN LOWEST POSITION.
--- NOTE | 2021-03-02 13:20 | NUR ---
RESPONDED TO PT CALL LIGHT. PT STATED HE NEEDED TO USE THE BATHROOM AT THIS TIME. PT ABLE TO GET UP WITHOUT ASSISTANCE AND GO TO BATHROOM TO HAVE A BM AND VOID. PT ABLE TO GET BACK IN BED WITHOUT ASSISTANCE. BILL FROM [employer] NOW IN ROOM TO SEE PT AT THIS TIME. WILL CONTINUE PLAN OF CARE.
--- NOTE | 2021-03-02 14:22 | NUR ---
RN VIMAL IN TO CHECK PT'S BLOOD SUGAR WHICH WAS 160. THIS RN IN TO CHECK ON PT. PT LAYING IN BED AWAKE AND ALERT AT THIS TIME. PT DENIES ANY PAIN WHEN ASKED. PT REPORTS NO WEAKNESS OR LIGHTHEADEDNES WHEN ASKED. IVF INFUSING ORDERED. DR. FROST CALLED AND UPDATED ON PT'S BLOOD SUGAR OF 160. NEW ORDERS GIVEN TO CHANGE RATE OF D10 TO 50ML/HR. D10 NOW INFUSING AT 50ML/HR, LR LEFT AT 50ML/HR. PT REPORTS NO FURTHER NEEDS AT THIS TIME. [employer] IN AT THIS TIME SPEAKING WITH PT. WILL CONTINUE PLAN OF CARE. CALL LIGHT IN REACH, BED IN LOWEST POSITION.
--- NOTE | 2021-03-02 15:16 | NUR ---
THIS RN IN TO CHECK ON PT AND CHECK BLOOD SUGAR. PT LAYING IN BED AWAKE AND RESTING AT THIS TIME. BLOOD SUGAR CHECKED AND WAS 150. PT DENIES ANY PAIN, DIZZYNESS, OR LIGHTHEADEDNES AT THIS TIME. PT REPORTS NO FURTHER NEEDS WHEN ASKED, DINNER ORDERED FOR PT, WILL CONTINUE PLAN OF CARE. CALL LIGHT IN REACH, BED IN LOWEST POSITION, IVF INFUSING ORDERED.
--- NOTE | 2021-03-02 16:24 | NUR ---
RN IN TO ASSESS PT, TAKE VITALS, AND CHECK BLOOD SUGAR. PT LAYING IN BED AWAKE AND ALERT. ASSESSMENT COMPLETE, VITALS TAKEN, BLOOD SUGAR CHECKED AND WAS 123. PT DENIES ANY PAIN, LIGHTHEADEDNESS, OR DIZZYNESS AT THIS TIME. IVF INFUSING AT ORDERED RATE AT THIS TIME. PT REPORTS NO FURTHER NEEDS WHEN ASKED. PT LAYING IN BED, IVF INFUSING, PT ON ROOM AIR, CALL LIGHT IN REACH, BED IN LOWEST POSITION. WILL CONTINUE PLAN OF CARE.
--- NOTE | 2021-03-02 17:10 | NUR ---
PT LAYING IN BED SLEEPING AT THIS TIME. PT AWOKE EASILY AND WAS ALERT AND ORIENTED. BLOOD SUGAR CHECKED AT THIS TIME AND WAS 109. PT DENIES ANY LIGHTHEADEDNESS OR DIZZYNESS. PT STATES THAT HE FEELS TIRED. PT DINNER BROUGHT AT THIS TIME. PT REPORTS NO FURTHER NEEDS AND DENIES ANY PAIN AT THIS TIME. PT NOW SITTING UP IN BED EATING DINNER. CALL LIGHT IN REACH, BED IN LOWEST POSITION, IVF INFUSING ORDERED, WILL CONTINUE PLAN OF CARE.
--- NOTE | 2021-03-02 17:30 | NUR ---
THIS RN IN TO CHECK ON PT. PT SITTING UP IN BED AND HAD JUST FINISHED EATING DINNER. PT THEN STATED HE NEEDED TO HAVE A BM. PT ABLE TO GET UP WITHOUT ASSISTANCE AND USE THE BATHROOM. PT ABLE TO WALK BACK WITHOUT ASSISTANCE WELL. PT NOW BACK IN BED AWAKE AND ALERT. PT DENIES PAIN OR NAUSEA AT THIS TIME AND REPORTS NO NEEDS WHEN ASKED. WILL CONTINUE PLAN OF CARE. CALL LIGHT IN REACH, BED IN LOWEST POSITION, IVF INFUSING ORDERED.
--- NOTE | 2021-03-02 18:16 | NUR ---
PT LAYING IN BED AWAKE AND ALERT. SCHEDULED LABS DRAWN AT THIS TIME AND BLOOD SUGAR CHECKED. BLOOD SUGAR WAS 109. PT REPORTS NO FURTHER NEEDS AT THIS TIME WHEN ASKED AND DENIES PAIN OR NAUSEA. WILL CONTINUE PLAN OF CARE. IVF INFUSING AT ORDERED RATE, CALL LIGHT IN REACH, BED IN LOWEST POSITION.
--- NOTE | 2021-03-02 19:30 | NUR ---
SHIFT REPORT RECEIVED FROM YOEL LEONE. PT SLEEPING AT [facility] STIME, RESPIRATIONS EVEN AND UNLABORED, RR:17, HR:50, SPO2:97% ON RA.
--- NOTE | 2021-03-02 20:26 | NUR ---
ASSESSMENT COMPLETED. PT REPORTS FEELING TIRED, AFFECT IS SOMEWHAT FLAT, DENIES PAIN. LUNGS CLEAR, RA. HR REGULAR, RATE 50-60'S. BOWEL TONES ACTIVE, DENIES NAUSEA. SKIN GROSSLY INTACT, NO EDEMA NOTED. IV SITES INTACT, PATENT, FLUIDS INFUSING WNL. CB. PT DENIES NEEDS AT THIS TIME, LIGHTS DIMMED PER REQUEST, NO FURTHER NEEDS AT THIS TIME.
--- NOTE | 2021-03-02 22:13 | NUR ---
PT SLEEPING, WOKE EASILY WHEN I ENTERED ROOM. CB. PT DENIES NEEDS AT THIS TIME. CALL LIGHT WITHIN REACH.
--- NOTE | 2021-03-02 23:52 | NUR ---
IV PUMP ALARMING, IN TO RESET. ASSESSMENT COMPLETED AT THIS TIME. PT ASKS IF HE CAN LEAVE; LET HIM KNOW THAT HE IS NOT ON A HOLD AND THAT HE IS FREE TO GO, BUT THAT IT WOULD BE CONSIDERED AGAINST MEDICAL ADVICE. REMINDED PT THAT HE IS ON D10 AND AT RISK FOR LOW BLOOD SUGARS AND THAT IT WOULD BE BENEFICIAL FOR HIM TO STAY AND HAVE LABS CHECKED IN THE MORNING. PT STATES HE IS FEELING BETTER AND JUST WANTS TO LEAVE. MEDICAL MALPRACTICE PARALEGAL AND DR. FROST NOTIFIED. WHEN I WENT IN ROOM AGAIN TO HAVE PT SIGN AMA FORM, PT STATED HE IS WILLING TO STAY UNTIL MORNING. DR. FROST IN UNIT AND DISCUSSED RISKS OF LEAVING [facility]AMD AWARE PT IS WILLING TO STAY AT THIS TIME.
--- NOTE | 2021-03-03 02:30 | NUR ---
PT SLEEPING, WOKE EASILY WHEN SPOKEN TO. CB, IVF INFUSING WNL. URINAL EMPTIED. PT DENIES REQUESTS AT THIS TIME.
--- NOTE | 2021-03-03 04:20 | NUR ---
IN TO START NEW BAG OF IVF. PT SLEEPING AT THIS TIME, NO APPARENT DISTRESS. RESPIRATIONS EVEN AND UNLABORED, RR:16, HR:48, SPO2:99%. WILL DEFFER ASSESSMENT FOR NOW TO ALLOW FOR REST.
--- NOTE | 2021-03-03 06:11 | NUR ---
IN TO CHECK CB. PT REPORTS FEELING NAUSEATED, PRN ZOFRAN GIVEN ALONG WITH CRACKERS AND APPLE JUICE PROVIDED. PT ASLO REPORTS 5/10 CHRONIC BACK PAIN, PRN TYLENOL GIVEN. REMAINDER OF ASSESSMENT UNCHANGED. IV SITES REMAIN INTACT AND PATENT. PT VOIDING WELL. DENIES FURTHER REQUESTS AT THIS TIME, CALL LIGHT WITHIN REACH.
--- NOTE | 2021-03-03 07:15 | NUR ---
REPORT RECEIVED FROM NIGHTSHIFT RN, WILL CONTINUE PLAN OF CARE.
--- NOTE | 2021-03-03 07:22 | NUR ---
PT LAYING IN BED AT THIS TIME SLEEPING ON SIDE. RESPIRATIONS NOTED AND ARE EVEN AND UNLABORED. LR AND D10 INFUSING AT ORDERED RATE. PT IN NO APPARENT DISTRESS AND WAS LEFT UNDISTURBED. WILL CONTINUE PLAN OF CARE. CALL LIGHT IN REACH.
--- NOTE | 2021-03-03 07:57 | NUR ---
CHW referral form emailed to [facility] CHW.
--- NOTE | 2021-03-03 08:12 | NUR ---
IN TO ASSESS PT AND TAKE VITALS. PT LAYING IN BED SLEEPING AND AWOKE EASILY. PT WAS ALERT AND ORIENTED AFTER WAKING. PT STATES HE FEELS GROGGY AT THIS TIME FROME WAKING UP BUT DENIES ANY PAIN, NAUSEA, OR DIZZYNESS. VITALS TAKEN AT THIS TIME AND PT. ASSESSED. LUNGS ARE CLEAR, BOWEL TONES ACTIVE, PULSES STRONG. BREAKFAST ORDERED FOR PT AT THIS TIME. PT DENIES ANY FURTHER NEEDS AT THIS TIME WHEN ASKED. IVF INFUSING AT ORDERED RATE, BED IN LOWEST POSITION, CALL LIGHT IN REACH. WILL CONTINUE PLAN OF CARE.
--- NOTE | 2021-03-03 08:46 | NUR ---
THIS RN IN TO CHECK PT'S BLOOD SUGAR. PT LAYING IN BED AWAKE AND ALERT AT THIS TIME. BLOOD SUGAR CHECKED AND WAS 121. PT'S D10 AND LR THEN STOPPED AT THIS TIME PER ORDERS. IV MAGNESIUM SULFATE NOW INFUSING AT ORDERED RATE (SEE MAR). BREAKFAST BROUGHT TO PT AT THIS TIME. PT NOW SITTING IN BED EATING BREAKFAST. PT REPORTS NO FURTHER NEEDS AT THIS TIME, WILL CONTINUE PLAN OF CARE. CALL LIGHT IN REACH, BED IN LOWEST POSITION.
--- NOTE | 2021-03-03 10:06 | NUR ---
IN TO ASSESS PT'S BLOOD SUGAR SCHEDULED. PT LAYING IN BED SLEEPING AND AWOKE EASILY. PT'S BLOOD SUGAR WAS 101. PT DENIES PAIN, NAUSEA, OR DIZZYNESS AT THIS TIME. PT REPORTS NO FURTHER NEEDS WHEN ASKED, WILL CONTINUE PLAN OF CARE. ORDERED IV MEDICATION INFUSING, CALL LIGHT IN REACH.
--- NOTE | 2021-03-03 11:06 | NUR ---
THIS RN IN TO CHECK PT'S BLOOD SUGAR. PT LAYING IN BED AWAKE AND ALERT AT THIS TIME. BLOOD SUGAR WAS 114. PT'S IV MAGNESIUM COMPLETED AT THIS TIME AND PT HAS BEEN SALINE LOCKED. PT REPORTS NO FURTHER NEEDS AT THIS TIME. DR. FROST UPDATED ON PT'S STATUS AND BLOOD SUGAR, WILL CONTINUE PLAN OF CARE. CALL LIGHT IN REACH, BED IN LOWEST POSITION.
[2021-03-03] MEDS ORDERED: FREESTYLE LITE1 EAC2 MISC (11:12)
[2021-03-03] MEDS ORDERED: FREESTYLE LITE1 EAC1 TD (11:12)
--- NOTE | 2021-03-03 11:28 | NUR ---
PT LEELA, DID NOT DISTURB IS TO DC TODAY
--- NOTE | 2021-03-03 12:30 | NUR ---
Spoke with pt. He plans on dc today. Unsure of where he will dc to. NOtified we can give a courtesy ride in town. Updated I notified CHW of his dc. He also has had contact with [facility] (came in to see him) and staff from [facility] visited. Attempted to schedule follow up appt for Mayra Mcclure, did not receive confirmation of as yet.
--- NOTE | 2021-03-03 12:50 | NUR ---
CASE MANAGEMENT AND PHARMACY IN TO EDUCATE PT. ON DISCHARGE. THIS RN IN TO TAKE LAST SET OF VITALS AND PROVIDE WITH DISCHARGE INSTRUCTIONS. PT. QUESTIONS ANSWERED AT THIS TIME. BOTH IV'S DC'D AT THIS TIME. BOTH IV CATHETERS WHERE INTACT, PT TOLERATED REMOVAL WELL. PT THEN ABLE TO DRESS HIMSELF, A TAXI WAS CALLED FOR THE PT. DISCHARGE INSTRUCTIONS AND EDUCATIONAL MATERIAL PLACED IN A DISHCARGE FOLDER, PT BELONGINGS GATHERED IN A BELONGINGS BAG. PT THEN TAKEN DOWN TO FRONT LOBBY VIA WHEELCHAIR WITH BELONGINGS. PT BY ETL SOFTWARE ENGINEER STAFF IN THE LOBBY WAITING FOR HIS TAXI.
--- NOTE | 2021-03-07 10:40 | NUR ---
CAPRICE FROM [facility] CALLED TO SCHEDULE FOLLOW UP APPOINTMENT FOR March AT 7:20 AM. ATTEMPTED TO CONTACT PATIENT, NO ANSWER AND NO VOICEMAIL SET UP AT THIS TIME. CONTACTED ENRIQUE WEBB CHW WITH UPDATE, SHE WILL CONTINUE TO CONTACT PATIENT REGARDING FOLLOW UP APPOINTMENT.
[2021-05-13] MEDS ORDERED: SEROQUEL200 MG PO (16:02)
[2021-05-13] MEDS ORDERED: FLUOXETINE HCL10 MG PO (16:02)
[2021-05-13] MEDS ORDERED: FLUOXETINE HCL20 MG PO (16:02)
[2021-05-13] MEDS ORDERED: HYDROXYZINE HCL25 MG PO (16:02)
== END 2021-03-03 12:45 | disposition home or self-care (01) ==
LOC: ED 19:27 → CCU 19:28
PROVIDERS: ADMIT Student in an Organized Health Care Education/Training Program; ATTEND Student in an Organized Health Care Education/Training Program
DX: T38.3X2A Poisoning by insulin and oral hypoglycemic [antidiabetic] drugs, intentional self-harm, initial encounter (principal); E11.649 Type 2 diabetes mellitus with hypoglycemia without coma; E87.2 Acidosis; I10 Essential (primary) hypertension; F17.200 Nicotine dependence, unspecified, uncomplicated; Z79.4 Long term (current) use of insulin; Z79.899 Other long term (current) drug therapy; Z20.822 Contact with and (suspected) exposure to COVID-19
CPT/HCPCS: 36415; 51701; 80048; 80053; 80176; 81001; 82803; 83605; 83735; 84443; 85025; 93005; 93010; 96365; 96366; 96376; 99285-25; C9803; G0378; J2405; J3475; J7030; J7121; U0003

== ENCOUNTER 2021-03-04 16:15 | Emergency (ER) | payer OTHER ==
[~2021-03-04] VITALS: Ht 172.7 cm; Wt 89.6 kg
[~2021-03-04 16:15] MED LIST changes: +ABILIFY5 MG PO; +AMLODIPINE BESYL5 MG PO; +FREESTYLE LITE1 EAC1 TD; +FREESTYLE LITE1 EAC2 MISC; +GLIPIZIDE ER5 MG PO; +HYDROXYZINE HCL50 MG PO; +LISINOPRIL20 MG PO; +MULTI VITAMIN1 EACH PO; +NALTREXONE HCL50 MG PO; +SEROQUEL200 MG PO
--- OUTSIDE RECORDS SUMMARY | 2021-03-04 16:18 | XMS ---
PreManage Notification: JENNIFER CARNEY Security Portfolio Mgr Events 1 event(s) in the past 18 months Most recent security events: Other at [facility] 01/10/2021 15:28 Details: PATIENT LWBS. POLICE. CRITERIA MET - Group Notification - 6 ED Visits in 6 Months - [facility] - 3 Facilities in 90 Days - [facility] - 2 Visits in 30 Days CARE PROVIDERS ALISSA BAUER Radiology Specialist/Blender Current PHONE: [phone] Sukhdev has no Care Guidelines for this patient. Josy VISIT COUNT (12 MO.) 6 [facility] 1 [facility] NOTE: Visits indicate total known visits. ED/UCC VISIT TRACKING (12 MO.) 03/04/2021 16:16 [facility] [place] TYPE: Emergency COMPLAINT: - CHEST PAIN 03/01/2021 19:27 [facility] [place] TYPE: Emergency COMPLAINT: - SUICIDAL ATTEMPT 02/11/2021 19:47 [facility] [place] TYPE: Emergency COMPLAINT: - AMB HTN 02/03/2021 17:13 [facility] [place] TYPE: Emergency DIAGNOSES: - Low back pain - MENTAL HEALTH - Pain in right ankle and joints of right foot - Other chronic pain - Pain in left ankle and joints of left foot 01/15/2021 19:48 [facility] [place] TYPE: Emergency DIAGNOSES: - ALCOHOL INTOXICATION - Alcohol use, unspecified with intoxication, uncomplicated 01/10/2021 15:28 [facility] [place] TYPE: Emergency COMPLAINT: - MENTAL EVALUATION 12/28/2020 19:56 [facility] [place] TYPE: Emergency DIAGNOSES: - alt mental - Alcohol use, unspecified with intoxication, uncomplicated 12/28/2020 04:48 [facility] [place] TYPE: Emergency DIAGNOSES: - Essential (primary) hypertension - HEADACHE AND NAUSEA - Headache, unspecified 12/23/2020 15:05 [facility] [place] TYPE: Emergency DIAGNOSES: - DELUSIONS - Bipolar disorder, unspecified 12/15/2020 21:33 [facility] [place] TYPE: Emergency DIAGNOSES: - Major depressive disorder, single episode, unspecified - MENTAL HEALTH EVAL 10/16/2020 15:25 [facility] [place] TYPE: Emergency COMPLAINT: - INTOXICATION DIAGNOSES: - terminal computer operator (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
--- NOTE | 2021-03-05 14:37 | EKG ---
[facility] [address] [place], [place] [address] Signed Normal sinus rhythm Normal ECG When compared with ECG of 02-MAR-2021 07:06, KS interval has decreased Confirmed by JENISE FROST DO ([id number]) on 03/05/2021 2:37:35 PM Electronically Signed By: JENISE FROST DO 03/05/21 1437 PATIENT NAME: JENNIFER CARNEY Electrocardiogram DATE OF : 77 PHYSICIAN: JENISE FROST DO REPORT #: [id number] REPORT IS CONFIDENTIAL AND NOT TO BE RELEASED WITHOUT AUTHORIZATION
[2021-05-13] MEDS ORDERED: HYDROXYZINE HCL25 MG PO (16:02)
[2021-05-13] MEDS ORDERED: FLUOXETINE HCL20 MG PO (16:02)
[2021-05-13] MEDS ORDERED: SEROQUEL200 MG PO (16:02)
[2021-05-13] MEDS ORDERED: FLUOXETINE HCL10 MG PO (16:02)
== END 2021-03-04 19:24 | disposition home or self-care (01) ==
LOC: ED 16:15
DX: R07.89 Other chest pain (principal); E11.9 Type 2 diabetes mellitus without complications; I10 Essential (primary) hypertension; E78.00 Pure hypercholesterolemia, unspecified; F17.200 Nicotine dependence, unspecified, uncomplicated; Z79.899 Other long term (current) drug therapy
CPT/HCPCS: 71045; 80053; 83735; 84484; 85025; 93005; 93010; 99285-25

== ENCOUNTER 2021-05-02 13:45 | Inpatient (IN) | payer OTHER ==
[~2021-05-02] VITALS: Ht 172.7 cm; Wt 81.0 kg
--- OUTSIDE RECORDS SUMMARY | 2021-05-02 13:48 | XMS ---
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 POLICE. CRITERIA MET - [facility] - 3 Facilities in 90 Days - PDMP - Group Notification - 6 ED Visits in 6 Months CARE PROVIDERS SRIDHAR MATTSON Physician Purchasing Engineer 03/07/2021-Current PHONE: Unknown ALISSA BAUER Wood Heel Flap Inserter/Arbor Press Operator Current PHONE: [phone] Sukhdev has no Care Guidelines for this patient. Care History Medical/Surgical 03/07/2021 [facility] - PATIENT HAS AN APT WITH [facility]- APT 03/23/21 @ 3:20PM - MEDICAID TRANSPORT NUMBER PROVIDED TO PATIENT - CHW PROVIDED CHW CONTACT NUMBER FOR FUTURE HELP/RESOURCE INFORMATION. - PATIENT CURRENTLY STAYING AT [address] [phone]. E.D. VISIT COUNT (12 MO.) 6 [facility] 1 [facility] 5 REYNA Galvan TOTAL 12 NOTE: Visits indicate total known visits. ED/UCC VISIT TRACKING (12 MO.) 05/02/2021 13:45 [facility] [place] TYPE: Emergency COMPLAINT: - HEADACHE, BLURRY VISION 03/04/2021 16:16 [facility] [place] TYPE: Emergency COMPLAINT: - CHEST PAIN DIAGNOSES: - Other terminal clerk (current) drug therapy - Pure hypercholesterolemia, unspecified - Essential (primary) hypertension - Nicotine dependence, unspecified, uncomplicated - Type 2 diabetes mellitus without complications - Other chest pain 03/01/2021 19:27 [facility] [place] TYPE: Emergency COMPLAINT: - SUICIDAL ATTEMPT 02/11/2021 19:47 [facility] [place] TYPE: Emergency COMPLAINT: - AMB HTN 02/03/2021 17:13 [facility] OR TYPE: Emergency DIAGNOSES: - Low back pain - MENTAL HEALTH - Pain in right ankle and joints of right foot - Other chronic pain - Pain in left ankle and joints of left foot 01/15/2021 19:48 [facility] [place] TYPE: Emergency DIAGNOSES: - ALCOHOL INTOXICATION - Alcohol use, unspecified with intoxication, uncomplicated [facility]10[facility]2021 15:[facility] COMPLAINT: - MENTAL EVALUATION 12/28/2020 19:56 [facility] OR TYPE: Emergency DIAGNOSES: - alt mental - Alcohol use, unspecified with intoxication, uncomplicated 12/28/2020 04:48 [facility] OR TYPE: Emergency DIAGNOSES: - Essential (primary) hypertension - HEADACHE AND NAUSEA - Headache, unspecified 12/23/2020 15:05 [facility] OR TYPE: Emergency DIAGNOSES: - DELUSIONS - Bipolar disorder, unspecified 12/15/2020 21:33 [facility] OR TYPE: Emergency DIAGNOSES: - Major depressive disorder, single episode, unspecified - MENTAL HEALTH EVAL 10/16/2020 15:25 [facility] [place] TYPE: Emergency COMPLAINT: - INTOXICATION DIAGNOSES: - halfway (current) use of insulin - Type 2 diabetes mellitus with hyperglycemia - Alcohol abuse with intoxication, unspecified - Essential (primary) hypertension - Blood alcohol level of 240 mg/100 ml or more - Other terminal clerk (current) drug therapy INPATIENT VISIT TRACKING (12 MO.) 03/01/2021 19:[address] [facility] [place] TYPE: Observation COMPLAINT: - OVERDOSE DIAGNOSES: - Acidosis - Type 2 diabetes mellitus with hypoglycemia without coma - Poisoning by insulin and oral hypoglycemic [antidiabetic] drugs, intentional self-harm, initial encounter - Essential (primary) hypertension - Other custodial (current) drug therapy - halfway (current) use of insulin - Nicotine dependence, unspecified, uncomplicated [email or web address]
[2021-05-02] MEDS ORDERED: METFORMIN HCL500 MG PO (13:51)
[2021-05-02] MEDS ORDERED: FLUOXETINE HCL10 MG PO (13:51)
[2021-05-02] MEDS ORDERED: ATORVASTATIN CA40 MG PO (13:51)
[2021-05-02] MEDS ORDERED: AMLODIPINE BESYL5 MG PO (13:51)
[2021-05-02] MEDS ORDERED: FLUOXETINE HCL20 MG PO (13:51)
[2021-05-02] MEDS ORDERED: HYDROXYZINE HCL25 MG PO (13:52)
[2021-05-02] MEDS ORDERED: LISINOPRIL20 MG PO (13:52)
--- NOTE | 2021-05-02 19:20 | NUR ---
REPORT RECEIVED FROM DAY SHIFT RN. PT LYING IN BED WITH ICE PACK ON FOREHEAD. EYES CLOSED. RESPIRATIONS EVEN. IVF INFUSING. TELE IN PLACE, HR 50'S. CALL LIGHT IN REACH.
--- NOTE | 2021-05-02 20:13 | EKG ---
[facility] [address] [place] [address] Signed Sinus rhythm with occasional premature ventricular complexes ST \T\ Marked T wave abnormality, consider anterolateral ischemia Prolonged QT Abnormal ECG When compared with ECG of 04-MAR-2021 16:16, premature ventricular complexes are now present Questionable change in QRS axis ST no longer elevated in Anterior leads T wave inversion now evident in Anterolateral leads QT has lengthened Confirmed by JENISE FROST DO ([id number]) on 05/02/2021 8:13:23 PM Electronically Signed By: JENISE FROST DO 05/02/212012 PATIENT NAME: JENNIFER CARNEY Electrocardiogram DATE OF : 77 PHYSICIAN: JENISE FROST DO REPORT #: [id number] REPORT IS CONFIDENTIAL AND NOT TO BE RELEASED WITHOUT AUTHORIZATION
--- NOTE | 2021-05-02 20:56 | NUR ---
EVENING ASSESSMENT COMPLETE. SCHEDULED MEDS ADMINISTERED PER EMAR. PRN FOR PAIN ADMINISTERED FOR REPORTED 10/10 HEADACHE. FRESH ICE PACK FOR HEAD. PT REPORTS FEELING DIZZY WITH MOVEMENT AND NOT BEING ABLE TO SEE OUT OF RIGHT PERIPHERAL FIELD. PT FORGETFUL WITH DIFFICULTY FINDING THE RIGHT WORDS. POST ANESTHESIA ROOM NURSE STRENGTH EQUAL BILAT. PT REPORTS NUMBNESS IN BUE THAT STARTED YESTERDAY. PT LEFT LYING ON RIGHT SIDE. NO FURTHER NEEDS AT THIS TIME. IVF INFUSING WNL. CALL LIGHT IN REACH.
--- NOTE | 2021-05-02 22:09 | NUR ---
PT REPORTS CONTINUED HEADACHE PAIN 03/16. PRN FOR PAIN ADMINISTERED PER EMAR. FRESH WATER AND ICE PACK PROVIDED. PT DENIES FURTHER NEEDS. CALL LIGHT IN REACH.
--- NOTE | 2021-05-03 00:10 | NUR ---
PT REPORTS HEADACHE IMPROVED AND IS RESTING COMFORTABLY. DENIES NEEDS AT THIS TIME. CALL LIGHT IN REACH.
--- NOTE | 2021-05-03 02:15 | NUR ---
VS AND I&O COMPLETE. NEURO ASSESSMENT COMPLETE. PT REPORTS PERIPHERAL VISION IN RIGHT FIELD IS STILL BLURRY. SLAB MILLER OPERATOR STRENGTH EQUAL BILAT. SPEECH CLEAR. PT REPORTS REPORTS HEADACHE PAIN /. PRN FOR PAIN ADMINISTERED PER EMAR. NO CHOKING OR SWALLOWING ISSUES NOTED. SBA TO SIDE OF BED TO VOID 350 ML CONCENTRATED URINE. GAIT STEADY. BACK TO BED. URINE DUMPED ON ACCIDENT BEFORE UA COULD BE COLLECTED. FRESH ICE PACK AND WATER PROVIDED. PT DENIES FURTHER NEEDS. CALL LIGHT IN REACH.
--- NOTE | 2021-05-03 05:20 | NUR ---
PT RESTING IN BED ON LEFT SIDE. RESPIRATIONS EVEN. HR 50'S. IVF INFUSING WNL.
--- NOTE | 2021-05-03 05:49 | NUR ---
VS AND I&O COMPLETE. NEURO ASSESSMENT COMPLETE. PRN FOR PAIN ADMINISTERED FOR 07/16 HEADACHE. PT UP TO SIDE OF BED TO VOID 190 ML CONCENTRATED URINE. PT REPORTS INCREASED DIZZINESS WITH ACTIVITY. BACK TO BED. FRESH ICE PACK AND ICE WATER PROVIDED.
--- NOTE | 2021-05-03 06:57 | NUR ---
PT RETURNED FROM HAVING A CT SCAN. CONTINUES TO CONPLAIN OF 10/10 HEAD PAIN, STATES IT IS A PRESSURE PAIN, AND JUST WON'T GO AWAY. SAME TYPE HEADACHE HE HAS HAD FOR PAST COUPLE HOURS, SAYS ITS HARD TO REMEMBER WHERE HE IS AT BUT WAS ABLE TO REMEMBER. TRANSFER IN AND OUT OF BED WAS SBA. CALL LIGHT WITHIN REACH. NO OTHER NEEDS AT THIS TIME. NO COUGHING NOTED AFTER DRINKING WATER.
--- NOTE | 2021-05-03 07:59 | NUR ---
TORDOL 15MG PRN GIVEN FOR HEADACHE, PT REPORTS SOME IMPROVEMENT AT THIS TIME. HE IS UNABLE TO ANSWER QUESTIONS APPROPRIATELY. A REPEAT CT IS ORDERED
--- NOTE | 2021-05-03 09:30 | NUR ---
Pt has difficulty answering questions. Pt states he can't remember. He is unsure if he lives in an apartment or is homeless. Unsure if he has services through any agencys. States he just cannot figure out what is happening. Reminded he had a stroke and he is in the hospital The discussed this with the pt, but he does not remember. I will contact [facility], [facility], brothers number which is listed.
--- NOTE | 2021-05-03 09:50 | NUR ---
Conatacted pts brother and updated to pts stroke. He has not been notified. He states, as in the past, he will assist pt, but pt cannot live with him. He states pt is homeless. He states if pt needs assist with medicaid paperwork he will assist him. 1020 Contacted [facility] and they state they have been assisting pt as he reconnected with them last week. He listed himself as on SSI Disability. They were attempting to find him housing. He is working with [employer] and also with their prison diverson program. He listed himself as homeless. He also documented he is going to [employer]. Contacted Paulette Mathews at [facility]. Updated pt is having difficulty with memory. He is not currently assigned a oil field caser, but is listed as SSI longterm/disability. She states if pt is unable to care for self he can apply for Medicaid and request placement. Discussed I am not sure he will be capable of this, she suggests contacting pts family to see if they will apply on his behalf. Informed I have contacted the brother. I am awaiting results from MRI and Echo.
--- NOTE | 2021-05-03 10:10 | NUR ---
IV MAG RIDER INFUSING FOR 4 HOURS CONCURRENTLY WITH IVF. PATIENT IS WORKING WITH PHYSICAL THERAPY AT THIS TIME.
--- NOTE | 2021-05-03 11:34 | NUR ---
THIS RN RECEIVED REPORT FROM NATALIYA DIALLO. THIS RN TO ASSUME CARE OF PT. PT APPEARS TO BE RESTING AT THIS TIME WITH RESPIRATIONS NOTED.
--- NOTE | 2021-05-03 11:41 | NUR ---
PT RESTING IN BED EYES CLOSED RR EVEN NO DISTRESS NOTED, PT APPEARS TO BE SLEEPING POSTURE RELAXED.
--- NOTE | 2021-05-03 11:43 | NUR ---
REPORT GIVEN TO JOVANNY DIALLO TO TRANSFER CARE.
--- NOTE | 2021-05-03 12:15 | NUR ---
THIS RN IN PTS ROOM TO PROVIDE HIM WITH 3 UNITS OF INSULIN FOR A BLOOD GLUCOSE OF 182. PT STATES THAT HIS PAIN IS TOLERABLE AT THIS TIME AND THAT HE WOULD JUST LIKE TO NAP FOR NOW. THIS RN WILL CHECK ON PT AFTER A BIT AND ALLOW HIM TO REST.
--- NOTE | 2021-05-03 13:24 | NUR ---
PT APPEARS TO BE RESTING COMFORTABLY AT THIS TIME WITH RESPIRATIONS NOTED AND CALL LIGHT WITHIN REACH.
--- NOTE | 2021-05-03 14:30 | NUR ---
THIS RN IN PTS ROOM DUE TO NEEDING PT TO VOID. PT ABLE TO AMBULATE TO RESTROOM TO VOID 250 OUT AT THIS TIME. PT BACK TO BED. NO REPORTS OF PAIN AT THIS TIME
--- NOTE | 2021-05-03 17:24 | NUR ---
SBA TO CHAIR FOR DINNER. PATIENT C/O HEADACHE, RN AWARE. VITALS AND I&OS CHARTED, NO OTHER NEED AT THIS TIME
--- NOTE | 2021-05-03 20:56 | NUR ---
Patient reports ongoing headache; Oxycodone 10mg po admin at this time. Patient reports vision in his right eye remains blurry. Encouraged pt to call staff if he has needs. No other needs at this time. Call light within reach.
--- NOTE | 2021-05-03 21:56 | NUR ---
VENTAL LEAD SHOWN OFF ON CENTRAL MONITAL, IN TO CHECK ON PT, ADJUSTED LEAD, NO FURHTER ISSUES
--- NOTE | 2021-05-03 22:42 | NUR ---
Patient resting on side, eyes closed, respirations non labored. Patient has no notable distress. Personal supplies and call light within reach.
--- NOTE | 2021-05-04 01:32 | NUR ---
Patient sleeping soundly, eye closed, respirations non labored. No notable distress. Close to RN station. No needs at this time.
--- NOTE | 2021-05-04 03:50 | NUR ---
Patient sleeping, eyes closed, respirations even and non labored. No notable distress. Close to RN station. Personal supplies and call light within reach.
--- NOTE | 2021-05-04 05:50 | NUR ---
in to get vital, had pt up to void, 400mls at this time, refilled ice water, pt asked about getting meds, let rn know, no further needs at this time
--- NOTE | 2021-05-04 06:05 | NUR ---
Oxycodone 10mg po admin for reports of 8/10 head pain.
--- NOTE | 2021-05-04 07:30 | NUR ---
Notified pt's staceyther in room. Visited and updated I called [facility]. Gave him Paulette's number and he will call when open to complete inital eval.
--- NOTE | 2021-05-04 10:00 | NUR ---
Call from Paulette, brother Raymond called her and completed initial eval. She is wanting to know if we have sent referral for placement. Updated I am awaiting PT/OT/ST eval today as they were unable to complete with pt yesterday as he did not feel well enough. I did call [facility] and they are not accepting pts. [facility] has one bed open in [facility]. Per Paulette it would be best if he could go to a SNF and then to [facility].
--- NOTE | 2021-05-04 10:30 | NUR ---
PT IN ROOM, PT WORKED WITH PHYS. THERAPY AND DID WELL. NO NEW CONCERNS NOTED AT THIS TIME.
--- NOTE | 2021-05-04 12:02 | NUR ---
SECOND ASSESSMENT HAS BEEN UNCHANGED FROM FIRST. NUMBNESS IN BOTH HANDS IS PERSISTING AND SO IS THE LOSS OF RIGHT SIEDED PERIPHERAL VISION. NO NEW CONCERNS NOTED. GIVING PT SOME COFFEE IN HOPES TO INCREASE HIS HR SINCE HE IS STILL SB IN THE 40'S-50'S.
--- NOTE | 2021-05-04 12:21 | NUR ---
PT AT THIS TIME WANTS TO SLEEP AND NOT EAT DINNER. PT WILL CALL WHEN HE IS READY TO EAT IN ORDER TO GET HIS 3 UNITS OF HUMALOG INSULIN.
--- NOTE | 2021-05-04 14:20 | NUR ---
PT SHOWERED. PT BACK ON TELE # 4 HR IN THE 50'S. NO NEW CONCERNS NOTED AT THIS TIME.
--- NOTE | 2021-05-04 15:00 | NUR ---
Chart was faxed to [facility]. Received call later in the afternoon from [facility] and message was leftstating they are executive order and unable to accept any pts for two weeks. Dr. Nunez updated and chart was faxed to [facility] in [place]. Attempted to contact [facility], but it was after 5, so I left a message requesting a bed.
--- NOTE | 2021-05-04 16:20 | NUR ---
PT CONDITION IS UNCHANGED WITH THE THIRD ASSESSMENT. RIGHT PERIPH. VISION STILL NON EXISTENT, PT STILL HAS HEADACHES AT TIMES WHICH ARE INTENSE. ALSO NUMBNESS IS PERSISTING IN BOTH HANDS. OTHWISE NO NEW CONCERNS WERE NOTED.
--- NOTE | 2021-05-04 18:42 | NUR ---
PT OVERALL HAD AN UNEVENTFUL DAY. PT WORKED WITH PHYS. THERAPY AND DID VERY WELL WALKING. BILATERAL NUMBNESS IN HANDS IST PERSISTING. HIS RIGHT PERIPHERAL FIELD OF VISION IS NON-EXISTENT. OTHERWISE NO NEW CONCERNS HAVE BEEN NOTED THIS SHIFT. HIS HR IS STILL LOW AT 30'S TO 50'S. PT SEEMS ASYMPTOMATIC WITH IT. OTHER V/S ARE WDL.
--- NOTE | 2021-05-04 19:10 | NUR ---
SHIFT REPORT RECEIVED FROM DAYSHIFT YOEL LUZ AT BEDSIDE, pt AWAKE AND RESTING IN BED. RR EVEN AND UNLABORED, NO DISTRESS NOTED. pt DENIES NEEDS OR CONCERNS. CALL LIGHT IN REACH. BOARD UPDATED.
--- NOTE | 2021-05-04 22:30 | NUR ---
ASSESSMENT COMPLETE, SCHEDULED MEDS GIVEN (SEE EMAR). pt A/OX4, VSS. pt CONTINUES TO REPORT BILATAL HAND NUMBNESS AND LACKS RIGHT PERIPHERAL VISION. BILATERAL PUPILS ROUND AND REACTIVE TO LIGHT. EQUAL STRENGTH IN BUE NOTED ALONG WITH BLE STRENGTH. WHEN ASKED IF pt HAS NUMBNESS OR TINGLING IN BLE, pt STATES, "I DON'T KNOW HOW TO DESCRIBE IT". WHEN ASKED IF HIS BLE FEEL THE SAME THEY DID EALIER ON DAYSHIFT, pt STATES "YES". WILL MONITOR. pt ABLE TO VERBALIZE WHICH LOWER EXTREMITY IS BEING TOUCHED EASILY. SBA WITH AMBULATION, CALL LIGHT IN REACH. IV SITE WNL AND FLUSHES EASILY, SITE CLEANED AND NEW DRESSING APPLIED. PRN PAIN MEDICATION ALSO GIVEN FOR 10/10 PAIN R/T HEADACHE. PER SHIFT REPORT, pt HAS HAD INTERMITTENT HEADACHES WHILE HERE, WILL MONITOR.
--- NOTE | 2021-05-05 00:30 | NUR ---
pt IN BED, AWAKE. DENIES NEEDS OR CONCERNS. RR EVEN AND UNLABORED, NO DISTRESS NOTED. CALL LIGHT IN REACH.
--- NOTE | 2021-05-05 03:50 | NUR ---
IN ROOM TO COMPLETE NEURO CHECK, pt REPORTS 8-9/10 PAIN, PRN PAIN MEDICATION GIVEN, SEE EMAR. pt CONTINUES TO HAVE POOR RIGHT PERIPHERAL VISION, UNCHANGED SINCE START OF SHIFT. pt REPORTS PAIN IN EYES R/T HEADACHE, BP TAKEN, SBP IN 170'S. WILL MONITOR. pt STATES HE FEELS "DIZZY AND COLD". WARM BLANKET PROVIDED, PRN ACCUCHECK WNL, RESULT OF 94. SNACK OFFERED TO pt, pt DECLINED. pt ABLE TO DESCRIBE KITCHEN PHOTO IN [facility] STROKE SCALE ASSESSMENT, BUT DOESN'T FULLY STATE THE SHORT PHRASES CORRECTLY, AFTER THE THIRD LINE pt STATES, "I CAN'T DO THIS RIGHT NOW, MY HEAD ISN'T WORKING RIGHT WITH MY HEADACHE". TICKET SALES AGENT SHOAIB AWARE, pt HAS HX OF POLYSUBSTANCE ABUSE AND WAS + FOR THC WHEN ADMITTED. pt APPEARS SOMEWHAT RESTLESS AND WISHES TO GET SOME SLEEP. WILL MONITOR. CALL LIGHT IN REACH.
--- NOTE | 2021-05-05 04:42 | NUR ---
BP REASSESSED, RESULT OF 157/93, MAP OF 109. HR 47 PER GARDEN EQUIPMENT MECHANIC. WHEN ASKED IF PAIN IS IMPROVED, pt INITIALLY STATES, "I HAVN'T REALLY NOTICED A DIFFERENCE", THEN STATES, "YEAH, I THINK A LITTLE". COOL RAG REMAINS AT FORHEAD. CALL LIGHT IN REACH.
--- NOTE | 2021-05-05 05:02 | NUR ---
NEW IV STARTED. OLD IV DC'd PER PROTOCOL FOR ROUTINE IV ROTATION.
--- NOTE | 2021-05-05 10:14 | NUR ---
REPORT RECEIVED FROM NIGHT RN AND PT. CARE RESUMED. PT. IS ALERT AND ORIENTED TO ALL. HE STATES "THINGS JUST DON'T MAKE SENSE. ITS NOT CLICKING". HE REPORTS FEELING CONFUSED. PT. REPORTS NUMBNESS IN HANDS. NO OTHER NEURO DEFICITS NOTED. LUNGS CLEAR THROUGHOUT. IV SITE WNL AND FLUSHES WELL. DISCUSSED POC AND MEDICATIONS. PT. LEFT RESTING WITH CALL LIGHT IN REACH.
--- NOTE | 2021-05-05 10:30 | NUR ---
RECEIVED CALL FROM [facility]. THEY ARE UNABLE TO TAKE PATIENT DUE TO HIS HISTORY, LACK OF DISCHARGE PLAN FOR THEM. CALLED [facility] TO SEE IF THEY ARE ACCEPTING PATIENTS. ADMITTING IS GONE AND WON'T BE IN TODAY. THEY STATED TO FAX CHART TO [phone] (NURSES STATION) AND SHE WILL SEE IF THEY CAN LOOK IT OVER TODAY. SHE DOES NOT THINK A ADMIT WOULD BE POSSIBLE UNTIL NEXT WEEK HOWEVER. SPOKE WITH PATIENT IN ROOM. PATIENT SEEMS TO UNDERSTAND, IS ABLE TO VERBALIZE BACK THE INFORMATION GIVEN. DISCUSSED THAT WE CONTINUE TO TRY AND FIND A PLACE FOR HIM TO REHAB. HE REPEATED ONE PHRASE TWICE AT ONE POINT. IS PLEASANT AND COOPERATIVE. HE STATES HE DOESN'T HAVE ANYWHERE TO GO AND WANTS SOMEWHERE HE CAN "GET BETTER IF GOD WILL AGREE". RECEIVED A MESSAGE IN OFFICE FROM MAYA COLEMAN AT [employer] WANTING TO CHECK ON PATIENT THEY ARE WORKING WITH HIM. SHE ASKED FOR A CALLBACK BETWEEN 11-12PM. [phone]. CHART FAXED TO - REHAB.
--- NOTE | 2021-05-05 12:29 | NUR ---
ROUNDING ON PT. HE DENIES PAIN AT THIS TIME AND STATES HE IS JUST RESTING.
--- NOTE | 2021-05-05 15:32 | NUR ---
PT. REPORTS HE IS HAVING TROUBLE READING AND GETTING THE WORDS MIXED UP. THIS NURSE WROTE WORDS ON PAPER AND HE WAS ABLE TO READ THEM. HE THEN STATED IT MIGHT BE HE NEEDS GLASSES. PT. ALSO REPORTS POOR PERIPHERAL VISION ON THE RIGHT SIDE WHEN TESTED AND CONTINUES TO REPORT INTERMITENT NUMBNESS IN HANDS. CMS INTACT WHEN TESTED. PT. DENIES FURTHER NEED AND LEFT RESTING IN BED.
--- NOTE | 2021-05-05 15:59 | NUR ---
PT. WAS ENCOURAGED TO SIT UP THE CHAIR FOR DINNER AND REFUSED. STATED HE HAS A HEADACHE. ADMIN PO PAIN MED. WILL CONTINUE TO MONITOR.
--- NOTE | 2021-05-05 16:30 | NUR ---
DID PATIENT BREAKFAST,LUNCH AND DINNER BLOOD SUGAR CHECK. WE ALSO HELPED HIM ORDER HIS FOOD.
--- NOTE | 2021-05-05 19:16 | NUR ---
PATIENT WAS UP IN HIS CHAIR FOR DINNER. PATIENT IS BACK IN BED. PATIENT WAS VERY TIRED TODAY.
--- NOTE | 2021-05-05 20:06 | NUR ---
PATIENT RESTING QUIETLY ON HIS LEFT SIDE. PATIENT DENIES THE NEED FOR ANY CARE NEEDS AT THIS TIME. CALL LIGHT IS IN REACH.
--- NOTE | 2021-05-05 21:00 | NUR ---
PATIENT CONTINUES TO REST QUIETLY ON HIS LEFT SIDE, EYES CLOSED, RESPIRATIONS REGULAR AND EVEN, CALL LIGHT IS IN REACH.
--- NOTE | 2021-05-05 23:00 | NUR ---
IN TO GET VITALS, PT UP TO VOID, FRESH ICE WATER PROVIDED
--- NOTE | 2021-05-05 23:25 | NUR ---
PATIENT GIVEN 5MG OXYCODONE FOR 9/10 HEADACHE. PATIENT HAS NO NEUROLOGICAL DEFICITS EXCEPT SOMETIMES HE CAN'T FIND THE WORD HE MAY WANT TO USE AND HE CAN'T SEE PERIPHERALLY TO THE RIGHT. VS STABLE, LUNGS CLEAR, BOWEL TONES ACTIVE. PATIENT WORRIED 1 TAB WILL NOT BE ENOUGH TO GET RID OF HIS HEADACHE. PATIENT WILL CALL IN THE NEXT 60 MINUTES IF HEADACHE NOT IMPROVING. CALL LIGHT IS IN REACH.
--- NOTE | 2021-05-06 01:13 | NUR ---
PATIENT GIVEN HIS SECOND 5MG OXCODONE THAT WAS AVAILABLE, THIS RN WAS LATE GETTING BACK TO THE PATIENT AND HE CALLED ASKING FOR HIS OTHER 5MG DOSE THAT WOULD HAVE = 10MG TOTAL. PATIENT ALSO GIVEN A WARM PACK FOR HIS FOREHEAD. PATIENT'S NEURO CHECK IS UNCHANGED. CALL LIGHT IN REACH. RESPIRATIONS REGULAR AND EVEN. PATIENT'S HEADACHE REMAINS 8/10.
--- NOTE | 2021-05-06 02:50 | NUR ---
CALL LIGHT ON. pt REQUESTED A SNACK. PROVIDED. NO FURTHER REQUESTS AT THIS TIME. CALL LIGHT WITHIN REACH.
--- NOTE | 2021-05-06 04:15 | NUR ---
PATIENT RESTING QUIETLY SUPINE, RESPIRATIONS REGULAR AND EVEN, EYES CLOSED, CALL LIGHT IN REACH.
--- NOTE | 2021-05-06 06:45 | NUR ---
PATIENT HAS 7/10 HEADACHE AGAIN. PO PAIN MEDICATION GIVEN. VS STABLE, ASSESSMENT COMPLETE, AND I+O ENTERED. PATIENT HAS NO OTHER NEEDS AT THIS TIME. CALL LIGHT IN REACH.
--- NOTE | 2021-05-06 09:30 | NUR ---
REPORT RECEIVED FROM NIGHT RN AND PT CARE RESUMED. PT. REPORTS HEADACHE AND ADMIN TYLENOL. NEURO ASSESSMENT COMPLETED AND PT. CONTINUES TO HAVE TROUBLE FINDING HIS WORDS AT TIMES AND IS SLOW TO RESPOND. CONTINUES TO HAVE DIMINISHED RT. PERIPHERAL VISION AND INTERMITTENT NUMBNESS IN HANDS. LUNGS CLEAR AND ON RA. DISCUSSED POC AND MEDS. LEFT RESTING WITH CALL LIGHT IN REACH.
--- NOTE | 2021-05-06 19:30 | NUR ---
REPORT RECIEVED FROM YOEL MAXWELL. PT SITTING UP IN BED FINISHING DINNER. STATES HE STILL HAS A HEADACHE THAT WILL NOT GO AWAY. WILL BRING PAIN MEDICATION WITH MED PASS.
--- NOTE | 2021-05-06 21:15 | NUR ---
set pt up with shower, wrapped iv site covered, no further needs, will call if assistance is needed
--- NOTE | 2021-05-06 21:30 | NUR ---
IN TO GET VITALS, I&Os, PT JUST BACK FROM THE SHOWER, ROOM TIDIED, FRESH ICE WATER GIVEN
--- NOTE | 2021-05-06 21:38 | NUR ---
ADMINISTERED SCHED MEDS AND TYLENOL AND OXY FOR 8/10 HEADACHE. GIVEN HOT PACK IN TOWEL FOR COMFORT. SHOWERED INDEPENDENTLY. STATES HIS HEAD FEELS FOGGY AND IS HAVING TROUBLE FINDING THE PROPER WORDS FOR THINGS. REST OF NEURO CHECK WNL.
--- NOTE | 2021-05-07 01:30 | NUR ---
HANDOFF REPORT RECEIVED FROM YOEL ECHOLS. PATIENT RESTING QUIETLY ON HIS RIGHT SIDE AT THIS TIME, EYES CLOSED, RESPIRATIONS REGULAR AND EVEN, CALL LIGHT IN REACH.
--- NOTE | 2021-05-07 03:13 | NUR ---
PATIENT HAS TURNED TO HIS LEFT SIDE, RESPIRATIONS ARE REGULAR AND EVEN, EYES CLOSED, CALL LIGHT IS IN REACH.
--- NOTE | 2021-05-07 05:58 | NUR ---
PATIENT JUST WOKE UP AND SAAIS,"MY HEAD IS KILLING ME." PATIENT SAYS HEAD PAIN 8/10 AND PO PAIN MERDICATION WAS GIVEN. AM ASSESSMENT COMPLETE AND NEW ICE WATER WAS GIVEN. CALL LIGHT IN REACH.
--- NOTE | 2021-05-07 09:15 | NUR ---
REPORT RECEIVED FROM NIGHT RN EARLIER AND PT. CARE RESUMED. PT. REPORTS ONGOING HEADACHE AND YOEL VELÁSQUEZ ADMIN PO OXYCODONE. PT. IS ALERT AND ORIENTED TO ALL BUT DATE. HE DENIES NEEDS AT THIS TIME. ENCOURAGED TO AMBULATE.
--- NOTE | 2021-05-07 09:56 | NUR ---
PT REPORTS NO NEW NEURO S/S
--- NOTE | 2021-05-07 19:13 | NUR ---
CHECKED PATIENT'S BLOOD SUGAR FOR BREAKFAST, LUNCH AND DINNER.
--- NOTE | 2021-05-07 19:34 | NUR ---
PT RESTING IN BED WITH EYES CLOSED, LAYING ON HIS STOMACH. CALL LIGHT IN REACH.
--- NOTE | 2021-05-07 22:10 | NUR ---
PT ASSESSMENT COMPLETE. PT REPORTS THAT HIS HEAD HURTS, PRN TYLENOL ADMINISTERED. PT RATES 04/15. STATES THAT THE ONLY THING THAT QUIETS HIS HEAD IS NARCOTICS. EDUCATION PROVIDED REGARDING NARCOTIC USE. PT STATES UNDERSTANDING. DENIES NAUSEA OR SOB AT THIS TIME. PT REPORTS CONTINUED PERIPHERAL VISION CHANGES. NO DIFFICULTY WITH WORD FINDING NOTED DURING ASSESSMENT AND CONVERSATION WITH PT, ALTHOUH PT REPORTS ONGOING. PT REPORTS CONTINUED INTERMITTENT NUMBNES TO BILATERAL HANDS, DENIES PRESENT DURING THIS ASSSESSMENT. IV FLUSHED, WNL. PT DENIES FURTHER NEEDS AT THIS TIME. CALL LIGHT IN REACH.
--- NOTE | 2021-05-07 23:45 | NUR ---
PT UTLIZES CALL LIGHT, REQUESTS SNACK BOX, PROVIDED. PT DENIES FURTHER NEEDS. CALL LIGHT IN REACH.
--- NOTE | 2021-05-08 02:42 | NUR ---
PT RESTING IN BED WITH EYES CLOSED. LYING ON HIS STOMACH. PT APPEARS TO BE SLEEPING. DOES NOT WAKE WHILE HEEL SEAT FILLER IN DOORWAY. CALL LIGHT IN REACH.
--- NOTE | 2021-05-08 05:57 | NUR ---
PT ASSESSMENT COMPLETE. PT RESTING WITH EYES CLOSED. WAKES EASILY TO VOICE. PT STATES PAIN WELL CONTROLLED. DENIES NAUSEA OR SOB. AGREES THAT HE WAS ABLE TO SLEEP WELL. PT REPORTS PERIPHERAL VISION UNCHANGED, NUMBNESS PRESENT TO BILATERAL HANDS. FLAT AFFECT REMAINS. PT REFUSING TO GET UP TO THE USE THE BATHROOM. STATES HE "JUST DOESN'T HAVE TO GO." PT DENIES FURTHER NEEDS. CALL LIGHT IN REACH.
--- NOTE | 2021-05-08 06:20 | NUR ---
PT UTLIZED CALL LIGHT, REQUESTS PRN MEDICATION FOR HEADACHE. ADMINISTERED BY MISTI DIALLO. SEE EMAR. CALL LIGHT IN REACH.
--- NOTE | 2021-05-08 08:14 | NUR ---
PT RESTING WITH COVERS OVER HIS HEAD AT TIME OF SHIFT EXCHANGE. LIGHTS TURNED OFF FOR COMFORT NO REPLY TO INQUIRY OF NEEDS. PT AWAKE AT THIS TIME BLINDS OPENED FRESH H20 AT BEDSIDE. PT REQUESTS PAIN MEDICATION FOR HEADACHE. REPORTED TO HIM TYLENOL WAS ONLY MED AVAILABLE FOR DISCOMFORT PER MD AND WAS GIVEN AT 0620. PT STATES HE NEEDS SOMETHING STRONGER. ENCOURAGED PT TO DISCUSS THIS WITH THE DOC.
--- NOTE | 2021-05-08 08:28 | NUR ---
PATIENT IN BED RESTING. PATIENT REFUSED WASHCLOTH AND GETTING UP TO CHAIR AT THIS TIME DUE TO HAVING A HEADACHE. CALL LIGHT IN REACH. NO FURTHER NEEDS AT THIS TIME.
--- NOTE | 2021-05-08 08:52 | NUR ---
CALLED [facility]. ELECTRICAL MAINTENANCE WORKER NORMA IS OUT FOR THE WEEK. PERSON COVERING IS SAMANTHA AND SHE WILL BE IN MEETING UNTIL AFTER 929. CHARGE NURSE IS OUT FOR TRAINING. WILL CALL BACK LATER.
--- NOTE | 2021-05-08 09:48 | NUR ---
PATIENT IN BED RESTING WITH EYES CLOSED. VITALS AND I&O'S CHARTED. CALL LIGHT IN REACH. NO FURTHER NEEDS AT THIS TIME.M
--- NOTE | 2021-05-08 11:04 | NUR ---
PT REFUSES UP TO THE CHAIR CONTINUES RESTING IN BED. COMPLETES 100% OF MORNING MEAL DENIES FURTHER NEEDS OF.
--- NOTE | 2021-05-08 11:50 | NUR ---
CALLED [facility]. SPOKE WITH SAMANTHA WHO IS COVERING FOR [facility]MA. SHE STATES NURSING STAFF LOOKED OVER CHART ON WEEKEND AND THEY HAVE DECLINED THE REFERRAL. UPDATED STAFF.
--- NOTE | 2021-05-08 13:00 | NUR ---
CALLED ROMINA GERMAIN AT [facility]. DISCUSSED THAT PATIENT HAS BEEN DECLINED AT ALL ATTEMPTS OF SNF PLACEMENT. DISCUSSED THAT HE WOULD BE MORE APPROPRIATE AT [place] WITH OUTPATIENT THERAPY FOLLOW UP. DISCUSSED THAT HE NEEDS FINANCIAL HELP TO DO THIS. SHE STATES HE HAS SSI BUT IT WAS STOPPED WHILE HE WAS IN SKILLED NURSING AND HE NEEDS TO REQUEST IT BE REINSTATED. SHE STATES SHE WILL TALK WITH DUNIA HER COWORKER AND SEE IF THEY CAN MAKE A PLAN.
--- NOTE | 2021-05-08 14:11 | NUR ---
PT CONTINUES RESTING IN BED. DENIES NEEDS OF OTHER THAN PAIN PILL. OXY DC'D YESTERDAY, PT HAS RECEIVED TYLENOL FOR C/O HEADACHE.
--- NOTE | 2021-05-08 14:30 | NUR ---
ROMINA GERMAIN CALLED BACK. THEY WILL DO A PHONE INTERVIEW WITH PATIENT AT 330PM. SHE ASKS IF THERE IS ANY AL THAT CAN TAKE HIM IF THEY HAVE FUNDING. I SUGGESTED [facility]. SHE STATES TO GO AHEAD AND CALL THEM TO SEE IF THEY CAN. CALLED [facility], LEFT MESSAGE FOR JUDITH TO CALL BACK.
--- NOTE | 2021-05-08 15:07 | NUR ---
PATIENT IN BED RESTING. VITALS AND I&O'S CHARTED. CALL LIGHT IN REACH. NO FURTHER NEEDS AT THIS TIME.
--- NOTE | 2021-05-08 15:25 | NUR ---
PLACED PHONE NEXT TO PATIENT IN ROOM. DISCUSSED HOW TO ANSWER WHEN [employer] CALLED. HE WAS ABLE TO SHOW ME HE CAN DO THIS. UPDATED PATIENT ON WHERE WE ARE WITH PLAN. HE STATES HE DOESN'T THINK HE CAN GO TO [place]. "NOT SURE HOW I CAN GET FOOD". PATIENT HAS NO INCOME AT THIS TIME. HE FEELS "NOT THAT SURE I CAN GET AROUND". HE ALSO STATES HE STILL HAS A HEADACHE. "ITS BETTER BUT STILL THERE". HE STATES HE TRIED TO GET SSI RESTARTED. "I THINK THE SHELTER HAS TO SEND THEM SOME PAPER". ASKED STAFF TO MAKE SURE HE ANSWERED PHONE OK.
--- NOTE | 2021-05-08 16:36 | NUR ---
patient is in room, patient needed blood sugar check
--- NOTE | 2021-05-08 18:36 | NUR ---
patieint was in bed, he was just finishing up dinner, patieint didnt need anything else at the moment
--- NOTE | 2021-05-08 22:45 | NUR ---
PT ASSESSMENT COMPLETE. PT FOUND STANDING BETWEEN BATHROOM DOORWAY AND BED WITH HANDS BEHIND HIS BACK. PT STATES HE'S "JUST STRETCHING". PT DENIES PAIN, NAUSEA, OR SOB. PT REPORTS CONTINUED PERIPHERAL VISION LOSS AND B HAND NUMBNESS. IV FLUSHED, PATENT, WNL. PT DENIES FURTHER NEEDS. CALL LIGHT IN REACH.
--- NOTE | 2021-05-09 00:30 | NUR ---
PT RESTING IN BED ON STOMACH. PT WAKES BRIEFLY WHEN EYELET MACHINE OPERATOR OPENS THE DOOR. NEEDS DENIED. CALL LIGHT IN REACH.
--- NOTE | 2021-05-09 03:00 | NUR ---
PT RESTING IN BED ON HIS STOMACH, WITH EYES CLOSED. DOES NOT WAKE WHEN IS CONSULTANT AT DOORWAY. CALL LIGHT IN REACH.
--- NOTE | 2021-05-09 06:25 | NUR ---
PT ASSESSMENT COMPLETE. PT STATES PAIN IS "DOING FINE". DENIES NAUSEA OR SOB. REPORTS CONTINUED PERIPHERAL VISION LOSS TO R EYE AND B HAND NUMBNESS AND TINGLING. ASSESSMENT OTHERWISE UNCHANGED FROM PREVIOUS. PT DENIES FURTHER NEEDS. ICE WATER REFILLED. CALL LIGHT IN REACH.
--- NOTE | 2021-05-09 08:00 | NUR ---
Notified by Jam she received papers from Paulette Mathews at [facility] for a HAYDEN and for his brother Raymond to be his c s s representative. They asked we have Seth sign these papers.
--- NOTE | 2021-05-09 08:15 | NUR ---
PT LEFT UNDISTURBED AT TIME OF REPORT PER NOC RN HE REQUESTED NOT TO BE DISTURBED. PT UP INDEPENDANTLY IN THE ROOM AT THIS TIME EATS 100% OF MORNING MEAL. DENIES DISCOMFORTS OR CHANGES IN NEURO STATUS. DENIES REQUESTS OF AGREES HE IS COMFORTABLE AND IS FULL FROM MORNING MEAL.
--- NOTE | 2021-05-09 08:25 | NUR ---
PT AWAKE IN ROOM. PT INDEPENDENT AND UP TO CHAIR EATING BREAKFAST. WHITE BOARD UPDATED. CALL LIGHT WITHIN REACH. NO FURTHER NEEDS AT THIS TIME.
--- NOTE | 2021-05-09 09:12 | NUR ---
VITALS AND I/Os DUE. THIS RN TO ROOM. PT RESTING ON LEFT SIDE. VITAL SIGNS STABLE. PT DENIES ADDITIONAL REQUESTS OR COMPLAINTS. PTS RN IN ROOM TO WORK WITH PT. CALL LIGHT WITHIN REACH.
--- NOTE | 2021-05-09 10:00 | NUR ---
Papers to room and pt signed HAYDEN. He does not want to sign correspondence representative paper until it is explained. Called Paulette and left a message requesting she call Seth as I have read him the info sheet, but he does not want to complete paper until he understand why it is needed.
--- NOTE | 2021-05-09 10:12 | NUR ---
PT RESTING EYES CLOSED
--- NOTE | 2021-05-09 11:00 | NUR ---
Received message from Paulette. She spoke with Seth and explained papers. He agreed to sign.
--- NOTE | 2021-05-09 12:10 | NUR ---
Assumed care of this patient at this time. Scheduled insulin administered, assessment of patient complete. IVF infusing WNL. On tele #2. Pt on RA, alert and oriented to situation, self, place. States no needs at this time, will continue plan of care.
--- NOTE | 2021-05-09 12:30 | NUR ---
pt appears to be sleepiong soundly
--- NOTE | 2021-05-09 12:30 | NUR ---
Returned to room and Seth is still hesitant to sign and wants to know what his brother has been saying. Updated I have not seen or spoke with his brother since last week when we spoke in his room with Seth present. He wants to know what is happening. Again discussed we are in contact with Paulette from [facility] to hopefully get him medicaid and they will pay for placement to an assisted living facility. His brother, Raymond, is working on this on his behalf and to assist with his SSI as he does not currently have access. Pt agrees to sign and papers completed and then faxed to Paulette at [facility].
--- NOTE | 2021-05-09 13:41 | NUR ---
PT IS RESTING IN BED. PT COMPLAINS OF PAIN IN HEAD AND NECK. RN ALLIE NOTIFIED. FRESH ICE WATER GIVEN. CALL LIGHT WITHIN REACH. NO FURTHER NEEDS AT THIS TIME.
--- NOTE | 2021-05-09 15:25 | NUR ---
PT UP IN THE ROOM INDEPENDENTLY TO TOILET. RETURNS TO BED TO REST. 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 STATES HIS RIGHT HAND SENSATION IS INTACT "UNLESS I THINK ABOUT IT" PT IS EATING AND DRINKING WELL DENIES NEEDS
--- NOTE | 2021-05-09 17:21 | NUR ---
PT AGREES HIS HEADACHE IS GONE. COMPLETED EVENING MEAL WATCHING TV NOW.
--- NOTE | 2021-05-09 18:10 | NUR ---
PT RESTING IN BED WATCHING TV. PT STILL COMPLAINING OF HEADACHE AND NECK PAIN. THIS TAKER OFF OFFERED HEAT OR ICE PACK, PT DECLINED OFFER BUT WOULD LIKE MEDS "IF THEY ARE AVAILABLE" YOEL KELLEY NOTIFIED. CALL LIGHT WITHIN REACH. NO FURTHER NEEDS AT THIS TIME.
--- NOTE | 2021-05-09 19:51 | NUR ---
RECEIVED REPORT FROM DAY SHIFT RN. PATIENT IS RESTING IN BED WITH EYES CLOSED. RR 17. CALL LIGHT IN REACH.
--- NOTE | 2021-05-09 20:20 | NUR ---
PATIENT ASSESMENT COMPLETED. PATIENTS VITALS TAKEN AND RECORDED. INTAKE AND OUTPUT RECORDED. PATIENTS IV IS SL AND FLUSHES WELL. PATIENT DENIES ANY PAIN. PATIENTS EVNING MEDICATIONS GIVEN PER ORDER. PATIENT DENIES ANY FURTHER NEEDS. CALL LIGHT IN REACH.
--- NOTE | 2021-05-09 21:48 | NUR ---
PATIENT GIVEN SNACK PER REQUEST. NO FURTHER NEEDS NOTED. CALL LIGHT IN REACH.
--- NOTE | 2021-05-09 22:54 | NUR ---
PATIENT IS RESTING IN BED WITH EYES CLOSED, RR 18. CALL LIGHT IN REACH.
--- NOTE | 2021-05-10 03:16 | NUR ---
REFILLED PATIENTS WATER PER REQUEST. PATIENT ASSESEMENT COMPLETED. PATIENT DENIES ANY FURTHER NEEDS. CALL LIGHT IN REACH.
--- NOTE | 2021-05-10 06:01 | NUR ---
IN TO DO VITALS AND I&O. pt PRONING. PROVIDED FRESH WATER. CALL LIGHT WITHIN REACH.
--- NOTE | 2021-05-10 06:48 | NUR ---
PATIENT IS RESTING IN BED. PATIENT DENIES ANY NEEDS. CALL LIGHT IN REACH.
--- NOTE | 2021-05-10 07:13 | NUR ---
Report from Pepito Marte RN. Patient resting bed, eyes closed, respirations even and unlabored. Call light in reach. Bed rails up X2.
--- NOTE | 2021-05-10 07:25 | NUR ---
Shift report recieved from YOEL Feliciano, pt resting in bed safely w/ call light in reach. RR even and unlabored.
--- NOTE | 2021-05-10 08:22 | NUR ---
SET UP SHOWER AREA, CHANGED LINENS WHILE PT WAS IN SHOWER. PT WAS INSTRUCTED TO CALL WHEN FINISHED SO FINANCIAL AID ADMINISTRATOR CAN CLEAN UP. PT WAS LEFT PANTS AND A BRIEF. NO FURTHER NEEDS AT THIS TIME. WHITE BOARD UPDATED, BREAKFAST DELIVERED.
--- NOTE | 2021-05-10 08:45 | NUR ---
PT RESTING IN BED SAFELY WATCHING TV, CALL LIGHT W/ IN REACH. MORNING ASSESMENT COMPLETED AND SCHEDULED MEDS GIVEN PER PROVIDER ORDER. PT DENIES ANY OTHER NEEDS AT THIS TIME.
--- NOTE | 2021-05-10 10:26 | NUR ---
PT SITTING UP IN BED ON THE PHONE, NO NEEDS AT THIS TIME, CALL LIGHT IN REACH.
--- NOTE | 2021-05-10 11:42 | NUR ---
PT RESTING IN BED W/ CALL LIGHT IN REACH. CBG CHECKED AND WITHIN RANGE, NO SLIDING SCALE INSULIN NEEDED. PT WAITING FOR LUNCH TO ARRIVE, NO OTHER NEEDS AT THIS TIME
--- NOTE | 2021-05-10 14:00 | NUR ---
PT RESTING IN BED SAFELY W/ CALL LIGHT IN REACH. FRESH ICE WATER GIVEN PER PT REQUEST.
--- NOTE | 2021-05-10 16:12 | NUR ---
Called and spoke with Paulette Mathews to touch [facility]. Caro, Food Preservation Scientist, is working on this. They do not have anything to offer at this time. They plan to send to their team in [place] to see if he will qualify for medicaid. This could add and additional 2 weeks. Paulette asks if Seth was able to contact SSI, I informed he attempted yesterday, but would not wait on hold. SSI has suspended his income as he did not answer his phone and they could ont contact him for review. They want him to call and schedule a time where they can call him and review his SSI. Discussed with Paulette, I don't think he is capable of calling and scheduling and appt and then remembering to keep the appt.
--- NOTE | 2021-05-10 16:23 | NUR ---
Called and spoke with Shoshana Grant from [facility] [employer]. She again states they were placing pt into a rehab for alcohol program. Since he had a stroke he will not be able to go to this program as he would need to be able to participate and care for self. She states she will contact [facility] and see if there are any programs available for this patient until it can be determined if this pt will qualify for medicaid. She will call me back with an update today or in the am.
--- NOTE | 2021-05-10 16:25 | NUR ---
Spoke with Seth, he can't remeber if he contact today. He thinks he may have spoken with a man who told him he needed to be "signed in". He does not know what this pertained to. Updated I spoke with Mariela today and we are trying to find a place for him to go until it is determined if he will qualify for Medicaid.
--- NOTE | 2021-05-10 16:35 | NUR ---
PT RESTING IN BED SAFELY, W/ CALL LIGHT IN REACH AND EYES CLOSED, RR EVEN AND UNLABORED.
--- NOTE | 2021-05-10 18:28 | NUR ---
PT UP FOR MEALS, TAKING NAPS IN BETWEEN. PT WORKED W/ PHYSICAL THERAPY. NUTRITIONAL AND FLUID INTAKE WELL URINE OUTPUT SUFICIENT FOR SHIFT. PT A+O x3, CALLS APPROPRIATELY. PT IND IN ROOM.
--- NOTE | 2021-05-10 19:49 | NUR ---
PATIENT IS RESTING IN BED. PATIENT DENIES ANY NEEDS. CALL LIGHT IN REACH.
--- NOTE | 2021-05-10 20:08 | NUR ---
PATIENT ASSESMENT COMPLETED. PATIENTS VITALS TAKEN AND RECORDED. INTAKE AND OUPUT RECORDED. PATIENTS EVENING MEDICATIONS GIVEN PER ORDER. PATIENT IS SL AND IV FLUSHES WELL. PATIENT STATED "HEADACHE IS BETTER". PATIENT GIVEN COLD RAG FOR HEAD. NO FURTHER NEEDS NOTED. CALL LIGHT IN REACH.
--- NOTE | 2021-05-10 23:36 | NUR ---
PATIENT IS RESTING IN BED WATCHING TV. PATIENT STATED "MY HEADAHCE IS SO MCH BETTER". PATIENT DENIES ANY NEEDS. CALL LIGHT IN REACH.
--- NOTE | 2021-05-11 00:09 | NUR ---
2036 05-10-2021 COVID swab obtained and taken to lab.
--- NOTE | 2021-05-11 01:49 | NUR ---
PATIENT IS RESTING IN BED WATCHING TV EATING A SANDWICH. PATIENT DENIES ANY NEEDS. PATIENT DENIES ANY HEADHACHE. NO FURTHER NEEDS NOTED. CALL LIGHT IN REACH.
--- NOTE | 2021-05-11 03:55 | NUR ---
PATIENT IS RESTING IN BED WITH EYES CLOSED, RR 17. CALL LIGHT IN REACH.
--- NOTE | 2021-05-11 05:23 | NUR ---
pt continues on comfort care, was medicated earlier per comfort prior to turning, has been turned q2-3hrs, has tolerated well. opens eyes, said good morning and answered yes during some procedures. f/c paten, draining low urine output, total 100cc for this whole shift. md aware, NPO. mouth care and f/c care done. attends in place, zahida mai. s/ patent. family in room
--- NOTE | 2021-05-11 06:27 | NUR ---
VITALS TAKEN AND RECORDED. INTAKE AND OUPUT RECORDED. PATIENT DENIES ANY NEEDS AT THIS TIME. CALL LIGHT IN REACH.
--- NOTE | 2021-05-11 07:44 | NUR ---
Shift report recieved from YOEL Feliciano. Pt resting in bed safely w/ call light in reach. RR even and unlabored.
--- NOTE | 2021-05-11 08:43 | NUR ---
PT RESTING IN BED SAFELY W/ CALL LIGHT IN REACH, WATCHING TV. PT C/O HEADACHE, PRN PAIN MEDS GIVEN PER PT REQUEST/PROVIDER ORDER. MORNING ASSESMENT COMPLETED AND SCHEDULED MEDS GIVEN PER PROVIDER ORDER.
--- NOTE | 2021-05-11 09:10 | NUR ---
SPOKE WITH CUSTOMER CARE VOICE CONSULTANT BRIANNA WHO STATES PATIENT STILL NEEDS TO GET SSI RESTARTED. SHE STATED HE WAS SUPPOSED TO CALL ACCORDING TO [facility]. SHE STATED HE WAS CALLING ON HIS CELL PHONE YESTERDAY, BUT DID NOT STAY ON HOLD AND WAS UNSURE IF HE EVER FINISHED. I AGREED TO GO SPEAK WITH HIM. SPOKE WITH PATIENT IN ROOM. HE STATED HE DID CALL THEM. HE STATED HE DOESN'T HAVE A CELL PHONE. I SAID THE CUSTOMER CARE VOICE CONSULTANT SAW HIM WITH THE CELL PHONE YESTERDAY AND I THOUGHT MAYBE I COULD HELP HIM GET THE CALL DONE. HE STATES HE DID IT. DOESN'T KNOW WHO HE SPOKE WITH "HE SAID IT WAS DONE". WENT BACK TO CHECK WITH DISCHARGE. SHE STATES HE DID HAVE A CELL. SHE DID NOT THINK HE MADE THE CALL, THAT HE HAD HUNG UP BECAUSE HE WOULDN'T WAIT ON HOLD.
--- NOTE | 2021-05-11 10:15 | NUR ---
SPOKE WITH PATIENT AGAIN REGARDING CALLING THE OFFICE. ASKED IF HE WAS SURE HE CALLED THE DEPARTMENT. HE STATED HE DID CALL. THAT HE SPOKE TO "A MAN" AND THEY ONLY NEEDED HIS "SAY SO" TO RESTART HIS PAYMENTS. ASKED IF HE USED HIS CELL PHONE. HE STATED HE DOESN'T HAVE A CELL PHONE. ASKED HOW HE CALLED THEM, HE SAID THE ROOM PHONE AND POINTED AT THE HOSPITAL ROOM PHONE. ASKED HOW HE GOT THE NUMBER. HE STATES "I KNOW IT FROM CALLING BEFORE". ASKED WHAT THE NUMBER WAS, HE WAS NOT ABLE TO TELL ME. DISCUSSED THAT THE BUSINESS PROCESS ANALYST SAW HIM WITH HIS CELL PHONE YESTERDAY. ASKED IF HE HAD THE NUMBER SAVED IN IT. HE SAID HE DID HAVE A CELL, BUT NO AUTOMOBILE SALES REPRESENTATIVE AND HE CAN'T USE IT. ASKED IF I LOOK UP THE NUMBER, I CAN HELP HIM CALL AGAIN AND MAKE SURE THEY HAVE EVERYTHING. HE STATES "WELL I ALREADY CALLED YESTERDAY, OR THE DAY BEFORE". I SAID THE BUSINESS PROCESS ANALYST TRIED TO HELP HIM YESTERDAY, BUT HE DIDN'T STAY ON HOLD SO SHE WAS NOT SURE HE FINISHED THE CALL. HE STATES "I CAN CALL AGAIN" AND HE PICKED UP ROOM PHONE AND DIALED, HE SAID HE REMEMBERED THE NUMBER. STATES "ITS 877- SOMETHING" SO HE DIALED. I WAITING TO HELP HIM BUT HE STATES "YOU DON'T HAVE TO WAIT". I STATED I COULD STAY AND HELP BUT HE RAISED HIS VOICE AND SAID "NO YOU DON'T HAVE TOO, I CAN TELL YOU LATER WHAT THEY SAY". I TOLD HIM TO CALL THE NURSES IF HE NEEDED HELP EVENTUALLY.
--- NOTE | 2021-05-11 10:31 | NUR ---
PT LAYING IN BED SAFELY WATCHING TV, CALL LIGHT IN REACH. PT DENIES ANY NEEDS AT THIS TIME.
--- NOTE | 2021-05-11 12:46 | NUR ---
PT LAYING IN BED WATCHING TV. PT DENIES HEADACHE, LUNCH TRAY AT BEDSIDE PT STATES HE'S NOT HUNGRY AT THE MOMENT BUT WILL TRY TO EAT IN A LITTLE WHILE.
--- NOTE | 2021-05-11 14:10 | NUR ---
Called Shoshana Juanita at [facility] as I did not received a call back last night or this am. She takes she referred pts case to MDT with [facility], [facility], [facility], [place] to see what is available to pt. They are all stating this may take sometime. Reminded pt is improving daily with walking. We are a critical access hospital and pt may not reside here. She states she has spoken with Oliva Velez from [facility] and Shaniqua Mcgill from [facility]. They are checking for placement. She also states she has spoken with Oralia from [facility] and she states he may qualify for a [employer] placement, I am not aware of this. Called and left a message with Philipp and asked if Kylee could call so we can discuss Seth.
--- NOTE | 2021-05-11 15:04 | NUR ---
RECEIVED CALL FROM [facility]. SHE STATES SHE IS WORKING TO FIND DISCHARGE POSSIBILITES. SHE HAS RECEIVED EMAIL FROM [facility] STATING THEY HAVE COMPLETED DETENTION ASSESSMENT BUT IT CAN TAKE "QUITE SOME TIME" TO GET AN ANSWER. WE DISCUSSED THAT WE KNOW THEY HAVE 45 DAYS TO MAKE A DECISION, BUT PATIENT IS GOING TO BE DISCHARGED SOON. HE IS NO LONGER NEEDING ACUTE CARE AND HAS ALREADY BEEN HERE LONGER THAN NECESSARY. SHE STATES THEY ARE LOOKING AT GETTING HIM INTO A HOTEL IN [place]OWN AND HAVING THEIR OUTPATIENT TEAM HELP HIM WITH FOOD, ETC. WHILE THEY ALL WORK ON A HOUSING SITUATION. SHE ASKS IF [facility] COULD SEE HIM IN A HOTEL, I ASSURRED HER THEY CAN. SHE STATES PATIENT HAS BEEN ASKED NOT TO RETURN TO BOTH HOTEL 6 PROPERTIES IN [place]OWN FOR PAST BEHAVIORS. THEY ARE IN PROCESS OF LOOKING FOR ANOTHER OPTION.
--- NOTE | 2021-05-11 15:21 | NUR ---
LYING IN BED. ALERT AND ORIENTED, BUT FORGETFUL. STATES HE CAN NOT REMEMBER IF HE HAS HAD A BOWEL MOVEMENT TODAY. DENIES PAIN OR OTHER NEEDS AT THIS TIME. CALL LIGHT IN REACH. BED RAILS UP X2.
--- NOTE | 2021-05-11 15:25 | NUR ---
DR. CADET NOTIFIED OF BLOOD PRESSURE. PATIENT RESTING IN BED, ASYMPTOMATIC AT TIME OF READING. NO CHANGES ORDERED.
--- NOTE | 2021-05-11 18:13 | NUR ---
PT HAS BEEN RELAXING IN BED THROUGHOUT THE SHIFT. PT IS CONTENT W/ NAPPING AND WATCHING TV. NUTRITIONAL AND FLUID INTAKE SUFICIENT. URINE OUTPUT SUFCIENT WELL.
--- NOTE | 2021-05-11 20:00 | NUR ---
PATIENT RESTING QUIETLY IN BED WATCHING TV. PATIENT HAS NO CARE NEEDS AT THIS TIME. CALL LIGHT IN REACH.
--- NOTE | 2021-05-11 21:11 | NUR ---
IN [facility]YO GET VITALS, ICE WATER FILLED, PT IS DUE TO VOID AT THIS TIME, NO FURTHER NEEDS
--- NOTE | 2021-05-11 22:05 | NUR ---
PATIENT RESTING IN BED. PM MEDS GIVEN. TYLENOL GIVEN FOR HEADACHE AND ANXIETY MED GIVEN FOR SOME RESTLESSNESS. PATIENT STILL HAS THE ABSENCE OF THE RIGHT PERIPHERAL VISION AND SOME INTERMITTENT NUMBNESS IN HIS HANDS. PATIENT HAS NO OTHER NEEDS AT THIS TIME. CALL LIGHT IS IN REACH.
--- NOTE | 2021-05-11 23:53 | NUR ---
PATIENT RESTING IN BED. CLASSROOM INSTRUCTIONAL AIDE WAS CALLED FOR A SANDWICH BOX AND IT WILL BE DELIVERED SOON. PATIENT HAD NO OTHER NEEDS AT THIS TIME. CALL LIGHT IN REACH.
--- NOTE | 2021-05-12 00:54 | NUR ---
PATIENT RECEIVED HIS SANDWICH BOX FROM THE LINING LAYER AND IS EATING IT AT THIS TIME. PATIENT HAS NO OTHER CARE NEEDS. CALL LIGHT IS IN REACH.
--- NOTE | 2021-05-12 03:00 | NUR ---
PATIENT RESTING QUIETLY, EYES CLOSED, RESPIRATIONS REGULAR AND EVEN, CALL LIGHT IN REACH.
--- NOTE | 2021-05-12 05:05 | NUR ---
PATIENT APPEARS TO STILL BE SLEEPING, EYES CLOSED, RESPIRATIONS REGULAR AND EVEN, AND CALL LIGHT IS IN REACH.
--- NOTE | 2021-05-12 05:49 | NUR ---
PATIENT SAYS HE WAS ABLE TO SLEEP,"A LITTLE", PATIENT'S ASSESSMENT REMAINS UNCHANGED. PATIENT HAS ESSENTIALLY BEEN INDEPENDENT IN THE ROOM ALL NIGHT. PATIENT HAS HIS CALL LIGHT IN REACH AND HAS NO NEEDS AT THIS TIME.
--- NOTE | 2021-05-12 07:04 | NUR ---
IN TO CHANGE PILLOW CASE, NO FURTHER NEEDS AT THIS TIME
--- NOTE | 2021-05-12 08:30 | NUR ---
Received message from J[facility] Care Coodinator for [facility]. She requests Seth be placed into our swing bed program. Returned called and left a message updating our Swing program has been suspended due to increase in Covid patients. Pt will be discharged today.
--- NOTE | 2021-05-12 09:20 | NUR ---
REPORT RECEIVED FROM NIGHT RN AND PT. CARE RESUMED. PT. IS ALERT AND ORIENTED TO ALL BUT DATE. HE REPORTS MILD HEADACHE. BLOOD NOTED ON GOWN AND TISSUE BESIDE HIM. PATIENT STATES HIS EAR IS BLEEDING AND HE WANTS TO TOUCH IT. SCABS PRESENT ON OUTER EAR. PT. ENCOURAGED NOT TO PICK AT IT. LUNGS CLEAR THROUGHOUT AND ON ROOM AIR. NEURO DEFICITS REMAIN UNCHANGED. ZESTRIL HELD DUE TO BP. IV PULLED PER PROTOCOL WITH CATH INTACH. PT. LEFT RESTING WITH CALL LIGHT IN REACH.
--- NOTE | 2021-05-12 10:13 | NUR ---
Called and spoke with [facility] community outreach. Oralia is not in. Spoke with Brittny and asked if I man dc pt to them by i. She is attempting to contact Oralia as she states is not familiar with this pt. She states Oralia is on her way to the hospital to see other pts and will speak with me.
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
--- NOTE | 2021-05-12 12:00 | NUR ---
Call from Oralia. She cont. to work to find a room. She asks if we can send pt with dinner and breakfast and someone from [employer] will take him grocery shopping tomorrow. She will let me know when they have found a room. Received a call from Dr. Ramirez, he is ready to dc this pt. Asked if he could hold off until I hear from [facility] as they are trying to find a room for him. I will call him when I hear.
--- NOTE | 2021-05-12 14:00 | NUR ---
Called [facility] and left a message for Oralia asking if she has had any luck. Received a return call and they were able to place at [facility]. He will need a care ride as they are now unable to transport. Informed we will provide a care ride along with his food. Dr. Ramirez notified pt now has a safe discharge plan. Charge nurse notified.
[2021-05-12] MEDS ORDERED: ATORVASTATIN CA80 MG PO (14:55)
[2021-05-12] MEDS ORDERED: LOW DOSE ASPIRI81 MG PO (14:56)
[2021-05-12] MEDS ORDERED: CLOPIDOGREL75 MG PO (14:57)
[2021-05-12] MEDS ORDERED: METFORMIN HCL1000 MG PO (14:58)
--- NOTE | 2021-05-12 16:31 | NUR ---
IN FOR DISCHARGE INSTRUCTIONS.PT WITH NO QUESTIONS. SAUL CALLED AND THE PROMISE IN TO INFORM OF PATIENT DISCHARGE AT PHONE NUMBER [phone]. FOLLOW UP INFORMATION PROVIDED. PT DRESSED SELF INDEPENDENTLY.
--- NOTE | 2021-05-12 17:40 | NUR ---
Notified by Rn, she recieved a call from the [facility] and pt did not arrive there with courtesy taxi. She had called and they could not tell here where he was dropped off. I called [employer] and ask if they could check their logs. Slip Cover Operator states this all happened prior to his arrival and he has no way of checking. I then asked him to call his regional property manager at home as I need to know where this pt went now. He states he will make calls and call me back.
--- NOTE | 2021-05-12 18:14 | NUR ---
Called [facility] crisis line and updated Oralia. She states she spoke with the intake person from [facility] and she is waiting for him so she can complete his assessment for him to stay.
[2021-05-13] MEDS ORDERED: HYDROXYZINE HCL25 MG PO (16:02)
[2021-05-13] MEDS ORDERED: SEROQUEL200 MG PO (16:02)
[2021-05-13] MEDS ORDERED: FLUOXETINE HCL10 MG PO (16:02)
[2021-05-13] MEDS ORDERED: FLUOXETINE HCL20 MG PO (16:02)
== END 2021-05-12 16:45 | disposition home or self-care (01) | DRG 66 ==
LOC: ED 13:45 → MS 18:03
PROVIDERS: ADMIT Student in an Organized Health Care Education/Training Program; ATTEND Student in an Organized Health Care Education/Training Program
DX: I63.532 Cerebral infarction due to unspecified 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 (principal); H53.8 Other visual disturbances; E11.9 Type 2 diabetes mellitus without complications; I10 Essential (primary) hypertension; F41.9 Anxiety disorder, unspecified; E78.5 Hyperlipidemia, unspecified; Z20.822 Contact with and (suspected) exposure to COVID-19; F19.129 Other psychoactive substance abuse with intoxication, unspecified; H53.461 Homonymous bilateral field defects, right side; F31.9 Bipolar disorder, unspecified; G47.30 Sleep apnea, unspecified; R29.711 NIHSS score 11; Z87.891 Personal history of nicotine dependence; Z98.890 Other specified postprocedural states; Z79.84 Long term (current) use of oral hypoglycemic drugs; Z79.899 Other long term (current) drug therapy
CPT/HCPCS: 70450; 70496; 70498; 71045; 80048; 80053; 80061; 81001; 83735; 84484; 85025; 85610; 85730; 92507; 92508; 93005; 93010; 93306; 97110; 97112; 97116; 97161; 97530; 97535; 99285-25; A9270; C9803; J1100; J1170; J1650; J1815; J1885; J2405; J3475; J7121; Q0177; Q9967; U0003

== ENCOUNTER 2021-05-20 06:04 | Observation (INO) | payer OTHER ==
[~2021-05-20] VITALS: Ht 165.1 cm; Wt 82.4 kg
[~2021-05-20 06:04] MED LIST changes: +ATORVASTATIN CA40 MG PO; +ATORVASTATIN CA80 MG PO; +CLOPIDOGREL75 MG PO; +FLUOXETINE HCL10 MG PO; +FLUOXETINE HCL20 MG PO; +HYDROXYZINE HCL25 MG PO; +LOW DOSE ASPIRI81 MG PO; +METFORMIN HCL1000 MG PO; +METFORMIN HCL500 MG PO
--- OUTSIDE RECORDS SUMMARY | 2021-05-20 06:06 | XMS ---
PreManage Notification: JENNIFER CARNEY Security Spring Salvage Worker Events 1 event(s) in the past 18 months Most recent security events: Other at [facility] 01/10/2021 15:28 Details: PATIENT LWBS. POLICE. CRITERIA MET - PDMP - 6 ED Visits in 6 Months - Group Notification - [facility] - 2 Visits in 30 Days CARE PROVIDERS SRIDHAR MATTSON Physician Fabricator Industrial Furnace 03/07/2021-Current PHONE: Unknown ALISSA BAUER Clinical Services Assistant/Cementing Bulk Material Operator Current PHONE: [phone] S[facility] has no Care Guidelines for this patient. Care History Medical/Surgical 03/07/2021 [facility] - PATIENT HAS AN APT WITH [facility]- APT 03/23/21 @ 3:20PM - MEDICAID TRANSPORT NUMBER PROVIDED TO PATIENT - CHW PROVIDED CHW CONTACT NUMBER FOR FUTURE HELP/RESOURCE INFORMATION. - PATIENT CURRENTLY STAYING AT [address] [phone]. E.D. VISIT COUNT (12 MO.) [address] [facility] 1 [facility] 6 [facility] TOTAL 13 NOTE: Visits indicate total known visits. ED/UCC VISIT TRACKING (12 MO.) 05/20/2021 06:04 [facility] [place] TYPE: Emergency COMPLAINT: - WEAKNESS,DIZZINESS 05/02/2021 13:45 [facility] TYPE: Emergency COMPLAINT: - HEADACHE, BLURRY VISION 03/04/2021 16:16 [facility] [place] TYPE: Emergency COMPLAINT: - CHEST PAIN DIAGNOSES: - Other half-way (current) drug therapy - Pure hypercholesterolemia, unspecified - Essential (primary) hypertension - Nicotine dependence, unspecified, uncomplicated - Type 2 diabetes mellitus without complications - Other chest pain 03/01/2021 19:27 [facility] [place] TYPE: Emergency COMPLAINT: - SUICIDAL ATTEMPT 02/11/2021 19:47 [facility] [place] TYPE: Emergency COMPLAINT: - AMB HTN 02/03/2021 17:13 [facility] [place] TYPE: Emergency DIAGNOSES: - Low back pain - MENTAL HEALTH - Pain in right ankle and joints of right foot - Other chronic pain - Pain in left ankle and joints of left foot 01/15/2021 19:48 [facility] [place] TYPE: Emergency DIAGNOSES: - ALCOHOL INTOXICATION - Alcohol use, unspecified with intoxication, uncomplicated 01/10/2021 15:28 [facility] [place] TYPE: Emergency COMPLAINT: - MENTAL EVALUATION 12/28/2020 19:56 [facility] [place] TYPE: Emergency DIAGNOSES: - alt mental - Alcohol use, unspecified with intoxication, uncomplicated 12/28/2020 04:48 [facility] [place] TYPE: Emergency DIAGNOSES: - Essential (primary) hypertension - HEADACHE AND NAUSEA - Headache, unspecified 12/23/2020 15:05 [facility] [place] TYPE: Emergency DIAGNOSES: - DELUSIONS - Bipolar disorder, unspecified 12/15/2020 21:33 [facility] [place] TYPE: Emergency DIAGNOSES: - Major depressive disorder, single episode, unspecified - MENTAL HEALTH EVAL 10/16/2020 15:25 [facility] TYPE: Emergency COMPLAINT: - INTOXICATION DIAGNOSES: - intermediate (current) use of insulin - Type 2 diabetes mellitus with hyperglycemia - Alcohol abuse with intoxication, unspecified - Essential (primary) hypertension - Blood alcohol level of 240 mg/100 ml or more - Other local intermodal truck driver (current) drug therapy INPATIENT VISIT TRACKING (12 MO.) 05/02/2021 18:03 [facility] [place] TYPE: Medical Surgical COMPLAINT: - STROKE DIAGNOSES: - Type 2 diabetes mellitus without complications - Sleep apnea, unspecified - Other specified postprocedural states - Personal history of nicotine dependence - Anxiety disorder, unspecified - Other psychoactive substance abuse with intoxication, unspecified - Other local intermodal truck driver (current) drug therapy - Cerebral infarction, unspecified - Homonymous bilateral field defects, right side - Hyperlipidemia, unspecified - Essential (primary) hypertension - intermediate project manager (current) use of oral hypoglycemic drugs - Cerebral infarction due to unspecified 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 - Other visual disturbances - Bipolar disorder, unspecified - NIHSS score 11 03/01/2021 19:28 [facility] [place] TYPE: Observation COMPLAINT: - OVERDOSE DIAGNOSES: - Acidosis - Type 2 diabetes mellitus with hypoglycemia without coma - Poisoning by insulin and oral hypoglycemic [antidiabetic] drugs, intentional self-harm, initial encounter - Essential (primary) hypertension - Other half-way (current) drug therapy - intermediate (current) use of insulin - Nicotine dependence, unspecified, uncomplicated [email or web address]
--- NOTE | 2021-05-20 10:17 | NUR ---
Report recieved from YOEL Sinclair, pt stable being transfered from ER to Med-Surg floor via stretcher.
--- NOTE | 2021-05-20 10:25 | NUR ---
PATIENT ARRIVES FROM ER DEPT ON STRETCHER WITH Chloe GAGNON RN/NURSE FAST FOOD CASHIER, TO ROOM 124 TO BE ADMITTED TO INPATIENT FOR HEMORRHAGIC STROKE UNDER CARE OF DR. FROST. PATIENT ALERT AND ORIENTED AT THIS TIME. C/O HEADACHE 04/15 AT THIS TIME. STATES IT HAS WORSENED SINCE HIS ARRIVAL TO THE HOSPITAL THIS MORNING, SLIGHTLY. VITALS OBTAINED, ASSIST TO GET COMFORTABLE IN BED. BED RAILS UP X2, CALL LIGHT IN REACH.
--- NOTE | 2021-05-20 10:46 | NUR ---
MED REC COMPLETE
--- NOTE | 2021-05-20 10:48 | NUR ---
PLACED ON STATISTICIAN #[id number].
--- NOTE | 2021-05-20 12:15 | NUR ---
PT RESTING IN BED W/ CALL LIGHT IN REACH. PT C/O ONGOING DENNIS. PROVIDER IN ROOM TO EVALUATE PT. ADMISSION AND ASSESMENT COMPLETE.
--- NOTE | 2021-05-20 13:30 | NUR ---
PROVIDER ORDERED PO HTN MEDICATION, BUT DUE TO NO PHARMACIST TO VERIFY PO ORDER, OVERRIDE FOR IV HTN MED DISCUSSED W/ AND OKAYED BY MD. HTN MEDICATION GIVEN VIA IV, PT THEN TAKEN TO IMAGING FOR REPEAT HEAD CT.
--- NOTE | 2021-05-20 13:52 | NUR ---
PATIENT CALLS TO STATE HE IS HAVING INCREASED PAIN IN HIS HEAD AT 9/10 AT THIS TIME. STATES IT HAS BEEN A STEADY INCREASE. HEAD OF BED ELEVATED GREATER THAN 30 DEGREES. REMAINS ALERT AND ORIENTED WITH NO CHANGES NEUROLOGICALLY NOTED. STATES PERIPHERAL VISION IN RIGHT EYE COMES AND GOES. BLINDS CLOSED, LIGHTS OFF AND DOOR AND CURTAIN CLOSED TO DECREASE STIMULATION. PATIENT EDUCATED ON STROKES AND LIKELIHOOD OF CONTINUED HEADACHE, BUT IMPORTANCE TO CONTINUE TO INFORM STAFF WHEN HE IS FEELING IT IS INCREASING IN PAIN, TYPE OR ANY OTHER SYMPTOMS HE MAY EXPERIENCE. VERBALIZES UNDERSTANDING.
--- NOTE | 2021-05-20 13:58 | EKG ---
[facility] [address] [facility] [place] [address] Signed Sinus bradycardia T wave abnormality, consider anterolateral ischemia Prolonged QT Abnormal ECG When compared with ECG of 02-MAY-2021 14:33, premature ventricular complexes are no longer present Questionable change in QRS axis T wave inversion less evident in Anterior leads Confirmed by JENISE FROST DO ([id number]) on 05/20/2021 1:58:40 PM Electronically Signed By: JENISE FROST DO 05/20/21 1358 PATIENT NAME: JENNIFER CARNEY Electrocardiogram DATE OF : 77 PHYSICIAN: JENISE FROST DO REPORT #: [id number] REPORT IS CONFIDENTIAL AND NOT TO BE RELEASED WITHOUT AUTHORIZATION
--- NOTE | 2021-05-20 14:00 | NUR ---
BEDSIDE SWALLOW EVAL COMPLETE, FORM IN CHART.
--- NOTE | 2021-05-20 14:00 | NUR ---
PT C/O WORSENING DENNIS, PRN TYLENOL GIVEN PER PT REQUEST/PROVIDER ORDER. PT DENIES ANY OTHER NEEDS AT THIS TIME.
--- NOTE | 2021-05-20 16:00 | NUR ---
PT STATES HE FEELS BETTER AND WOULD LIKE TO LEAVE. PT EXPLAINED IN DEPTH THE RISKS OF HIM LEAVING AMA, PT STILL ADAMENT THAT HE FEELS ALL BETTER AND WANTS TO GO BACK TO THE HOTEL. FREDDY FROM [facility] WAS HERE TO SPEAK W/ PT. PT AGAIN STATES HE WANTS TO LEAVE. PROVIDER CALLED AND UPDATED. PROVIDER NOW IN ROOM DISCUSSING W/ PT THE PLAN OF CARE AND RISKS OF LEAVING AMA. PT AGREEABLE TO STAYING OVERNIGHT.
--- NOTE | 2021-05-20 18:43 | NUR ---
PT ADMITTED FROM ER TO [facility] FLOOR FOR HEMMORAGIC STROKE, REPEAT CT COMPLETED FOR THIS EVENING SHOWS NO CHANGE FROM PREVIOUS ER SCAN. PT C/O DENNIS BUT BETTER AFTER TYLENOL. PT WANTED TO LEAVE AMA, BUT AGREED TO STAY AFTER DISCUSION W/ PROVIDER ABOUT THE RISKS. PT RESTING IN BED, DECLINED DINNER BUT ASKED FOR A DIET PEPSI. PT WILL HAVE A REPEAT CT IN THE MORNING.
--- NOTE | 2021-05-20 19:36 | NUR ---
RECEIVED REPORT FROM ALISSA DIALLO ON THIS PATIENT. PATIENT HAS BEEN TALKING ABOUT WANTING TO "GO HOME" BUT HAS BEEN ENCOURAGED TO STAY PATIENT NEEDS NEUROLOLGY AT A HIGHER LEVEL OF CARE, PATIENT ON WAIT LIST FOR [facility]. PATIENT DENIES BEING HUNGRY, REPORTS HE HAS USED TOLILET TO URINATE, PATIENT ASKED TO USE URINAL NEXT TIME SO WE CAN OBTAIN SPECIMEN. PATIENT LYING IN PRONE POSITION ON BED DENIES OTHER NEEDS.CALL LIGHT IN REACH.
--- NOTE | 2021-05-20 21:42 | NUR ---
IN ROOM TO DO PATIENT'S ASSESSMENT AND ATTEMPTED TO FLUSH AND PULL IV TO RIGHT AC, WILL NOT FLUSH, THIS IS AN EMS START, THIS RN DC'D IV TIP INTACT GUAZE AND TAPE APPLIED TO SITE. PLACED 18 GUAGE IV TO LEFT HAND X 2 ATTEMPTS, PATIENT TOLERATED WELL, PATIENT ASKED "DO I STILL NEED THIS" EXPLAINED TO PATIENT THAT WHILE HE IS IN THE HOSPITAL SHOULD WE NEED TO DO ANY IMMEDITAE INTERVENTIONS WE NEED VEIN ACCESS TO PROVIDE APPROPRIATE INTERVENTIONS. VERBALIZED UNDERSTANDING.
--- NOTE | 2021-05-21 00:55 | NUR ---
IN PATIENT'S ROOM TO SEE HOW HE IS DOING AND PATIENT ENCOURAGED TO TRY TO VOID IN THE URINAL DESPITE HAVING USED THE TOILET "A FEW TIMES" TO VOID AND PATIENT SUCCESSFULLY USED URINAL VOIDED AND SAMPLE COLLECTED. ALSO MEDICATED PATIENT WITH 5 MG OXYCODONE FOR HIS HEADACHE THAT "COMING BACK" LIGHTS TURNED OFF FOR COMFORT. CALL LIGHT IN REACH. DENIES OTHER NEEDS.
--- NOTE | 2021-05-21 05:38 | NUR ---
IN ROOM TO CHECK ON PATIENT AND OBTAIN VITALS AND DO ASSESSMENT. PATIENT WAS ASLEEP BUT AWAKENS VERY EASILY. PATIENT CONTINUES TO EXHIBIT A FLAT AFFECT. IT DOES NOT APPEAR PATIENT HAS DRANK MORE FLUIDS SINCE THIS RN WAS IN LAST AND PATIENT DENIES NEED TO VOID. HE DENIES NAUSEA. PATIENT ENCOURAGED TO CONTINUE DRINKING THE WATER PROVIDED, HE STATES "OK I WILL DO THAT" DENIES OTHER NEEEDS. REPORTS HIS HEAD PAIN IS "OK" CALL LIGHT IN REACH.
--- NOTE | 2021-05-21 06:40 | NUR ---
PATIENT HAS CONTINUED TO EXHIBIT FLAT AFFECT NOT REALLY INTERACTING WITH CARE, HAS BEEN ENCOURAGED TO DRINK WATER TO GET MORE HYDRATION, DURING THE NIGHT PATIENT DID NOT HAVE MUCH VOIDS. RESTED ON BED MOST OF THE NIGHT, SAYS "I AM NOT REALLY HUNGRY" PATIENT AGAIN ENCOURAGED TO HAVE BREAKFAST HE IS DIABETIC. PATIENT REMAINS NEORLOGICALLY INTACT. ANSWERS QUESTIONS APPROPRIATLEY.
--- NOTE | 2021-05-21 06:57 | NUR ---
WENT IN TO CHECK ON PATIENT WHO REMOVED HIS TELE LEADS, PATIENT WAS IN BATHROOM APPEARED TO BE WANTING TO TAKE SHOWER, INFORMED PATIENT HE WILL BE ABLE TO DO THIS TLATER THIS MORNING AND HE IS AGREEABLE TO THIS, PATIENT TO HAVE CT SCAN THIS MORNING. PATIENT DECLINES OFFER FOR BREAKFAST STILL.
--- NOTE | 2021-05-21 07:30 | NUR ---
Shift report recieved from YOEL Bhat, pt resting in bed safely w/ call light in reach.
--- NOTE | 2021-05-21 09:00 | NUR ---
PT SITTING UP ON SIDE OF BED, PT EAGER TO DISCHARGE. REPEAT CT SCAN COMPLETED AND RESULTS TO PROVIDER. PROVIDER IN ROOM TO DISCUSS DISCHARGE PLAN. MORNING ASSESMENT COMPLETED AND SCHEDULED MEDS GIVEN PER PROVIDER ORDERS. PT SET UP TO SHOWER INDEPENDENTLY. PT DECLINES TO EAT BREAKFAST. PHYSICAL THERAPY WORKED W/ PT. PT READY TO DISCHARGE WAITING FOR PAPERWORK
--- NOTE | 2021-05-21 11:00 | NUR ---
DISCHARGE INSTRUCTIONS GIVEN TO PT , PT VERBALIZED UNDERSTANDING. PT WILL BE DISCHARGED TO A HOTEL ROOM AND WILL NEED A TAXI RIDE. WILL MAKE SURE ALL OF THIS IS IN PLACE BEFORE PT CAN LEAVE.
== END 2021-05-21 12:50 | disposition home or self-care (01) ==
LOC: ED 06:04 → MS 06:05
PROVIDERS: ADMIT Student in an Organized Health Care Education/Training Program; ATTEND Student in an Organized Health Care Education/Training Program
DX: I63.532 Cerebral infarction due to unspecified 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 (principal); I61.2 Nontraumatic intracerebral hemorrhage in hemisphere, unspecified; H54.61 Unqualified visual loss, right eye, normal vision left eye; R20.2 Paresthesia of skin; I10 Essential (primary) hypertension; R94.31 Abnormal electrocardiogram [ECG] [EKG]; E11.9 Type 2 diabetes mellitus without complications; F31.9 Bipolar disorder, unspecified; F17.200 Nicotine dependence, unspecified, uncomplicated; E78.5 Hyperlipidemia, unspecified; Z20.822 Contact with and (suspected) exposure to COVID-19; Z79.82 Long term (current) use of aspirin; Z79.02 Long term (current) use of antithrombotics/antiplatelets; Z79.84 Long term (current) use of oral hypoglycemic drugs; Z59.0 Homelessness
CPT/HCPCS: 70450; 71045; 80048; 80053; 83735; 85025; 85610; 85730; 93005; 93010; 96374; 97161; 99285-25; C9803; G0378; J0360; Q0177; U0003

== ENCOUNTER 2021-05-30 16:07 | Emergency (ER) | payer OTHER ==
[~2021-05-30] VITALS: Ht 165.1 cm; Wt 82.3 kg
--- OUTSIDE RECORDS SUMMARY | 2021-05-31 00:53 | XMS ---
PreManage Notification: JENNIFER CARNEY Security Customer Service Leader Events 1 event(s) in the past 18 months Most recent security events: Other at [facility] 01/10/2021 15:28 Details: PATIENT LWBS. POLICE. CRITERIA MET - Group Notification - [facility] - 2 Visits in 30 Days - 6 ED Visits in 6 Months - PDMP CARE PROVIDERS SRIDHAR MATTSON Physician Edging Machine Setter 03/07/2021-Current PHONE: Unknown ALISSA BAUER Lock Tender Chief Operator/Presser Machine Current PHONE: [phone] Sukhdev has no Care Guidelines for this patient. Care History Medical/Surgical 03/07/2021 [facility] - PATIENT [facility] AP[facility] WITH [facility]- APT 03/23/21 @ 3:20PM - MEDICAID TRANSPORT NUMBER PROVIDED TO PATIENT - CHW PROVIDED CHW CONTACT NUMBER FOR FUTURE HELP/RESOURCE INFORMATION. - PATIENT CURRENTLY STAYING AT [address] [phone]. E.D. VISIT COUNT (12 MO.) 6 [facility] 1 [facility]NA [facility]so [facility] 7 REYNA Galvan TOTAL 14 NOTE: Visits indicate total known visits. ED/UCC VISIT TRACKING (12 MO.) 05/30/2021 16:07 REYNA Randhawa [place] TYPE: Emergency COMPLAINT: - MEDICAL CLEARANCE 05/20/2021 06:04 RE[facility]NA [facility] [place] TYPE: Emergency COMPLAINT: - WEAKNESS,DIZZINESS 05/02/2021 13:[address] [facility] [place] TYPE: Emergency COMPLAINT: - HEADACHE, BLURRY VISION 03/04/2021 16:16 [facility] [place] [facility] [place] TYPE: Emergency COMPLAINT: - CHEST PAIN DIAGNOSES: - Other terminal operator (current) drug therapy - Pure hypercholesterolemia, unspecified - Essential (primary) hypertension - Nicotine dependence, unspecified, uncomplicated - Type 2 diabetes mellitus without complications - Other chest pain 03/01/2021 19:27 REYNA [facility] [facility]nez [place] TYPE: Emergency COMPLAINT: - SUICIDAL ATTEMPT 02/11/2021 19:47 REYNA FRANK [place] TYPE: Emergency COMPLAINT: - AMB HTN 02/03/2021 17:13 [facility] [place] TYPE: Emergency DIAGNOSES: - Low back pain - MENTAL HEALTH - Pain in right ankle and joints of right foot - Other chronic pain - Pain in left ankle and joints of left foot 01/15/2021 19:48 [facility] [place] TYPE: Emergency DIAGNOSES: - ALCOHOL INTOXICATION - Alcohol use, unspecified with intoxication, uncomplicated 01/10/2021 15:28 REYNA Randhawa [place] TYPE: Emergency COMPLAINT: - MENTAL EVALUATION 12/28/2020 19:56 [facility] [place] TYPE: Emergency DIAGNOSES: - alt mental - Alcohol use, unspecified with intoxication, uncomplicated 12/28/2020 04:48 [facility] [place] TYPE: Emergency DIAGNOSES: - Essential (primary) hypertension - HEADACHE AND NAUSEA - Headache, unspecified 12/23/2020 15:05 [facility] [place] TYPE: Emergency DIAGNOSES: - DELUSIONS - Bipolar disorder, unspecified 12/15/2020 21:33 [facility] [place] TYPE: Emergency DIAGNOSES: - Major depressive disorder, single episode, unspecified - MENTAL HEALTH EVAL 10/16/2020 15:25 REYNA Randhawa [place] TYPE: Emergency COMPLAINT: - INTOXICATION DIAGNOSES: - intermediate school teacher (current) use of insulin - Type 2 diabetes mellitus with hyperglycemia - Alcohol abuse with intoxication, unspecified - Essential (primary) hypertension - Blood alcohol level of 240 mg/100 ml or more - Other terminal operator (current) drug therapy INPATIENT VISIT TRACKING (12 MO.) 05/20/2021 06:05 REYNA Randhawa [place] TYPE: Observation COMPLAINT: - HEMORRAGIC STROKE DIAGNOSES: - Type 2 diabetes mellitus without complications - Homelessness - Unqualified visual loss, right eye, normal vision left eye - nursing home (current) use of oral hypoglycemic drugs - Abnormal electrocardiogram [ECG] [EKG] - Hyperlipidemia, unspecified - Essential (primary) hypertension - Cerebral infarction due to unspecified 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 - nursing home (current) use of aspirin - Paresthesia of skin - Nontraumatic intracerebral hemorrhage in hemisphere, unspecified - intermediate school teacher (current) use of antithrombotics/antiplatelets - Bipolar disorder, unspecified - Nicotine dependence, unspecified, uncomplicated - Nontraumatic intracerebral hemorrhage, unspecified 05/02/2021 18:03 REYNA Randhawa OR TYPE: Medical Surgical COMPLAINT: - STROKE DIAGNOSES: - Homonymous bilateral field defects, right side - NIHSS score 11 - Other psychoactive substance abuse with intoxication, unspecified - Bipolar disorder, unspecified - Other visual disturbances - Other visual disturbances - Anxiety disorder, unspecified - Other specified postprocedural states - Cerebral infarction due to unspecified 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 - Homonymous bilateral field defects, right side - intermediate school teacher (current) use of oral hypoglycemic drugs - Other terminal operator (current) drug therapy - NIHSS score 11 - Type 2 diabetes mellitus without complications - Essential (primary) hypertension - Hyperlipidemia, unspecified - Type 2 diabetes mellitus without complications - Cerebral infarction, unspecified - Sleep apnea, unspecified - intermediate school teacher (current) use of oral hypoglycemic drugs - Other assisted (current) drug therapy - Essential (primary) hypertension - Other psychoactive substance abuse with intoxication, unspecified - Personal history of nicotine dependence - Bipolar disorder, unspecified - Hyperlipidemia, unspecified - Cerebral infarction due to unspecified 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 - Anxiety disorder, unspecified - Personal history of nicotine dependence - Other specified postprocedural states - Sleep apnea, unspecified 03/01/2021 19:28 REYNA Randhawa [place] TYPE: Observation COMPLAINT: - OVERDOSE DIAGNOSES: - Acidosis - Type 2 diabetes mellitus with hypoglycemia without coma - Poisoning by insulin and oral hypoglycemic [antidiabetic] drugs, intentional self-harm, initial encounter - Essential (primary) hypertension - Other terminal operator (current) drug therapy - nursing home (current) use of insulin - Nicotine dependence, unspecified, uncomplicated [email or web address]
--- NOTE | 2021-05-31 22:30 | EKG ---
[facility] [address] [place], [place] [address] Signed Normal sinus rhythm T wave abnormality, consider anterolateral ischemia Abnormal ECG When compared with ECG of 20-MAY-2021 07:21, T wave inversion no longer evident in Lateral leads QT has shortened Confirmed by JENISE FROST DO ([id number]) on 05/31/2021 10:30:26 PM Electronically Signed By: JENISE FROST DO 05/31/212229 PATIENT NAME: JENNIFER CARNEY Electrocardiogram DATE OF : 77 PHYSICIAN: JENISE FROST DO REPORT #: [id number] REPORT IS CONFIDENTIAL AND NOT TO BE RELEASED WITHOUT AUTHORIZATION
== END 2021-05-31 13:18 ==
LOC: ED 16:07
DX: F32.9 Major depressive disorder, single episode, unspecified (principal); F15.10 Other stimulant abuse, uncomplicated; E11.9 Type 2 diabetes mellitus without complications; I10 Essential (primary) hypertension; Z87.891 Personal history of nicotine dependence; Z79.899 Other long term (current) drug therapy; Z79.84 Long term (current) use of oral hypoglycemic drugs; Z20.822 Contact with and (suspected) exposure to COVID-19
CPT/HCPCS: 80053; 81001; 84443; 85025; 93005; 93010; 99285-25; C9803; G0480; J7030; U0003

== ENCOUNTER 2021-07-02 06:46 | Emergency (ER) | payer OTHER ==
[~2021-07-02] VITALS: Ht 165.1 cm; Wt 80.9 kg
--- OUTSIDE RECORDS SUMMARY | 2021-07-02 06:48 | XMS ---
PreManage Notification: JENNIFER CARNEY Security Clinical Research Management Associate Events 1 event(s) in the past 18 months Most recent security events: Other at [facility] 01/10/2021 15:28 Details: PATIENT LWBS. POLICE. CRITERIA MET - Group Notification - PDMP - 6 ED Visits in 6 Months CARE PROVIDERS SRIDHAR MATTSON Physician Physicist [employer]oust[employer] 03/07/2021-Current PHONE: Unknown ALISSA BAUER Drill Hand/Line Fixer Current PHONE: [phone] Sukhdev has no Care Guidelines for this patient. Care History Medical/Surgical 03/07/2021 [facility] - PATIENT HAS AN APT WITH [facility]- APT 03/23/21 @ 3:20PM - MEDICAID TRANSPORT NUMBER PROVIDED TO PATIENT - CHW PROVIDED CHW CONTACT NUMBER FOR FUTURE HELP/RESOURCE INFORMATION. - PATIENT CURRENTLY STAYING AT [address] [phone]. E.D. VISIT COUNT (12 MO.) 6 [facility] 1 REYNA Russo M.C. 8 REYNA Galvan TOTAL 15 NOTE: Visits indicate total known visits. ED/UCC VISIT TRACKING (12 MO.) 07/02/2021 06:47 REYNA Randhawa [place] TYPE: Emergency COMPLAINT: - LEG AND EAR PAIN 05/30/2021 16:07 REYNA Randhawa [place] TYPE: Emergency COMPLAINT: - MEDICAL CLEARANCE DIAGNOSES: - Type 2 diabetes mellitus without complications - Other stimulant abuse, uncomplicated - Major depressive disorder, single episode, unspecified - Personal history of nicotine dependence - Essential (primary) hypertension - director long term care (current) use of oral hypoglycemic drugs - Other parts counterman (current) drug therapy 05/20/2021 06:04 REYNA Randhawa [place] TYPE: Emergency COMPLAINT: - WEAKNESS,DIZZINESS 05/02/2021 13:45 REYNA Randhawa OR TYPE: Emergency COMPLAINT: - HEADACHE, BLURRY VISION 03/04/2021 16:16 REYNA Randhawa [place] TYPE: Emergency COMPLAINT: - CHEST PAIN DIAGNOSES: - Other skilled nursing (current) drug therapy - Pure hypercholesterolemia, unspecified - Essential (primary) hypertension - Nicotine dependence, unspecified, uncomplicated - Type 2 diabetes mellitus without complications - Other chest pain 03/01/2021 19:27 REYNA Randhawa [place] TYPE: Emergency COMPLAINT: - SUICIDAL ATTEMPT 02/11/2021 19:47 REYNA FRANK OR TYPE: Emergency COMPLAINT: - AMB HTN 02/03/2021 17:13 [facility] [place] TYPE: Emergency DIAGNOSES: - Low back pain - MENTAL HEALTH - Pain in right ankle and joints of right foot - Other chronic pain - Pain in left ankle and joints of left foot 01/15/2021 19:48 [employer] [employer] [place] TYPE: Emergency DIAGNOSES: - ALCOHOL INTOXICATION - Alcohol use, unspecified with intoxication, uncomplicated 01/10/2021 15:28 REYNA Randhawa [place] TYPE: Emergency COMPLAINT: - MENTAL EVALUATION 12/28/2020 19:56 [email or web address] DIAGNOSES: - alt mental - Alcohol use, unspecified with intoxication, uncomplicated 12/28/2020 04:48 [email or web address] DIAGNOSES: - Essential (primary) hypertension - HEADACHE AND NAUSEA - Headache, unspecified 12/23/2020 15:05 [email or web address] DIAGNOSES: - DELUSIONS - Bipolar disorder, unspecified 12/15/2020 21:33 [facility] [place] TYPE: Emergency DIAGNOSES: - Major depressive disorder, single episode, unspecified - MENTAL HEALTH EVAL 10/16/2020 15:25 [facility] OR TYPE: Emergency COMPLAINT: - INTOXICATION DIAGNOSES: - director long term care (current) use of insulin - Type 2 diabetes mellitus with hyperglycemia - Alcohol abuse with intoxication, unspecified - Essential (primary) hypertension - Blood alcohol level of 240 mg/100 ml or more - Other skilled nursing (current) drug therapy INPATIENT VISIT TRACKING (12 MO.) 05/20/2021 06:05 REYNA Randhawa [place] TYPE: Observation COMPLAINT: - HEMORRAGIC STROKE DIAGNOSES: - Type 2 diabetes mellitus without complications - Homelessness - Unqualified visual loss, right eye, normal vision left eye - director long term care (current) use of oral hypoglycemic drugs - Abnormal electrocardiogram [ECG] [EKG] - Hyperlipidemia, unspecified - Essential (primary) hypertension - Cerebral infarction due to unspecified 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 - residential (current) use of aspirin - Paresthesia of skin - Nontraumatic intracerebral hemorrhage in hemisphere, unspecified - residential (current) use of antithrombotics/antiplatelets - Bipolar disorder, [...] Homonymous bilateral field defects, right side - residential (current) use of oral hypoglycemic drugs - Other skilled nursing (current) drug therapy - NIHSS score 11 - Type 2 diabetes mellitus without complications - Essential (primary) hypertension - Hyperlipidemia, unspecified - Type 2 diabetes mellitus without complications - Cerebral infarction, unspecified - Sleep apnea, unspecified - director long term care (current) use of oral hypoglycemic drugs - Other skilled nursing (current) drug therapy - Essential (primary) hypertension [...] encounter - Essential (primary) hypertension - Other parts counterman (current) drug therapy - director long term care (current) use of insulin - Nicotine dependence, unspecified, uncomplicated [email or web address]
[2021-07-02] MEDS ORDERED: NEOMYCIN-POLYMY10 M1 OTIC (08:11)
== END 2021-07-02 08:35 | disposition home or self-care (01) ==
LOC: ED 06:46
DX: S91.001A Unspecified open wound, right ankle, initial encounter (principal); H92.03 Otalgia, bilateral; H60.93 Unspecified otitis externa, bilateral; E11.9 Type 2 diabetes mellitus without complications; I10 Essential (primary) hypertension; W26.8XXA Contact with other sharp object(s), not elsewhere classified, initial encounter; Z87.891 Personal history of nicotine dependence; Z79.84 Long term (current) use of oral hypoglycemic drugs; Z79.899 Other long term (current) drug therapy
CPT/HCPCS: 99283

== ENCOUNTER 2021-07-10 23:48 | Emergency (ER) | payer OTHER ==
[~2021-07-10] VITALS: Ht 165.1 cm; Wt 80.9 kg
[~2021-07-10 23:48] MED LIST changes: +NEOMYCIN-POLYMY10 M1 OTIC
--- OUTSIDE RECORDS SUMMARY | 2021-07-10 23:50 | XMS ---
PreManage Notification: JENNIFER CARNEY Security Solar Thermal Installer Events 1 event(s) in the past 18 months Most recent security events: Other at [facility] 01/10/2021 15:28 Details: PATIENT LWBS. POLICE. CRITERIA MET - [facility] - 2 Visits in 30 Days - PDMP - Group Notification - 6 ED Visits in 6 Months - [facility] - Has Care Guidelines CARE PROVIDERS SRIDHAR MATTSON 03/07/2021-Current PHONE: Unknown Jolly Temple Surgical Scrub Tech 07/03/2021-Current PHONE: [phone] [facility] 07/03/2021-[facility] PHONE: [phone] ALISSA BAUER Purification Director/Beveller Operator Current PHONE: [phone] Guidelines Source: [facility] Guidelines Date: 07/04/2021 Care Coordination: Member is currently Enrolled in Mental Health Services through [facility], [facility] ([facility]). Please contact [facility] for mental health concerns:\T\nbsp; \T\nbsp;\T\nbsp; [facility]:\T\nbsp;\T\nbsp;[phone]\T\nbsp; [place]: \T\nbsp; Crisis: [phone] Care History Medical/Surgical 03/07/2021 [facility] - PATIENT HAS AN APT WITH [facility]- APT 03/23/21 @ 3:20PM - MEDICAID TRANSPORT NUMBER PROVIDED TO PATIENT - CHW PROVIDED CHW CONTACT NUMBER FOR FUTURE HELP/RESOURCE INFORMATION. - PATIENT CURRENTLY STAYING AT [address] [phone]. E.D. VISIT COUNT (12 MO.) 8 [facility] 1 REYNA Russo M.C[facility] 9 [facility] TOTAL 18 NOTE: Visits indicate total known visits. ED/UCC VISIT TRACKING (12 MO.) 07/10/2021 23:49 REYNA Randhawa [place] TYPE: Emergency COMPLAINT: - MEDICAL CLEARANCE 07/04/2021 00:[address] [facility] COMPLAINT: - HIP AND ANKLE PAIN DIAGNOSES: - HIP AND ANKLE PAIN 07/03/2021 21:38 [facility] [place] TYPE: Emergency DIAGNOSES: - Other chest pain - ARM AND LEG NUMBNESS WEAKNESS 07/02/2021 06:47 REYNA Randhawa [place] TYPE: Emergency COMPLAINT: - LEG AND EAR PAIN DIAGNOSES: - Unspecified open wound, right ankle, initial encounter - Contact with other sharp object(s), not elsewhere classified, initial encounter - Unspecified open wound, right ankle, initial encounter - Otalgia, bilateral - Homelessness - Type 2 diabetes mellitus without complications - manager terminal (current) use of oral hypoglycemic drugs - Otalgia, bilateral - Essential (primary) hypertension - Personal history of nicotine dependence - Other half-way (current) drug therapy - Unspecified otitis externa, bilateral 05/30/2021 16:07 REYNA Randhawa [place] TYPE: Emergency COMPLAINT: - MEDICAL CLEARANCE DIAGNOSES: - Type 2 diabetes mellitus without complications - Other stimulant abuse, uncomplicated - Major depressive disorder, single episode, unspecified - Personal history of nicotine dependence - Essential (primary) hypertension - manager terminal (current) use of oral hypoglycemic drugs - Other half-way (current) drug therapy 05/20/2021 06:04 REYNA Randhawa [...] Emergency COMPLAINT: - AMB HTN 02/03/2021 17:13 [facility] [place] TYPE: Emergency DIAGNOSES: - Low back pain - MENTAL HEALTH - Pain in right ankle and joints of right foot - Other chronic pain - Pain in left ankle and joints of left foot 01/15/2021 19:48 [facility] [place] TYPE: Emergency DIAGNOSES: - ALCOHOL INTOXICATION - Alcohol use, unspecified with intoxication, uncomplicated 01/10/2021 15:28 REYNA Randhawa [place] TYPE: Emergency COMPLAINT: - MENTAL EVALUATION 12/28/2020 19:56 [facility] [place] TYPE: Emergency DIAGNOSES: - alt mental - Alcohol use, unspecified with intoxication, uncomplicated 12/28/2020 04:48 [facility] [place] TYPE: Emergency DIAGNOSES: - Essential (primary) hypertension - HEADACHE AND NAUSEA - Headache, unspecified 12/23/2020 15:05 [email or web address] [facility] [place] TYPE: Emergency DIAGNOSES: - DELUSIONS - Bipolar disorder, unspecified 12/15/2020 21:33 [facility] [place] TYPE: Emergency DIAGNOSES: - Major depressive disorder, single episode, unspecified - MENTAL HEALTH EVAL 10/16/2020 15:25 REYNA Randhawa [place] TYPE: Emergency COMPLAINT: - INTOXICATION DIAGNOSES: - manager terminal (current) use of insulin - Type 2 diabetes mellitus with hyperglycemia - Alcohol abuse with intoxication, unspecified - Essential (primary) hypertension - Blood alcohol level of 240 mg/100 ml or more - Other buttermaker helper (current) drug therapy INPATIENT VISIT TRACKING (12 [...] stenosis of left posterior cerebral artery - manager terminal (current) use of aspirin - Paresthesia of skin - Nontraumatic intracerebral hemorrhage in hemisphere, unspecified - manager terminal (current) use of antithrombotics/antiplatelets - Bipolar disorder, [...] Homonymous bilateral field defects, right side - manager terminal (current) use of oral hypoglycemic drugs - Other buttermaker helper (current) drug therapy - NIHSS score 11 - Type 2 diabetes mellitus without complications - Essential (primary) hypertension - Hyperlipidemia, unspecified - Type 2 diabetes mellitus without complications - Cerebral infarction, unspecified - Sleep apnea, unspecified - manager terminal (current) use of oral hypoglycemic drugs - Other buttermaker helper (current) drug therapy - Essential (primary) hypertension [...] - Other half-way (current) drug therapy - nursing home (current) use of insulin - Nicotine dependence, unspecified, uncomplicated [email or web address]
== END 2021-07-11 03:00 | disposition home or self-care (01) ==
LOC: ED 23:48
DX: I10 Essential (primary) hypertension (principal); G93.89 Other specified disorders of brain; E11.9 Type 2 diabetes mellitus without complications; Z87.891 Personal history of nicotine dependence; Z79.84 Long term (current) use of oral hypoglycemic drugs; Z79.899 Other long term (current) drug therapy
CPT/HCPCS: 70450; 80053; 85025; 99284-25

== ENCOUNTER 2021-07-24 13:52 | Emergency (ER) | payer OTHER ==
[~2021-07-24] VITALS: Ht 165.1 cm; Wt 80.9 kg
--- OUTSIDE RECORDS SUMMARY | 2021-07-24 14:52 | XMS ---
PreManage Notification: JENNIFER CARNEY Security Flatwork Ironer Events 1 event(s) in the past 18 months Most recent security events: Other at [facility] 01/10/2021 15:28 Details: PATIENT LWBS. POLICE. CRITERIA MET - [facility] - 2 Visits in 30 Days - [facility] - Has Care Guidelines - 6 ED Visits in 6 Months - [facility] CARE PROVIDERS SRIDHAR MATTSON Physician 03/07/2021-Current PHONE: Unknown ANGEL TRIPATHI Nurse Practitioner: 07/11/2021-Current PHONE: [phone] Jolly Temple Drawer In Jacquard Loom 07/03/2021-Current PHONE: [phone] [employer] [facility] Psych[facility]idential Treatment Facility 07/12/2021-Current PHONE: [phone] [facility]: Health Service 07/03/2021-[facility] \[facility] PHONE: [phone] ALISSA BAUER Campaign Consultant/Ironworker Current PHONE: [phone] Guidelines Source: [employer] [facility] [place] Guidelines Date: 07/04/2021 Care Coordination: Member is currently Enrolled in Mental Health Services through [employer], Assertive Community Treatment (ACT). Please contact [employer] for mental health concerns:\T\nbsp; \T\nbsp;\T\nbsp; Marlo/Luis Manuel Guerre[place]:\T\nbsp;\T\nbsp;[phone]\T\nbsp; [place]: \T\nbsp; Crisis: [phone] Care History Medical/Surgical 03/07/2021 [facility] - PATIENT HAS AN APT WITH [facility]- APT 06/17/21 @ 3:20PM - MEDICAID TRANSPORT NUMBER PROVIDED TO PATIENT - CHW PROVIDED CHW CONTACT NUMBER FOR FUTURE HELP/RESOURCE INFORMATION. - PATIENT CURRENTLY STAYING AT [address] [phone]. EEmelina VISIT COUNT (12 MO.) [address] [place] [address] 1 REYNA Russo M.C. 10 RYENA Galvan TOTAL 23 NOTE: Visits indicate total known visits. 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 07/14/2021 03:09 [employer] [place] [facility] OR TYPE: Emergency DIAGNOSES: - Other chest pain - chest pain 07/13/2021 03:55 [facility] [place] OR TYPE: Emergency DIAGNOSES: - Essential (primary) hypertension - SORE ON ANKLE - Non-pressure chronic ulcer of skin of other sites limited to breakdown of skin 07/11/2021 18:24 [employer] [place] [facility] [place] TYPE: Emergency DIAGNOSES: - Alcohol use, unspecified with intoxication, uncomplicated - INTOXICATION 07/10/2021 23:49 REYNA Randhawa [place] TYPE: Emergency COMPLAINT: - MEDICAL CLEARANCE DIAGNOSES: - Other specified disorders of brain - Other long term care social worker (current) drug therapy - Essential (primary) hypertension - Personal history of nicotine dependence - Type 2 diabetes mellitus without complications - FDC (current) use of oral hypoglycemic drugs 07/04/2021 00:49 [facility] OR TYPE: Emergency COMPLAINT: - HIP AND ANKLE PAIN DIAGNOSES: - HIP AND ANKLE PAIN 07/03/2021 21:38 [facility] OR TYPE: Emergency DIAGNOSES: - Other chest [...] Type 2 diabetes mellitus without complications - ferry terminal agent (current) use of oral hypoglycemic drugs - Otalgia, bilateral - Essential (primary) hypertension - Personal history of nicotine dependence - Other fci (current) drug therapy - Unspecified otitis externa, bilateral 05/30/2021 16:07 REYNA Randhawa [place] TYPE: Emergency COMPLAINT: - MEDICAL CLEARANCE DIAGNOSES: - Type 2 diabetes mellitus without complications - Other stimulant abuse, uncomplicated - Major depressive disorder, single episode, unspecified - Personal history of nicotine dependence - Essential (primary) hypertension - ferry terminal agent (current) use of oral hypoglycemic drugs - Other long term care social worker (current) drug therapy 05/20/2021 06:04 REYNA Randhawa [place] TYPE: Emergency COMPLAINT: - WEAKNESS,DIZZINESS 05/02/2021 13:45 REYNA Randhawa [place] TYPE: Emergency COMPLAINT: - HEADACHE, BLURRY VISION 03/04/2021 16:16 REYNA Randhawa [place] TYPE: Emergency COMPLAINT: - CHEST PAIN DIAGNOSES: - Other long term care social worker (current) drug therapy - Pure hypercholesterolemia, unspecified - Essential (primary) hypertension - Nicotine dependence, unspecified, uncomplicated - Type 2 diabetes mellitus without complications - Other chest pain 03/01/2021 19:27 REYNA Randhawa [place] TYPE: Emergency COMPLAINT: - SUICIDAL ATTEMPT 02/11/2021 19:47 REYNA FRANK [place] TYPE: Emergency COMPLAINT: - AMB HTN 02/03/2021 17:13 [facility] OR TYPE: Emergency DIAGNOSES: - Low back pain - MENTAL HEALTH - Pain in right ankle and joints of right foot - Other chronic pain - Pain in left ankle and joints of left foot 01/15/2021 19:48 [facility] OR TYPE: Emergency DIAGNOSES: - ALCOHOL INTOXICATION - Alcohol use, unspecified with intoxication, uncomplicated 01/10/2021 15:28 REYNA Randhawa [place] TYPE: Emergency COMPLAINT: - MENTAL EVALUATION 12/28/2020 19:56 [facility] [place] TYPE: Emergency DIAGNOSES: - alt mental - Alcohol use, unspecified with intoxication, uncomplicated 12/28/2020 04:48 [facility] [place] TYPE: Emergency DIAGNOSES: - Essential (primary) hypertension - HEADACHE AND NAUSEA - Headache, unspecified Plus 3 More Visits INPATIENT VISIT TRACKING (12 MO.) 05/20/2021 06:05 REYNA Randhawa [place] TYPE: Observation COMPLAINT: - HEMORRAGIC STROKE DIAGNOSES: - Type 2 diabetes mellitus without complications - Homelessness - Unqualified visual loss, right eye, normal vision left eye - ferry terminal agent (current) use of oral hypoglycemic drugs - Abnormal electrocardiogram [ECG] [EKG] - Hyperlipidemia, unspecified - Essential (primary) hypertension - Cerebral infarction due to unspecified 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 - FDC (current) use of aspirin - Paresthesia of skin - Nontraumatic intracerebral hemorrhage in hemisphere, unspecified - ferry terminal agent (current) use of antithrombotics/antiplatelets - Bipolar disorder, [...] Homonymous bilateral field defects, right side - ferry terminal agent (current) use of oral hypoglycemic drugs - Other fci (current) drug therapy - NIHSS score 11 - Type 2 diabetes mellitus without complications - Essential (primary) hypertension - Hyperlipidemia, unspecified - Type 2 diabetes mellitus without complications - Cerebral infarction, unspecified - Sleep apnea, unspecified - FDC (current) use of oral hypoglycemic drugs - Other long term care social worker (current) drug therapy - Essential (primary) hypertension [...] encounter - Essential (primary) hypertension - Other fci (current) drug therapy - ferry terminal agent (current) use of insulin - Nicotine dependence, unspecified, uncomplicated [email or web address]
--- NOTE | 2021-07-27 18:12 | EKG ---
[facility] [address] [facility] [place] [address] Signed Normal sinus rhythm Prolonged QT Abnormal ECG When compared with ECG of 30-MAY-2021 16:56, T wave inversion no longer evident in Anterior leads QT has lengthened Confirmed by HILLARY CADET MD ([id number]) on 07/27/2021 6:12:21 PM Electronically Signed By: HILLARY CADET MD 07/27/211811 PATIENT NAME: JENNIFER CARNEY Electrocardiogram DATE OF : 77 PHYSICIAN: HILLARY CADET MD REPORT #: [id number] REPORT IS CONFIDENTIAL AND NOT TO BE RELEASED WITHOUT AUTHORIZATION
== END 2021-07-24 18:08 | disposition home or self-care (01) ==
LOC: ED 13:52
DX: F10.129 Alcohol abuse with intoxication, unspecified (principal); R07.9 Chest pain, unspecified; E11.9 Type 2 diabetes mellitus without complications; I10 Essential (primary) hypertension; Y90.8 Blood alcohol level of 240 mg/100 ml or more; Z87.891 Personal history of nicotine dependence
CPT/HCPCS: 71045; 80053; 84484; 85025; 93005; 93010; 99285-25; G0480

== ENCOUNTER 2022-06-26 22:48 | Emergency (ER) | payer OTHER ==
[~2022-06-26] VITALS: Ht 165.1 cm; Wt 80.9 kg
--- OUTSIDE RECORDS SUMMARY | 2022-06-26 22:56 | XMS ---
PreManage Notification: JENINFER CARNEY Security Cut And Cover Line Worker Events 1 event(s) in the past 18 months Most recent security events: Other at [facility] 01/10/2021 15:28 Details: PATIENT LWBS. POLICE. CRITERIA MET - [facility] - 2 Visits in 30 Days - 6 ED Visits in 6 Months - [facility] - Has Care Guidelines CARE PROVIDERS SRIDHAR MATTSON Physician 03/07/2021-Current PHONE: Unknown ANGEL TRIPATHI Nurse Practitioner: 07/11/2021-Current PHONE: [phone] AR BERKOWITZ Wash Crew Person 07/03/2021-Current PHONE: [phone] [employer] [facility] Psychiatric Residential Treatment Facility 07/12/2021-Current PHONE: [phone] [facility]: Health Service 07/03/2021-[facility] \\ [facility] PHONE: [phone] ALISSA BAUER Counselor: Addiction (Substance Use Disorder) Current PHONE: [phone] Guidelines Source: [employer] [facility] [place] Guidelines Date: 07/04/2021 Care Coordination: Member is currently Enrolled in Mental Health Services through [employer], Assertive Community Treatment (ACT). Please contact [employer] for mental health concerns:\T\nbsp; \T\nbsp;\T\nbsp; Marlo/Luis Manuel Guerrero:\T\nbsp;\T\nbsp;[phone]\T\nbsp; Dinora: \T\nbsp; Crisis: [phone] Care History Medical/Surgical 03/07/2021 [facility] - PATIENT HAS AN APT WITH [facility]- APT 03/23/21 @ 3:20PM - MEDICAID TRANSPORT NUMBER PROVIDED TO PATIENT - CHW PROVIDED CHW CONTACT NUMBER FOR FUTURE HELP/RESOURCE INFORMATION. - PATIENT CURRENTLY STAYING AT [address] [phone]. EEmelina VISIT COUNT (12 MO.) [address] [place] [address] REYNA Galvan TOTAL 21 NOTE: Visits indicate total known visits. ED/UCC VISIT TRACKING (12 MO.) 06/26/2022 22:49 REYNA Randhawa [place] TYPE: Emergency COMPLAINT: - MENTAL HEALTH CRISIS 06/13/2022 02:15 [facility] OR TYPE: Emergency DIAGNOSES: - Blister (nonthermal), left foot, subsequent encounter - MENTAL HEALTH - Blister (nonthermal), right foot, initial encounter - Sunburn of first degree 06/12/2022 21:56 [facility] OR TYPE: Emergency COMPLAINT: - FOOT PAIN DIAGNOSES: - FOOT PAIN 06/10/2022 05:10 [facility] OR TYPE: Emergency DIAGNOSES: - Chest pain, unspecified - Other stimulant abuse, uncomplicated - CHEST PAIN - Tinea pedis 04/25/2022 18:29 [facility] OR TYPE: Emergency DIAGNOSES: - Cellulitis of right toe - heel pain 04/23/2022 12:41 [facility] [place] OR TYPE: Emergency DIAGNOSES: - Other stimulant abuse, uncomplicated - Schizoaffective disorder, unspecified - GENERAL 11/06/2021 09:50 [employer] [facility] [place] OR TYPE: Emergency DIAGNOSES: - Periorbital cellulitis - LEFT EYE SWELLING 10/30/2021 15:19 [facility] [place] OR TYPE: Emergency DIAGNOSES: - Unspecified injury of head, initial encounter - GROUND LEVEL FALL 10/24/2021 23:45 [employer] [place] OR TYPE: Emergency DIAGNOSES: - Diseases of lips - THROAT PAIN - Rhabdomyolysis - COVID-19 - Acute pharyngitis, unspecified 10/14/2021 01:16 [facility] OR TYPE: Emergency DIAGNOSES: - headache - COVID-19 10/13/2021 11:09 [facility] OR TYPE: Emergency DIAGNOSES: - COVID-19 - DIZZY 08/03/2021 12:58 [facility] OR TYPE: Emergency DIAGNOSES: - Chest pain, unspecified - MENTAL HEALTH 07/24/2021 13:52 REYNA Randhawa [place] TYPE: Emergency COMPLAINT: - CHEST PAIN DIAGNOSES: - Alcohol abuse with intoxication, unspecified - Essential (primary) hypertension - Personal history of nicotine dependence - Chest pain, unspecified - Blood alcohol level of 240 mg/100 ml or more - Type 2 diabetes mellitus without complications 07/16/2021 05:38 [employer] OR TYPE: Emergency DIAGNOSES: - NAUSEA - 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 - Generalized abdominal pain 07/14/2021 03:09 [employer] OR TYPE: Emergency DIAGNOSES: - chest pain - Other chest pain 07/13/2021 03:55 [employer] [place] TYPE: Emergency DIAGNOSES: - SORE ON ANKLE - Non-pressure chronic ulcer of skin of other sites limited to breakdown of skin - Essential (primary) hypertension 07/11/2021 18:24 [employer] OR TYPE: Emergency DIAGNOSES: - INTOXICATION - Alcohol use, unspecified with intoxication, uncomplicated 07/10/2021 23:49 REYNA Randhawa [place] TYPE: Emergency COMPLAINT: - MEDICAL CLEARANCE DIAGNOSES: - Other group home (current) drug therapy - Type 2 diabetes mellitus without complications - Essential (primary) hypertension - Other specified disorders of brain - watermaster (current) use of oral hypoglycemic drugs - Personal history of nicotine dependence [facility]04/2021 00:[facility] COMPLAINT: - HIP AND ANKLE PAIN DIAGNOSES: - HIP AND ANKLE PAIN 07/03/2021 21:38 [employer] [place] OR TYPE: Emergency DIAGNOSES: - ARM AND LEG NUMBNESS WEAKNESS - Other chest pain Plus 1 More Visit INPATIENT VISIT TRACKING (12 MO.) No inpatient visits to display in this time frame [email or web address]
[2022-06-27] MEDS ORDERED: SEROQUEL100 MG PO (01:29)
[2022-06-27] MEDS ORDERED: LISINOPRIL10 MG PO (01:29)
[2022-06-27] MEDS ORDERED: METFORMIN HCL500 MG PO (01:29)
== END 2022-06-27 02:23 | disposition home or self-care (01) ==
LOC: ED 22:48
DX: F41.9 Anxiety disorder, unspecified (principal); I10 Essential (primary) hypertension; E11.9 Type 2 diabetes mellitus without complications; Z87.891 Personal history of nicotine dependence; F32.A Depression, unspecified
CPT/HCPCS: 36415; 80053; 81001; 85025; 99283; A9270; A9270-GY

== ENCOUNTER 2022-06-29 03:48 | Emergency (ER) | payer OTHER ==
[~2022-06-29] VITALS: Ht 165.1 cm; Wt 80.9 kg
[~2022-06-29 03:48] MED LIST changes: +LISINOPRIL10 MG PO; +SEROQUEL100 MG PO
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
--- NOTE | 2022-06-30 20:59 | EKG ---
[facility] [address] [facility] [place] [address] Signed Normal sinus rhythm Prolonged QT Abnormal ECG When compared with ECG of 24-JUL-2021 14:01, No significant change was found Confirmed by Miquel Ferreira MD () on 06/30/2022 8:59:23 PM Electronically Signed By: MIQUEL FERREIRA MD 06/30/222058 PATIENT NAME: JENNIFER CARNEY Electrocardiogram DATE OF : 77 PHYSICIAN: MIQUEL FERREIRA MD REPORT #: [id number] REPORT IS CONFIDENTIAL AND NOT TO BE RELEASED WITHOUT AUTHORIZATION
== END 2022-06-29 12:28 | disposition home or self-care (01) ==
LOC: ED 03:48
DX: F10.129 Alcohol abuse with intoxication, unspecified (principal); E11.9 Type 2 diabetes mellitus without complications; I10 Essential (primary) hypertension; Z87.891 Personal history of nicotine dependence; Z79.899 Other long term (current) drug therapy; Z79.84 Long term (current) use of oral hypoglycemic drugs
CPT/HCPCS: 36415; 51701; 70450; 71045; 80053; 84484; 85025; 93005; 93010; 99285-25; G0480; J2060; J7030

== ENCOUNTER 2022-07-19 01:51 | Emergency (ER) | payer OTHER ==
[~2022-07-19] VITALS: Ht 165.1 cm; Wt 80.7 kg
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
[2022-07-19] MEDS ORDERED: TYLENOL EXTRA500 MG PO (02:56)
== END 2022-07-19 03:34 | disposition home or self-care (01) ==
LOC: ED 01:51
DX: L84 Corns and callosities (principal); E11.9 Type 2 diabetes mellitus without complications; I10 Essential (primary) hypertension; Z87.891 Personal history of nicotine dependence; Z79.899 Other long term (current) drug therapy; Z79.84 Long term (current) use of oral hypoglycemic drugs
CPT/HCPCS: 99283; A9270